=== PATIENT | female | born 1960 | race Two or more races ===

== ENCOUNTER 2021-08-12 10:11 | Emergency (ER) | payer OTHER, SELFPAY ==
--- NOTE | ~2021-08-12 | CT_ITS ---
EXAMINATION: CT HEAD WITHOUT CONTRAST CLINICAL INFORMATION: Trauma COMPARISON: CT head from 07/07/2019 TECHNIQUE: Contiguous axial imaging was performed from the skull base to vertex without intravenous administration of contrast. This CT examination was performed using dose optimization techniques as appropriate, variously including the following: *Automated exposure control *Adjustment of mA and/or kV according to patient size (this includes techniques or standardized protocols for targeted exams where dose is matched to indication/reason for exam; i.e. extremities or head) *Use of iterative reconstruction technique DLP: 1259 mGy-cm FINDINGS: There is no evidence of acute intracranial hemorrhage or territorial infarction. No abnormal mass effect or midline shift is seen. [place] to white matter differentiation is well preserved. No extra-axial fluid collections are identified. The ventricles are normal in size. There is no abnormal attenuation within the brain parenchyma. Soft tissue edema overlying the right frontal bone and midline without underlying bony defect. The osseous structures and soft tissues are normal. The mastoid air cells and visualized portions of the paranasal sinuses are well aerated. CT/CT cervical spine wo con IMPRESSION: 1. No acute intracranial pathology. 2. Soft tissue edema overlying the right frontal bone and midline without underlying bony defect. EXAMINATION: Noncontrast CT scan of the cervical spine. INDICATION: Trauma COMPARISON: CT cervical spine from 08/03/2019 TECHNIQUE: Helical, multidetector axial images were obtained from the occiput to the upper thorax. Coronal and sagittal reformats of the cervical spine were provided for interpretation. DLP: 1259 mGy-cm FINDINGS: No acute fractures or dislocations of the cervical spine are seen. Straightening of the normal cervical curvature which may be secondary to patient positioning versus muscle spasm. Mild multilevel degenerative changes. Anatomic alignment and positioning of the vertebral bodies and posterior elements is noted. The atlantoaxial joint and craniovertebral articulations are normal without evidence of subluxation. There is no prevertebral soft tissue swelling. The thyroid gland and visualized portions of the lung apices and mediastinum are unremarkable. IMPRESSION: 1. No acute visible fracture or dislocation. 2. Straightening of the normal cervical curvature which may be secondary to patient positioning versus muscle spasm. 3. Mild multilevel degenerative changes.
--- NOTE | 2021-08-12 10:21 | ED.HA ---
HPI - Headache General Chief Complaint: Head Injury Stated Complaint: HEADACHE S/P FALL 2 DAYS AGO Time Seen by Provider: 08/12/21 10:21 Source: patient Mode of arrival: EMS Limitations: no limitations History of Present Illness HPI Narrative: 60-year-old female presents from [facility] for headache after head trauma patient states that August 07 she took muscle relaxants, sleeping pills, cocaine, oxycodone, and went to sleep, woke up to use the bathroom, and fell down approximately 7 stairs hitting her head on the floor. Patient states she was dizzy, denies loss of consciousness. Was able to make it back into bed, and was admitted to [facility] August 09 for opiate detox. States for the last 3 days she has had a bad headache that is gradual in onset, and now is constant. The lights bother her, and she feels foggy. States the pain is now an 8/10. States she was told it was a sinusitis, but denies upper respiratory symptoms, nasal discharge. Patient states she has chronic nausea, no recent vomiting. Patient has no diabetic symptoms, no increased thirst, increased urination, increased hunger. per note from your [place], patient is discharged from [facility] and needs medical clearance with CT scan, and may call back for readmission once she is medically cleared. Patient is diabetic, and a past medical history includes fibromyalgia and depression. States her blood sugar usually runs 140. Related Data Allergies Allergy/AdvReac Type Severity Reaction Status Date / Time cephalexin [Keflex] Allergy Unknown Verified 05/09/19 00:00 From Keflex Allergy Severe ANAPHYLAXIS- Uncoded 11/21/19 15:12 SWELLING;PCN/AMOX TOLERATED Review of Systems Constitutional: Constitutional: Denies body ache(s), Denies chills, Denies fatigue, Denies fever(s), Reports headache(s), Denies malaise and Denies weakness Eyes: Eyes: Denies blurry vision, Denies change in vision and Denies diplopia ENT: Reports Normal hearing present, Denies vertigo, Reports dizziness, Denies otalgia, Reports headache(s), Denies mouth pain, Denies post nasal drip, Denies sinus pain, Denies sinus pressure, Denies sore throat and Denies throat swelling Cardiovascular: Cardiovascular: Denies chest pain, Denies syncope, Denies leg edema, Denies lightheadedness, Denies Loss of Consciousness, Denies palpitations and Denies dyspnea Respiratory: Respiratory: Denies chest congestion, Denies cough and Denies dyspnea Gastrointestinal: Gastrointestinal: Denies abdominal pain, Denies hematochezia, Denies constipation, Denies diarrhea, Reports nausea (chronic) and Denies vomiting Musculoskeletal: Musculoskeletal: Reports no additional musculoskeletal complaints Neurologic: Reports Normal hearing present, Denies Abnormal speech present, Denies confusion, Denies vertigo, Reports dizziness, Denies syncope, Reports headache(s), Denies Sensory deficit (Neuro) and Denies weakness Psychiatric: Psychiatric: Denies anxiety, Denies confusion and Denies depression Endocrine: Endocrine: Denies fatigue and Denies palpitations Allergic/Immunologic: Allergic/Immunologic: Denies throat swelling PMFSH Social History Social History Advance Directives: No Advance Directives Information Provided: No Physical Exam Vital Signs: Vital Signs: Last Vital Signs Temp 98.0 F 08/12/21 10:37 Pulse 72 08/12/21 10:37 Resp 16 08/12/21 10:37 BP 140/62 H 08/12/21 10:37 Pulse Ox 98 08/12/21 10:37 O2 Del Method 08/12/21 10:37 BMI result Body Mass Index 24.2 Const: General: No confusion Nutritional Appearance: well nourished Orientation/consciousness: patient oriented x3 and No confusion Limitations: no limitations HEENT: Head: Yes normal to inspection, Yes normocephalic and Yes atraumatic Ears: hearing grossly normal bilaterally, external ears normal, TM's normal bilaterally and EAC's normal General nose exam: Normal external nose present Face and sinus: Yes normal facial exam and Yes sinuses nontender Mouth: Normal oral and palatal mucosa present Throat: Yes posterior oropharynx normal Eyes: Conjunctivae: conjunctivae normal Pupils: Equal, round and reactive pupils present EOM: EOMs intact bilaterally and No Nystagmus present Neck: Neck: Yes full ROM, Yes no lymphadenopathy and Yes supple Resp: Effort & Inspection: normal respiratory effort and able to speak in complete sentences Auscultation: clear to auscultation bilaterally, no crackles, no rales, no rhonchi and no wheezes Cardio: Rate: regular rate Rhythm: regular rhythm Heart sounds: S1 normal heart sound present and S2 normal heart sound present GI: Inspection: Yes normal to inspection Palpation (GI): Soft to palpation, nontender, no guarding and not rigid Percussion: Yes normal to percussion Auscultation: normal bowel sounds Skin: General skin exam: no rashes or lesions noted Neuro: General: patient oriented x3, gait normal and No confusion Cranial nerves: Yes CN's II-XII intact bilaterally, Yes Facial sensation intact/muscles of mastication intact, Yes Equal, round and reactive pupils present, Yes Normal accommodation reflex present, Yes Bilaterally intact EOM present, Yes Nystagmus not present, Yes Normal facial strength present, Yes Midline tongue present, Yes Normal hearing present, Yes Ability to bilaterally rotate head present, Yes Ability to bilaterally elevate shoulders present and No Nystagmus present Cognition (Neuro): normal cognition Speech: No Abnormal speech present Gait exam (Neuro): Normal gait present Motor exam (neuro): 5/5 motor strength present throughout and Pronator motor function not present Sensory Exam: No Sensory deficit (Neuro) Deep tendon reflexes (DTR's): Right brachioradialis reflex intensity grade: 1+, Left brachioradialis reflex intensity grade: 1+, Right patellar reflex intensity grade: 1+ and Left patellar reflex intensity grade: 1+ Coordination: [id number] test normal, [id number] test normal and tandem gait normal Romberg Test: Negative Pupils: Normal pupillary reactivity/response: bilateral Extrem: General: Yes normal to inspection and Yes full ROM Psych: Appearance: grossly normal Affect: normal affect Attitude: cooperative Thought process: Normal thought process present Course Course Course Narrative: 60-year-old female here from [facility] for head trauma 5 days ago. Patient is at [facility] for opiate and stimulant use order. [facility] requires head CT for medical clearance for re-admission. On exam, vital signs are stable, blood pressure is normotensive,patient is complaining of 8/10 gradual onset headache, patient is completely neurological we intact, no cervical spine tenderness. Patient has mild tenderness bilaterally in her cervical neck muscles Blood sugar per EMS was 405. will get labs, give fluids, get head and neck CT. Treating headache with Reglan, Benadryl, Tylenol. Once patient is medically cleared, will consult care team for readmission back to [facility] Reevaluation(s) Reevaluation #1: after L of fluids, patient's blood sugar is 155. CBC and CMP are within normal limits, awaiting results of head CT Reevaluation #2: CT/CT head/brain wo con IMPRESSION: 1.? No acute intracranial pathology. 2.? Soft tissue edema overlying the right frontal bone and midline without underlying bony defect. IMPRESSION: 1.? No acute visible fracture or dislocation. 2.? Straightening of the normal cervical curvature which may be secondary to patient positioning versus muscle spasm. 3.? Mild multilevel degenerative changes. patient's headache is now a 09/12, will treat with ketorolac now that we know that there is no intracranial hemorrhage, will treat headache with ketorolac, and muscle spasm with Flexeril and discharge back to [facility] - Headache Lab Data Result diagrams: 08/12/21 11:09 08/12/21 11:10 Labs: Lab Results 08/12/21 08/12/21 08/12/21 Range/Units 11:09 11:10 13:59 WBC 6.5 (4.8-10.8) X10*3/uL RBC 4.20 (4.20-5.50) X10*6/uL Hgb 11.7 L (12.0-16.0) g/dl Hct 37.0 (37.0-47.0) % MCV 88.1 (80.0-98.0) fL MCH 27.9 (27.0-33.0) pg MCHC 31.6 (31.0-35.0) g/dl RDW 14.7 (11.0-16.0) % Plt Count 195 (160-400) X10*3/uL MPV 9.4 (9.4-12.3) fL Immature Gran % (Auto) 0.5 H (0.0-0.4) % Neut % (Auto) 55.1 (45-73) % Lymph % (Auto) 33.1 (20-40) % Angelina % (Auto) 9.1 (2-11) % Eos % (Auto) 1.7 (0-4) % Baso % (Auto) 0.5 (0-2) % Lymph # (Auto) 2.1 (1.2-4.9) X10*3/uL Angelina # (Auto) 0.6 (0.1-1.2) X10*3/uL Eos # (Auto) 0.1 (0.0-0.4) X10*3/uL Baso # (Auto) 0.0 (0.0-0.2) X10*3/uL Abs Immat Gran (auto) 0.03 (0.00-0.03) X10*3/uL Absolute Neuts (auto) 3.6 (2.0-8.3) x10*3/uL Absolute Nucleated RBC 0.000 (0.0-0.012) X10*3/uL Nucleated RBC % (auto) 0.0 (0.0-0.2) /100WBC Sodium 140 (135-145) mmol/L Potassium 3.7 (3.3-5.1) mmol/L Chloride 108 (96-108) mmol/L Carbon Dioxide 27 (22-29) mmol/L Anion Gap 9 L (12-20) BUN 14 (9-16) mg/dL Creatinine 0.90 (0.5-1.4) mg/dL Estim Creat Clear Calc 61.4 Estimated GFR > 60 POC Glucose 155 H (60-115) mg/dL Random Glucose 315 H (60-115) mg/dL Calcium 8.6 (8.4-10.2) mg/dL Total Bilirubin 0.3 (0.0-1.0) mg/dL AST 26 (5-31) U/L ALT 25 (0-31) U/L Alkaline Phosphatase 56 (39-117) U/L Total Protein 5.5 L (6.5-8.0) g/dL Albumin 3.6 (3.5-5.0) g/dL Discharge Plan Discharge Clinical Impression: Closed head injury, Hematoma, Cervical muscle strain, Concussion Patient Disposition: Home, Self-Care Instructions: Concussion (ED) Additional Instructions: your head CT and neck CT were negative. Please take Tylenol and ibuprofen. please return to emergency room for any new or concerning symptoms
[2021-08-12 10:37] VITALS: BP 140/62; BP 96/71; PULSE 72; PULSE 80; RESP 16; TEMP 36.7; O2SAT 100; O2SAT 98; BMI 24.2
[2021-08-12] MEDS: 0.9 % Sodium Chloride 1,000 ML 999 ML IV (11:08)
[2021-08-12] MEDS: Acetaminophen 325 MG TABLET 975 MG PO (11:12)
[2021-08-12 11:13] LABS: MANUAL DIFF FLAG NO
[2021-08-12 11:18] LABS: Basophils Percent Auto 0.5 % (0-2); Eosinophils Absolute Auto 0.1 X10*3/uL (0.0-0.4); Eosinophils Percent Auto 1.7 % (0-4); Hemoglobin 11.7 g/dl (12.0-16.0); Imm Gran Abs Auto 0.03 X10*3/uL (0.00-0.03); Imm Gran Pct Auto 0.5 % (0.0-0.4); Lymphocytes Absolute Auto 2.1 X10*3/uL (1.2-4.9); Lymphocytes Percent Auto 33.1 % (20-40); Mean Corpuscular HGB Conc 31.6 g/dl (31.0-35.0); Mean Corpuscular Hemoglobin 27.9 pg (27.0-33.0); Mean Corpuscular Volume 88.1 fL (80.0-98.0); Mean Platelet Volume 9.4 fL (9.4-12.3); Monocytes Absolute Auto 0.6 X10*3/uL (0.1-1.2); Monocytes Percent Auto 9.1 % (2-11); Neutrophils Absolute Auto 3.6 x10*3/uL (2.0-8.3); Neutrophils Percent Auto 55.1 % (45-73); Platelet Count 195 X10*3/uL (160-400); Red Cell Distribution Width 14.7 % (11.0-16.0); White Blood Count 6.5 X10*3/uL (4.8-10.8)
[2021-08-12] MEDS: diphenhydrAMINE HCL 50 MG/ML VIAL 25 MG IVPUSH (11:21)
[2021-08-12] MEDS: Metoclopramide HCl 10 MG/2 ML VIAL IVPUSH (11:21)
[2021-08-12 11:35] LABS: Alanine Aminotransferase 25 U/L (0-31); Albumin Level 3.6 g/dL (3.5-5.0); Alkaline Phosphatase 56 U/L (39-117); Anion Gap 9 (12-20); Aspartate Amino Transferase 26 U/L (5-31); Bilirubin Total 0.3 mg/dL (0.0-1.0); Blood Urea Nitrogen 14 mg/dL (9-16); Calcium 8.6 mg/dL (8.4-10.2); Carbon Dioxide 27 mmol/L (22-29); Chloride 108 mmol/L (96-108); Creatinine Clr Calc Pharmacy 61.4; Estimated Glomerular Filt Rate > 60; Glucose Random 315 mg/dL (60-115); Potassium 3.7 mmol/L (3.3-5.1); Sodium 140 mmol/L (135-145); Total Protein 5.5 g/dL (6.5-8.0)
[2021-08-12 14:03] LABS: Glucose, Whole Blood 155 mg/dL (60-115)
[2021-08-12] MEDS: Cyclobenzaprine HCl 10 MG TABLET PO (16:14)
[2021-08-12] MEDS: Ketorolac Tromethamine 15 MG/ML VIAL IM (16:15)
--- NOTE | 2021-08-12 16:21 | MHC.CARE ---
Janee from [facility] called to coordinate patient returning to detox, would like her at 5:15pm CARE Team to arrange LYFT
== END 2021-08-12 16:42 | disposition home or self-care (01) ==
PROVIDERS: Physician Assistant; Emergency Provider Emergency Medicine; PCP Nurse Practitioner Family
DX: S06.0X0A Concussion without loss of consciousness, initial encounter (principal); S00.83XA Contusion of other part of head, initial encounter; S16.1XXA Strain of muscle, fascia and tendon at neck level, initial encounter; W10.8XXA Fall (on) (from) other stairs and steps, initial encounter; R51.9 Headache, unspecified; Y93.89 Activity, other specified; Y92.9 Unspecified place or not applicable; Y99.9 Unspecified external cause status
CPT/HCPCS: 36415; 70450; 72125; 80053; 82947; 85025; 96361; 96372; 96374; 96375; 99284; J1200; J1885; J2765

== ENCOUNTER → 2021-10-04 14:45 | Outpatient (BNVA) | payer OTHER, SELFPAY | PROVIDERS: PCP Nurse Practitioner Family; Visit Provider Anesthesiology | DX: M79.7 Fibromyalgia (principal); M47.812 Spondylosis without myelopathy or radiculopathy, cervical region; M50.30 Other cervical disc degeneration, unspecified cervical region; M47.816 Spondylosis without myelopathy or radiculopathy, lumbar region; M51.36 Other intervertebral disc degeneration, lumbar region | CPT/HCPCS: 99202 ==

== ENCOUNTER 2021-10-20 13:07 | Outpatient (REF) | payer OTHER, SELFPAY ==
--- NOTE | ~2021-10-20 | MR_ITS ---
EXAMINATION: MR CERVICAL SPINE WITHOUT CONTRAST CLINICAL INFORMATION: Prior fall and concussion with neck pain. Right arm pain. COMPARISON: CT cervical spine from 08/12/2021. TECHNIQUE: MRI of the cervical spine was obtained using routine sequences without contrast. FINDINGS: VERTEBRAL BODIES AND PARASPINAL SOFT TISSUES: The marrow signal is homogeneous. There are no compression fractures. Mild posterior subluxation and moderate loss of disc height evident at the C5-C6 level with endplate spurring. No marrow edematous changes are visible. The paraspinal soft tissues are normal. The vertebral artery flow-voids are maintained. The imaged lung apices are clear. CERVICOMEDULLARY JUNCTION AND VISUALIZED POSTERIOR FOSSA: The craniovertebral junction and imaged portions of the brain parenchyma appear normal. No cord signal abnormality or syrinx is seen. SPINAL LEVELS: C2-C3: No significant disc pathology. No central canal stenosis or foraminal narrowing. C3-C4: Minimal disc bulge without central canal stenosis or foraminal encroachment. C4-C5: Central disc protrusion distorts the ventral cord without intramedullary signal change. Mild central canal stenosis. No significant foraminal narrowing. C5-C6: Moderate loss of disc height with posterior ligamentous thickening and a shallow central disc protrusion superimposed upon a disc-osteophyte complex. Moderate central canal stenosis and [id number] cord distortion without intramedullary signal change. Mild foraminal narrowing. C6-C7: Broad-based left paracentral disc protrusion moderately distorts the cord. Thickening of the ligamentum flavum posteriorly as well with moderate central canal stenosis. Patent foramina. C7-T1: No disc pathology. Moderate left-sided facet arthrosis. Patent foramina. MR/MR cervical spine wo con IMPRESSION: Central disc protrusion distorting the ventral cord at the C4-C5 level with mild central canal stenosis. Moderate spondylosis at the C5-C6 level with a central disc protrusion and disc-osteophyte complex in conjunction with thickening of the ligamentum flavum. Findings result in moderate central canal stenosis and cord distortion. Broad-based left paracentral disc protrusion moderately distorting the cord without signal change at the C6-C7 level. Moderate central canal stenosis.
== END 2021-10-20 13:08 | disposition home or self-care (01) ==
LOC: HO.MRI 13:07
PROVIDERS: Visit Provider Anesthesiology
DX: M47.812 Spondylosis without myelopathy or radiculopathy, cervical region (principal); M50.30 Other cervical disc degeneration, unspecified cervical region
CPT/HCPCS: 72141

== ENCOUNTER → 2021-11-03 14:10 | Outpatient (BNVA) | payer OTHER, SELFPAY | PROVIDERS: PCP Nurse Practitioner Family; Visit Provider Anesthesiology | DX: M79.7 Fibromyalgia (principal); M47.812 Spondylosis without myelopathy or radiculopathy, cervical region; M50.30 Other cervical disc degeneration, unspecified cervical region; M47.816 Spondylosis without myelopathy or radiculopathy, lumbar region; M51.36 Other intervertebral disc degeneration, lumbar region | CPT/HCPCS: 99212 ==

== ENCOUNTER 2021-12-07 06:03 | Outpatient (REF) | payer OTHER, SELFPAY ==
--- NOTE | ~2021-12-07 | FL_ITS ---
EXAMINATION: XR FLUOROSCOPY WITH IMAGES CLINICAL INFORMATION: M50.30 - Other cervical disc degeneration, unspecified cervical region. COMPARISON: None. TECHNIQUE: Fluoroscopy performed by Dr. Nael Pack. Fluoroscopy time: 0.3 minutes. Cumulative Dose: 8.06 mGy. DAP: 1.53 Gy-cm2. Images: 1. FINDINGS: Spot view shows a spinal needle overlying the lower cervical region. Bony detail is limited on the single image. FL/FL guidance in treatment room IMPRESSION: Fluoroscopy for pain management procedure.
== END 2021-12-07 06:04 | disposition home or self-care (01) ==
LOC: CF 06:03
PROVIDERS: Visit Provider Anesthesiology
DX: M50.30 Other cervical disc degeneration, unspecified cervical region (principal); M47.22 Other spondylosis with radiculopathy, cervical region
CPT/HCPCS: 62321; J1100

== ENCOUNTER 2022-02-12 19:46 | Emergency (ER) | payer OTHER, SELFPAY ==
[2022-02-12 19:56] VITALS: BP 152/96; PULSE 80; O2SAT 97; BMI 29.9
--- NOTE | 2022-02-12 20:00 | ED.GENADULT ---
HPI - General Adult General Chief complaint: General Medical Stated complaint: Flu like Symptoms/Hyperklycemic Time Seen by Provider: 02/12/22 19:59 Source: patient Mode of arrival: EMS Limitations: no limitations History of Present Illness HPI narrative: 61-year-old female who presents emergency department for evaluation of ?not feeling well ?. She states that she started to feel ill around 18:00. She developed sweats, shortness of breath, nausea myalgias arthralgias. She states that her sugars were very high and she had urinary frequency and some dysuria as well. She denied fever or chills. She denied rhinorrhea, sore throat, cough or chest pain. She denied diarrhea, dark tarry stools or bloody stools. Patient was brought to the Urgent over by ambulance. She had nausea with dry heaves and was given Zofran 4 mg IV. Related Data Home Medications Medication Instructions Recorded Confirmed amitriptyline 10 mg tablet 10 mg PO BEDTIME 10/04/21 amlodipine 10 mg tablet 10 mg PO DAILY 10/04/21 aspirin 81 mg tablet,delayed 81 mg PO DAILY 10/04/21 release baclofen 20 mg tablet 20 mg PO TID 10/04/21 bupropion HCl 150 mg 24 hr tablet, 150 mg PO DAILY PRN 10/04/21 extended release duloxetine 60 mg capsule,delayed 60 mg PO QAM 10/04/21 release empagliflozin 10 mg tablet 10 mg PO DAILY 10/04/21 (Jardiance) ibuprofen 600 mg tablet 1,200 mg PO BID 10/04/21 losartan 100 mg tablet 100 mg PO DAILY 10/04/21 melatonin 5 mg tablet 5 mg PO BEDTIME 10/04/21 metformin 500 mg tablet,extended 1,000 mg PO BID 10/04/21 release 24 hr metoprolol succinate 100 mg 100 mg PO DAILY 10/04/21 tablet,extended release 24 hr omeprazole 20 mg capsule,delayed 20 mg PO DAILY 10/04/21 release rosuvastatin 20 mg tablet 20 mg PO BEDTIME 10/04/21 sennosides 8.6 mg tablet (senna) 17.2 mg PO DAILY 10/04/21 trazodone 50 mg tablet 50 mg PO BEDTIME 10/04/21 dulaglutide 4.5 mg/0.5 mL mg subcut 12/07/21 subcutaneous pen injector (Trulicity) empagliflozin 25 mg tablet 25 mg PO DAILY 12/07/21 (Jardiance) fluticasone propionate 110 2 puff inhalation BID 12/07/21 mcg/actuation HFA aerosol inhaler (Flovent HFA) Previous Rx's Medication Instructions Recorded gabapentin 400 mg capsule 400 mg PO TID 30 days #90 caps 10/04/21 ondansetron 4 mg disintegrating 4 mg PO Q6-8H PRN nausea and 02/12/22 tablet vomiting #14 tabs Allergies Allergy/AdvReac Type Severity Reaction Status Date / Time cephalexin [Keflex] Allergy Unknown Anaphylaxis Verified 12/07/21 11:11 From Keflex Allergy Severe ANAPHYLAXIS- Uncoded 11/03/21 14:25 SWELLING;PCN/AMOX TOLERATED Review of Systems Review of Systems: Yes all other systems are reviewed and are negative [facility] Past Medical History [facility] Narrative: Social history: The patient smokes 1 pack of cigarettes per day times 47 years. The patient denies alcohol use. The patient denies drug use. Medical History Carpal tunnel syndrome Cigarette nicotine dependence without complication Depression Diabetes mellitus type 2, uncomplicated Epigastric pain Fatty infiltration of liver Fibroids Fibromyalgia Hyperlipemia Hypertension Memory loss Pancreatitis Wrist pain Surgical History H/O breast biopsy Social History Social History Smoked in Last 30 Days: Yes Use of substances other than those prescribed or required for medical reasons: No Advance Directives: No Advance Directives Information Provided: No Patient : No Physical Exam ED Vital Signs: Vital Signs - 24 hr 02/12/22 20:05 Pulse Rate 76 Respiratory Rate 18 Blood Pressure 130/69 Pulse Oximetry 96 Oxygen Delivery Method Room Air BMI result Body Mass Index 29.9 Const Other: Awake, alert female patient, the patient does have vomit on her shirt, she also is dry heaving. She answers questions appropriately. HENWI Head: Yes normal to inspection, Yes normocephalic and Yes atraumatic Ears: external ears normal General nose exam: Normal external nose present Face and sinus: Yes normal facial exam Mouth: Normal oral and palatal mucosa present Throat: Yes posterior oropharynx normal Eyes General: appearance normal, both eyes and all related structures Pupils: Equal, round and reactive pupils present Neck Neck: Yes normal visual inspection, Yes no lymphadenopathy, Yes trachea midline and Yes supple Chest Chest palpation & inspection: normal inspection of the chest and normal palpation of entire chest wall Resp Effort & Inspection: normal respiratory effort and able to speak in complete sentences Auscultation: clear to auscultation bilaterally Cardio Rate: regular rate Rhythm: regular rhythm Heart sounds: S1 normal heart sound present, S2 normal heart sound present and no murmurs GI Inspection: Yes normal to inspection Palpation (GI): Soft to palpation, nontender and no guarding Auscultation: normal bowel sounds General: Yes no CVA tenderness Back/Spine/Pelvis Back: no CVA tenderness Skin General skin exam: no rashes or lesions noted Neuro Cranial nerves: Yes CN's II-XII intact bilaterally and Yes Equal, round and reactive pupils present Cognition (Neuro): normal cognition Motor exam (neuro): 5/5 motor strength present throughout Extrem General: Yes normal to inspection Psych Appearance: grossly normal Speech and movement: Normal speech and movement present Affect: normal affect Attitude: cooperative Thought process: Normal thought process present Thought content: Normal thought content present Course Course Course Narrative: 61-year-old female who presents emergency department for evaluation of viral-like illness with symptoms beginning around 18:00 hours. Patient complained of sweats, shortness of breath, nausea and vomiting, frequency, dysuria, myalgias and arthralgias. The patient states she has been vaccinated against COVID-19 but did not get her influenza vaccine. Vital signs were normal. Physical examination was unremarkable. I ordered a CBC, CMP, lipase, urinalysis, COVID-19 and influenza. Patient was ordered to get normal saline IV x1 L, Reglan 10 mg IV and Benadryl 50 mg IV. 22:10: Laboratory evaluation: WBC elevated 13,000. Glucose elevated 370. AST and ALT elevated 65 and 82. RSV, COVID and influenza negative. Urinalysis positive for glucose only. This time I suspect the patient has a viral illness which is caused her symptoms. The patient's family was here in the emergency department as well in told me that the patient was very weak and was passing out. The patient told me that she was taking Trulicity 4.5 mg but had to be decreased to 3.0 mg because of a national shortage which caused the patient's glucose to be very high over the past week. Patient's glucose was greater than 400. The patient states she cannot use short-acting insulin since she does not eat food on a regular basis into long-acting insulin 22:23: Patient's point of care glucose came down to 320. Patient was ordered to get a 2 L of lactated Ringer's and 5 units of regular insulin IV. We will repeat the patient's point of care glucose in 1 hour if it has improved she will be discharged home. Medications Administered Discontinued Medications Generic Name Dose Route Start Last Admin Trade Name Rylandq PRN Reason Stop Dose Admin Diphenhydramine HCl 50 mg 02/12/22 20:14 02/12/22 20:36 Diphenhydramine Hcl 50 Mg/Ml Vial IVPUSH 02/12/22 20:15 50 mg ONCE STA Administration Sodium Chloride 1,000 mls @ 999 mls/hr 02/12/22 20:14 02/12/22 20:35 Ns IV 02/12/22 21:14 999 mls/hr .Q1H1M STA Administration Metoclopramide HCl 10 mg 02/12/22 20:14 02/12/22 20:36 Metoclopramide Hcl 10 Mg/2 Ml Vial IVPUSH 02/12/22 20:15 10 mg ONCE STA Administration Discharge Plan Discharge Clinical Impression: Acute hyperglycemia, Viral syndrome, Vomiting, Acute dehydration Patient Disposition: Still a Patient Instructions: Viral Syndrome (ED) Additional Instructions: Your blood work did reveal an elevated glucose of 370 otherwise was unremarkable. Your COVID-19, influenza and RSV tests were negative. At this time I suspect that you have a viral infection which is causing her nausea and vomiting. Also, I think that your very dehydrated from having high glucose values over the last several days. Take Zofran ODT 4 mg pills, 1 pill dissolved in your mouth every 8 hours as needed for nausea and vomiting. Increase your fluid intake to help prevent dehydration. Contact your primary care doctor to discuss restarting her Lantus since your glucose numbers seem to be out of control with the lower dose of Trulicity. Follow-up with your doctor in 2 days. Please return to the emergency department if your symptoms get worse or if you develop any symptoms that are concerning to you. Prescriptions: New ondansetron 4 mg tablet,disintegrating 4 mg PO Q6-8H PRN (Reason: nausea and vomiting) Qty: 14 0RF No Action amlodipine 10 mg tablet 10 mg PO DAILY aspirin 81 mg tablet,delayed release (DR/EC) 81 mg PO DAILY ibuprofen 600 mg tablet 1,200 mg PO BID bupropion HCl 150 mg tablet extended release 24 hr 150 mg PO DAILY PRN duloxetine 60 mg capsule,delayed release(DR/EC) 60 mg PO QAM losartan 100 mg tablet 100 mg PO DAILY metformin 500 mg tablet extended release 24 hr 1,000 mg PO BID metoprolol succinate 100 mg tablet extended release 24 hr 100 mg PO DAILY omeprazole 20 mg capsule,delayed release(DR/EC) 20 mg PO DAILY rosuvastatin 20 mg tablet 20 mg PO BEDTIME sennosides [senna] 8.6 mg tablet 17.2 mg PO DAILY Jardiance 10 mg tablet 10 mg PO DAILY baclofen 20 mg tablet 20 mg PO TID amitriptyline 10 mg tablet 10 mg PO BEDTIME melatonin 5 mg tablet 5 mg PO BEDTIME trazodone 50 mg tablet 50 mg PO BEDTIME gabapentin 400 mg capsule 400 mg PO TID 30 Days Qty: 90 5RF Trulicity 4.5 mg/0.5 mL pen injector subcut fluticasone propionate [Flovent HFA] 110 mcg/actuation HFA aerosol inhaler 2 puff inhalation BID Jardiance 25 mg tablet 25 mg PO DAILY
[2022-02-12 20:05] VITALS: BP 130/69; PULSE 76; RESP 18; O2SAT 96
[2022-02-12] MEDS: 0.9 % Sodium Chloride 1,000 ML 999 ML IV (20:35)
[2022-02-12] MEDS: diphenhydrAMINE HCL 50 MG/ML VIAL IVPUSH (20:36)
[2022-02-12] MEDS: Metoclopramide HCl 10 MG/2 ML VIAL IVPUSH (20:36)
[2022-02-12 20:51] LABS: MANUAL DIFF FLAG NO
[2022-02-12 20:53] LABS: Basophils Percent Auto 0.2 % (0-2); Eosinophils Absolute Auto 0.1 X10*3/uL (0.0-0.4); Eosinophils Percent Auto 0.7 % (0-4); Hematocrit 39.2 % (37.0-47.0); Hemoglobin 12.8 g/dl (12.0-16.0); Imm Gran Abs Auto 0.07 X10*3/uL (0.00-0.03); Imm Gran Pct Auto 0.5 % (0.0-0.4); Lymphocytes Absolute Auto 2.8 X10*3/uL (1.2-4.9); Lymphocytes Percent Auto 21.6 % (20-40); Mean Corpuscular HGB Conc 32.7 g/dl (31.0-35.0); Mean Corpuscular Hemoglobin 27.5 pg (27.0-33.0); Mean Corpuscular Volume 84.3 fL (80.0-98.0); Mean Platelet Volume 9.7 fL (9.4-12.3); Monocytes Absolute Auto 0.6 X10*3/uL (0.1-1.2); Monocytes Percent Auto 4.6 % (2-11); Neutrophils Absolute Auto 9.4 x10*3/uL (2.0-8.3); Neutrophils Percent Auto 72.4 % (45-73); Platelet Count 272 X10*3/uL (160-400); Red Blood Count 4.65 X10*6/uL (4.20-5.50)
[2022-02-12 21:09] LABS: COVID-19 Test Negative (Negative)
[2022-02-12 21:11] LABS: IDNOW Serial# 55D5AD1C; Influenza A Negative (Negative); Influenza B2 Negative (Negative)
[2022-02-12 21:16] LABS: Alanine Aminotransferase 82 U/L (0-31); Albumin Level 4.4 g/dL (3.5-5.0); Alkaline Phosphatase 87 U/L (39-117); Anion Gap 14 (12-20); Aspartate Amino Transferase 65 U/L (5-31); Blood Urea Nitrogen 12 mg/dL (9-16); Calcium 9.3 mg/dL (8.4-10.2); Carbon Dioxide 26 mmol/L (22-29); Chloride 104 mmol/L (96-108); Creatinine Clr Calc Pharmacy 60.5; Estimated Glomerular Filt Rate > 60; Ethanol < 10 mg/dL; Glucose Random 370 mg/dL (60-115); Lipase 73 U/L (8-78); Potassium 4.7 mmol/L (3.3-5.1); Sodium 139 mmol/L (135-145); Total Protein 6.6 g/dL (6.5-8.0)
[2022-02-12 22:16] LABS: Glucose, Whole Blood 321 mg/dL (60-115)
[2022-02-12] MEDS: Insulin Regular, Human 100 UNIT/ML 3 ML VIAL IVPUSH (22:33)
[2022-02-12] MEDS: Lactated Ringers 1,000 ML 999 ML IV (22:38)
[2022-02-12 23:17] LABS: Bilirubin Total 0.5 mg/dL (0.0-1.0)
[2022-02-13 00:03] LABS: Glucose, Whole Blood 242 mg/dL (60-115)
[2022-02-13 00:26] VITALS: BP 127/67; PULSE 87; RESP 16; TEMP 36.6; O2SAT 97
--- NOTE | 2022-02-13 01:53 | PC.NURSE ---
Discharge instructions reviewed with pt. Pt verbalizes understanding.
== END 2022-02-13 01:54 | disposition still patient (30) ==
PROVIDERS: Emergency Provider Emergency Medicine Emergency Medical Services
DX: E11.65 Type 2 diabetes mellitus with hyperglycemia (principal); B34.9 Viral infection, unspecified; R11.2 Nausea with vomiting, unspecified; E86.0 Dehydration; Z20.822 Contact with and (suspected) exposure to COVID-19; I10 Essential (primary) hypertension; E78.5 Hyperlipidemia, unspecified; F17.210 Nicotine dependence, cigarettes, uncomplicated; Z79.82 Long term (current) use of aspirin; Z79.899 Other long term (current) drug therapy; Z79.84 Long term (current) use of oral hypoglycemic drugs; Z79.02 Long term (current) use of antithrombotics/antiplatelets; Z79.85 Long-term (current) use of injectable non-insulin antidiabetic drugs
CPT/HCPCS: 80053; 82077; 82947; 83690; 85025; 87502; 87635; 96361; 96374; 96375; 99284; J1200; J2765

== ENCOUNTER 2022-07-09 06:59 | Emergency (ER) | payer OTHER, SELFPAY ==
--- NOTE | ~2022-07-09 | XR_ITS ---
EXAMINATION: XR HAND, LEFT CLINICAL INFORMATION: Left hand pain after fall COMPARISON: None available. TECHNIQUE: PA, lateral, and oblique views of the left hand. FINDINGS: There are minimally displaced mid third and fourth metacarpal fractures. No additional fracture seen. There is osteopenia. Moderate dorsal hand soft tissue swelling is seen. XR/XR hand LT min 3V IMPRESSION: 1. Minimally displaced mid third and fourth metacarpal fractures with moderate dorsal hand soft tissue swelling. 2. There is osteopenia.
[2022-07-09 07:19] VITALS: BP 132/96; PULSE 73; RESP 16; TEMP 36.1; O2SAT 98; BMI 28.1
--- NOTE | 2022-07-09 08:03 | ED_ITS ---
HPI - Fall General Chief Complaint: Fall Stated Complaint: Fell hurt left hand Time Seen by Provider: 07/09/22 07:41 Source: patient Mode of arrival: ambulatory Limitations: no limitations History of Present Illness HPI Narrative: This is 61 years old female presented to the emergency department complaining of left hand pain and swelling she states that she fell yesterday, tripped and fell. He denies any other injuries a chest neck pain headache chest wall pain abdominal pain MD complaint: fall Onset (ago): day(s) (1) Fall from: standing Place fall occurred: home Loss of consciousness: none Context: tripped/slipped Location of injury - extremities: left: hand (swelling/pain) Quality: dull Related Data Home Medications Medication Instructions Recorded Confirmed amitriptyline 10 mg tablet 10 mg PO BEDTIME 10/04/21 amlodipine 10 mg tablet 10 mg PO DAILY 10/04/21 aspirin 81 mg tablet,delayed 81 mg PO DAILY 10/04/21 release baclofen 20 mg tablet 20 mg PO TID 10/04/21 bupropion HCl 150 mg 24 hr tablet, 150 mg PO DAILY PRN 10/04/21 extended release duloxetine 60 mg capsule,delayed 60 mg PO QAM 10/04/21 release empagliflozin 10 mg tablet 10 mg PO DAILY 10/04/21 (Jardiance) ibuprofen 600 mg tablet 1,200 mg PO BID 10/04/21 losartan 100 mg tablet 100 mg PO DAILY 10/04/21 melatonin 5 mg tablet 5 mg PO BEDTIME 10/04/21 metformin 500 mg tablet,extended 1,000 mg PO BID 10/04/21 release 24 hr metoprolol succinate 100 mg 100 mg PO DAILY 10/04/21 tablet,extended release 24 hr omeprazole 20 mg capsule,delayed 20 mg PO DAILY 10/04/21 release rosuvastatin 20 mg tablet 20 mg PO BEDTIME 10/04/21 sennosides 8.6 mg tablet (senna) 17.2 mg PO DAILY 10/04/21 trazodone 50 mg tablet 50 mg PO BEDTIME 10/04/21 dulaglutide 4.5 mg/0.5 mL mg subcut 12/07/21 subcutaneous pen injector (Trulicity) empagliflozin 25 mg tablet 25 mg PO DAILY 12/07/21 (Jardiance) fluticasone propionate 110 2 puff inhalation BID 12/07/21 mcg/actuation HFA aerosol inhaler (Flovent HFA) Previous Rx's Medication Instructions Recorded ondansetron 4 mg disintegrating 4 mg PO Q6-8H PRN nausea and 02/12/22 tablet vomiting #14 tabs gabapentin 400 mg capsule 400 mg PO TID 30 days #90 caps 03/09/22 oxycodone 5 mg capsule 5 mg PO Q8H PRN pain #12 caps 07/09/22 Allergies Allergy/AdvReac Type Severity Reaction Status Date / Time cephalexin [Keflex] Allergy Unknown Anaphylaxis Verified 07/09/22 07:24 From Keflex Allergy Severe ANAPHYLAXIS- Uncoded 11/03/21 14:25 SWELLING;PCN/AMOX TOLERATED Review of Systems Constitutional: Constitutional: Reports no additional constitutional complaints Cardiovascular: Cardiovascular: Reports no additional cardiovascular complaints Musculoskeletal: Musculoskeletal: Reports no additional musculoskeletal complaints PMFSH Past Medical History Medical History Carpal tunnel syndrome Cigarette nicotine dependence without complication Depression Diabetes mellitus type 2, uncomplicated Epigastric pain Fatty infiltration of liver Fibroids Fibromyalgia Hyperlipemia Hypertension Memory loss Pancreatitis Wrist pain Surgical History H/O breast biopsy Social History Social History Advance Directives: No Advance Directives Information Provided: Yes Physical Exam Vital Signs: Vital Signs: Last Vital Signs Temp 97 F 07/09/22 07:19 Pulse 73 07/09/22 07:19 Resp 16 07/09/22 07:19 BP 132/96 H 07/09/22 07:19 Pulse Ox 98 07/09/22 07:19 O2 Del Method Room Air 07/09/22 07:19 BMI result Body Mass Index 28.1 Const: General: cooperative and well developed Nutritional Appearance: well nourished HEENT: Head: Yes normal to inspection General nose exam: Normal external nose present Face and sinus: Yes normal facial exam Mouth: Normal oral and palatal mucosa present Neck: Neck: Yes normal visual inspection and Yes full ROM Chest: Chest palpation & inspection: normal inspection of the chest Resp: Effort & Inspection: normal respiratory effort Auscultation: clear to auscultation bilaterally Cardio: Jugular venous distension: no JVD Rate: regular rate Rhythm: regular rhythm GI: Inspection: Yes normal to inspection Palpation (GI): Soft to palpation, not firm, nontender and no guarding Skin: General skin exam: no rashes or lesions noted and elasticity normal Lesions: no lesions Rashes: no rashes Extrem: Other: There is tenderness and swelling over the dorsal aspect of the left hand, she has good radial pulse Procedures Orthopedic Splinting/Casting Injury #1: Side: left Upper Extremity Injury Location: hand Upper Extremity Immobilizer: volar splint Additional Comments: Splint applyed by ER ANA under my supervision,I checked circulation at the end of splint OK Medical Decision Making Medical Decision Making MDM Narrative: Patient presented with left hand swelling tenderness, will get x-ray and reassess Differential Diagnosis Differential Diagnoses: The differential diagnosis associated with the presentation includes Contusion/fracture Admission/Observation Consideration of admission/observation: Escalation of care including admission/observation considered Independent Interpretation I performed an independent interpretation of an: Plain X-Ray Interpretation: X-ray was interpreted by me fracture of the 3rd to 4th metacarpal bone Radiology Impression Discussion of test interpretation with radiology: I have reviewed the radiolog ist's reading. Radiologist Impression: EXAMINATION: XR HAND, LEFT CLINICAL INFORMATION: Left hand pain after fall? COMPARISON: None available.? TECHNIQUE: PA, lateral, and oblique views of the left hand. FINDINGS: There are minimally displaced mid third and fourth metacarpal fractures. No additional fracture seen. There is osteopenia. Moderate dorsal hand soft tissue swelling is seen.? XR/XR hand LT min 3V IMPRESSION: 1.? Minimally displaced mid third and fourth metacarpal fractures with moderate dorsal hand soft tissue swelling. 2.? There is osteopenia. ? Dictated By: Nathaniel Silva MD Signed By: <Electronically signed by Nathaniel Silva MD in OV> 07/09/22 0731 Prescription Management I considered prescription management with: Pain Medication Discharge Plan Discharge Clinical Impression: Fracture of hand Patient Disposition: Home, Self-Care Instructions: Hand Fracture (ED) Additional Instructions: Follow-up with orthopedic surgeon you of fracture of the hand keep you splint on Prescriptions: New oxycodone 5 mg capsule 5 mg PO Q8H PRN (Reason: pain) Qty: 12 0RF Rx Instructions: Partial Fill upon patient request. No Action gabapentin 400 mg capsule 400 mg PO TID 30 Days Qty: 90 5RF ondansetron 4 mg tablet,disintegrating 4 mg PO Q6-8H PRN (Reason: nausea and vomiting) Qty: 14 0RF amlodipine 10 mg tablet 10 mg PO DAILY aspirin 81 mg tablet,delayed release (DR/EC) 81 mg PO DAILY ibuprofen 600 mg tablet 1,200 mg PO BID bupropion HCl 150 mg tablet extended release 24 hr 150 mg PO DAILY PRN duloxetine 60 mg capsule,delayed release(DR/EC) 60 mg PO QAM losartan 100 mg tablet 100 mg PO DAILY metformin 500 mg tablet extended release 24 hr 1,000 mg PO BID metoprolol succinate 100 mg tablet extended release 24 hr 100 mg PO DAILY omeprazole 20 mg capsule,delayed release(DR/EC) 20 mg PO DAILY rosuvastatin 20 mg tablet 20 mg PO BEDTIME sennosides [senna] 8.6 mg tablet 17.2 mg PO DAILY Jardiance 10 mg tablet 10 mg PO DAILY baclofen 20 mg tablet 20 mg PO TID amitriptyline 10 mg tablet 10 mg PO BEDTIME melatonin 5 mg tablet 5 mg PO BEDTIME trazodone 50 mg tablet 50 mg PO BEDTIME Trulicity 4.5 mg/0.5 mL pen injector subcut fluticasone propionate [Flovent HFA] 110 mcg/actuation HFA aerosol inhaler 2 puff inhalation BID Jardiance 25 mg tablet 25 mg PO DAILY Referrals: Maciel Lopez MD [Physician] - 3 days
[2022-07-09] MEDS: oxyCODONE HCl Immed Release 5 MG TABLET PO (08:29)
[2022-07-09 08:31] VITALS: BP 138/68; PULSE 91; RESP 18; TEMP 36.7; O2SAT 99
--- NOTE | 2022-07-09 08:33 | PC.NURSE ---
Alert and oriented x 3. Splint placed per order. Able to move fingers. Medicated per order for 9/10 complaints wrist pain. Discharge instructions reviewed with.
== END 2022-07-09 08:35 | disposition home or self-care (01) ==
PROVIDERS: Emergency Provider Emergency Medicine
DX: S62.303A Unspecified fracture of third metacarpal bone, left hand, initial encounter for closed fracture (principal); S62.305A Unspecified fracture of fourth metacarpal bone, left hand, initial encounter for closed fracture; W01.0XXA Fall on same level from slipping, tripping and stumbling without subsequent striking against object, initial encounter; Z79.82 Long term (current) use of aspirin; Z79.899 Other long term (current) drug therapy; Z79.84 Long term (current) use of oral hypoglycemic drugs; Y93.9 Activity, unspecified; Y92.019 Unspecified place in single-family (private) house as the place of occurrence of the external cause; Y99.9 Unspecified external cause status
CPT/HCPCS: 29125; 73130; 99283

== ENCOUNTER 2022-07-19 07:40 | Outpatient (REF) | payer OTHER, SELFPAY ==
--- NOTE | ~2022-07-19 | XR_ITS ---
EXAMINATION: XR HAND, LEFT CLINICAL INFORMATION: Fracture COMPARISON: Previous x-ray 07/09/2022 TECHNIQUE: PA, lateral, and oblique views of the left hand. FINDINGS: There are recent appearing fractures of the shafts of the third and fourth metacarpal bones. These appear unchanged from 07/09/2022 exam. The bones are osteopenic. Joint spaces are normal. Soft tissues are normal. XR/XR hand LT min 3V IMPRESSION: No change in fractures of the third fourth metacarpal bones from 07/09/2022.
== END 2022-07-19 07:41 | disposition home or self-care (01) ==
LOC: HO.HOSX 07:40
PROVIDERS: Visit Provider Orthopaedic Surgery
DX: S62.323A Displaced fracture of shaft of third metacarpal bone, left hand, initial encounter for closed fracture (principal); S62.325A Displaced fracture of shaft of fourth metacarpal bone, left hand, initial encounter for closed fracture
CPT/HCPCS: 26600; 73130; 99202

== ENCOUNTER → 2022-07-27 14:09 | Outpatient (BNVA) | payer OTHER, SELFPAY | PROVIDERS: Visit Provider Surgery ==

== ENCOUNTER 2022-08-09 07:38 | Outpatient (REF) | payer OTHER, SELFPAY | END 2022-08-09 07:39 | disposition home or self-care (01) | LOC: HO.HOSX 07:38 | PROVIDERS: Visit Provider Orthopaedic Surgery | DX: Z13.89 Encounter for screening for other disorder (principal) ==

== ENCOUNTER → 2022-12-16 14:15 | Outpatient (BNVA) | payer OTHER, SELFPAY | PROVIDERS: PCP Family Medicine; Visit Provider Physician Assistant Medical | DX: F17.210 Nicotine dependence, cigarettes, uncomplicated (principal) | CPT/HCPCS: G0296 ==

== ENCOUNTER 2023-02-04 22:17 | Emergency (ER) | payer OTHER, SELFPAY ==
--- NOTE | 2023-02-04 | ECG_ITS ---
Test Reason : CHEST PAIN Blood Pressure : / mmHG Vent. Rate : 071 BPM Atrial Rate : 071 BPM P-R Int : 174 ms QRS Dur : 080 ms QT Int : 392 ms P-R-T Axes : 040 028 014 degrees QTc Int : 425 ms Normal sinus rhythm Normal ECG When compared with ECG of 18-NOV-2017 20:14, No significant change was found Referred By: Generic ED Physician Electronically Signed By:LACIE MCKAY MD
--- NOTE | ~2023-02-04 | XR_ITS ---
EXAMINATION: XR CHEST CLINICAL INFORMATION: Status post fall. COMPARISON: Chest radiograph 12/24/2017. TECHNIQUE: 2 views of the chest were obtained. FINDINGS: Normal appearance of the cardiomediastinal silhouette. Minimal subsegmental atelectasis in the left lower lobe. No focal infiltrates, pleural effusions or pneumothorax. No displaced rib fractures. No acute osseous findings. XR/XR chest 2V IMPRESSION: 1. No acute cardiopulmonary findings. 2. No displaced rib fractures.
--- NOTE | ~2023-02-04 | XR_ITS ---
EXAMINATION: XR SHOULDER, RIGHT CLINICAL INFORMATION: Fall. COMPARISON: Chest radiograph 12/24/2017. TECHNIQUE: Three views of the right shoulder. FINDINGS: The bones and soft tissues are normal. No fracture. Glenohumeral and acromioclavicular alignment is anatomic with normal joint space. No abnormal soft tissue calcifications. XR/XR shoulder RT min 2V IMPRESSION: Normal right shoulder.
[2023-02-04 22:20] VITALS: BP 155/61; PULSE 73; RESP 18; TEMP 36.3; O2SAT 99; BMI 29.9
[2023-02-04 22:54] LABS: MANUAL DIFF FLAG NO
[2023-02-04 22:55] LABS: Basophils Percent Auto 0.2 % (0-2); Eosinophils Absolute Auto 0.2 X10*3/uL (0.0-0.4); Eosinophils Percent Auto 1.7 % (0-4); Hemoglobin 11.9 g/dl (12.0-16.0); Imm Gran Abs Auto 0.05 X10*3/uL (0.00-0.03); Imm Gran Pct Auto 0.4 % (0.0-0.4); Lymphocytes Absolute Auto 3.1 X10*3/uL (1.2-4.9); Lymphocytes Percent Auto 25.8 % (20-40); Mean Corpuscular HGB Conc 33.1 g/dl (31.0-35.0); Mean Corpuscular Hemoglobin 27.9 pg (27.0-33.0); Mean Corpuscular Volume 84.5 fL (80.0-98.0); Mean Platelet Volume 9.1 fL (9.4-12.3); Neutrophils Absolute Auto 7.6 x10*3/uL (2.0-8.3); Neutrophils Percent Auto 63.9 % (45-73); Platelet Count 272 X10*3/uL (160-400); Red Blood Count 4.26 X10*6/uL (4.20-5.50); Red Cell Distribution Width 14.7 % (11.0-16.0); White Blood Count 11.9 X10*3/uL (4.8-10.8)
[2023-02-04 23:16] LABS: Alanine Aminotransferase 33 U/L (0-31); Alkaline Phosphatase 63 U/L (39-117); Anion Gap 14 (12-20); Aspartate Amino Transferase 57 U/L (5-31); Bilirubin Total 0.5 mg/dL (0.0-1.0); Blood Urea Nitrogen 17 mg/dL (9-16); Calcium 9.6 mg/dL (8.4-10.2); Carbon Dioxide 24 mmol/L (22-29); Chloride 106 mmol/L (96-108); Creatinine Clr Calc Pharmacy 47.5; Estimated Glomerular Filt Rate 44; Glucose Random 144 mg/dL (60-115); Potassium 4.3 mmol/L (3.3-5.1); Sodium 140 mmol/L (135-145); Total Protein 6.7 g/dL (6.5-8.0)
[2023-02-04 23:27] LABS: Troponin-I High Sensitivity < 2.7 ng/L (<3.5-17.0)
[2023-02-04 23:31] LABS: Influenza A PCR NEGATIVE (Negative); Influenza B PCR NEGATIVE (Negative); Resp Syncy Virus RNA Qual PCR NEGATIVE (Negative); SARS COV2 PCR INHOUSE NEGATIVE (Negative)
--- NOTE | 2023-02-05 00:04 | ED_ITS ---
HPI - General Adult General Chief complaint: Fall Stated complaint: fall at home, R shoulder pain, chest pain Time Seen by Provider: 02/04/23 23:52 History of Present Illness HPI narrative: The patient 62 year old woman who is a type 2 diabetic and also a smoker. She was at a baby shower this evening. At around 08:30 p.m. she was leaving the baby shower. She with outside the [employer] where the event was held. She stepped down a step and lost her balance and fell onto concrete. She fell primarily on her right side. She landed mostly on the right arm with an abrasion to the right elbow. She also injured the right shoulder and had some pain on the right side of the neck. She did not hit her head. There was no loss of consciousness. She was helped up by bystanders and she also noticed that she had some chest pain. She went home and stayed home for about an hour. She continued to have chest pain when she moved or took a deep breath. Ultimately she told her daughter who told her to come to the emergency room for evaluation of her chest pain. Related Data Home Medications Medication Instructions Recorded Confirmed amitriptyline 10 mg tablet 10 mg PO BEDTIME 10/04/21 07/27/22 amlodipine 10 mg tablet 10 mg PO DAILY 10/04/21 07/27/22 aspirin 81 mg tablet,delayed 81 mg PO DAILY 10/04/21 07/27/22 release baclofen 20 mg tablet 20 mg PO TID 10/04/21 07/27/22 bupropion HCl 150 mg 24 hr tablet, 150 mg PO DAILY PRN 10/04/21 07/27/22 extended release duloxetine 60 mg capsule,delayed 60 mg PO QAM 10/04/21 07/27/22 release empagliflozin 10 mg tablet 10 mg PO DAILY 10/04/21 07/27/22 (Jardiance) ibuprofen 600 mg tablet 1,200 mg PO BID 10/04/21 07/27/22 losartan 100 mg tablet 100 mg PO DAILY 10/04/21 07/27/22 melatonin 5 mg tablet 5 mg PO BEDTIME 10/04/21 07/27/22 metformin 500 mg tablet,extended 1,000 mg PO BID 10/04/21 07/27/22 release 24 hr metoprolol succinate 100 mg 100 mg PO DAILY 08/01/22 05/24/23 tablet,extended release 24 hr omeprazole 20 mg capsule,delayed 20 mg PO DAILY 10/04/21 07/27/22 release rosuvastatin 20 mg tablet 20 mg PO BEDTIME 10/04/21 07/27/22 sennosides 8.6 mg tablet (senna) 17.2 mg PO DAILY 10/04/21 07/27/22 trazodone 50 mg tablet 50 mg PO BEDTIME 10/04/21 07/27/22 dulaglutide 4.5 mg/0.5 mL mg subcut 12/07/21 07/27/22 subcutaneous pen injector (Trulicity) empagliflozin 25 mg tablet 25 mg PO DAILY 12/07/21 07/27/22 (Jardiance) fluticasone propionate 110 2 puff inhalation BID 12/07/21 07/27/22 mcg/actuation HFA aerosol inhaler (Flovent HFA) Previous Rx's Medication Instructions Recorded ondansetron 4 mg disintegrating 4 mg PO Q6-8H PRN nausea and 02/12/22 tablet vomiting #14 tabs gabapentin 400 mg capsule 400 mg PO TID 30 days #90 caps 03/09/22 oxycodone 5 mg capsule 5 mg PO Q8H PRN pain #12 caps 07/09/22 Allergies Allergy/AdvReac Type Severity Reaction Status Date / Time cephalexin [Keflex] Allergy Unknown Anaphylaxis Verified 02/04/23 22:20 From Keflex Allergy Severe ANAPHYLAXIS- Uncoded 07/19/22 10:49 SWELLING;PCN/AMOX TOLERATED Review of Systems 2 Review of Systems: Yes all other systems are reviewed and are negative [facility] Past Medical History Medical History (Updated 02/05/23 @ 00:16 by Julio Villegsa MD) Family history- stomach cancer Fibromyalgia (~2004) Insulin dependent type 2 diabetes mellitus (~2004) Hypertension Hyperlipemia Nicotine dependence, cigarettes, uncomplicated Fibroids Pancreatitis Epigastric pain Carpal tunnel syndrome Memory loss Fatty infiltration of liver Depression Wrist pain Surgical History (Updated 11/25/22 @ 11:41 by Michelle Martínez PA-C) History of colonoscopy History of laryngoscopy History of right breast biopsy History of hysterectomy Family History Family History (Updated 11/11/22 @ 14:56 by Michelle Martínez PA-C) Mother Liver disease Father CAD (coronary artery disease) Brother Stomach cancer Social History Social History (Updated 12/16/22 @ 11:22 by Michelle Martínez PA-C) Patient Tobacco Use Status: Current everyday Tobacco user Tobacco use type: Cigarette Cigarettes Per Day: 10 Years Smoked: Onset 12yo, 1/2ppd x 49yrs, 25pyh Smoked in Last 30 Days: Yes Use of substances other than those prescribed or required for medical reasons: No Advance Directives: No Advance Directives Information Provided: No Current occupational status: disabled 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 She is well groomed. She does not appear in obvious distress. HENMT Other: No signs of trauma to the head or face. The face is symmetrical. Mucous membranes moist. Eyes Other: Pupils are round and equal. Neck Other: No midline posterior C-spine tenderness. She is moving her neck reasonably well. C-spine is clinically clear. Chest Other: Patient has distinct anterior chest wall tenderness with parasternal palpation Resp Other: Lungs are clear bilaterally. No increased work of breathing. Cardio Other: Patient has a regular rate and rhythm no murmur. GI Other: Abdomen is soft and nontender. Skin Other: Mild abrasion to the skin just distal to the elbow on the proximal forearm. Neuro Other: The patient is awake, alert, pleasant, cooperative. She moves all 4 extremities symmetrically. She seems neurologically intact. Extrem Other: There is an abrasion near the right elbow but she has excellent range of motion of the right elbow. Also good range of motion of the right shoulder. She moves her hips and knees well also. Medications Administered Discontinued Medications Generic Name Dose Route Start Last Admin Trade Name Freq PRN Reason Stop Dose Admin Acetaminophen 975 mg 02/05/23 00:12 02/05/23 00:18 Acetaminophen 325 Mg Tablet PO 02/05/23 00:13 975 mg ONCE ONE Administration Medical Decision Making Differential Diagnosis The patient came to the emergency room a few hours after a fall. She came to the emergency room primarily because she was experiencing chest pain. She has a negative cardiac workup. EKG is unremarkable. Troponin is negative. Clinically she seems to have a tender chest wall. Chest x-ray is unremarkable. Clinically the patient looks well. I think she has chest wall pain as a consequence of the fall. I do not think she has an acute coronary syndrome. She was reassured. It was also apparent that her kidney function was mildly worse than usual. She says she takes lot of ibuprofen because of her fibromyalgia. She was advised to stop using ibuprofen and use acetaminophen instead. She should follow up soon with the regular doctor to check on her kidney function. She is also still smoking although considerably less than she used to smoke. She was encouraged to try to stop smoking altogether. Lab Data 02/04/23 22:47 02/04/23 22:47 Labs: Lab Results 02/04/23 Range/Units 22:47 WBC 11.9 H (4.8-10.8) X10*3/uL RBC 4.26 (4.20-5.50) X10*6/uL Hgb 11.9 L (12.0-16.0) g/dl Hct 36.0 L (37.0-47.0) % MCV 84.5 (80.0-98.0) fL MCH 27.9 (27.0-33.0) pg MCHC 33.1 (31.0-35.0) g/dl RDW 14.7 (11.0-16.0) % Plt Count 272 (160-400) X10*3/uL MPV 9.1 L (9.4-12.3) fL Immature Gran % (Auto) 0.4 (0.0-0.4) % Neut % (Auto) 63.9 (45-73) % Lymph % (Auto) 25.8 (20-40) % Eagle % (Auto) 8.0 (2-11) % Eos % (Auto) 1.7 (0-4) % Baso % (Auto) 0.2 (0-2) % Lymph # (Auto) 3.1 (1.2-4.9) X10*3/uL Eagle # (Auto) 1.0 (0.1-1.2) X10*3/uL Eos # (Auto) 0.2 (0.0-0.4) X10*3/uL Baso # (Auto) 0.0 (0.0-0.2) X10*3/uL Abs Immat Gran (auto) 0.05 H (0.00-0.03) X10*3/uL Absolute Neuts (auto) 7.6 (2.0-8.3) x10*3/uL Absolute Nucleated RBC 0.000 (0.0-0.012) X10*3/uL Nucleated RBC % (auto) 0.0 (0.0-0.2) /100WBC Sodium 140 (135-145) mmol/L Potassium 4.3 (3.3-5.1) mmol/L Chloride 106 (96-108) mmol/L Carbon Dioxide 24 (22-29) mmol/L Anion Gap 14 (12-20) BUN 17 H (9-16) mg/dL Creatinine 1.23 (0.5-1.4) mg/dL Estim Creat Clear Calc 47.5 Estimated GFR 44 Random Glucose 144 H (60-115) mg/dL Calcium 9.6 (8.4-10.2) mg/dL Total Bilirubin 0.5 (0.0-1.0) mg/dL AST 57 H (5-31) U/L ALT 33 H (0-31) U/L Alkaline Phosphatase 63 (39-117) U/L Troponin I High Sens < 2.7 (<3.5-17.0) ng/L Total Protein 6.7 (6.5-8.0) g/dL Albumin 4.0 (3.5-5.0) g/dL Influenza Type A (PCR) NEGATIVE (Negative) Influenza Type B (PCR) NEGATIVE (Negative) RSV RNA Qual (PCR) NEGATIVE (Negative) SARS-CoV-2 RNA (RT-PCR) NEGATIVE (Negative) Discharge Plan Discharge Clinical Impression: Fall, Acute chest wall pain, Contusion of elbow, right Patient Disposition: Home, Self-Care Additional Instructions: I believe your chest pain is a result of her fall. I think that you have efraín the ribs and cartilage of her chest wall. You may use acetaminophen (Tylenol) as needed for pain. Take 2 extra-strength acetaminophen up to 3 times a day. Your kidney function looks slightly worse today than it has previously. It is possible this is related to your use of ibuprofen. I would therefore recommend that you stop using ibuprofen for a while and use acetaminophen instead. You may also apply lidocaine patches to your chest where chest wall is hurting. Please contact your office on Monday to make a follow-up appointment. I think you should make an appointment to discuss your chest pain and also your kidney function with your regular doctor. Please do your best to continue reducing smoking. Return to the emergency room significantly worse. Prescriptions: No Action gabapentin 400 mg capsule 400 mg PO TID 30 Days Qty: 90 5RF ondansetron 4 mg tablet,disintegrating 4 mg PO Q6-8H PRN (Reason: nausea and vomiting) Qty: 14 0RF oxycodone 5 mg capsule 5 mg PO Q8H PRN (Reason: pain) Qty: 12 0RF Rx Instructions: Partial Fill upon patient request. amlodipine 10 mg tablet 10 mg PO DAILY aspirin 81 mg tablet,delayed release (DR/EC) 81 mg PO DAILY ibuprofen 600 mg tablet 1,200 mg PO BID bupropion HCl 150 mg tablet extended release 24 hr 150 mg PO DAILY PRN duloxetine 60 mg capsule,delayed release(DR/EC) 60 mg PO QAM losartan 100 mg tablet 100 mg PO DAILY metformin 500 mg tablet extended release 24 hr 1,000 mg PO BID metoprolol succinate 100 mg tablet extended release 24 hr 100 mg PO DAILY omeprazole 20 mg capsule,delayed release(DR/EC) 20 mg PO DAILY rosuvastatin 20 mg tablet 20 mg PO BEDTIME sennosides [senna] 8.6 mg tablet 17.2 mg PO DAILY Jardiance 10 mg tablet 10 mg PO DAILY baclofen 20 mg tablet 20 mg PO TID amitriptyline 10 mg tablet 10 mg PO BEDTIME melatonin 5 mg tablet 5 mg PO BEDTIME trazodone 50 mg tablet 50 mg PO BEDTIME Trulicity 4.5 mg/0.5 mL pen injector subcut fluticasone propionate [Flovent HFA] 110 mcg/actuation HFA aerosol inhaler 2 puff inhalation BID Jardiance 25 mg tablet 25 mg PO DAILY Interventions: ED Discharge Assessment Last Done: 02/05/23 00:42 Discharge Date/Time: 02/05/23 00:42
[2023-02-05] MEDS: Acetaminophen 325 MG TABLET 975 MG PO (00:18)
== END 2023-02-05 00:42 | disposition home or self-care (01) ==
PROVIDERS: Emergency Provider Emergency Medicine; PCP Family Medicine
DX: R07.89 Other chest pain (principal); S50.01XA Contusion of right elbow, initial encounter; W10.8XXA Fall (on) (from) other stairs and steps, initial encounter; E11.9 Type 2 diabetes mellitus without complications; I10 Essential (primary) hypertension; E78.5 Hyperlipidemia, unspecified; F17.210 Nicotine dependence, cigarettes, uncomplicated; Z79.4 Long term (current) use of insulin; Z79.02 Long term (current) use of antithrombotics/antiplatelets; Z79.899 Other long term (current) drug therapy; Z20.822 Contact with and (suspected) exposure to COVID-19; Z20.828 Contact with and (suspected) exposure to other viral communicable diseases; Y93.89 Activity, other specified; Y92.29 Other specified public building as the place of occurrence of the external cause; Y99.9 Unspecified external cause status
CPT/HCPCS: 0241U; 71046; 73030; 80053; 84484; 85025; 93005; 99283; 99284

== ENCOUNTER → 2023-02-04 22:35 | Outpatient (BNV) | payer OTHER, SELFPAY | PROVIDERS: Emergency Provider Emergency Medicine; PCP Family Medicine; Visit Provider Internal Medicine Cardiovascular Disease | DX: R07.9 Chest pain, unspecified (principal) | CPT/HCPCS: 93010 ==

== ENCOUNTER 2023-02-23 12:31 | Emergency (ER) | payer OTHER, SELFPAY ==
--- NOTE | ~2023-02-23 | XR_ITS ---
EXAMINATION: XR WRIST, RIGHT XR HAND, RIGHT CLINICAL INFORMATION: Right hand pain, status post fall 2011 COMPARISON: None available. TECHNIQUE: PA, lateral, and oblique views of the right wrist and PA, lateral, and oblique views of the right hand FINDINGS: RIGHT WRIST: The bones and soft tissues are normal. No fracture. Alignment is anatomic. Joint spaces are maintained. No erosions or soft tissue calcifications. RIGHT HAND: The bones and soft tissues are normal. No fracture. Alignment is anatomic. Joint spaces are maintained. No erosions or soft tissue calcifications. XR/XR hand wrist RT IMPRESSION: Normal right hand and wrist.
--- NOTE | ~2023-02-23 | XR_ITS ---
EXAMINATION: XR CHEST CLINICAL INFORMATION: Pain after fall COMPARISON: Chest radiograph 02/04/2023, CT abdomen pelvis 12/13/2011 (report only) TECHNIQUE: 2 views of the chest were obtained. FINDINGS: No significant abnormality is noted involving the heart, lungs, mediastinum, bony thorax or soft tissues. There is an ovoid 6 mm calcification seen in the right costophrenic angle which is probably in the subcutaneous tissues as on the prior chest radiograph this can be seen protruding just beyond the confines of the lung. XR/XR chest 2V IMPRESSION: No acute intrathoracic disease.
[2023-02-23 13:09] VITALS: BP 145/82; PULSE 75; RESP 18; TEMP 36; O2SAT 98; BMI 30.9
--- NOTE | 2023-02-23 13:10 | ED_ITS ---
HPI - General Adult General Chief complaint: General Medical Stated complaint: Body pain - fall 3 weeks ago Time Seen by Provider: 02/23/23 15:08 Source: patient Mode of arrival: ambulatory Limitations: no limitations History of Present Illness HPI narrative: 62-year-old female with a history of diabetes, [id number] here with reports continued right shoulder and right chest wall pain after a fall which occurred on February 04. Patient reports she had a fall down 2 stairs landing on her right shoulder. There was no head strike or loss of consciousness. She was seen in the emergency room and had x-rays she tells me were normal. She has been taking Tylenol home with continued pain. She denies any numbness, tingling, weakness of the extremity. She denies any shortness breath, cough, fevers or chills. Related Data Home Medications Medication Instructions Recorded Confirmed amitriptyline 10 mg tablet 10 mg PO BEDTIME 10/04/21 07/27/22 amlodipine 10 mg tablet 10 mg PO DAILY 10/04/21 07/27/22 aspirin 81 mg tablet,delayed 81 mg PO DAILY 10/04/21 07/27/22 release baclofen 20 mg tablet 20 mg PO TID 10/04/21 07/27/22 bupropion HCl 150 mg 24 hr tablet, 150 mg PO DAILY PRN 10/04/21 07/27/22 extended release duloxetine 60 mg capsule,delayed 60 mg PO QAM 10/04/21 07/27/22 release empagliflozin 10 mg tablet 10 mg PO DAILY 10/04/21 07/27/22 (Jardiance) ibuprofen 600 mg tablet 1,200 mg PO BID 10/04/21 07/27/22 losartan 100 mg tablet 100 mg PO DAILY 10/04/21 07/27/22 melatonin 5 mg tablet 5 mg PO BEDTIME 10/04/21 07/27/22 metformin 500 mg tablet,extended 1,000 mg PO BID 10/04/21 07/27/22 release 24 hr metoprolol succinate 100 mg 100 mg PO DAILY 10/04/21 07/27/22 tablet,extended release 24 hr omeprazole 20 mg capsule,delayed 20 mg PO DAILY 10/04/21 07/27/22 release rosuvastatin 20 mg tablet 20 mg PO BEDTIME 10/04/21 07/27/22 sennosides 8.6 mg tablet (senna) 17.2 mg PO DAILY 10/04/21 07/27/22 trazodone 50 mg tablet 50 mg PO BEDTIME 10/04/21 07/27/22 dulaglutide 4.5 mg/0.5 mL mg subcut 12/07/21 07/27/22 subcutaneous pen injector (Trulicity) empagliflozin 25 mg tablet 25 mg PO DAILY 12/07/21 07/27/22 (Jardiance) fluticasone propionate 110 2 puff inhalation BID 12/07/21 07/27/22 mcg/actuation HFA aerosol inhaler (Flovent HFA) Previous Rx's Medication Instructions Recorded ondansetron 4 mg disintegrating 4 mg PO Q6-8H PRN nausea and 02/12/22 tablet vomiting #14 tabs gabapentin 400 mg capsule 400 mg PO TID 30 days #90 caps 03/09/22 oxycodone 5 mg capsule 5 mg PO Q8H PRN pain #12 caps 07/09/22 diclofenac sodium 1 % topical gel 2 g topical QID #100 grams 02/23/23 (Voltaren Arthritis Pain) ibuprofen 600 mg tablet 600 mg PO Q8H PRN pain #30 tabs 02/23/23 lidocaine 5 % topical patch 1 patch topical DAILY #15 ea 02/23/23 (Lidoderm) Allergies Allergy/AdvReac Type Severity Reaction Status Date / Time cephalexin [Keflex] Allergy Unknown Anaphylaxis Verified 02/23/23 13:09 From Keflex Allergy Severe ANAPHYLAXIS- Uncoded 07/19/22 10:49 SWELLING;PCN/AMOX TOLERATED Review of Systems 2 Review of Systems: Yes all other systems are reviewed and are negative Constitutional: Constitutional: Reports no additional constitutional complaints, Denies body ache(s), Denies chills, Denies fever(s), Denies headache(s) and Denies weakness Eyes: Eyes: Reports no additional eye complaints and Denies change in vision ENT: Reports system reviewed and no additional complaints, except as documented, Denies dizziness, Denies headache(s), Denies nasal congestion, Denies nasal discharge and Denies neck pain Cardiovascular: Cardiovascular: Reports no additional cardiovascular complaints, Reports chest pain, Denies leg edema and Denies dyspnea Respiratory: Respiratory: Reports no additional respiratory complaints, Denies cough and Denies dyspnea Gastrointestinal: Gastrointestinal: Reports no additional gastrointestinal complaints, Denies abdominal pain, Denies diarrhea, Denies nausea and Denies vomiting Genitourinary: Genitourinary: Reports no additional female genitourinary complaints and Denies urinary incontinence Musculoskeletal: Musculoskeletal: Reports no additional musculoskeletal complaints, Denies back pain, Reports arthralgias, Denies joint swelling, Denies neck pain, Denies numbness and Denies tingling Integumentary/Breasts: Skin/Breast: Reports system reviewed and no additional complaints, except as docu and Denies rash Neurologic: Reports system reviewed and no additional complaints, except as documented, Denies Abnormal speech present, Denies dizziness, Denies headache(s), Denies numbness, Denies tingling and Denies weakness PMFSH Past Medical History Attestation statement: The following information was validated with the patient. Source: old records reviewed and nursing notes reviewed Medical History Family history- stomach cancer Fibromyalgia (~2004) Insulin dependent type 2 diabetes mellitus (~2004) Hypertension Hyperlipemia Nicotine dependence, cigarettes, uncomplicated Fibroids Pancreatitis Epigastric pain Carpal tunnel syndrome Memory loss Fatty infiltration of liver Depression Wrist pain Surgical History History of colonoscopy History of laryngoscopy History of right breast biopsy History of hysterectomy Family History Family History Mother Liver disease Father CAD (coronary artery disease) Brother Stomach cancer Social History Social History Patient Tobacco Use Status: Current everyday Tobacco user Tobacco use type: Cigarette Cigarettes Per Day: 10 Years Smoked: Onset 12yo, 1/2ppd x 49yrs, 25pyh Advance Directives: No Advance Directives Information Provided: No Current occupational status: disabled 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 Physical Exam ED Vital Signs: Vital Signs - 24 hr 02/23/23 13:09 02/23/23 16:25 Temperature 96.8 F 97.6 F Pulse Rate 75 74 Respiratory Rate 18 19 Blood Pressure 145/82 H 138/76 Pulse Oximetry 98 98 Oxygen Delivery Method Room Air Room Air BMI result Body Mass Index 30.9 Const General: cooperative, healthy appearing, comfortable and no acute distress Orientation/consciousness: patient oriented x3 Limitations: no limitations HENMT Head: Yes normal to inspection Ears: hearing grossly normal bilaterally and TM's normal bilaterally General nose exam: Normal external nose present Face and sinus: Yes normal facial exam Mouth: Normal oral and palatal mucosa present Throat: Yes posterior oropharynx normal, Yes tonsils normal and Yes uvula midline Eyes General: appearance normal, both eyes and all related structures Pupils: Equal, round and reactive pupils present Neck Neck: Yes normal visual inspection, Yes full ROM, Yes no lymphadenopathy and Yes no meningeal signs Chest Chest palpation & inspection: normal inspection of the chest Chest/axillae images: 2 1. Tenderness to chest wall with no crepitus, ecchymosis or deformity. Resp Effort & Inspection: normal respiratory effort Auscultation: clear to auscultation bilaterally Cardio Rate: regular rate Rhythm: regular rhythm Peripheral pulses: Peripheral pulses 2+ throughout GI Inspection: Yes normal to inspection Palpation (GI): Soft to palpation and nontender Auscultation: normal bowel sounds Back/Spine/Pelvis Thoracic/Lumbar Spine: thoracic and lumbar spine normal to inspection Skin General skin exam: no rashes or lesions noted Neuro General: patient oriented x3, no meningeal signs, no focal motor deficits and normal sensation to monofilament Cranial nerves: Yes Equal, round and reactive pupils present Cognition (Neuro): normal cognition Speech: No Abnormal speech present Gait exam (Neuro): Normal gait present Motor exam (neuro): 5/5 motor strength present throughout Extrem Other: Tenderness to the proximal humerus with full range of motion both actively and passively with no ecchymosis, crepitus or deformity. General: Yes normal to inspection Course Course Course Narrative: RME: 62yo F w/PMHx fibromyalgia c/o continued right side pain s/p fall on 02/04/23. patient was seen in ED after incident, had XRs and labs that were unremarkable. reports continued pain from R hand extending up RUE and R ribs. denies more recent injury. taking Tylenol, Baclofen & Robaxin & Meloxicam w/o relief XRs ordered Full HPI, ROS and PE to be performed by primary ED provider. Medications Administered Discontinued Medications Generic Name Dose Route Start Last Admin Trade Name Freq PRN Reason Stop Dose Admin Ketorolac Tromethamine 30 mg 02/23/23 15:21 02/23/23 16:30 Ketorolac Tromethamine 30 Mg/Ml Vial IM 02/23/23 15:22 30 mg ONCE ONE Administration Medical Decision Making Medical Decision Making MDM Narrative: 62-year-old female with a history of diabetes, [id number] here with reports continued right shoulder and right chest wall pain after a fall which occurred on February 04. Patient reports she had a fall down 2 stairs landing on her right shoulder. There was no head strike or loss of consciousness. She was seen in the emergency room and had x-rays she tells me were normal. She has been taking Tylenol home with continued pain. She denies any numbness, tingling, weakness of the extremity. She denies any shortness breath, cough, fevers or chills. On exam patient has tenderness the right chest wall and proximal humerus. She did have x-rays of both her shoulder and her chest on the 05 of February which were normal. She reports continued pain unrelieved with Tylenol. I will obtain a repeat chest x-ray, provide analgesia. Likely chest wall contusion. Differential Diagnosis Differential Diagnoses: The differential diagnosis associated with the presentation includes Contusion low suspicion for fracture, intrathoracic injury, intra-abdominal injury, vascular injury, dislocation Admission/Observation Consideration of admission/observation: Escalation of care including admission/observation considered low clinical suspicion for intrathoracic, intra-abdominal injury requiring advanced imaging, transfer to tertiary care center Independent Interpretation I performed an independent interpretation of an: Plain X-Ray Interpretation: I independently reviewed the x-ray and agree with the radiology report Radiology Impression Discussion of test interpretation with radiology: I have reviewed the radiologist's reading. Radiologist Impression: [address] [address] XRay Report Signed Patient: Nandini Edouard MR#: [id number] : 1960 Acct:[id number] Age/Sex: 62 / F ADM Date: 02/23/23 Loc: .ED Attending Dr: Ordering Physician: Sarah Rasheed NP Date of Service: 02/23/23 Procedure(s): XR chest 2V Accession Number(s): [id number] cc: [facility]; Sarah Rasheed NP~ EXAMINATION: XR CHEST CLINICAL INFORMATION: Pain after fall COMPARISON: Chest radiograph 02/04/2023, CT abdomen pelvis 12/13/2011 (report only) TECHNIQUE: 2 views of the chest were obtained. FINDINGS: No significant abnormality is noted involving the heart, lungs, mediastinum, bony thorax or soft tissues. There is an ovoid 6 mm calcification seen in the right costophrenic angle which is probably in the subcutaneous tissues as on the prior chest radiograph this can be seen protruding just beyond the confines of the lung. XR/XR chest 2V IMPRESSION: No acute intrathoracic disease. Tests considered The following testing was considered but not selected: low clinical suspicion for intrathoracic, intra-abdominal injury requiring advanced imaging Prescription Management I considered prescription management with: Pain Medication Discharge Plan Discharge Clinical Impression: Chest wall contusion Patient Disposition: Home, Self-Care Instructions: Contusion in Adults (ED) Additional Instructions: Follow-up with your PCP with your continued symptoms Prescriptions: New ibuprofen 600 mg tablet 600 mg PO Q8H PRN (Reason: pain) Qty: 30 0RF diclofenac sodium [Voltaren Arthritis Pain] 1 % gel 2 g topical QID Qty: 100 0RF Rx Instructions: apply to single elbow, wrist or hand; for hand includes palm/fingers/back of hand lidocaine [Lidoderm] 5 % adhesive patch,medicated 1 patch topical DAILY Qty: 15 0RF Rx Instructions: leave on most painful area for up to 12 hrs No Action gabapentin 400 mg capsule 400 mg PO TID 30 Days Qty: 90 5RF ondansetron 4 mg tablet,disintegrating 4 mg PO Q6-8H PRN (Reason: nausea and vomiting) Qty: 14 0RF oxycodone 5 mg capsule 5 mg PO Q8H PRN (Reason: pain) Qty: 12 0RF Rx Instructions: Partial Fill upon patient request. amlodipine 10 mg tablet 10 mg PO DAILY aspirin 81 mg tablet,delayed release (DR/EC) 81 mg PO DAILY ibuprofen 600 mg tablet 1,200 mg PO BID bupropion HCl 150 mg tablet extended release 24 hr 150 mg PO DAILY PRN duloxetine 60 mg capsule,delayed release(DR/EC) 60 mg PO QAM losartan 100 mg tablet 100 mg PO DAILY metformin 500 mg tablet extended release 24 hr 1,000 mg PO BID metoprolol succinate 100 mg tablet extended release 24 hr 100 mg PO DAILY omeprazole 20 mg capsule,delayed release(DR/EC) 20 mg PO DAILY rosuvastatin 20 mg tablet 20 mg PO BEDTIME sennosides [senna] 8.6 mg tablet 17.2 mg PO DAILY Jardiance 10 mg tablet 10 mg PO DAILY baclofen 20 mg tablet 20 mg PO TID amitriptyline 10 mg tablet 10 mg PO BEDTIME melatonin 5 mg tablet 5 mg PO BEDTIME trazodone 50 mg tablet 50 mg PO BEDTIME Trulicity 4.5 mg/0.5 mL pen injector subcut fluticasone propionate [Flovent HFA] 110 mcg/actuation HFA aerosol inhaler 2 puff inhalation BID Jardiance 25 mg tablet 25 mg PO DAILY Referrals: [facility] [Primary Care Provider] - 1 week
[2023-02-23 16:25] VITALS: BP 138/76; PULSE 74; RESP 19; TEMP 36.4; O2SAT 98
[2023-02-23] MEDS: Ketorolac Tromethamine 30 MG/ML VIAL IM (16:30)
== END 2023-02-23 17:46 | disposition home or self-care (01) ==
PROVIDERS: Emergency Provider Emergency Medicine Emergency Medical Services
DX: R07.89 Other chest pain (principal); M79.10 Myalgia, unspecified site; M79.641 Pain in right hand; M25.511 Pain in right shoulder; E11.9 Type 2 diabetes mellitus without complications; Z79.4 Long term (current) use of insulin; Z79.899 Other long term (current) drug therapy; F17.210 Nicotine dependence, cigarettes, uncomplicated; Z71.6 Tobacco abuse counseling
CPT/HCPCS: 71046; 73110; 73130; 96372; 99283; 99284; J1885

== ENCOUNTER 2023-05-04 10:09 | Outpatient (AMB) | payer OTHER, SELFPAY ==
[2023-05-04 11:30] VITALS: BP 120/80; PULSE 64; O2SAT 97
--- NOTE | 2023-05-04 11:30 | AM.OFFWIN_ITS ---
Intake Vital Signs 05/04/23 11:30 Weight 178 lb BP 120/80 Blood Pressure Location Lt brachial Position Sitting Pulse 64 Pulse Source Pulse Oximeter Pulse Oximetry (%) 97 Oxygen Delivery Method Room Air Intake Visit Reasons: [employer] Nausea, RT side pain, dizzy, loss of balance Intake Note: Patient here for dizziness, nausea, pain that starts at left side of head and goes down to the knee for about 1 week. Patient Tobacco Use Status: Current everyday Tobacco user Allergies cephalexin [Keflex] Allergy (Unknown, Verified 05/04/23 11:31) Anaphylaxis From Keflex Allergy (Severe, Uncoded 05/04/23 11:31) ANAPHYLAXIS- SWELLING;PCN/AMOX TOLERATED HPI HPI Comments History of Present Illness Details 62 y/o female patient who presents to [facility] in clinic with c/o dizziness x 3days. Reports h/o Vertigo. Daughter at home with Influenza A. PFSH Medical History Family history- stomach cancer Fibromyalgia (~2004) Insulin dependent type 2 diabetes mellitus (~2004) Hypertension Hyperlipemia Nicotine dependence, cigarettes, uncomplicated Fibroids Pancreatitis Epigastric pain Carpal tunnel syndrome Memory loss Fatty infiltration of liver Depression Wrist pain Surgical History History of colonoscopy History of laryngoscopy History of right breast biopsy History of hysterectomy Family History Mother Liver disease Father CAD (coronary artery disease) Brother Stomach cancer Social History Patient Tobacco Use Status: Current everyday Tobacco user Tobacco use type: Cigarette Cigarettes Per Day: 10 Years Smoked: Onset 12yo, 1/2ppd x 49yrs, 25pyh Current occupational status: disabled 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 Review of Systems Const All systems reviewed & are unremarkable except as noted in HPI and below Physical Exam Vital Signs: Last Vital Signs Pulse 64 05/04/23 11:30 BP 120/80 05/04/23 11:30 Pulse Ox 97 05/04/23 11:30 Oxygen Delivery Method Room Air 05/04/23 11:30 Const General: comfortable and no acute distress Orientation/consciousness: patient oriented x3 HEENT Head: Yes normocephalic Ears: external ears normal and TM's normal bilaterally General nose exam: Normal nasal mucous membranes and turbinates present Face and sinus: Yes sinuses nontender Mouth: moist mucous membranes Resp Effort & Inspection: normal respiratory effort and able to speak in complete sentences Auscultation: clear to auscultation bilaterally, no crackles, no rales, no rhonchi and no wheezes Cardio Rate: regular rate Rhythm: regular rhythm Neuro General: patient oriented x3 Psych Speech and movement: Normal speech and movement present and Clear speech present Assessment & Plan Assessment & Plan (1) Dizziness: Code(s): R42 - Dizziness and giddiness Plan: - Hydrate well and rest - Meclizine as directed - F/U with pcp for poss referral to ENT Orders: Orders SARS-CoV2/FLU/RSV Today R42 - Dizziness and giddiness Medications: New meclizine 50 mg PO BID 30 tabs 0RF DIZZINESS R42 - Dizziness and giddiness Coding Level of Care Code Est Pt Level 3 (80719) Diagnoses Dizziness R42 Time Spent (min) 15
== END 2023-05-04 12:04 | disposition home or self-care (01) ==
PROVIDERS: Visit Provider Nurse Practitioner Family
DX: R42 Dizziness and giddiness (principal)
CPT/HCPCS: 99213

== ENCOUNTER 2023-05-04 11:56 | Outpatient (REF) | payer OTHER, SELFPAY ==
[2023-05-04 16:46] LABS: Influenza A PCR NEGATIVE (Negative); Influenza B PCR NEGATIVE (Negative); Resp Syncy Virus RNA Qual PCR NEGATIVE (Negative); SARS COV2 PCR INHOUSE NEGATIVE (Negative)
== END 2023-05-04 11:57 | disposition home or self-care (01) ==
LOC: HO.LAB 11:56
PROVIDERS: Visit Provider Nurse Practitioner Family
DX: Z11.52 Encounter for screening for COVID-19 (principal); Z20.822 Contact with and (suspected) exposure to COVID-19; R42 Dizziness and giddiness
CPT/HCPCS: 0241U

== ENCOUNTER 2023-05-29 08:13 | Emergency (ER) | payer OTHER, SELFPAY ==
--- NOTE | ~2023-05-29 | XR_ITS ---
EXAMINATION: XR CHEST CLINICAL INFORMATION: Cough COMPARISON: Chest radiograph from 02/23/2023 TECHNIQUE: 2 views of the chest were obtained. FINDINGS: Bronchial thickening which can be seen in setting of infectious/inflammatory etiology. Suggestion of multifocal subtle radiopacities, right greater than left which may reflect infectious/inflammatory etiology. Bibasilar atelectasis. No pneumothorax. Trachea is midline. Cardiac mediastinal silhouette is not enlarged. Aorta demonstrates atherosclerotic calcifications. Osseous structures are intact. Soft tissues are unremarkable. XR/XR chest 2V IMPRESSION: 1. Bronchial thickening which can be seen in setting of infectious/inflammatory etiology. 2. Suggestion of multifocal subtle radiopacities, right greater than left which may reflect infectious/inflammatory etiology. 3. Bibasilar atelectasis. 4. Follow-up imaging recommended to ensure resolution.
[2023-05-29 08:34] VITALS: BP 110/51; PULSE 72; RESP 16; TEMP 36.9; O2SAT 94; BMI 31.7
--- NOTE | 2023-05-29 08:36 | ED_ITS ---
HPI - General Adult General Chief complaint: General Medical Stated complaint: flu symptons Time Seen by Provider: 05/29/23 08:22 Source: patient, family and old records reviewed Mode of arrival: ambulatory Limitations: no limitations History of Present Illness HPI narrative: 62 yo female with history of DM2, HTN, HLD, depression/anxiety, fibromyalgia, active smoker who presents to the ER for evaluation of flu like symptoms and confusion for the last 3-4 days at home. History obtained w/ the help of daughter who she lives with. Patient developed flu like symptoms 3-4 days ago with cough, runny nose and not feeling well. Multiple family members with similar symptoms. Daughter reports that the patient has been more confused lately - talking on the phone when no one is there. Concern she may have accidentally taken extra trazodone. She also slid out of bed the other night when trying to get her medication. No headstrike or injury. Patient has also been having incontinence issues, dribbling urine in her underwear. Reports right-sided chest pain that occurs with inspiration, states that this has been present since her fall in February 2023. MD complaint: URI sxs, confusion Onset (ago): day(s) Location: chest (right sided thorax/ flank region) Radiation: extremity (notes extremity weakness) Severity: moderate Relieving factors: none Exacerbating factors: none Associated symptoms: confusion, fever/chills, malaise, nausea/vomiting (reports nausea, but no episodes of vomiting) and weakness (daughter reports weakness, states that she even thought her mom was unable to open her medication bottles) Treatments prior to arrival: none Related Data Home Medications Medication Instructions Recorded Confirmed amitriptyline 10 mg tablet 10 mg PO BEDTIME 10/04/21 07/27/22 amlodipine 10 mg tablet 10 mg PO DAILY 10/04/21 07/27/22 aspirin 81 mg tablet,delayed 81 mg PO DAILY 10/04/21 07/27/22 release baclofen 20 mg tablet 20 mg PO TID 10/04/21 07/27/22 bupropion HCl 150 mg 24 hr tablet, 150 mg PO DAILY PRN 10/04/21 07/27/22 extended release duloxetine 60 mg capsule,delayed 60 mg PO QAM 10/04/21 07/27/22 release empagliflozin 10 mg tablet 10 mg PO DAILY 10/04/21 07/27/22 (Jardiance) ibuprofen 600 mg tablet 1,200 mg PO BID 10/04/21 07/27/22 losartan 100 mg tablet 100 mg PO DAILY 10/04/21 07/27/22 melatonin 5 mg tablet 5 mg PO BEDTIME 10/04/21 07/27/22 metformin 500 mg tablet,extended 1,000 mg PO BID 10/04/21 07/27/22 release 24 hr metoprolol succinate 100 mg 100 mg PO DAILY 10/04/21 07/27/22 tablet,extended release 24 hr omeprazole 20 mg capsule,delayed 20 mg PO DAILY 10/04/21 07/27/22 release rosuvastatin 20 mg tablet 20 mg PO BEDTIME 10/04/21 07/27/22 sennosides 8.6 mg tablet (senna) 17.2 mg PO DAILY 10/04/21 07/27/22 trazodone 50 mg tablet 50 mg PO BEDTIME 10/04/21 07/27/22 dulaglutide 4.5 mg/0.5 mL mg subcut 12/07/21 07/27/22 subcutaneous pen injector (Trulicity) empagliflozin 25 mg tablet 25 mg PO DAILY 12/07/21 07/27/22 (Jardiance) fluticasone propionate 110 2 puff inhalation BID 12/07/21 07/27/22 mcg/actuation HFA aerosol inhaler (Flovent HFA) Previous Rx's Medication Instructions Recorded ondansetron 4 mg disintegrating 4 mg PO Q6-8H PRN nausea and 02/12/22 tablet vomiting #14 tabs gabapentin 400 mg capsule 400 mg PO TID 30 days #90 caps 03/09/22 diclofenac sodium 1 % topical gel 2 g topical QID #100 grams 02/23/23 (Voltaren Arthritis Pain) ibuprofen 600 mg tablet 600 mg PO Q8H PRN pain #30 tabs 02/23/23 lidocaine 5 % topical patch 1 patch topical DAILY #15 ea 02/23/23 (Lidoderm) meclizine 50 mg tablet 50 mg PO BID DIZZINESS #30 tabs 05/04/23 levofloxacin 250 mg tablet 250 mg PO DAILY #5 tabs 05/29/23 Allergies Allergy/AdvReac Type Severity Reaction Status Date / Time cephalexin [Keflex] Allergy Unknown Anaphylaxis Verified 05/04/23 11:31 From Keflex Allergy Severe ANAPHYLAXIS- Uncoded 05/04/23 11:31 SWELLING;PCN/AMOX TOLERATED Review of Systems 2 Review of Systems: Yes all other systems are reviewed and are negative [facility] Past Medical History Medical History Family history- stomach cancer Fibromyalgia (~2004) Insulin dependent type 2 diabetes mellitus (~2004) Hypertension Hyperlipemia Nicotine dependence, cigarettes, uncomplicated Fibroids Pancreatitis Epigastric pain Carpal tunnel syndrome Memory loss Fatty infiltration of liver Depression Wrist pain Surgical History History of colonoscopy History of laryngoscopy History of right breast biopsy History of hysterectomy Family History Family History Mother Liver disease Father CAD (coronary artery disease) Brother Stomach cancer Social History Social History Patient Tobacco Use Status: Current everyday Tobacco user Tobacco use type: Cigarette Cigarettes Per Day: 10 Years Smoked: Onset 12yo, 1/2ppd x 49yrs, 25pyh Smoked in Last 30 Days: Yes Advance Directives: No Advance Directives Information Provided: No Current occupational status: disabled 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 Oriented X3. No acute distress. Head: normocephalic, atraumatic. Eyes: Pupils equal, round and reactive to light. ENT: Pharynx normal. No tonsillar swelling or exudate. Neck: Normal inspection. Neck supple. CVS: Normal heart rate and rhythm. Pulses normal. Respiratory: No respiratory distress. Breath sounds diminished at the bilateral bases Abdomen: Soft and nontender. +BS x4 Skin: Skin warm and dry. Normal skin color. Normal skin turgor. No rashes. Extremities: No lower extremity edema. No joint swelling. Neuro/psych: Oriented X 3. Alert and conversant, no motor or sensory deficit. Steady gait. Medical Decision Making Medical Decision Making [facility] Narrative: Nandini is a 62 year old female with DM2, HTN, HLD, and fibromyalgia, presenting today for evaluation of symptoms/fever/cough for the past week. She is accompanied by her daughter who reports increased episodes of confusions the past 3-4 days. On arrival VSS. Concern for possible infectious etiology. +sick contacts at home. cxr reviewed - no PNA but some bronchial thickening present. COVID/Flu/RSV negative mild hyponatremia on labs, likely slightly hypovolemic. she is tolerating PO in the ER. UA is mildly positive for infection with +bacteria. given her symptoms of incontinence and some intermittent confusion will empirically treat while awaiting culture. allergy to cephalosporin so will treat w/ low dose levaquin. she will f/u with her PCP. results d/w patient and daughter at the bedside. comfortable w/ discharge home Differential Diagnosis Differential Diagnoses: The differential diagnosis associated with the presentation includes UTI, viral respiratory illness including influenza and COVID, delirium, dementia Admission/Observation Consideration of admission/observation: Escalation of care including admission/observation considered Lab Data [facility] Lab Attestation statement: I reviewed the patient's lab results. no leukocytosis, mild hypokalemia 05/29/23 08:54 05/29/23 08:54 Labs: Lab Results 05/29/23 05/29/23 Range/Units 08:54 10:03 WBC 8.3 (4.8-10.8) X10*3/uL RBC 4.79 (4.20-5.50) X10*6/uL Hgb 13.4 (12.0-16.0) g/dl Hct 40.5 (37.0-47.0) % MCV 84.6 (80.0-98.0) fL MCH 28.0 (27.0-33.0) pg MCHC 33.1 (31.0-35.0) g/dl RDW 14.8 (11.0-16.0) % Plt Count 234 (160-400) X10*3/uL MPV 10.0 (9.4-12.3) fL Immature Gran % (Auto) 0.4 (0.0-0.4) % Neut % (Auto) 59.8 (45-73) % Lymph % (Auto) 29.1 (20-40) % [place] % (Auto) 10.2 (2-11) % Eos % (Auto) 0.4 (0-4) % Baso % (Auto) 0.1 (0-2) % Lymph # (Auto) 2.4 (1.2-4.9) X10*3/uL [place] # (Auto) 0.9 (0.1-1.2) X10*3/uL Eos # (Auto) 0.0 (0.0-0.4) X10*3/uL Baso # (Auto) 0.0 (0.0-0.2) X10*3/uL Abs Immat Gran (auto) 0.03 (0.00-0.03) X10*3/uL Absolute Neuts (auto) 5.0 (2.0-8.3) x10*3/uL Absolute Nucleated RBC 0.000 (0.0-0.012) X10*3/uL Nucleated RBC % (auto) 0.0 (0.0-0.2) /100WBC Sodium 130 L (135-145) mmol/L Potassium 4.8 (3.3-5.1) mmol/L Chloride 98 (96-108) mmol/L Carbon Dioxide 21 L (22-29) mmol/L Anion Gap 16 (12-20) BUN 19 H (9-16) mg/dL Creatinine 0.91 (0.5-1.4) mg/dL Estim Creat Clear Calc 63.8 Estimated GFR > 60 Random Glucose 144 H (60-115) mg/dL Calcium 9.1 (8.4-10.2) mg/dL Magnesium 1.9 (1.6-2.6) mg/dL Total Bilirubin 0.5 (0.0-1.0) mg/dL Direct Bilirubin 0.1 (0.0-0.5) mg/dL AST 66 H (5-31) U/L ALT 30 (0-31) U/L Alkaline Phosphatase 71 (39-117) U/L Total Protein 7.3 (6.5-8.0) g/dL Albumin 3.7 (3.5-5.0) g/dL Urine Color Yellow Urine Appearance Cloudy Urine pH 6.5 (5.0-9.0) Ur Specific Angie 1.020 (1.005-1.025) Urine Protein 30 (1+) H (Neg-Trace) mg/dL Urine Glucose (UA) Negative (Negative) mg/dL Urine Ketones Negative (Negative) mg/dL Urine Blood Negative (Negative) Urine Nitrite Negative (Negative) Ur Leukocyte Esterase Trace H (Negative) Urine RBC 0-2 (0-2) /HPF Urine WBC 0-5 (0-5) /HPF Ur Squamous Epith Cells 3-5 (0-2) /HPF Urine Bacteria 1+ (None Seen) Hyaline Casts 0-2 (0-2) /LPF Urine Yeast Present Urine Opiates Screen Not Detected (Not Detect) Urine Fentanyl Screen Not Detected (Not Detect) Ur Barbiturates Screen Not Detected (Not Detect) Ur Phencyclidine Scrn Not Detected (Not Detect) Ur Amphetamines Screen Not Detected (Not Detect) U Benzodiazepines Scrn Not Detected (Not Detect) Urine Cocaine Screen Not Detected (Not Detect) U Marijuana (THC) Screen Not Detected (Not Detect) Influenza Type A (PCR) NEGATIVE (Negative) Influenza Type B (PCR) NEGATIVE (Negative) RSV RNA Qual (PCR) NEGATIVE (Negative) SARS-CoV-2 RNA (RT-PCR) NEGATIVE (Negative) Independent Interpretation I performed an independent interpretation of an: Plain X-Ray Interpretation: cxr with mild ground glass opacities/haziness without focal opacities, no evidence of PNA Radiology Impression Discussion of test interpretation with radiology: I have reviewed the radiologist's reading. Radiologist Impression: EXAMINATION: XR CHEST CLINICAL INFORMATION: Cough COMPARISON: Chest radiograph from 02/23/2023 TECHNIQUE: 2 views of the chest were obtained. FINDINGS: Bronchial thickening which can be seen in setting of infectious/inflammatory etiology. Suggestion of multifocal subtle radiopacities, right greater than left which may reflect infectious/inflammatory etiology. Bibasilar atelectasis. No pneumothorax. Trachea is midline. Cardiac mediastinal silhouette is not enlarged. Aorta demonstrates atherosclerotic calcifications. Osseous structures are intact. Soft tissues are unremarkable. XR/XR chest 2V IMPRESSION: 1. Bronchial thickening which can be seen in setting of infectious/inflammatory etiology. 2. Suggestion of multifocal subtle radiopacities, right greater than left which may reflect infectious/inflammatory etiology. 3. Bibasilar atelectasis. 4. Follow-up imaging recommended to ensure resolution. Independent Historian Clinical information obtained from an independent historian. History obtained from or confirmed by: Other (adult daughter at the bedside) External Record Review External record reviewed: Office record, Outpatient record, Prior outpatient labs and Prior outpatient radiology Prescription Management I considered prescription management with: Antibiotic Chronic Conditions Patient?s care impacted by: Diabetes and Hypertension Critical Care Time Critical Care Time Critical Care Time: No Discharge Plan Discharge Clinical Impression: Viral URI UTI (urinary tract infection) Qualifiers: Urinary tract infection type: acute cystitis Hematuria presence: without hematuria Qualified Code(s): N30.00 - Acute cystitis without hematuria Patient Disposition: Home, Self-Care Instructions: Urinary Tract Infection in Older Adults (ED) Additional Instructions: you tested negative for COVID, Flu and RSV urine test shows possible infection rest and drink plenty of fluids follow up with your doctor this week If you develop new or worsening symptoms call 911 or come back to the ER for further evaluation. Prescriptions: New levofloxacin 250 mg tablet 250 mg PO DAILY Qty: 5 0RF No Action gabapentin 400 mg capsule 400 mg PO TID 30 Days Qty: 90 5RF ondansetron 4 mg tablet,disintegrating 4 mg PO Q6-8H PRN (Reason: nausea and vomiting) Qty: 14 0RF ibuprofen 600 mg tablet 600 mg PO Q8H PRN (Reason: pain) Qty: 30 0RF diclofenac sodium [Voltaren Arthritis Pain] 1 % gel 2 g topical QID Qty: 100 0RF Rx Instructions: apply to single elbow, wrist or hand; for hand includes palm/fingers/back of hand lidocaine [Lidoderm] 5 % adhesive patch,medicated 1 patch topical DAILY Qty: 15 0RF Rx Instructions: leave on most painful area for up to 12 hrs meclizine 50 mg tablet 50 mg PO BID Qty: 30 0RF amlodipine 10 mg tablet 10 mg PO DAILY aspirin 81 mg tablet,delayed release (DR/EC) 81 mg PO DAILY ibuprofen 600 mg tablet 1,200 mg PO BID bupropion HCl 150 mg tablet extended release 24 hr 150 mg PO DAILY PRN duloxetine 60 mg capsule,delayed release(DR/EC) 60 mg PO QAM losartan 100 mg tablet 100 mg PO DAILY metformin 500 mg tablet extended release 24 hr 1,000 mg PO BID metoprolol succinate 100 mg tablet extended release 24 hr 100 mg PO DAILY omeprazole 20 mg capsule,delayed release(DR/EC) 20 mg PO DAILY rosuvastatin 20 mg tablet 20 mg PO BEDTIME sennosides [senna] 8.6 mg tablet 17.2 mg PO DAILY Jardiance 10 mg tablet 10 mg PO DAILY baclofen 20 mg tablet 20 mg PO TID amitriptyline 10 mg tablet 10 mg PO BEDTIME melatonin 5 mg tablet 5 mg PO BEDTIME trazodone 50 mg tablet 50 mg PO BEDTIME Trulicity 4.5 mg/0.5 mL pen injector subcut fluticasone propionate [Flovent HFA] 110 mcg/actuation HFA aerosol inhaler 2 puff inhalation BID Jardiance 25 mg tablet 25 mg PO DAILY Referrals: Stacie Vincent MD [Primary Care Provider] - Interventions: ED Discharge Assessment Last Done: 05/29/23 11:29 Discharge Date/Time: 05/29/23 11:30
--- NOTE | 2023-05-29 08:41 | PC.NURSE ---
off unit to xray at this time
--- NOTE | 2023-05-29 08:48 | PC.NURSE ---
patient ambulated independently with strong, steady gait to and from xray
[2023-05-29 08:59] LABS: MANUAL DIFF FLAG NO
--- NOTE | 2023-05-29 09:02 | PC.NURSE ---
IV established, labs drawn and sent. patient resting quietly in room call matamoros within reach
[2023-05-29 09:03] LABS: Basophils Percent Auto 0.1 % (0-2); Eosinophils Percent Auto 0.4 % (0-4); Hematocrit 40.5 % (37.0-47.0); Hemoglobin 13.4 g/dl (12.0-16.0); Imm Gran Abs Auto 0.03 X10*3/uL (0.00-0.03); Imm Gran Pct Auto 0.4 % (0.0-0.4); Lymphocytes Absolute Auto 2.4 X10*3/uL (1.2-4.9); Lymphocytes Percent Auto 29.1 % (20-40); Mean Corpuscular HGB Conc 33.1 g/dl (31.0-35.0); Mean Corpuscular Volume 84.6 fL (80.0-98.0); Monocytes Absolute Auto 0.9 X10*3/uL (0.1-1.2); Monocytes Percent Auto 10.2 % (2-11); Neutrophils Percent Auto 59.8 % (45-73); Platelet Count 234 X10*3/uL (160-400); Red Blood Count 4.79 X10*6/uL (4.20-5.50); Red Cell Distribution Width 14.8 % (11.0-16.0); White Blood Count 8.3 X10*3/uL (4.8-10.8)
[2023-05-29 09:43] LABS: Influenza A PCR NEGATIVE (Negative); Influenza B PCR NEGATIVE (Negative); Resp Syncy Virus RNA Qual PCR NEGATIVE (Negative); SARS COV2 PCR INHOUSE NEGATIVE (Negative)
[2023-05-29 09:44] LABS: Alanine Aminotransferase 30 U/L (0-31); Albumin Level 3.7 g/dL (3.5-5.0); Alkaline Phosphatase 71 U/L (39-117); Anion Gap 16 (12-20); Aspartate Amino Transferase 66 U/L (5-31); Bilirubin Direct 0.1 mg/dL (0.0-0.5); Bilirubin Total 0.5 mg/dL (0.0-1.0); Blood Urea Nitrogen 19 mg/dL (9-16); Calcium 9.1 mg/dL (8.4-10.2); Carbon Dioxide 21 mmol/L (22-29); Chloride 98 mmol/L (96-108); Creatinine Clr Calc Pharmacy 63.8; Estimated Glomerular Filt Rate > 60; Glucose Random 144 mg/dL (60-115); Magnesium 1.9 mg/dL (1.6-2.6); Potassium 4.8 mmol/L (3.3-5.1); Sodium 130 mmol/L (135-145); Total Protein 7.3 g/dL (6.5-8.0)
[2023-05-29 10:15] LABS: Appearance Urine Cloudy; Color Urine Yellow; Glucose Urine UA Negative (Negative); Leukocyte Esterase Urine Trace (Negative); Nitrite Urine Negative (Negative); PH 6.5 (5.0-9.0); UMIC TRIGGER UACC YES; Urine Blood Negative (Negative); Urine Ketones Negative (Negative); Urine Protein 30 (1+) mg/dL (Neg-Trace)
[2023-05-29 10:32] VITALS: BP 110/63; PULSE 71; RESP 16; TEMP 36.7; O2SAT 93
[2023-05-29 10:38] LABS: RBC Urine 0-2 /HPF (0-2); WBC Urine 0-5 /HPF (0-5)
[2023-05-29 10:39] LABS: Bacteria Urine 1+ (None Seen); Hyaline Casts Urine 0-2 /LPF (0-2)
[2023-05-29 10:47] LABS: Amphetamine Screen Urine Not Detected (Not Detect); Barbiturates, Urine Not Detected (Not Detect); Benzodiazepines Screen Urine Not Detected (Not Detect); Cannabinoid Screen Urine Not Detected (Not Detect); Cocaine Screen Urine Not Detected (Not Detect); Fentanyl, urine Not Detected (Not Detect); Opiate Screen Urine Not Detected (Not Detect); Phencyclidine Screen Urine Not Detected (Not Detect)
[2023-05-29 11:29] VITALS: BP 110/63; PULSE 71; RESP 16; TEMP 36.7; O2SAT 93
== END 2023-05-29 11:30 | disposition home or self-care (01) ==
PROVIDERS: Physician Assistant; Emergency Provider Emergency Medicine; PCP Family Medicine
DX: N30.00 Acute cystitis without hematuria (principal); J06.9 Acute upper respiratory infection, unspecified; I10 Essential (primary) hypertension; E11.9 Type 2 diabetes mellitus without complications; F17.210 Nicotine dependence, cigarettes, uncomplicated; Z79.4 Long term (current) use of insulin; Z11.52 Encounter for screening for COVID-19; Z20.828 Contact with and (suspected) exposure to other viral communicable diseases
CPT/HCPCS: 0241U; 71046; 80048; 80076; 80307; 81001; 83735; 85025; 99284

== ENCOUNTER 2023-06-02 16:40 | Emergency (ER) | payer OTHER, SELFPAY ==
--- NOTE | ~2023-06-02 | CT_ITS ---
EXAMINATION: CT HEAD WITHOUT CONTRAST CLINICAL INFORMATION: Altered mental status of unknown etiology. COMPARISON: Head CT dated 08/12/2021. TECHNIQUE: Contiguous axial imaging was performed from the skullbase to vertex without intravenous administration of contrast. This CT examination was performed using dose optimization techniques as appropriate, variously including the following: *Automated exposure control *Adjustment of mA and/or kV according to patient size (this includes techniques or standardized protocols for targeted exams where dose is matched to indication/reason for exam; i.e. extremities or head) *Use of iterative reconstruction technique DLP: 661 mGy-cm. FINDINGS: There is no evidence of acute intracranial hemorrhage or territorial infarction. No abnormal mass effect or midline shift is seen. [place] to white matter differentiation is well preserved. No extra-axial fluid collections are identified. The ventricles are normal in size. There is no abnormal attenuation within the brain parenchyma. The osseous structures and soft tissues are normal. The mastoid air cells and visualized portions of the paranasal sinuses are well aerated. CT/CT head/brain wo IV con IMPRESSION: No acute intracranial pathology.
[2023-06-02 16:41] VITALS: BP 112/37; PULSE 78; RESP 20; TEMP 37.2; O2SAT 98; BMI 40.3
--- NOTE | 2023-06-02 16:43 | ED_ITS ---
HPI - Abdominal Pain General Chief Complaint: Altered Mental Status Stated Complaint: Abdominal pain/Confused/was here for UTI Time Seen by Provider: 06/02/23 17:57 Source: patient Mode of arrival: ambulatory Limitations: no limitations History of Present Illness HPI narrative: Patient brought by her daughter for increased confusion last 1 week was seen here on 05/28 for same was questionable UTI but urine culture was negative was given Levaquin for 3 days patient's take trazodone baclofen and methocarbamol which is a new medication started. Daughter is giving the medication with her and she not taking any extra dose but possible she took extra doses of baclofen last week for fibromyalgia no head injury patient is forgetful also history of dementia in the family Related Data Home Medications Medication Instructions Recorded Confirmed amitriptyline 10 mg tablet 10 mg PO BEDTIME 10/04/21 07/27/22 amlodipine 10 mg tablet 10 mg PO DAILY 10/04/21 07/27/22 aspirin 81 mg tablet,delayed 81 mg PO DAILY 10/04/21 07/27/22 release baclofen 20 mg tablet 20 mg PO TID 10/04/21 07/27/22 bupropion HCl 150 mg 24 hr tablet, 150 mg PO DAILY PRN 10/04/21 07/27/22 extended release duloxetine 60 mg capsule,delayed 60 mg PO QAM 10/04/21 07/27/22 release empagliflozin 10 mg tablet 10 mg PO DAILY 10/04/21 07/27/22 (Jardiance) ibuprofen 600 mg tablet 1,200 mg PO BID 10/04/21 07/27/22 losartan 100 mg tablet 100 mg PO DAILY 10/04/21 07/27/22 melatonin 5 mg tablet 5 mg PO BEDTIME 10/04/21 07/27/22 metformin 500 mg tablet,extended 1,000 mg PO BID 10/04/21 07/27/22 release 24 hr metoprolol succinate 100 mg 100 mg PO DAILY 10/04/21 07/27/22 tablet,extended release 24 hr omeprazole 20 mg capsule,delayed 20 mg PO DAILY 10/04/21 07/27/22 release rosuvastatin 20 mg tablet 20 mg PO BEDTIME 10/04/21 07/27/22 sennosides 8.6 mg tablet (senna) 17.2 mg PO DAILY 10/04/21 07/27/22 trazodone 50 mg tablet 50 mg PO BEDTIME 10/04/21 07/27/22 dulaglutide 4.5 mg/0.5 mL mg subcut 12/07/21 07/27/22 subcutaneous pen injector (Trulicity) empagliflozin 25 mg tablet 25 mg PO DAILY 12/07/21 07/27/22 (Jardiance) fluticasone propionate 110 2 puff inhalation BID 12/07/21 07/27/22 mcg/actuation HFA aerosol inhaler (Flovent HFA) Previous Rx's Medication Instructions Recorded ondansetron 4 mg disintegrating 4 mg PO Q6-8H PRN nausea and 02/12/22 tablet vomiting #14 tabs gabapentin 400 mg capsule 400 mg PO TID 30 days #90 caps 03/09/22 diclofenac sodium 1 % topical gel 2 g topical QID #100 grams 02/23/23 (Voltaren Arthritis Pain) ibuprofen 600 mg tablet 600 mg PO Q8H PRN pain #30 tabs 02/23/23 lidocaine 5 % topical patch 1 patch topical DAILY #15 ea 02/23/23 (Lidoderm) meclizine 50 mg tablet 50 mg PO BID DIZZINESS #30 tabs 05/04/23 levofloxacin 250 mg tablet 250 mg PO DAILY #5 tabs 05/29/23 Allergies Allergy/AdvReac Type Severity Reaction Status Date / Time cephalexin [Keflex] Allergy Unknown Anaphylaxis Verified 05/04/23 11:31 From Keflex Allergy Severe ANAPHYLAXIS- Uncoded 05/04/23 11:31 SWELLING;PCN/AMOX TOLERATED Review of Systems Review of Systems Yes all other systems are reviewed and are negative [facility] Past Medical History Medical History Family history- stomach cancer Fibromyalgia (~2004) Insulin dependent type 2 diabetes mellitus (~2004) Hypertension Hyperlipemia Nicotine dependence, cigarettes, uncomplicated Fibroids Pancreatitis Epigastric pain Carpal tunnel syndrome Memory loss Fatty infiltration of liver Depression Wrist pain Surgical History History of colonoscopy History of laryngoscopy History of right breast biopsy History of hysterectomy Family History Family History Mother Liver disease Father CAD (coronary artery disease) Brother Stomach cancer Social History Social History Patient Tobacco Use Status: Current everyday Tobacco user Tobacco use type: Cigarette Cigarettes Per Day: 10 Years Smoked: Onset 12yo, 1/2ppd x 49yrs, 25pyh Smoked in Last 30 Days: Yes Use of substances other than those prescribed or required for medical reasons: Yes Advance Directives: No Advance Directives Information Provided: No Patient : No Current occupational status: disabled 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 Oriented X3. No acute distress. Eyes: PERRLA, No Nystagmus ENT: Pharynx normal. Oral Mucosa moist Neck: Normal inspection. Neck supple. CVS: Normal heart rate and rhythm. Pulses normal. Respiratory: No respiratory distress. Equal air entry bilateral, no wheezing/rales/rhonchi Abdomen: Soft and nontender. Bowel sounds are present, no mass palpable, no CVA tenderness Skin: Skin warm and dry. Normal skin color. Normal skin turgor. Extremities: No lower extremity edema. No calf tenderness Neuro: Oriented X 3. No motor deficit. No sensory deficit.No cerebellar signs , cranial nerves II-XII intact Course Course Course Narrative: This is an RME: Additional HPI, ROS, PE not included below will be deferred to primary provider. Patient is a 62-year-old female who presents emergency department for evaluation of Five days with bilateral lower extremity pain, dizziness, nausea, vomiting, diarrhea, abdominal pain, dysuria, urinary frequency, auditory hallucinations, visual hallucinations described as seeing people who have . Plan: Labs, urinalysis, viral panel Medical Decision Making Medical Decision Making MDM Narrative: Patient symptoms metabolic encephalopathy secondary to use of baclofen and methocarbamol and trazodone patient advised to start the medications and follow with PCP head CT was done which was negative for patient's might have dementia as strong family history of dementia in the family patient advised to follow-up with neurologist for further evaluation Differential Diagnosis Differential Diagnoses: The differential diagnosis associated with the presentation includes Dementia/UTI/metabolic encephalopathy/medication side effect Admission/Observation Consideration of admission/observation: Escalation of care including admission/observation considered Lab Data MDM Lab Attestation statement: I reviewed the patient's lab results. 06/02/23 16:57 06/02/23 16:57 Labs: Lab Results 06/02/23 06/02/23 06/02/23 Range/Units 16:57 18:30 18:35 WBC 4.7 L (4.8-10.8) X10*3/uL RBC 4.85 (4.20-5.50) X10*6/uL Hgb 13.5 (12.0-16.0) g/dl Hct 40.8 (37.0-47.0) % MCV 84.1 (80.0-98.0) fL MCH 27.8 (27.0-33.0) pg MCHC 33.1 (31.0-35.0) g/dl RDW 14.3 (11.0-16.0) % Plt Count 271 (160-400) X10*3/uL MPV 9.9 (9.4-12.3) fL Immature Gran % (Auto) 1.1 H (0.0-0.4) % Neut % (Auto) 78.8 H (45-73) % Lymph % (Auto) 15.4 L (20-40) % [place] % (Auto) 4.7 (2-11) % Eos % (Auto) 0.0 (0-4) % Baso % (Auto) 0.0 (0-2) % Lymph # (Auto) 0.7 L (1.2-4.9) X10*3/uL [place] # (Auto) 0.2 (0.1-1.2) X10*3/uL Eos # (Auto) 0.0 (0.0-0.4) X10*3/uL Baso # (Auto) 0.0 (0.0-0.2) X10*3/uL Abs Immat Gran (auto) 0.05 H (0.00-0.03) X10*3/uL Absolute Neuts (auto) 3.7 (2.0-8.3) x10*3/uL Absolute Nucleated RBC 0.000 (0.0-0.012) X10*3/uL Nucleated RBC % (auto) 0.0 (0.0-0.2) /100WBC VBG pH 7.48 H (7.32-7.43) VBG pCO2 28 mmHg VBG pO2 68 mmHg VBG HCO3 21 L (22-26) mmol/L VBG O2 Saturation 93.0 % VBG Base Excess -0.9 mmol/L Sodium 130 L (135-145) mmol/L Potassium 4.2 (3.3-5.1) mmol/L Chloride 99 (96-108) mmol/L Carbon Dioxide 23 (22-29) mmol/L Anion Gap 12 (12-20) BUN 10 (9-16) mg/dL Creatinine 0.93 (0.5-1.4) mg/dL Estim Creat Clear Calc 79.1 Estimated GFR > 60 Random Glucose 173 H (60-115) mg/dL Lactic Acid 2.2 H* (0.5-2.0) mmol/L Calcium 9.0 (8.4-10.2) mg/dL Magnesium 1.3 L* (1.6-2.6) mg/dL Total Bilirubin 0.6 (0.0-1.0) mg/dL AST 39 H (5-31) U/L ALT 29 (0-31) U/L Alkaline Phosphatase 92 (39-117) U/L Ammonia 36 (13-55) umol/L Troponin I High Sens < 2.7 (<3.5-17.0) ng/L Total Protein 6.6 (6.5-8.0) g/dL Albumin 3.5 (3.5-5.0) g/dL Lipase 28 (8-78) U/L TSH 0.65 (0.32-4.0) uIU/mL Urine Color Urine Appearance Urine pH (5.0-9.0) Ur Specific [place] (1.005-1.025) Urine Protein (Neg-Trace) mg/dL Urine Glucose (UA) (Negative) mg/dL Urine Ketones (Negative) mg/dL Urine Blood (Negative) Urine Nitrite (Negative) Ur Leukocyte Esterase (Negative) Urine RBC (0-2) /HPF Urine WBC (0-5) /HPF Ur Squamous Epith Cells (0-2) /HPF Urine Bacteria (None Seen) Hyaline Casts (0-2) /LPF Influenza Type A (PCR) NEGATIVE (Negative) Influenza Type B (PCR) NEGATIVE (Negative) RSV RNA Qual (PCR) NEGATIVE (Negative) SARS-CoV-2 RNA (RT-PCR) NEGATIVE (Negative) 06/02/23 Range/Units 20:03 WBC (4.8-10.8) X10*3/uL RBC (4.20-5.50) X10*6/uL Hgb (12.0-16.0) g/dl Hct (37.0-47.0) % MCV (80.0-98.0) fL MCH (27.0-33.0) pg MCHC (31.0-35.0) g/dl RDW (11.0-16.0) % Plt Count (160-400) X10*3/uL MPV (9.4-12.3) fL Immature Gran % (Auto) (0.0-0.4) % Neut % (Auto) (45-73) % Lymph % (Auto) (20-40) % [place] % (Auto) (2-11) % Eos % (Auto) (0-4) % Baso % (Auto) (0-2) % Lymph # (Auto) (1.2-4.9) X10*3/uL [place] # (Auto) (0.1-1.2) X10*3/uL Eos # (Auto) (0.0-0.4) X10*3/uL Baso # (Auto) (0.0-0.2) X10*3/uL Abs Immat Gran (auto) (0.00-0.03) X10*3/uL Absolute Neuts (auto) (2.0-8.3) x10*3/uL Absolute Nucleated RBC (0.0-0.012) X10*3/uL Nucleated RBC % (auto) (0.0-0.2) /100WBC VBG pH (7.32-7.43) VBG pCO2 mmHg VBG pO2 mmHg VBG HCO3 (22-26) mmol/L VBG O2 Saturation % VBG Base Excess mmol/L Sodium (135-145) mmol/L Potassium (3.3-5.1) mmol/L Chloride (96-108) mmol/L Carbon Dioxide (22-29) mmol/L Anion Gap (12-20) BUN (9-16) mg/dL Creatinine (0.5-1.4) mg/dL Estim Creat Clear Calc Estimated GFR Random Glucose (60-115) mg/dL Lactic Acid (0.5-2.0) mmol/L Calcium (8.4-10.2) mg/dL Magnesium (1.6-2.6) mg/dL Total Bilirubin (0.0-1.0) mg/dL AST (5-31) U/L ALT (0-31) U/L Alkaline Phosphatase (39-117) U/L Ammonia (13-55) umol/L Troponin I High Sens (<3.5-17.0) ng/L Total Protein (6.5-8.0) g/dL Albumin (3.5-5.0) g/dL Lipase (8-78) U/L TSH (0.32-4.0) uIU/mL Urine Color Dark Yellow Urine Appearance Cloudy Urine pH 6.0 (5.0-9.0) Ur Specific [place] 1.025 (1.005-1.025) Urine Protein 100 (2+) H (Neg-Trace) mg/dL Urine Glucose (UA) 100 H (Negative) mg/dL Urine Ketones Trace (Negative) mg/dL Urine Blood Negative (Negative) Urine Nitrite Negative (Negative) Ur Leukocyte Esterase Negative (Negative) Urine RBC 0-2 (0-2) /HPF Urine WBC 6-10 (0-5) /HPF Ur Squamous Epith Cells >20 (0-2) /HPF Urine Bacteria 3+ (None Seen) Hyaline Casts >20 (0-2) /LPF Influenza Type A (PCR) (Negative) Influenza Type B (PCR) (Negative) RSV RNA Qual (PCR) (Negative) SARS-CoV-2 RNA (RT-PCR) (Negative) Independent Interpretation I performed an independent interpretation of an: CT Scan Radiology Impression Discussion of test interpretation with radiology: I have reviewed the radiologist's reading. Medications Administered Discontinued Medications Generic Name Dose Route Start Last Admin Trade Name Freq PRN Reason Stop Dose Admin Sodium Chloride 1,000 mls @ 999 mls/hr 06/02/23 18:19 06/02/23 19:58 Ns IV 06/02/23 19:19 Infused .Q1H1M ONE Infusion Magnesium Sulfate 2 gm in 50 mls @ 150 mls/hr 06/02/23 18:20 06/02/23 19:58 Magnesium Sulfate/H2o IV 06/02/23 18:39 Infused ONCE ONE Infusion Ketorolac Tromethamine 30 mg 06/02/23 18:44 06/02/23 18:50 Ketorolac Tromethamine 30 Mg/Ml Vial IVPUSH 06/02/23 18:45 30 mg ONCE ONE Administration Discharge Plan Discharge Clinical Impression: Medication side effects Patient Disposition: Home, Self-Care Instructions: Adverse Drug Reaction (ED) Additional Instructions: Patient confusion likely from medication side effect Do not take trazodone, methocarbamol , baclofen as they might be causing the confusion Drink plenty of fluids Follow-up with your PCP for further evaluation Prescriptions: No Action gabapentin 400 mg capsule 400 mg PO TID 30 Days Qty: 90 5RF ondansetron 4 mg tablet,disintegrating 4 mg PO Q6-8H PRN (Reason: nausea and vomiting) Qty: 14 0RF ibuprofen 600 mg tablet 600 mg PO Q8H PRN (Reason: pain) Qty: 30 0RF diclofenac sodium [Voltaren Arthritis Pain] 1 % gel 2 g topical QID Qty: 100 0RF Rx Instructions: apply to single elbow, wrist or hand; for hand includes palm/fingers/back of hand lidocaine [Lidoderm] 5 % adhesive patch,medicated 1 patch topical DAILY Qty: 15 0RF Rx Instructions: leave on most painful area for up to 12 hrs levofloxacin 250 mg tablet 250 mg PO DAILY Qty: 5 0RF meclizine 50 mg tablet 50 mg PO BID Qty: 30 0RF amlodipine 10 mg tablet 10 mg PO DAILY aspirin 81 mg tablet,delayed release (DR/EC) 81 mg PO DAILY ibuprofen 600 mg tablet 1,200 mg PO BID bupropion HCl 150 mg tablet extended release 24 hr 150 mg PO DAILY PRN duloxetine 60 mg capsule,delayed release(DR/EC) 60 mg PO QAM losartan 100 mg tablet 100 mg PO DAILY metformin 500 mg tablet extended release 24 hr 1,000 mg PO BID metoprolol succinate 100 mg tablet extended release 24 hr 100 mg PO DAILY omeprazole 20 mg capsule,delayed release(DR/EC) 20 mg PO DAILY rosuvastatin 20 mg tablet 20 mg PO BEDTIME sennosides [senna] 8.6 mg tablet 17.2 mg PO DAILY Jardiance 10 mg tablet 10 mg PO DAILY baclofen 20 mg tablet 20 mg PO TID amitriptyline 10 mg tablet 10 mg PO BEDTIME melatonin 5 mg tablet 5 mg PO BEDTIME trazodone 50 mg tablet 50 mg PO BEDTIME Trulicity 4.5 mg/0.5 mL pen injector subcut fluticasone propionate [Flovent HFA] 110 mcg/actuation HFA aerosol inhaler 2 puff inhalation BID Jardiance 25 mg tablet 25 mg PO DAILY Interventions: ED Discharge Assessment Last Done: 06/02/23 21:16 Discharge Date/Time: 06/02/23 21:17
--- NOTE | 2023-06-02 16:45 | ECG_ITS ---
Test Reason : AMS Blood Pressure : / mmHG Vent. Rate : 075 BPM Atrial Rate : 075 BPM P-R Int : 160 ms QRS Dur : 078 ms QT Int : 372 ms P-R-T Axes : 000 075 030 degrees QTc Int : 415 ms Normal sinus rhythm Normal ECG When compared with ECG of 04-FEB-2023 22:35, No significant change was found Referred By: Annie Hernandez Electronically Signed By:Yayo Dunn
[2023-06-02 17:02] LABS: MANUAL DIFF FLAG NO
[2023-06-02 17:20] LABS: Alanine Aminotransferase 29 U/L (0-31); Albumin Level 3.5 g/dL (3.5-5.0); Alkaline Phosphatase 92 U/L (39-117); Anion Gap 12 (12-20); Aspartate Amino Transferase 39 U/L (5-31); Bilirubin Total 0.6 mg/dL (0.0-1.0); Blood Urea Nitrogen 10 mg/dL (9-16); Carbon Dioxide 23 mmol/L (22-29); Chloride 99 mmol/L (96-108); Creatinine Clr Calc Pharmacy 79.1; Estimated Glomerular Filt Rate > 60; Glucose Random 173 mg/dL (60-115); Lipase 28 U/L (8-78); Magnesium 1.3 mg/dL (1.6-2.6); Potassium 4.2 mmol/L (3.3-5.1); Sodium 130 mmol/L (135-145); Total Protein 6.6 g/dL (6.5-8.0)
[2023-06-02 17:25] LABS: Hematocrit 40.8 % (37.0-47.0); Hemoglobin 13.5 g/dl (12.0-16.0); Imm Gran Abs Auto 0.05 X10*3/uL (0.00-0.03); Imm Gran Pct Auto 1.1 % (0.0-0.4); Lymphocytes Absolute Auto 0.7 X10*3/uL (1.2-4.9); Lymphocytes Percent Auto 15.4 % (20-40); Mean Corpuscular HGB Conc 33.1 g/dl (31.0-35.0); Mean Corpuscular Hemoglobin 27.8 pg (27.0-33.0); Mean Corpuscular Volume 84.1 fL (80.0-98.0); Mean Platelet Volume 9.9 fL (9.4-12.3); Monocytes Absolute Auto 0.2 X10*3/uL (0.1-1.2); Monocytes Percent Auto 4.7 % (2-11); Neutrophils Absolute Auto 3.7 x10*3/uL (2.0-8.3); Neutrophils Percent Auto 78.8 % (45-73); Platelet Count 271 X10*3/uL (160-400); Red Blood Count 4.85 X10*6/uL (4.20-5.50); Red Cell Distribution Width 14.3 % (11.0-16.0); White Blood Count 4.7 X10*3/uL (4.8-10.8)
[2023-06-02 17:26] LABS: Troponin-I High Sensitivity < 2.7 ng/L (<3.5-17.0)
--- NOTE | 2023-06-02 17:34 | PC.NURSE ---
Charge nurse Marlena notified of NA 130 Mg 1.3 while in waiting room
[2023-06-02 17:44] LABS: Influenza A PCR NEGATIVE (Negative); Influenza B PCR NEGATIVE (Negative); Resp Syncy Virus RNA Qual PCR NEGATIVE (Negative); SARS COV2 PCR INHOUSE NEGATIVE (Negative)
[2023-06-02 18:39] VITALS: BP 103/45; PULSE 77; RESP 18; TEMP 37.3; O2SAT 95
[2023-06-02] MEDS: 0.9 % Sodium Chloride 1,000 ML 999 ML IV (18:42)
[2023-06-02 18:45] LABS: Ammonia 36 umol/L (13-55)
[2023-06-02 18:46] LABS: VBG Base Excess -0.9 mmol/L; VBG HCO3 21 mmol/L (22-26); VBG pCO2 28 mmHg; VBG pH 7.48 (7.32-7.43); VBG pO2 68 mmHg
[2023-06-02 18:46] LABS: Venous Blood Gas Refer to POC result
[2023-06-02 18:50] LABS: Lactic Acid 2.2 mmol/L (0.5-2.0)
[2023-06-02] MEDS: Magnesium Sulfate/H2O 2 GM/50 ML PIGGYBACK IV (18:50)
[2023-06-02] MEDS: Ketorolac Tromethamine 30 MG/ML VIAL IVPUSH (18:50)
--- NOTE | 2023-06-02 18:54 | PC.NURSE ---
iv inserted, labs drawn, pt medicated for pain, ivf running per order, mag started per order, call matamoros within reach, will continue to monitor
[2023-06-02 20:09] LABS: Appearance Urine Cloudy; Color Urine Dark Yellow; Glucose Urine UA 100 mg/dL (Negative); Leukocyte Esterase Urine Negative (Negative); Nitrite Urine Negative (Negative); Specific Gravity - Urine 1.025 (1.005-1.025); UMIC TRIGGER UACC YES; Urine Blood Negative (Negative); Urine Ketones Trace mg/dL (Negative); Urine Protein 100 (2+) mg/dL (Neg-Trace)
[2023-06-02 20:16] VITALS: BP 101/44; PULSE 68; RESP 16; TEMP 36.6; O2SAT 95
[2023-06-02 20:22] LABS: Bacteria Urine 3+ (None Seen); Hyaline Casts Urine >20 /LPF (0-2); Squamous Epithelial Cell Urine >20 /HPF (0-2); UACC Culture Trigger YES
[2023-06-02 20:23] LABS: RBC Urine 0-2 /HPF (0-2)
[2023-06-02 20:25] LABS: Thyroid Stimulating Hormone 0.65 uIU/mL (0.32-4.0)
[2023-06-02 20:36] LABS: Reflex Lactate? Lactic Acid Added
[2023-06-02 21:16] VITALS: BP 101/44; PULSE 68; RESP 18; TEMP 36.6; O2SAT 98
== END 2023-06-02 21:17 | disposition home or self-care (01) ==
PROVIDERS: Nurse Practitioner Family; Emergency Provider Internal Medicine; PCP Family Medicine
DX: R10.30 Lower abdominal pain, unspecified (principal); R41.0 Disorientation, unspecified; R11.2 Nausea with vomiting, unspecified; Z11.52 Encounter for screening for COVID-19; Z20.822 Contact with and (suspected) exposure to COVID-19; Z79.899 Other long term (current) drug therapy
CPT/HCPCS: 0241U; 36415; 70450; 80053; 81001; 82140; 82803; 83605; 83690; 83735; 84443; 84484; 85025; 87040; 87086; 93005; 96361; 96374; 96375; 99285; J1885; J3475

== ENCOUNTER → 2023-06-02 16:45 | Outpatient (BNV) | payer OTHER, SELFPAY | PROVIDERS: Emergency Provider Internal Medicine; PCP Family Medicine; Visit Provider Internal Medicine Cardiovascular Disease | DX: R41.82 Altered mental status, unspecified (principal) | CPT/HCPCS: 93010 ==

== ENCOUNTER 2023-06-08 10:21 | Outpatient (REF) | payer OTHER, SELFPAY ==
[2023-06-08 11:58] LABS: Anion Gap 12 (12-20); Blood Urea Nitrogen 13 mg/dL (9-16); Calcium 9.8 mg/dL (8.4-10.2); Carbon Dioxide 26 mmol/L (22-29); Chloride 100 mmol/L (96-108); Estimated Glomerular Filt Rate 45; Glucose Random 182 mg/dL (60-115); Magnesium 1.6 mg/dL (1.6-2.6); Phosphorus 2.7 mg/dL (2.7-4.5); Potassium 3.8 mmol/L (3.3-5.1); Sodium 134 mmol/L (135-145)
== END 2023-06-08 10:22 | disposition home or self-care (01) ==
LOC: HO.HHCL 10:21
PROVIDERS: Visit Provider Internal Medicine
DX: J40 Bronchitis, not specified as acute or chronic (principal)
CPT/HCPCS: 36415; 80048; 83735; 84100

== ENCOUNTER 2023-06-20 09:47 | Outpatient (REF) | payer OTHER, SELFPAY ==
--- NOTE | ~2023-06-20 | US_ITS ---
EXAMINATION: US ABDOMEN COMPLETE CLINICAL INFORMATION: Transaminitis, chronic. Metabolic fatty liver. COMPARISON: CT abdomen and pelvis 12/24/2017. Ultrasound abdomen 11/29/2017. Limited abdominal ultrasound 06/30/2015. TECHNIQUE: Real-time imaging of the abdominal viscera. FINDINGS: PANCREAS: Visualized portions of the pancreas are unremarkable however portions are obscured by bowel gas limiting evaluation. ABDOMINAL AORTA: The proximal, mid, and distal segments are normal in caliber. INFERIOR VENA CAVA: Visualized portions are normal. LIVER: The liver is normal in size. The liver contour is normal. Moderately increased hepatic echogenicity which can be seen in the setting of hepatic steatosis or underlying liver disease. No definite focal lesion is seen, but evaluation is limited due to poor sound beam penetration through the coarse echogenic liver parenchyma. There is no intrahepatic biliary duct dilatation seen. GALLBLADDER: The gallbladder is physiologically distended without evidence of stones, sludge, polyps, wall thickening or pericholecystic fluid. Ringdown artifact in the gallbladder fundus compatible with adenomyomatosis. COMMON BILE DUCT: Normal in caliber measuring 0.6 cm in diameter. RIGHT KIDNEY: Normal. No hydronephrosis. No renal calculi or focal parenchymal lesions. The kidney measures 11.6 cm in maximum dimension. LEFT KIDNEY: Normal. No hydronephrosis. No renal calculi or focal parenchymal lesions. The kidney measures 13.5 cm in maximum dimension. SPLEEN: Normal. The spleen measures 12.2 cm in maximum dimension. FREE FLUID: None. US/US abdomen complete IMPRESSION: 1. Moderately increased hepatic echogenicity which can be seen in the setting of hepatic steatosis or underlying liver disease. No definite focal lesion is seen, but evaluation is limited due to poor sound beam penetration through the coarse echogenic liver parenchyma. 2. Ringdown artifact in the gallbladder fundus compatible with adenomyomatosis.
== END 2023-06-20 09:48 | disposition home or self-care (01) ==
LOC: HO.HMGCX 09:47
PROVIDERS: PCP Family Medicine; Visit Provider Family Medicine
DX: K76.0 Fatty (change of) liver, not elsewhere classified (principal)
CPT/HCPCS: 76700

== ENCOUNTER 2023-07-12 13:20 | Outpatient (AMB) | payer OTHER, SELFPAY ==
--- NOTE | 2023-07-12 13:24 | A.OFFVIS_ITS ---
Vital Signs 07/12/23 13:26 Height 5 ft 6 in Weight 169 lb 12.095 oz BMI 27.4 BP 152/78 H Blood Pressure Location Lt brachial Position Sitting Pulse 76 Intake Visit Reasons: NAFLD Intake Note: Nandini presents in the office as a new patient for NAFLD. CC: She states that she is not having any concerns. She has pains in the stomach - no irregular bowel movements. She has pains in the back that go to the RLQ. 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 Patient was sent by PCP for evaluating liver disease. Patient had ultrasound done and was found to have hepatic steatosis. Patient had been experiencing postprandial abdominal bloating, constipation and acid reflux. Patient currently is on PPI taking omeprazole daily. Patient moves her bowels better, however has to take senna 2 tablets daily. Patient was placed on Trulicity about 2 years ago and since then patient has last over 50 lb or so. Liver enzyme trending down in the past couple months, however continues to have elevated AST. Patient does not drink alcohol. No history of infectious disease. No history of liver cancer. Patient's mother of pancreatitis and family members of stomach cancer. Patient reports last colonoscopy was done over 7 years ago at [facility]. Patient denies melena, hematochezia, unintentional weight loss or ribbon like stools. Patient denies any dyspepsia, dysphagia or odynophagia. [facility] Medical History (Updated 07/12/23 @ 13:58 by Jade Sadler WATER MAIN INSTALLER HELPER-) GERD (gastroesophageal reflux disease) Family history- stomach cancer Fibromyalgia (~2004) Insulin dependent type 2 diabetes mellitus (~2004) Hypertension Hyperlipemia Nicotine dependence, cigarettes, uncomplicated Fibroids Pancreatitis Epigastric pain Carpal tunnel syndrome Memory loss Fatty infiltration of liver Depression Wrist pain Surgical History History of colonoscopy History of laryngoscopy History of right breast biopsy History of hysterectomy Family History Mother Liver disease Father CAD (coronary artery disease) Brother Stomach cancer Social History Patient Tobacco Use Status: Current everyday Tobacco user Tobacco use type: Cigarette Cigarettes Per Day: 10 Years Smoked: Onset 12yo, 1/2ppd x 49yrs, 25pyh Current occupational status: disabled 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 Review of Systems Const Denies weight gain and Denies weight loss ENT Reports no additional complaints, Denies dysphagia and Denies odynophagia Card Reports no additional complaints Resp Reports no additional complaints GI Denies abdominal pain, Denies belching, Denies melena, Reports bloating (Occasional), Denies change in bowel habits, Reports GI cramping (Occasional abdominal cramping), Denies dysphagia, Denies excessive flatus, Denies dyspepsia, Denies heartburn, Denies diarrhea, Denies loose stools, Denies nausea, Denies odynophagia and Denies vomiting Reports no additional complaints Musc Reports no additional complaints Neuro Reports no additional complaints Psych Reports no additional complaints Endo Reports no additional complaints Physical Exam Vital Signs: Last Vital Signs Pulse 76 07/12/23 13:26 BP 152/78 H 07/12/23 13:26 BMI result Body Mass Index 27.4 Const General: healthy appearing, no acute distress and well developed Nutritional Appearance: well nourished Orientation/consciousness: patient oriented x3 Resp Effort & Inspection: normal respiratory effort, able to speak in complete sentences, no tracheal deviation and symmetric chest movement Auscultation: clear to auscultation bilaterally Cardio Rate: regular rate GI Inspection: Yes normal to inspection and No distended Palpation (GI): Soft to palpation, not firm, nontender and No hepatosplenomegaly present Auscultation: normal bowel sounds General: Yes no CVA tenderness Back/Spine/Pelvis Back: no CVA tenderness Skin General skin exam: elasticity normal, turgor normal and dry skin Neuro General: patient oriented x3 Psych Appearance: grossly normal Mental Status: mental status grossly normal Results Reviewed Results Reviewed: ABDOMINAL US FINDINGS: PANCREAS: Visualized portions of the pancreas are unremarkable however portions are obscured by bowel gas limiting evaluation. ABDOMINAL AORTA: The proximal, mid, and distal segments are normal in caliber. INFERIOR VENA CAVA: Visualized portions are normal. LIVER: The liver is normal in size. The liver contour is normal. Moderately increased hepatic echogenicity which can be seen in the setting of hepatic steatosis or underlying liver disease. No definite focal lesion is seen, but evaluation is limited due to poor sound beam penetration through the coarse echogenic liver parenchyma. There is no intrahepatic biliary duct dilatation seen. GALLBLADDER: The gallbladder is physiologically distended without evidence of stones, sludge, polyps, wall thickening or pericholecystic fluid. Ringdown artifact in the gallbladder fundus compatible with adenomyomatosis. COMMON BILE DUCT: Normal in caliber measuring 0.6 cm in diameter. RIGHT KIDNEY: Normal. No hydronephrosis. No renal calculi or focal parenchymal lesions. The kidney measures 11.6 cm in maximum dimension. LEFT KIDNEY: Normal. No hydronephrosis. No renal calculi or focal parenchymal lesions. The kidney measures 13.5 cm in maximum dimension. SPLEEN: Normal. The spleen measures 12.2 cm in maximum dimension. FREE FLUID: None. US/US abdomen complete IMPRESSION: 1. Moderately increased hepatic echogenicity which can be seen in the setting of hepatic steatosis or underlying liver disease. No definite focal lesion is seen, but evaluation is limited due to poor sound beam penetration through the coarse echogenic liver parenchyma. 2. Ringdown artifact in the gallbladder fundus compatible with adenomyomatosis. Assessment & Plan Assessment & Plan (1) GERD (gastroesophageal reflux disease): Code(s): K21.9 - Gastro-esophageal reflux disease without esophagitis Category: Medical Qualifiers: Esophagitis presence: esophagitis presence not specified Qualified Code(s): K21.9 - Gastro-esophageal reflux disease without esophagitis (2) Transaminitis: Code(s): R74.01 - Elevation of levels of liver transaminase levels (3) Postprandial abdominal bloating: Code(s): R14.0 - Abdominal distension (gaseous) (4) Hepatic steatosis: Code(s): K76.0 - Fatty (change of) liver, not elsewhere classified Plan Hepatic steatosis found on ultrasound. Patient has liver enzymes trending down. Patient has been diabetic for a long time, recently placed on Trulicity. Continue with losing weight. Avoiding fatty food. Will rule out autoimmune disorders for the cause of increase echogenicity of her liver. Patient had no lesions that were seen on ultrasound. Will send her for limited ultrasound with elastography to stage it. Liver fibrosis panel ordered as well. Occasional postprandial abdominal bloating with abdominal cramping most likely to related to food. Patient will avoid dietary triggers. Low FODMAP diet discussed with patient. List of food recommended as well as list of food to avoid given to patient. I will see patient in 3 months, sooner on as needed basis. She is agreeable to this plan and verbalizes understanding of instructions. She was given the opportunity to ask questions and all questions answered. Thank you for allowing me to participate in her care Orders: Orders Prothrombin Time INR Today R74.8 - Abnormal levels of other serum enzymes HIV Ab/Ag Today R79.89 - Other specified abnormal findings of blood chemistry Smooth Muscle Antibody Today R79.89 - Other specified abnormal findings of blood chemistry Ceruloplasmin Today R79.89 - Other specified abnormal findings of blood chemistry Mitochondrial Antibody Today R79.89 - Other specified abnormal findings of blood chemistry Liver Panel Today R74.01 - Elevation of levels of liver transaminase levels Alpha Fetoprotein Today R79.89 - Other specified abnormal findings of blood chemistry C Reactive Protein Today K58.9 - Irritable bowel syndrome without diarrhea Hepatitis A,B,C Profile Today R79.89 - Other specified abnormal findings of blood chemistry Liver Fibrosis Pnl Today R74.8 - Abnormal levels of other serum enzymes US abdomen wagner w elastography Today R74.01 - Elevation of levels of liver transaminase levels Coding Level of Care Code New Pt Level 4 (85046) Diagnoses Gastroesophageal reflux disease, unspecified whether esophagitis present K21.9 Esophagitis presence: esophagitis presence not specified Transaminitis R74.01 Postprandial abdominal bloating R14.0 Hepatic steatosis K76.0 Time Spent (min) 45 Comment 30 minutes spent with patient and additional 15 minutes spent reviewing her records
[2023-07-12 13:26] VITALS: BP 152/78; PULSE 76; BMI 27.4
== END 2023-07-12 14:38 | disposition home or self-care (01) ==
PROVIDERS: PCP Family Medicine; Visit Provider Nurse Practitioner Family
DX: K21.9 Gastro-esophageal reflux disease without esophagitis (principal); R74.01 Elevation of levels of liver transaminase levels; R14.0 Abdominal distension (gaseous); K76.0 Fatty (change of) liver, not elsewhere classified
CPT/HCPCS: 99204

== ENCOUNTER 2023-07-12 13:20 | Outpatient (REF) | payer OTHER, SELFPAY ==
[2023-07-12 14:49] LABS: Alanine Aminotransferase 17 U/L (0-31); Albumin Level 4.1 g/dL (3.5-5.0); Alkaline Phosphatase 62 U/L (39-117); Aspartate Amino Transferase 29 U/L (5-31); Bilirubin Direct 0.2 mg/dL (0.0-0.5); Bilirubin Total 0.5 mg/dL (0.0-1.0); C Reactive Protein 0.38 mg/dL (< or = 0.50)
[2023-07-13 04:24] LABS: HBS Num1 0.11 mIU/mL (0-7.99); HBc Num1 0.03 S/CO (0.00-0.79); HBsAGNum1 0.27 S/CO (0.00-0.99); HIV AB/AG Nonreactive (Nonreactive); HIV Num 1 0.06 S/CO (0.00-0.99); Hepatitis B Core Antibody Nonreactive (Nonreactive); Hepatitis B Surface Antigen Negative (Negative); ~HepC Num1 0.03 S/CO (0.00-0.79); ~Hepatitis B Surface Antibody NONREACTIVE (Nonreactive); ~Hepatitis C Antibody Nonreactive (Nonreactive)
[2023-07-13 05:03] LABS: Hepatitis A Antibody IgM 0.25 Index (0-0.79); ~Hepatitis A Antibody IgM Nonreactive (Nonreactive)
[2023-07-13 13:39] LABS: Alpha Fetoprotein 8.6 ng/mL
[2023-07-13 17:53] LABS: Ceruloplasmin 17 mg/dL (18-53)
[2023-07-17 09:53] LABS: Mitochondrial Antibodies NEGATIVE (NEGATIVE)
[2023-07-17 14:18] LABS: Smooth Muscle Antibody <20 U (<20)
[2023-07-24 17:13] LABS: FIB-ALT 16 U/L (6-29); FIB-Alpha-2-Macroglobulin 292 mg/dL (106-279); FIB-Apolipoprotein A1 192 mg/dL (101-198); FIB-GGT 77 U/L (3-65); FIB-Haptoglobin 144 mg/dL (43-212); FIB-Total Bilirubin 0.4 mg/dL (0.2-1.2); Liver Fibrosis Score 0.31; Liver Fibrosis Stage F1-F2; Nec Inflam Act Grade A0; Nec Inflam Act Score 0.06
== END 2023-07-12 13:21 | disposition home or self-care (01) ==
LOC: HO.LAB 13:20
PROVIDERS: PCP Family Medicine; Visit Provider Nurse Practitioner Family
DX: Z11.4 Encounter for screening for human immunodeficiency virus [HIV] (principal); R79.89 Other specified abnormal findings of blood chemistry; K58.9 Irritable bowel syndrome, unspecified; R74.8 Abnormal levels of other serum enzymes; K21.9 Gastro-esophageal reflux disease without esophagitis; R74.01 Elevation of levels of liver transaminase levels; R14.0 Abdominal distension (gaseous); K76.0 Fatty (change of) liver, not elsewhere classified
CPT/HCPCS: 36415; 80076; 81596; 82105; 82390; 85610; 86015; 86140; 86381; 86704; 86706; 86709; 86803; 87340; 87389; 99202

== ENCOUNTER 2023-09-20 13:27 | Outpatient (REF) | payer OTHER, SELFPAY ==
[2023-09-20 16:25] LABS: Anion Gap 15 (12-20); Blood Urea Nitrogen 9 mg/dL (9-16); Calcium 9.7 mg/dL (8.4-10.2); Carbon Dioxide 21 mmol/L (22-29); Chloride 108 mmol/L (96-108); Cholesterol 135 mg/dL (<200); Estimated Glomerular Filt Rate > 60; Glucose Random 126 mg/dL (60-115); HDL Cholesterol 56 mg/dL (>40); LDL Cholesterol Calculated 59 mg/dL (<100); Potassium 3.8 mmol/L (3.3-5.1); Sodium 140 mmol/L (135-145); Triglycerides 100 mg/dL (<150)
[2023-09-20 16:28] LABS: Creatinine Urine 324.77 mg/dL; Microalbum/Creatinine Ratio Ur 23.7 ug/mg cr (<30)
== END 2023-09-20 13:28 | disposition home or self-care (01) ==
LOC: HO.HHCL 13:27
PROVIDERS: Visit Provider Family Medicine
DX: E11.65 Type 2 diabetes mellitus with hyperglycemia (principal); Z79.4 Long term (current) use of insulin
CPT/HCPCS: 36415; 80048; 80061; 82043; 82570

== ENCOUNTER 2023-09-20 18:15 | Emergency (ER) | payer OTHER, SELFPAY ==
[2023-09-20 18:30] VITALS: BP 177/68; PULSE 85; RESP 18; TEMP 36.4; O2SAT 99; BMI 29.2
[2023-09-20 20:31] VITALS: BP 143/68; PULSE 77; RESP 16; TEMP 36.8; O2SAT 100
--- NOTE | 2023-09-20 21:35 | ED_ITS ---
HPI - Back Pain/Injury General Chief Complaint: Back Pain/Injury Stated Complaint: R leg and back pain Time Seen by Provider: 09/20/23 21:34 Source: patient Mode of arrival: ambulatory Limitations: no limitations History of Present Illness ED Provider: mesfin CAMACHO Narrative: Patient complaining pain in right sciatic area for last 7 days denies any injuries patient does have fibromyalgia but does not have significant lower back pain no paresthesia no bladder or bowel involvement Related Data Home Medications ?Medication ?Instructions ?Recorded ?Confirmed amitriptyline 10 mg tablet 10 mg PO BEDTIME 10/04/21 07/27/22 aspirin 81 mg tablet,delayed 81 mg PO DAILY 10/04/21 07/27/22 release baclofen 20 mg tablet 20 mg PO TID 10/04/21 07/27/22 bupropion HCl 150 mg 24 hr tablet, 150 mg PO DAILY PRN 10/04/21 07/27/22 extended release duloxetine 60 mg capsule,delayed 60 mg PO QAM 10/04/21 07/27/22 release losartan 100 mg tablet 100 mg PO DAILY 10/04/21 07/27/22 melatonin 5 mg tablet 5 mg PO BEDTIME 10/04/21 07/27/22 metformin 500 mg tablet,extended 1,000 mg PO BID 10/04/21 07/27/22 release 24 hr omeprazole 20 mg capsule,delayed 20 mg PO DAILY 10/04/21 07/27/22 release rosuvastatin 20 mg tablet 20 mg PO BEDTIME 10/04/21 07/27/22 sennosides 8.6 mg tablet (senna) 17.2 mg PO DAILY 10/04/21 07/27/22 dulaglutide 4.5 mg/0.5 mL mg subcut 12/07/21 07/27/22 subcutaneous pen injector (Trulicity) fluticasone propionate 110 2 puff inhalation BID 12/07/21 07/27/22 mcg/actuation HFA aerosol inhaler (Flovent HFA) acetaminophen 650 mg mg PO 07/12/23 tablet,extended release albuterol sulfate 90 mcg/actuation inhalation 07/12/23 aerosol inhaler (Ventolin HFA) amlodipine 10 mg tablet 5 mg PO DAILY 07/12/23 fluticasone propionate 50 spray intranasal 07/12/23 mcg/actuation nasal spray,suspension insulin glargine 100 unit/mL (3 unit subcut 07/12/23 mL) subcutaneous pen (Lantus Solostar U-100 Insulin) metoprolol succinate 100 mg 50 mg PO DAILY 07/12/23 tablet,extended release 24 hr Previous Rx's ?Medication ?Instructions ?Recorded ondansetron 4 mg disintegrating 4 mg PO Q6-8H PRN nausea and 02/12/22 tablet vomiting #14 tabs diclofenac sodium 1 % topical gel 2 g topical QID #100 grams 02/23/23 (Voltaren Arthritis Pain) lidocaine 5 % topical patch 1 patch topical DAILY #15 ea 02/23/23 (Lidoderm) meclizine 50 mg tablet 50 mg PO BID DIZZINESS #30 tabs 05/04/23 cyclobenzaprine 10 mg tablet 10 mg PO Q8H #20 tabs 09/20/23 oxycodone 5 mg tablet 5 mg PO Q6H PRN pain #20 tabs 09/20/23 Allergies Allergy/AdvReac Type Severity Reaction Status Date / Time cephalexin [Keflex] Allergy Unknown Anaphylaxis Verified 09/20/23 18:35 From Keflex Allergy Severe ANAPHYLAXIS- Uncoded 07/12/23 13:26 SWELLING;PCN/AMOX TOLERATED Review of Systems Review of Systems: Yes all other systems are reviewed and are negative [facility] Past Medical History Medical History GERD (gastroesophageal reflux disease) Family history- stomach cancer Fibromyalgia (~2004) Insulin dependent type 2 diabetes mellitus (~2004) Hypertension Hyperlipemia Nicotine dependence, cigarettes, uncomplicated Fibroids Pancreatitis Epigastric pain Carpal tunnel syndrome Memory loss Fatty infiltration of liver Depression Wrist pain Surgical History History of colonoscopy History of laryngoscopy History of right breast biopsy History of hysterectomy Family History Family History Mother Liver disease Father CAD (coronary artery disease) Brother Stomach cancer Social History Social History Patient Tobacco Use Status: Current everyday Tobacco user Tobacco use type: Cigarette Cigarettes Per Day: 10 Years Smoked: Onset 12yo, 1/2ppd x 48yrs, 25pyh Smoked in Last 30 Days: No Advance Directives: No Advance Directives Information Provided: No Do you have a plan to hurt others: No Plan Patient : No Current occupational status: disabled 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 Oriented X3. No acute distress. ENT: Pharynx normal. Oral Mucosa moist Neck: Normal inspection. Neck supple. CVS: Normal heart rate and rhythm. Pulses normal. Respiratory: No respiratory distress. Equal air entry bilateral, no wheezing/rales/rhonchi Abdomen: Soft and nontender. Bowel sounds are present, no mass palpable, no CVA tenderness Skin: Skin warm and dry. Normal skin color. Normal skin turgor. Extremities: No lower extremity edema. No calf tenderness right sciatic notch tenderness baseline positive for piriformis syndrome on the right side SLR negative neurovascular intact Neuro: Oriented X 3. No motor deficit. No sensory deficit.No cerebellar signs , cranial nerves II-XII intact Medications Administered Discontinued Medications Generic Name Dose Route Start Last Admin Trade Name Freq PRN Reason Stop Dose Admin Cyclobenzaprine HCl 10 mg 09/20/23 21:54 09/20/23 22:10 Cyclobenzaprine Hcl 10 Mg Tablet PO 09/20/23 21:55 10 mg ONCE ONE Administration Oxycodone HCl 10 mg 09/20/23 21:54 09/20/23 22:10 Oxycodone Hcl Immed Release 5 Mg Tablet PO 09/20/23 21:55 10 mg ONCE ONE Administration Medical Decision Making Medical Decision Making MDM Narrative: Patient with right piriformis syndrome advised piriformis stretching exercises will give pain medication muscle relaxant Differential Diagnosis Differential Diagnoses: The differential diagnosis associated with the presentation includes Right sciatica/piriformis syndrome Discharge Plan Discharge Clinical Impression: Piriformis syndrome of right side Patient Disposition: Home, Self-Care Instructions: Piriformis Syndrome (ED) Additional Instructions: Take pain medication and muscle relaxant as prescribed Do piriformis exercises as advised Follow with PCP Prescriptions: New oxycodone 5 mg tablet 5 mg PO Q6H PRN (Reason: pain) Qty: 20 0RF Rx Instructions: Partial Fill upon patient request. cyclobenzaprine 10 mg tablet 10 mg PO Q8H Qty: 20 0RF No Action ondansetron 4 mg tablet,disintegrating 4 mg PO Q6-8H PRN (Reason: nausea and vomiting) Qty: 14 0RF diclofenac sodium [Voltaren Arthritis Pain] 1 % gel 2 g topical QID Qty: 100 0RF Rx Instructions: apply to single elbow, wrist or hand; for hand includes palm/fingers/back of hand lidocaine [Lidoderm] 5 % adhesive patch,medicated 1 patch topical DAILY Qty: 15 0RF Rx Instructions: leave on most painful area for up to 12 hrs meclizine 50 mg tablet 50 mg PO BID Qty: 30 0RF aspirin 81 mg tablet,delayed release (DR/EC) 81 mg PO DAILY bupropion HCl 150 mg tablet extended release 24 hr 150 mg PO DAILY PRN duloxetine 60 mg capsule,delayed release(DR/EC) 60 mg PO QAM losartan 100 mg tablet 100 mg PO DAILY metformin 500 mg tablet extended release 24 hr 1,000 mg PO BID omeprazole 20 mg capsule,delayed release(DR/EC) 20 mg PO DAILY rosuvastatin 20 mg tablet 20 mg PO BEDTIME sennosides [senna] 8.6 mg tablet 17.2 mg PO DAILY baclofen 20 mg tablet 20 mg PO TID amitriptyline 10 mg tablet 10 mg PO BEDTIME melatonin 5 mg tablet 5 mg PO BEDTIME amlodipine 10 mg tablet 5 mg PO DAILY metoprolol succinate 100 mg tablet extended release 24 hr 50 mg PO DAILY Trulicity 4.5 mg/0.5 mL pen injector subcut fluticasone propionate [Flovent HFA] 110 mcg/actuation HFA aerosol inhaler 2 puff inhalation BID fluticasone propionate 50 mcg/actuation spray,suspension intranasal albuterol sulfate [Ventolin HFA] 90 mcg/actuation HFA aerosol inhaler inhalation acetaminophen 650 mg tablet extended release PO insulin glargine [Lantus Solostar U-100 Insulin] 100 unit/mL (3 mL) insulin pen subcut Interventions: ED Discharge Assessment Last Done: 09/20/23 22:31 Discharge Date/Time: 09/20/23 22:32 Print Language: Mohawk
[2023-09-20] MEDS: oxyCODONE HCl Immed Release 5 MG TABLET 10 MG PO (22:10)
[2023-09-20] MEDS: Cyclobenzaprine HCl 10 MG TABLET PO (22:10)
[2023-09-20 22:16] VITALS: BP 148/76; PULSE 71; RESP 16; TEMP 36.7; O2SAT 98
[2023-09-20 22:31] VITALS: BP 148/76; PULSE 71; RESP 16; TEMP 36.7; O2SAT 98
== END 2023-09-20 22:32 | disposition home or self-care (01) ==
PROVIDERS: Emergency Provider Internal Medicine; PCP Family Medicine
DX: G57.01 Lesion of sciatic nerve, right lower limb (principal); E11.9 Type 2 diabetes mellitus without complications; I10 Essential (primary) hypertension; E78.5 Hyperlipidemia, unspecified; F17.210 Nicotine dependence, cigarettes, uncomplicated; Z79.82 Long term (current) use of aspirin; Z79.4 Long term (current) use of insulin; Z79.899 Other long term (current) drug therapy; Z79.84 Long term (current) use of oral hypoglycemic drugs; Z79.02 Long term (current) use of antithrombotics/antiplatelets
CPT/HCPCS: 99283; 99284

== ENCOUNTER 2023-10-06 13:17 | Outpatient (REF) | payer OTHER, SELFPAY ==
--- NOTE | ~2023-10-06 | XR_ITS ---
EXAMINATION: XR LUMBOSACRAL SPINE WITH OBLIQUES CLINICAL INFORMATION: Low back pain radiating to the right leg. COMPARISON: Radiograph lumbar spine 09/22/2014. TECHNIQUE: AP, both oblique, and lateral views of the lumbar spine. Lateral view of the lumbosacral junction. FINDINGS: No evidence of acute compression deformity or subluxation. Stable mild vertebral body height loss at L5. Increased intervertebral disc height loss, facet arthropathy and neural foraminal encroachment at L5-S1. No significant paraspinal soft tissue abnormality. XR/XR lumbar spine 4V min IMPRESSION: 1. No acute compression deformity or subluxation. 2. Worsening degenerative changes at L5-S1.
== END 2023-10-06 13:18 | disposition home or self-care (01) ==
LOC: HO.XRAY 13:17
PROVIDERS: PCP Internal Medicine Geriatric Medicine; Visit Provider Internal Medicine Geriatric Medicine
DX: M54.16 Radiculopathy, lumbar region (principal)
CPT/HCPCS: 72110

== ENCOUNTER 2024-02-05 11:04 | Outpatient (AMB) | payer OTHER, SELFPAY ==
[2024-02-05 11:05] VITALS: BMI 29.5
--- NOTE | 2024-02-05 11:05 | A.OFFVIS_ITS ---
Vital Signs 02/05/24 11:05 Height 5 ft 5 in Weight 177 lb BMI 29.5 Intake Visit Reasons: recall colonoscopy Intake Note: This patient presents for recall colonoscopy screening. Pt c/o; reports stomach issues, reports occasional diarrhea and constipation, reports bloating, reports no rectal bleeding. last colonoscopy: 06/29/2012 Hold Worker Required: No Accompanied by: Self / Same As Patient Allergies cephalexin [Keflex] Allergy (Unknown, Verified 02/05/24 11:12) Anaphylaxis From Keflex Allergy (Severe, Uncoded 02/05/24 11:12) ANAPHYLAXIS- SWELLING;PCN/AMOX TOLERATED Medication List - Last Reconciled 02/05/24 by Duke Dudley MD acetaminophen ER mg PO albuterol sulfate 90 mcg/actuation (Ventolin HFA) inhalation amitriptyline 10 mg PO BEDTIME amlodipine 5 mg PO DAILY aspirin 81 mg PO DAILY baclofen 20 mg PO TID bupropion HCl XL 150 mg PO DAILY PRN cyclobenzaprine 10 mg PO Q8H diclofenac sodium 1% (Voltaren Arthritis Pain) 2 grams topical QID dulaglutide (Trulicity) mg subcut duloxetine 60 mg PO QAM fluticasone propionate 110 mcg/actuation (Flovent HFA) 2 puffs inhalation BID fluticasone propionate 50 mcg/actuation sprays intranasal insulin glargine (Lantus Solostar U-100 Insulin) units subcut lidocaine 5% (Lidoderm) 1 patch topical DAILY losartan 100 mg PO DAILY meclizine 50 mg PO BID melatonin 5 mg PO BEDTIME metformin ER 1,000 mg PO BID metoprolol succinate ER 50 mg PO DAILY omeprazole 20 mg PO DAILY ondansetron 4 mg PO Q6-8H PRN oxycodone 5 mg PO Q6H PRN rosuvastatin 20 mg PO BEDTIME semaglutide (Ozempic) mg subcut sennosides (senna) 17.2 mg PO DAILY HPI HPI recall colonoscopy: Details: [age] year old female referred for screening colonoscopy. Review of her re cords show that her last colonoscopy was in 2012. At that time multiple polyps were removed which were all hyperplastic. She describes having about 2 bowel movements every day and she has had this for about 3 years now. She says she has frequent sensation of bloating as well. She denies seeing blood per rectum. She denies any family history of colon cancer. She admits to having chronic back pain with sciatica which she says seems to be worsening. She also is a smoker. [facility] Medical History (Updated 02/05/24 @ 11:21 by Duke Dudley MD) Colon cancer screening GERD (gastroesophageal reflux disease) Family history- stomach cancer Fibromyalgia (~2004) Insulin dependent type 2 diabetes mellitus (~2004) Hypertension Hyperlipemia Nicotine dependence, cigarettes, uncomplicated Fibroids Pancreatitis Epigastric pain Carpal tunnel syndrome Memory loss Fatty infiltration of liver Depression Wrist pain Surgical History History of colonoscopy History of laryngoscopy History of right breast biopsy History of hysterectomy Family History Mother Liver disease Father CAD (coronary artery disease) Brother Stomach cancer Social History Patient Tobacco Use Status: Current everyday Tobacco user Tobacco use type: Cigarette Cigarettes Per Day: 10 Years Smoked: Onset 12yo, 1/2ppd x 48yrs, 25pyh Current occupational status: disabled 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 Review of Systems Const Denies chills and Denies fever(s) Card Denies chest pain, Denies dyspnea and Denies dyspnea on exertion Resp Denies cough, Denies dyspnea and Denies dyspnea on exertion GI Reports bloating, Denies hematochezia and Denies change in bowel habits Denies hematuria Musc Denies back pain and Denies limited range of motion Neuro Denies focal weakness and Denies convulsions Psych Denies depression and Denies mood swings Physical Exam Vital Signs: BMI result Body Mass Index 29.5 Const General: comfortable and no acute distress Orientation/consciousness: patient oriented x3 Neck Neck: Yes no lymphadenopathy Resp Auscultation: clear to auscultation bilaterally Cardio Rhythm: regular rhythm GI Palpation (GI): Soft to palpation, nontender and no guarding Neuro General: patient oriented x3 Assessment & Plan Assessment & Plan (1) Colon cancer screening: Code(s): Z12.11 - Encounter for screening for malignant neoplasm of colon Category: Medical Plan: Her last colonoscopy for screening was in 2012. I therefore reviewed with her the technique of colonoscopy. I explained the risks including but not limited to bleeding and perforation, as well as the benefits and alternatives She understands and wants to proceed. Coding Level of Care Code New Pt Level 3 (42968) Diagnoses Colon cancer screening Z12.11
== END 2024-02-05 11:21 | disposition home or self-care (01) ==
PROVIDERS: PCP Internal Medicine Geriatric Medicine; Visit Provider Surgery
DX: Z12.11 Encounter for screening for malignant neoplasm of colon (principal)
CPT/HCPCS: 99203

== ENCOUNTER 2024-02-05 18:30 | Emergency (ER) | payer OTHER, SELFPAY ==
--- NOTE | ~2024-02-05 | CT_ITS ---
EXAMINATION: CT CERVICAL SPINE WITHOUT CONTRAST CLINICAL INFORMATION: Neck pain. COMPARISON: Cervical spine MRI from 10/20/2021. CT cervical spine from 08/12/2021. TECHNIQUE: Multidetector helical imaging of the cervical spine was obtained without intravenous contrast. Multiple axial reformats and coronal/sagittal reconstructions were created the technologist workstation for review. This CT examination was performed using dose optimization techniques as appropriate, variously including the following: *Automated exposure control. *Adjustment of mA and/or kV according to patient size (this includes techniques or standardized protocols for targeted exams where dose is matched to indication/reason for exam; i.e. extremities or head). *Use of iterative reconstruction technique. DLP: 452 mGy-cm FINDINGS: The atlantooccipital and atlantoaxial articulations remain well aligned. Straightening of the normal cervical lordosis. Otherwise, there is anatomic alignment of the vertebral bodies and posterior elements. No evidence of acute fracture or subluxation. The vertebral body heights are maintained. Advanced degenerative disc disease at C5-C6. Mild to moderate degenerative disc disease at all additional levels. There is no prevertebral soft tissue swelling. The thyroid gland and remaining cervical soft tissues are within normal limits. The lung apices demonstrate no abnormalities. SPINAL LEVELS: C2-C3: Minimal disc-osteophyte complex. There is no uncovertebral joint arthropathy. There is mild bilateral facet joint arthropathy. There is mild right and no left no neural foraminal stenosis. There is no demonstrated spinal canal stenosis. C3-C4: Minimal disc-osteophyte complex. There is mild bilateral uncovertebral joint arthropathy. There is no facet joint arthropathy. There is no neural foraminal stenosis. There is no demonstrated spinal canal stenosis. C4-C5: Mild disc-osteophyte complex. There is mild right and no left uncovertebral joint arthropathy. There is no facet joint arthropathy. There is mild right and no left neural foraminal stenosis. There appears to be mild spinal canal stenosis. C5-C6: Moderate disc-osteophyte complex. There is moderate bilateral uncovertebral joint arthropathy. There is mild right and no left facet joint arthropathy. There is mild bilateral neural foraminal stenosis. There appears to be moderate spinal canal stenosis. C6-C7: Mild disc-osteophyte complex. There is mild bilateral uncovertebral joint arthropathy. There is mild to moderate bilateral facet joint arthropathy. There is no neural foraminal stenosis. There is no demonstrated spinal canal stenosis. C7-T1: Normal annular contour. There is no uncovertebral joint arthropathy. There is mild bilateral facet joint arthropathy. There is no neural foraminal stenosis. There is no demonstrated spinal canal stenosis. CT/CT cervical spine wo IV con IMPRESSION: 1. No evidence of acute fracture or traumatic subluxation of the cervical spine. 2. Moderate multilevel degenerative spondyloarthropathy of the cervical spine as described in detail above. Most notably on this limited exam without intrathecal contrast, there appears to be moderate spinal canal stenosis at C5-C6. Mild spinal canal stenosis at C4-C5. Electronically signed by: Kole Fatima DO 02/05/2024 11:16 PM [facility]
--- NOTE | ~2024-02-05 | CT_ITS ---
EXAMINATION: CT ABDOMEN AND PELVIS WITHOUT CONTRAST CLINICAL INFORMATION: Back/flank pain COMPARISON: CT scan of the abdomen and pelvis December 2017 TECHNIQUE: Multidetector volumetric imaging was performed from the superior aspect of the liver through the pubic symphysis. Sagittal and coronal reformatted images were obtained on the technologist's workstation. This CT examination was performed using dose optimization techniques as appropriate, variously including the following: *Automated exposure control *Adjustment of mA and/or kV according to patient size (this includes techniques or standardized protocols for targeted exams where dose is matched to indication/reason for exam; i.e. extremities or head) *Use of iterative reconstruction technique DLP: 1591 mGy-cm FINDINGS: LUNG BASES: The visualized lung bases are unremarkable. LIVER, GALLBLADDER, AND BILIARY TREE: Diffuse decreased attenuation throughout the liver compatible with hepatic steatosis unchanged. Gallbladder is small/nondistended but unremarkable. No surrounding inflammatory changes or definite stones. No intrahepatic or extrahepatic biliary dilatation. . PANCREAS: 2 small calcifications in the pancreatic head SPLEEN: Unremarkable. ADRENAL GLANDS: Unremarkable. KIDNEYS AND URETERS: The kidneys are normal in size, shape, and attenuation. No hydronephrosis, hydroureter, or calculi seen. No perinephric stranding. BLADDER: Unremarkable. GASTROINTESTINAL TRACT: Appendix normal. Prominent stool throughout the colon particularly in the distal sigmoid and rectum. This portion of the colon is distended to 6.5 cm no bowel wall thickening or pericolonic inflammatory change. No diverticula. Small bowel normal. Stomach normal. ABDOMINAL WALL: No significant hernia is appreciated. LYMPH NODES: Normal. VASCULAR: Mild to moderate arterial calcification throughout PELVIC VISCERA: Unremarkable. OSSEOUS STRUCTURES: Degenerative disc changes at L5-S1 similar to prior. CT/CT abdomen pelvis wo IV con IMPRESSION: No acute abnormality. No urinary tract calculi or obstruction Hepatic steatosis unchanged. Small calcifications the region of the pancreatic head unchanged. This can be associated with chronic pancreatitis Prominent stool throughout the colon particularly in the distal sigmoid colon with the bowel distended Calcific after sclerotic disease. Lumbar spondylosis unchanged. Fleischner guidelines were followed. Electronically signed by: Jesus Staton MD 02/05/2024 11:14 PM [facility]
--- NOTE | ~2024-02-05 | CT_ITS ---
EXAMINATION: CT CHEST WITHOUT CONTRAST CLINICAL INFORMATION: Rib pain COMPARISON: Chest radiograph 05/29/2023 TECHNIQUE: Multidetector volumetric CT imaging of the chest was done. Axial MIP volume rendering provided. Sagittal and coronal reformatted images were obtained. This CT examination was performed using dose optimization techniques as appropriate, variously including the following: *Automated exposure control *Adjustment of mA and/or kV according to patient size (this includes techniques or standardized protocols for targeted exams where dose is matched to indication/reason for exam; i.e. extremities or head) *Use of iterative reconstruction technique DLP: 397 mGy-cm FINDINGS: LUNGS: Some lingular atelectasis is present. A few tiny punctate nodules are seen (see saved jones images). Mild emphysematous changes seen along with a saber-sheath trachea and mild bronchial thickening. MEDIASTINUM: The mediastinum is normal. CORONARY ARTERY CALCIFICATION: None visualized on this study. PLEURA: There is no pleural effusion. No pleural mass or thickening. AXILLA: No lymphadenopathy. UPPER ABDOMEN: There is hepatic steatosis and splenomegaly. Am small right anterior preparacardiac lymph node is present. There is a -5 Hounsfield unit density 2.3 x 1.1 x 1.6 cm left adrenal mass consistent with a benign adenoma. No additional imaging or follow-up needed. OSSEOUS STRUCTURES: Multiple healed bilateral rib fractures are seen. No acute rib fracture or bony destructive lesion is seen. Degenerative changes are seen throughout the spine. CT/CT chest wo IV con IMPRESSION: 1. No acute rib fractures are seen. 2. Incidental note made of emphysema, hepatic steatosis, splenomegaly and benign left adrenal adenoma. Fleischner guidelines were followed. Electronically signed by: Shyam Arellano MD 02/05/2024 11:31 PM [facility]
[2024-02-05 18:40] VITALS: BP 128/66; PULSE 79; RESP 18; TEMP 524.4; TEMP 976; O2SAT 99; BMI 29.0
--- NOTE | 2024-02-05 18:45 | ECG_ITS ---
Test Reason : BACK PAIN Blood Pressure : / mmHG Vent. Rate : 076 BPM Atrial Rate : 076 BPM P-R Int : 160 ms QRS Dur : 084 ms QT Int : 386 ms P-R-T Axes : 051 059 039 degrees QTc Int : 434 ms Normal sinus rhythm Normal ECG When compared with ECG of 02-JUN-2023 16:49, No significant change was found Referred By: John Dee Electronically Signed By:Yayo Dunn
--- NOTE | 2024-02-05 18:50 | ED_ITS ---
HPI - General Adult General Chief complaint: Back Pain/Injury Stated complaint: neck and back pain Time Seen by Provider: 02/05/24 23:31 Source: patient Mode of arrival: ambulatory Limitations: no limitations History of Present Illness ED Provider: Dr. Callie Durant HPI narrative: Patient comes to the emergency room complaining of chronic sciatica pain and bilateral middle and lower back pain. Patient states that she has been seen by her primary care physician for sciatica, takes tramadol, patient is in the process of getting into physical therapy and more imaging. Patient states that she has not had any falls, no trauma. Denies any UTI symptoms. Denies fever chills. Patient states that the sciatic pain is mostly on the right side, worse with certain movements or hip flexion. States that feels like a lightening bolt traveling from her back towards her heel on the right. Also patient states that for months she has had some numbness in both arms, no loss of strength bilaterally. Related Data Home Medications ?Medication ?Instructions ?Recorded ?Confirmed amitriptyline 10 mg tablet 10 mg PO BEDTIME 10/04/21 02/05/24 aspirin 81 mg tablet,delayed 81 mg PO DAILY 10/04/21 02/05/24 release baclofen 20 mg tablet 20 mg PO TID 10/04/21 02/05/24 bupropion HCl 150 mg 24 hr tablet, 150 mg PO DAILY PRN 10/04/21 02/05/24 extended release duloxetine 60 mg capsule,delayed 60 mg PO QAM 10/04/21 02/05/24 release losartan 100 mg tablet 100 mg PO DAILY 10/04/21 02/05/24 melatonin 5 mg tablet 5 mg PO BEDTIME 10/04/21 02/05/24 metformin 500 mg tablet,extended 1,000 mg PO BID 10/04/21 02/05/24 release 24 hr omeprazole 20 mg capsule,delayed 20 mg PO DAILY 10/04/21 02/05/24 release rosuvastatin 20 mg tablet 20 mg PO BEDTIME 10/04/21 02/05/24 sennosides 8.6 mg tablet (senna) 17.2 mg PO DAILY 10/04/21 02/05/24 dulaglutide 4.5 mg/0.5 mL mg subcut 12/07/21 02/05/24 subcutaneous pen injector ([facility]) fluticasone propionate 110 2 puff inhalation BID 12/07/21 02/05/24 mcg/actuation HFA aerosol inhaler (Flovent HFA) acetaminophen 650 mg mg PO 07/12/23 02/05/24 tablet,extended release albuterol sulfate 90 mcg/actuation inhalation 07/12/23 02/05/24 aerosol inhaler (Ventolin HFA) amlodipine 10 mg tablet 5 mg PO DAILY 07/12/23 02/05/24 fluticasone propionate 50 spray intranasal 07/12/23 02/05/24 mcg/actuation nasal spray,suspension insulin glargine 100 unit/mL (3 unit subcut 07/12/23 02/05/24 mL) subcutaneous pen (Lantus Solostar U-100 Insulin) metoprolol succinate 100 mg 50 mg PO DAILY 07/12/23 02/05/24 tablet,extended release 24 hr semaglutide 1 mg/dose (4 mg/3 mL) mg subcut 02/05/24 02/05/24 subcutaneous pen injector (Ozempic) Previous Rx's ?Medication ?Instructions ?Recorded ondansetron 4 mg disintegrating 4 mg PO Q6-8H PRN nausea and 02/12/22 tablet vomiting #14 tabs diclofenac sodium 1 % topical gel 2 g topical QID #100 grams 02/23/23 (Voltaren Arthritis Pain) lidocaine 5 % topical patch 1 patch topical DAILY #15 ea 02/23/23 (Lidoderm) meclizine 50 mg tablet 50 mg PO BID DIZZINESS #30 tabs 05/04/23 cyclobenzaprine 10 mg tablet 10 mg PO Q8H #20 tabs 09/20/23 oxycodone 5 mg tablet 5 mg PO Q6H PRN pain #20 tabs 09/20/23 cyclobenzaprine 5 mg tablet 5 mg PO TID PRN muscle spasm #15 02/05/24 tabs oxycodone 5 mg tablet 5 mg PO BID PRN pain #8 tabs 02/05/24 sodium,potassium,mag sulfates 17.5 See Rx Instructions PO .COMPLEX 02/05/24 gram-3.13 gram-1.6 gram oral soln #354 mL (Suprep Bowel Prep Kit) Allergies Allergy/AdvReac Type Severity Reaction Status Date / Time cephalexin [Keflex] Allergy Unknown Anaphylaxis Verified 02/05/24 18:42 From Keflex Allergy Severe ANAPHYLAXIS- Uncoded 02/05/24 11:12 SWELLING;PCN/AMOX TOLERATED Review of Systems 2 Review of Systems: Constitutional : No Weight loss, No Fever, No Chills, No Night Sweats, No Fatigue, No Malaise ENT/Mouth : No Hearing loss, No Ear Pain, No Nasal Congestion, No Sinus Pain, No Hoarseness, No sore throat, No Rhinorrhea, No Swallowing Difficulty Eyes: No Eye Pain, No Swelling, No Redness, No Foreign Body, No Discharge, No Vision Changes Cardiovascular : No Chest Pain, No SOB, No Dyspnea on Exertion, No Orthopnea, No Edema, No Palpitations Respiratory : No Cough, No Sputum, No Wheezing, No Smoke Exposure, No Dyspnea Gastrointestinal : No Nausea, No Vomiting, No Diarrhea, No Constipation, No abdominal Pain, No Hematochezia, No Melena Genitourinary : no irregular bleeding, No Dysuria, No Urinary Frequency, No Hematuria, No Urinary Incontinence, No Urgency, No Flank Pain, No Urinary Flow Changes, No Hesitancy Musculoskeletal : No joint pain, No Myalgias, No Joint Swelling back: Pain to palpation over the paraspinal muscles, no lumbar or thoracic spine tenderness. Positive straight leg raise test on the right Skin : No Skin Lesions, No rash Neuro : No Weakness, No Numbness, No Paresthesias, No Loss of Consciousness, No Dizziness, No Headache Psych : No Anxiety/Panic, No Depression, No SI/HI/AH/VH, No Social Issues, Heme/Lymph: No Bruising, No Bleeding,No Lymphadenopathy Endocrine : No Polyuria, No Polydipsia, No Temperature Intolerance [facility] Past Medical History Medical History (Updated 02/05/24 @ 23:54 by Callie Durant MD) Colon cancer screening GERD (gastroesophageal reflux disease) Family history- stomach cancer Fibromyalgia (~2004) Insulin dependent type 2 diabetes mellitus (~2004) Hypertension Hyperlipemia Nicotine dependence, cigarettes, uncomplicated Fibroids Pancreatitis Epigastric pain Carpal tunnel syndrome Memory loss Fatty infiltration of liver Depression Wrist pain Surgical History History of colonoscopy History of laryngoscopy History of right breast biopsy History of hysterectomy Family History Family History Mother Liver disease Father CAD (coronary artery disease) Brother Stomach cancer Social History Social History Patient Tobacco Use Status: Current everyday Tobacco user Tobacco use type: Cigarette Cigarettes Per Day: 10 Years Smoked: Onset 12yo, 1/2ppd x 49yrs, 25pyh Smoked in Last 30 Days: Yes Use of substances other than those prescribed or required for medical reasons: No Advance Directives: No Advance Directives Information Provided: Yes Patient : No Current occupational status: disabled 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 Oriented X3. No acute distress. Eyes: Pupils equal, round and reactive to light. ENT: Pharynx normal. Neck: Normal inspection. Neck supple. No lymph nodes noted. No crepitus CVS: Normal heart rate and rhythm. Pulses normal. Normal S1 and S2 Respiratory: No respiratory distress. Breath sounds normal. No Wheezing. No rales Abdomen: Soft and nontender. No rigidity. No distention. back: Positive straight leg raise test on the right Skin: Skin warm and dry. Normal skin color. Normal skin turgor. Extremities: No lower extremity edema. No Lacerations. No Rash Neuro: Oriented X 3. No motor deficit. No sensory deficit. Moving all extremities. No slurred speech. CN 2 through 12 grossly intact, strength 5/5 in bilateral upper and lower extremities Psych: calm, cooperative, normal affect Course Course Course Narrative: RME: 63-year-old female history sciatica and fibromyalgia presents to ED for left posterior neck pain radiating down back pain and left arm pain. Patient states also lower back pain. Patient was concerned for her due to neck and left arm pain. Patient denies any chest pain or shortness of breath. Due to age will do cardiac evaluation also do cervical spine CT check for arthritis. , CT scan and check for stones lumbar radiculopathy. Chest CT check for pneumonia. Medications Administered Discontinued Medications Generic Name Dose Route Start Last Admin Trade Name Cosmo PRN Reason Stop Dose Admin Cyclobenzaprine HCl 10 mg 02/05/24 23:53 02/06/24 00:28 Cyclobenzaprine Hcl 10 Mg Tablet PO 02/05/24 23:54 10 mg ONCE ONE Administration Dexamethasone Sodium Phosphate 4 mg 02/05/24 23:46 02/06/24 00:28 Dexamethasone Sod Phosphate 4 Mg/Ml Vial IM 02/05/24 23:47 4 mg ONCE ONE Administration Ketorolac Tromethamine 60 mg 02/05/24 23:46 02/06/24 00:29 Ketorolac Tromethamine 60 Mg/2 Ml Vial IM 02/05/24 23:47 60 mg ONCE ONE Administration Medical Decision Making Medical Decision Making [facility] Narrative: patient's labs do not show any acute abnormality, chemistry within normal limits, urine shows trace leukocyte esterase with a large amount squamous epithelial cells. Patient has no UTI symptoms. - CT scans of the chest cervical spine abdomen and pelvis do not show any acute abnormality. - Patient was given IM Decadron and ketorolac - patient states that she will not supervisor opening and picking her tramadol which usually gets prescribed because it is not doing anything for her. Patient states it is pending in the pharmacy. Differential Diagnosis Differential Diagnoses: The differential diagnosis associated with the presentation includes ( Musculoskeletal pain, sciatica, herniated discs, spinal stenosis) Lab Data [facility] Lab Attestation statement: I reviewed the patient's lab results. 02/05/24 19:20 02/05/24 19:19 Labs: Lab Results 02/05/24 02/05/24 02/05/24 Range/Units 19:19 19:20 19:25 WBC 11.6 H (4.8-10.8) X10*3/uL RBC 4.66 (4.20-5.50) X10*6/uL Hgb 12.4 (12.0-16.0) g/dl Hct 38.4 (37.0-47.0) % MCV 82.4 (80.0-98.0) fL MCH 26.6 L (27.0-33.0) pg MCHC 32.3 (31.0-35.0) g/dl RDW 15.9 (11.0-16.0) % Plt Count 301 (160-400) X10*3/uL MPV 9.0 L (9.4-12.3) fL Immature Gran % (Auto) 0.2 (0.0-0.4) % Neut % (Auto) 47.2 (45-73) % Lymph % (Auto) 44.5 H (20-40) % [place] % (Auto) 6.7 (2-11) % Eos % (Auto) 1.0 (0-4) % Baso % (Auto) 0.4 (0-2) % Lymph # (Auto) 5.2 H (1.2-4.9) X10*3/uL [place] # (Auto) 0.8 (0.1-1.2) X10*3/uL Eos # (Auto) 0.1 (0.0-0.4) X10*3/uL Baso # (Auto) 0.1 (0.0-0.2) X10*3/uL Abs Immat Gran (auto) 0.02 (0.00-0.03) X10*3/uL Absolute Neuts (auto) 5.5 (2.0-8.3) x10*3/uL Absolute Nucleated RBC 0.000 (0.0-0.012) X10*3/uL Nucleated RBC % (auto) 0.0 (0.0-0.2) /100WBC Smear Tech's Comments VERIFIED PT 11.5 (10.9-12.4) SEC INR 1.0 (0.9-1.1) APTT 33.0 (26.0-36.8) SEC Sodium 139 (135-145) mmol/L Potassium 4.0 (3.3-5.1) mmol/L Chloride 108 (96-108) mmol/L Carbon Dioxide 21 L (22-29) mmol/L Anion Gap 14 (12-20) BUN 12 (9-16) mg/dL Creatinine 0.83 (0.5-1.4) mg/dL Estim Creat Clear Calc 73.6 Estimated GFR > 60 Random Glucose 128 H (60-115) mg/dL Calcium 9.2 (8.4-10.2) mg/dL Total Bilirubin 0.4 (0.0-1.0) mg/dL AST 34 H (5-31) U/L ALT 19 (0-31) U/L Alkaline Phosphatase 62 (39-117) U/L Troponin I High Sens < 2.7 (<3.5-17.0) ng/L Total Protein 6.8 (6.5-8.0) g/dL Albumin 4.1 (3.5-5.0) g/dL Urine Color Dark Yellow Urine Appearance Clear Urine pH 5.5 (5.0-9.0) Ur Specific [place] 1.025 (1.005-1.025) Urine Protein Trace (Neg-Trace) mg/dL Urine Glucose (UA) Negative (Negative) mg/dL Urine Ketones Trace (Negative) mg/dL Urine Blood Negative (Negative) Urine Nitrite Negative (Negative) Ur Leukocyte Esterase Trace H (Negative) Urine RBC 0-2 (0-2) /HPF Urine WBC 6-10 H (0-5) /HPF Ur Squamous Epith Cells 11-20 (0-2) /HPF Urine Bacteria 3+ (None Seen) Hyaline Casts 3-5 (0-2) /LPF Independent Interpretation I performed an independent interpretation of an: CT Scan Radiology Impression Discussion of test interpretation with radiology: I have reviewed the radiologist's reading. Radiologist Impression: 1. No acute rib fractures are seen. 2. Incidental note made of emphysema, hepatic steatosis, splenomegaly and benign left adrenal adenoma. 1. No evidence of acute fracture or traumatic subluxation of the cervical spine. 2. Moderate multilevel degenerative spondyloarthropathy of the cervical spine as described in detail above. Most notably on this limited exam without intrathecal contrast, there appears to be moderate spinal canal stenosis at C5-C6. Mild spinal canal stenosis at C4-C5. No acute abnormality. No urinary tract calculi or obstruction Hepatic steatosis unchanged. Small calcifications the region of the pancreatic head unchanged. This can be associated with chronic pancreatitis Prominent stool throughout the colon particularly in the distal sigmoid colon with the bowel distended Calcific after sclerotic disease. Lumbar spondylosis unchanged. Fleischner guidelines were followed. Discharge Plan Discharge Clinical Impression: Cervical spinal stenosis, Sciatica, Pain of paraspinal muscle Patient Disposition: Home, Self-Care Instructions: Sciatica (ED), Cervical Spinal Stenosis (ED), Musculoskeletal Pain (ED) Additional Instructions: Please follow-up with your primary care physician sayraorrow. If you have any worsening or new symptoms, please return to the emergency room or call 911 Prescriptions: New oxycodone 5 mg tablet 5 mg PO BID PRN (Reason: pain) Qty: 8 0RF Rx Instructions: Partial Fill upon patient request. cyclobenzaprine 5 mg tablet 5 mg PO TID PRN (Reason: muscle spasm) Qty: 15 0RF No Action ondansetron 4 mg tablet,disintegrating 4 mg PO Q6-8H PRN (Reason: nausea and vomiting) Qty: 14 0RF diclofenac sodium [Voltaren Arthritis Pain] 1 % gel 2 g topical QID Qty: 100 0RF Rx Instructions: apply to single elbow, wrist or hand; for hand includes palm/fingers/back of hand lidocaine [Lidoderm] 5 % adhesive patch,medicated 1 patch topical DAILY Qty: 15 0RF Rx Instructions: leave on most painful area for up to 12 hrs oxycodone 5 mg tablet 5 mg PO Q6H PRN (Reason: pain) Qty: 20 0RF Rx Instructions: Partial Fill upon patient request. cyclobenzaprine 10 mg tablet 10 mg PO Q8H Qty: 20 0RF meclizine 50 mg tablet 50 mg PO BID Qty: 30 0RF aspirin 81 mg tablet,delayed release (DR/EC) 81 mg PO DAILY bupropion HCl 150 mg tablet extended release 24 hr 150 mg PO DAILY PRN duloxetine 60 mg capsule,delayed release(DR/EC) 60 mg PO QAM losartan 100 mg tablet 100 mg PO DAILY metformin 500 mg tablet extended release 24 hr 1,000 mg PO BID omeprazole 20 mg capsule,delayed release(DR/EC) 20 mg PO DAILY rosuvastatin 20 mg tablet 20 mg PO BEDTIME sennosides [senna] 8.6 mg tablet 17.2 mg PO DAILY baclofen 20 mg tablet 20 mg PO TID amitriptyline 10 mg tablet 10 mg PO BEDTIME melatonin 5 mg tablet 5 mg PO BEDTIME amlodipine 10 mg tablet 5 mg PO DAILY metoprolol succinate 100 mg tablet extended release 24 hr 50 mg PO DAILY Trulicity 4.5 mg/0.5 mL pen injector subcut fluticasone propionate [Flovent HFA] 110 mcg/actuation HFA aerosol inhaler 2 puff inhalation BID fluticasone propionate 50 mcg/actuation spray,suspension intranasal albuterol sulfate [Ventolin HFA] 90 mcg/actuation HFA aerosol inhaler inhalation acetaminophen 650 mg tablet extended release PO insulin glargine [Lantus Solostar U-100 Insulin] 100 unit/mL (3 mL) insulin pen subcut Ozempic 1 mg/dose (4 mg/3 mL) pen injector subcut sodium,potassium,mag sulfates [Suprep Bowel Prep Kit] 17.5-3.13-1.6 gram recon soln See Rx Instructions PO .COMPLEX Qty: 354 0RF Rx Instructions: DILUTE; drink full amount early evening before AND next morning at least 2 hr before procedure; follow w 960 mL water PO Interventions: ED Discharge Assessment Last Done: 02/06/24 00:32 Discharge Date/Time: 02/06/24 00:33 Print Language: Albanian
[2024-02-05 19:25] LABS: Basophils Absolute Auto 0.1 X10*3/uL (0.0-0.2); Basophils Percent Auto 0.4 % (0-2); Eosinophils Absolute Auto 0.1 X10*3/uL (0.0-0.4); Hematocrit 38.4 % (37.0-47.0); Hemoglobin 12.4 g/dl (12.0-16.0); Imm Gran Abs Auto 0.02 X10*3/uL (0.00-0.03); Imm Gran Pct Auto 0.2 % (0.0-0.4); Lymphocytes Absolute Auto 5.2 X10*3/uL (1.2-4.9); Lymphocytes Percent Auto 44.5 % (20-40); MANUAL DIFF FLAG SCAN; Mean Corpuscular HGB Conc 32.3 g/dl (31.0-35.0); Mean Corpuscular Hemoglobin 26.6 pg (27.0-33.0); Mean Corpuscular Volume 82.4 fL (80.0-98.0); Monocytes Absolute Auto 0.8 X10*3/uL (0.1-1.2); Monocytes Percent Auto 6.7 % (2-11); Neutrophils Absolute Auto 5.5 x10*3/uL (2.0-8.3); Neutrophils Percent Auto 47.2 % (45-73); Platelet Count 301 X10*3/uL (160-400); Red Blood Count 4.66 X10*6/uL (4.20-5.50); Red Cell Distribution Width 15.9 % (11.0-16.0); SCAN SMEAR FLAG 1; White Blood Count 11.6 X10*3/uL (4.8-10.8)
[2024-02-05 19:30] LABS: Prothrombin Time 11.5 SEC (10.9-12.4)
[2024-02-05 19:31] LABS: Appearance Urine Clear; Color Urine Dark Yellow; Glucose Urine UA Negative (Negative); Leukocyte Esterase Urine Trace (Negative); Nitrite Urine Negative (Negative); PH 5.5 (5.0-9.0); Specific Gravity - Urine 1.025 (1.005-1.025); UMIC TRIGGER UACC YES; Urine Blood Negative (Negative); Urine Ketones Trace mg/dL (Negative); Urine Protein Trace mg/dL (Neg-Trace)
[2024-02-05 19:43] LABS: Bacteria Urine 3+ (None Seen); RBC Urine 0-2 /HPF (0-2); UACC Culture Trigger YES
[2024-02-05 19:46] LABS: Alanine Aminotransferase 19 U/L (0-31); Albumin Level 4.1 g/dL (3.5-5.0); Alkaline Phosphatase 62 U/L (39-117); Anion Gap 14 (12-20); Aspartate Amino Transferase 34 U/L (5-31); Bilirubin Total 0.4 mg/dL (0.0-1.0); Blood Urea Nitrogen 12 mg/dL (9-16); Calcium 9.2 mg/dL (8.4-10.2); Carbon Dioxide 21 mmol/L (22-29); Chloride 108 mmol/L (96-108); Creatinine Clr Calc Pharmacy 73.6; Estimated Glomerular Filt Rate > 60; Glucose Random 128 mg/dL (60-115); Sodium 139 mmol/L (135-145); Total Protein 6.8 g/dL (6.5-8.0)
[2024-02-05 19:51] LABS: SLIDE REVIEW VERIFIED
[2024-02-05 19:54] LABS: Troponin-I High Sensitivity < 2.7 ng/L (<3.5-17.0)
[2024-02-05 22:25] VITALS: BP 117/73; PULSE 80; RESP 20; TEMP 36.2; O2SAT 98
--- NOTE | 2024-02-05 23:35 | PC.NURSE ---
Pt brought to [facility] for treatment, assumed care of pt at this time. Pt A&Ox3 skin pwd respirations even unlabored. Ambulatory with steady gait. Endorsing 10/10 lower back pain radiating down BLE, hx sciatica. Also endorsing upper back pain radiating into shoulders beginning today, denies heavy lifting denies injury, denies accompanying symptoms. Awaiting primary provider eval, aware of plan of care.
[2024-02-05 23:47] VITALS: BP 150/75; PULSE 75; RESP 16; TEMP 36.2; O2SAT 98
[2024-02-06] MEDS: dexAMETHasone sod phosphate 4 MG/ML VIAL IM (00:28)
[2024-02-06] MEDS: Cyclobenzaprine HCl 10 MG TABLET PO (00:28)
[2024-02-06] MEDS: Ketorolac Tromethamine 60 MG/2 ML VIAL IM (00:29)
[2024-02-06 00:32] VITALS: BP 150/75; PULSE 75; RESP 16; TEMP 36.2; O2SAT 98
== END 2024-02-06 00:33 | disposition home or self-care (01) ==
PROVIDERS: Physician Assistant; Emergency Provider Emergency Medicine; PCP Internal Medicine Geriatric Medicine
DX: M48.02 Spinal stenosis, cervical region (principal); M54.41 Lumbago with sciatica, right side; M79.18 Myalgia, other site; R10.9 Unspecified abdominal pain; E11.9 Type 2 diabetes mellitus without complications; I10 Essential (primary) hypertension; E78.5 Hyperlipidemia, unspecified; F17.210 Nicotine dependence, cigarettes, uncomplicated; Z79.82 Long term (current) use of aspirin; Z79.02 Long term (current) use of antithrombotics/antiplatelets; Z79.899 Other long term (current) drug therapy; Z79.4 Long term (current) use of insulin
CPT/HCPCS: 36415; 71250; 72125; 74176; 80053; 81001; 84484; 85025; 85610; 85730; 87086; 93005; 96372; 99202; 99284; 99285; J1100; J1885

== ENCOUNTER → 2024-02-05 18:45 | Outpatient (BNV) | payer OTHER, SELFPAY | PROVIDERS: Emergency Provider Emergency Medicine; PCP Internal Medicine Geriatric Medicine; Visit Provider Internal Medicine Cardiovascular Disease | DX: M54.59 Other low back pain (principal) | CPT/HCPCS: 93010 ==

== ENCOUNTER 2024-03-23 09:50 | Outpatient (REF) | payer OTHER, SELFPAY | END 2024-03-23 09:51 | disposition home or self-care (01) | LOC: HO.MAMMO 09:50 | PROVIDERS: PCP Family Medicine; Visit Provider Family Medicine | DX: Z12.31 Encounter for screening mammogram for malignant neoplasm of breast (principal) | CPT/HCPCS: 77063; 77067 ==

== ENCOUNTER → 2024-03-23 10:00 | Outpatient (BNV) | payer OTHER, SELFPAY | PROVIDERS: PCP Family Medicine; Visit Provider Internal Medicine | DX: Z12.31 Encounter for screening mammogram for malignant neoplasm of breast (principal) | CPT/HCPCS: 77063; 77067 ==

== ENCOUNTER 2024-08-06 13:34 | Outpatient (AMB) | payer OTHER, SELFPAY ==
--- NOTE | 2024-08-06 13:45 | AM.OFFWIN_ITS ---
Intake Vital Signs 08/06/24 13:48 Weight 180 lb BP 112/68 Blood Pressure Location Lt brachial Position Sitting Pulse 73 Pulse Source Pulse Oximeter Temp 98.0 F Temp Source Oral Pulse Oximetry (%) 98 Oxygen Delivery Method Room Air Intake Visit Reasons: EP-sore throat, body ache, headaches Intake Note: Patient here for sore throat, body aches and head that has been present for about 3 days. Patient Tobacco Use Status: Current everyday Tobacco user Allergies cephalexin [Keflex] Allergy (Unknown, Verified 08/06/24 13:49) Anaphylaxis From Keflex Allergy (Severe, Uncoded 08/06/24 13:49) ANAPHYLAXIS- SWELLING;PCN/AMOX TOLERATED Do you need a note to return to daycare/school/sports/work: No HPI HPI Comments History of Present Illness Details History - The patient is a 63-year-old female pr esenting with upper respiratory congestion x 3 days. - Symptoms developed over the past three days, characterized by a sore throat and head congestion. - She reports shortness of breath withou t accompanying migraine-associated symptoms like light or sound sensitivity or nausea or vomiting. - She feels her lymph nodes in her neck are tender, as well as body aches without fever. - No recent use of axkf-hyv-vbxblcy little dies for symptoms; some Tylenol usage is reported for headache relief. - There is a history of asthma, treated previously with inhalers, and recent cessation of long-term smoking (last week). Does not have an inhaler. She has been involved in a cessation program with no additional pharmacotherapy for n icotine withdrawal. Physical Exam General: Cooperative, healthy appearing, comfortable and no acute distress Orientation/consciousness: Patient oriented x3 Limitations: No limitations Head: Normal to inspection Ears: Hearing grossly normal bilaterally, external ears normal and TM's normal bilaterally Nose: Normal external nose present, Normal nares present and No nasal discharge present Face and sinus: Normal facial exam and sinuses tender Mouth: Normal oral and palatal mucosa present and moist mucous membranes Throat: Yes tonsils normal, Yes uvula midline. Posterior oropharynx erythema Eyes: Appearance normal, both eyes and all related structures Neck: Normal visual inspection Respiratory: Clear to auscultation bilaterally. Normal respiratory effort, able to speak in complete sentences, no respiratory distress, not tachypneic, no tripod positioning and no use of accessory muscles Cardiovascular: Regular rate and rhythm. Normal S1 and S2 Skin: No rashes or lesions noted Neuro: Patient oriented x3 Extremities: Normal to inspection and Yes no clubbing, cyanosis or edema PFSH Medical History (Updated 08/06/24 @ 14:18 by Ayleen Sheth PA-C) Colon cancer screening GERD (gastroesophageal reflux disease) Family history- stomach cancer Fibromyalgia (~2004) Insulin dependent type 2 diabetes mellitus (~2004) Hypertension Hyperlipemia Nicotine dependence, cigarettes, uncomplicated Fibroids Pancreatitis Epigastric pain Carpal tunnel syndrome Memory loss Fatty infiltration of liver Depression Wrist pain Surgical History History of colonoscopy History of laryngoscopy History of right breast biopsy History of hysterectomy Family History Mother Liver disease Father CAD (coronary artery disease) Brother Stomach cancer Social History Patient Tobacco Use Status: Current everyday Tobacco user Tobacco use type: Cigarette Cigarettes Per Day: 10 Years Smoked: Onset 12yo, 1/2ppd x 49yrs, 25pyh Current occupational status: disabled 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 I addressed the patient's symptoms related to nicotine withdrawal and upper respiratory congestion attributed to her recent smoking cessation. The plan involves symptomatic management, highlighting the use of a humidifier and increased fluid intake. I prescribed an inhaler for acute shortness of breath and recommended Xyzal and saline nasal spray for allergic and nasal symptoms, respectively. Mucinex will assist in expectoration. Headache management with Tylenol was discussed, and all necessary prescriptions were sent to her pharmacy for immediate use. Using precise instructions, I ensured she understands how to manage her symptoms effectively. The anticipated course of recovery was communicated, emphasizing the body's natural healing process post-smoking cessation. Patient was informed and verbally consented to the use of an ambient scribe for clinic note documentation during this visit (2) Smoker's respiratory syndrome: Code(s): F17.200 - Nicotine dependence, unspecified, uncomplicated Plan: as above Medications: New albuterol sulfate 90 mcg/actuation 2 puffs inhalation Q6H PRN 8.5 grams 0RF shortness of breath or wheezing or cough Coding Level of Care Code New Pt Level 3 (92229) Diagnoses Former cigarette smoker Z87.891 Smoker's respiratory syndrome F17.200
[2024-08-06 13:48] VITALS: BP 112/68; PULSE 73; TEMP 36.7; O2SAT 98
--- OUTSIDE RECORDS SUMMARY | 2024-08-06 15:12 | XMS_ITS | Encounter Summary ---
Author Organization [employer] Address [address] [place] [address] Care Team Providers Care Strategic Communications Manager Name Role Phone Stacie Vincent MD Primary Care Provider [phone] Fredy Mobley PharmD Unavailable [phone] Reason for Visit * Reason Onset Date Comments callback requests 01/29/2024 Encounter Details Date Type Department Care Team ([facility] Contact Info) Description 01/29/2024 Telephone [facility] MEDICINE [address] [place], [place] [phone] Stacie Vincent MD [address] [place], [place] [phone] callback requests Social History Tobacco Use Types Packs/Day Years Used Date Smoking Tobacco: Every Day Cigarettes 0.5 51 Started: 08/10/1973 Passive Smoke Exposure: Current Smokeless Tobacco: Never Comments:Patient smoked 1-2 ppd for about 50 years, reduced frequency to 1 pack every 2-3 days since August 2022 Alcohol Use Standard Drinks/Week Comments Never 0 (1 standard drink = 0.6 oz pur e alcohol) Depression Answer Date Recorded Patient Health Questionnaire-9 Score 7 06/08/2023 Patient Health Questionnaire-9 Score 7 06/08/2023 Last PHQ-9: Questionnaire Data Not on file 0 06/08/2023 Housing Stability Answer Date Recorded What is your housing situation today? I have gaviota cruz 12/19/[address] you li ve. Do you have problems with any of the following? None of the above 12/19/2022 Food Insecurity Answer Date Recorded Within the past 12 months, y ou worried that your food would run out before you got money to buy more: Never True 12/19/2022 Within the past 12 months,th e food you bought just didn't last and you didn't have enough money to get more: Never True Transportation Answer Date Recorded In the past 12 months, has l ack of transportation kept you from medical appts, meetings, work or from getting things needed for daily living? No 12/19/2022 Utilities Answer Date Recorded In the past 12 months, has t he electric, gas, oil or water company threatened to shut off services in your home? No 12/19/2022 Depression Answer Date Recorded Patient Health Questionnaire-2 Score 2 06/08/2023 Comments Unknown Sex and Gender Information Value Date Recorded Sex Assigned at Female 01/03/2022 10:14 AM EDT Legal Sex Female 10:14 AM EDT Gender Identity Female 01/03/2022 10:14 AM EDT Sexual Orientation Choose not to disclose 2021 10:14 AM EDT documented as of this encounter Miscellaneous Notes * Telephone Encounter - Lizzie White RN - 01/30/2024 11:28 AM EST Telephone call placed to pharmacy to clarify. They stated are unsure what pt is supposed to be on as it looks like she has been switched back and fourth from ozempic to trulicity. Also, pt picked up both ozempic and trulicity recently. Has 7 days until due for trulicity and 2 weeks before she is due for ozempic. They stated Fredy was most recent person to modify these meds. They requested I contact Frdey to have him advise [facility] staff on what to do regarding pt's meds. * Telephone Encounter - Luci Dial - 01/29/2024 1:33 PM EST Tc from pt requesting a new order for Trulicity as pharmacy requests , Pt informed other med needs to be discontinued in order to get Trulicity. Callback [phone] documented in this encounter Plan of Treatment Not on file documented as of this encounter Goals Goal Patient Goal Type Associated Problems Recent Progress Patient-Stated? Author Blood Pressure < 140/90 Blood Pressure 134/107(07/26 1:27 PM EDT) No Fredy Mobley PharmD Hemoglobin A1c < 7 Result Component 7.5( 2:46 PM EDT) No Fredy Mobley PharmD documented as of this encounter Visit Diagnoses Not on filedocumented in this encounter Additional Health Concerns Assessment Noted Time PHQ-9 Depression Total Score: 7 06/08/19 24 9:37 AM EDT documented as of this encounter Care Teams Strategic Communications Manager Relationship Specialty Start Date End Date Stacie Vincent MD [address] [place] [address] PCP - General Family Medicine 10/31/21 Fredy Mobley PharmD [address] [place] [address] Pharmacist Internal Medicine 01/20/23 documented as of this encounter
== END 2024-08-06 14:17 | disposition home or self-care (01) ==
PROVIDERS: PCP Family Medicine; Visit Provider Physician Assistant
DX: J39.9 Disease of upper respiratory tract, unspecified (principal); Z87.891 Personal history of nicotine dependence

== ENCOUNTER → 2024-08-06 13:34 | Outpatient (BNVA) | payer OTHER, SELFPAY | PROVIDERS: PCP Family Medicine; Visit Provider Physician Assistant | DX: R51.9 Headache, unspecified (principal); J02.9 Acute pharyngitis, unspecified; Z87.891 Personal history of nicotine dependence | CPT/HCPCS: 87880; 99202 ==

== ENCOUNTER 2024-11-06 13:29 | Outpatient (REF) | payer MEDICARE, SELFPAY ==
--- OUTSIDE RECORDS SUMMARY | 2024-11-06 15:41 | XMS_ITS | Encounter Summary ---
Author Organization [employer] Address [address] [facility] 7t [place] [address] Care Team Providers Care Mammalogy Teacher Name Role Phone Stacie Vincent MD Primary Care Provider [phone] Fredy Mobley PharmD Unavailable [phone] Reason for Visit * Reason Onset Date Comments Med Refill 01/29/2024 Encounter Details Date Type Department Care Team ([facility] st Contact Info) Description 01/29/2024 Telephone [facility] MEDICINE [address] [place], [place] [phone] Stacie Vincent MD [address] [place], [place] [phone] Med Refill Social History Tobacco Use Types Packs/Day Years Used Date Smoking Tobacco: Every Day Cigarettes 0.5 51.2 Started: [birth year]/10/1973 Passive Smoke Exposure: Current Smokeless [...] encounter Miscellaneous Notes * Telephone Encounter - Luci Dial - 01/29/2024 1:36 PM EST TC from pt requesting medication refill. Medications needing refill : traMADol (Ultram) 50 MG tablet To be sent to: [facility] documented in this encounter Plan of Treatment Upcoming Encounters Date Type Department Care Team (Late st Contact Info) Description 11/14/2024 1:30 PM EDT Clinical Support [facility] MED[facility]INE [address] [place] [address] 12/18/2024 2:00 PM EDT Medication Management [facility] [address] [place] [address] Fredy Mobley PharmD [address] [place] [address] documented as of this encounter Goals Goal Patient Goal Type Associated Problems Recent Progress Patient-Stated? Author Blood Pressure < 140/90 Blood Pressure 138/68(2024 2:03 PM EDT) No Fredy Mobley, Yudy Hemoglobin A1c < 7 Result Component 7.4( 5 1:47 PM EDT) No Fredy Mobley, PharmD documented as of this encounter Visit Diagnoses Not on filedocumented in this encounter Additional Health Concerns Assessment Noted Time PHQ-9 Depression Total Score: 7 06/08/19 24 9:37 AM EDT documented as of this encounter Care Teams Mammalogy Teacher Relationship Specialty Start Date End Date Stacie Vincent MD [address] [place] [address] PCP - General Family Medicine 10/31/21 Fredy Mobley, PharmD [address] [place] [address] Pharmacist Internal Medicine 01/20/23 documented as of this encounter
--- OUTSIDE RECORDS SUMMARY | 2024-11-06 15:41 | XMS_ITS | Encounter Summary ---
Author Organization [employer] Address [address] [facility] 7t [place] [address] Care Team Providers Care Park Activities Coordinator Name Role Phone Stacie Vincent MD Primary Care Provider [phone] Fredy Mobley PharmD Unavailable [phone] Reason for Visit * Reason Comments Med Refill Encounter Details Date Type Department Care Team ([facility] st Contact Info) Description 01/28/2024 Refill [facility] [address] [place], [place] [phone] Judi Leon MD [address] [place], [place] [phone] Social History Tobacco Use Types Packs/Day Years [...] AM EDT documented as of this encounter Plan of Treatment Upcoming Encounters Date Type Department Care Team (Late st Contact Info) Description 11/14/2024 1:30 PM EDT Clinical Support [address] [address] 12/18/2024 2:00 PM EDT Medication Management [address] [address] Fredy Mobley PharmD [address] [place] [address] documented as of this encounter Goals Goal Patient Goal Type Associated Problems Recent Progress Patient-Stated? Author Blood Pressure < 140/90 Blood Pressure 138/68(2024 2:03 PM EDT) No Fredy Mobley, PharmPeace Hemoglobin A1c < 7 Result Component 7.4( 1:47 PM EDT) No Fredy Mobley PharmD documented as of this encounter Visit Diagnoses Not on filedocumented in this encounter Additional Health Concerns Assessment Noted Time PHQ-9 Depression Total Score: 7 06/08/19 24 9:37 AM EDT documented as of this encounter Care Teams Park Activities Coordinator Relationship Specialty Start Date End Date Stacie Vincent MD [address] [place] [address] PCP - General Family Medicine 10/31/21 Fredy Mobley, AmolD [address] [place] [address] Pharmacist Internal Medicine 01/20/23 documented as of this encounter
--- OUTSIDE RECORDS SUMMARY | 2024-11-06 15:41 | XMS_ITS | Encounter Summary ---
Author Organization [employer] Address [address] [facility] 7t [place] [address] Care Team Providers Care Perinatal Social Worker Name Role Phone Stacie Vincent MD Primary Care Provider [phone] Fredy Mobley PharmD Unavailable [phone] Reason for Visit * Reason Onset Date Comments callback requests 01/29/2024 Encounter Details Date Type Department Care Team ([facility] Contact Info) Description 01/29/2024 Telephone [facility] MEDICINE [address] [place], [place] [phone] Stacie Vincent MD [address] [place], [place] [phone] callback requests Social History Tobacco Use Types [...] modify these meds. They requested I contact Fredy to have him advise [facility] staff on what to do regarding pt's meds. * Telephone Encounter - Luci Dial - 01/29/2024 1:33 PM EST Tc from pt requesting a new order for Trulicity as pharmacy requests , Pt informed other med needs to be discontinued in order to get Trulicity. Callback [phone] documented in this encounter Plan of Treatment Upcoming Encounters Date Type Department Care Team (Late st Contact Info) Description 11/14/2024 1:30 PM EDT Clinical Support [address] [address] 12/18/2024 2:00 PM EDT Medication Management [address] [address] Fredy Mobley PharmD [address] [place] [address] documented as of this encounter Goals Goal Patient Goal Type Associated Problems Recent Progress Patient-Stated? Author Blood Pressure < 140/90 Blood Pressure 138/68(2024 2:03 PM EDT) No Fredy Mobley PharmD Hemoglobin A1c < 7 Result Component 7.4( 1:47 PM EDT) No Fredy Mobley PharmD documented as of this encounter Visit Diagnoses Not on filedocumented in this encounter Additional Health Concerns Assessment Noted Time PHQ-9 Depression Total Score: 7 06/08/19 24 9:37 AM EDT documented as of this encounter Care Teams Perinatal Social Worker Relationship Specialty Start Date End Date Stacie Vincent MD [address] [place] [address] PCP - General Family Medicine 10/31/21 Fredy Mobley PharmD [address] [place] [address] Pharmacist Internal Medicine 01/20/23 documented as of this encounter
--- OUTSIDE RECORDS SUMMARY | 2024-11-06 15:42 | XMS_ITS | Encounter Summary ---
Author Organization [employer] Address [address] [facility] 7t [place] [address] Care Team Providers Care Shirt Sewer Name Role Phone Stacie Vincent MD Primary Care Provider [phone] Fredy Mobley PharmD Unavailable [phone] Reason for Visit * Reason Comments Med Refill Encounter Details Date Type Department Care Team ([facility] st Contact Info) Description 08/02/2023 Refill [facility] MEDICINE [address] [place], [place] [phone] Stacie Vincent MD [address] [place], [place] [phone] Social History Tobacco Use Types Packs/Day Years Used Date Smoking Tobacco: Every Day Cigarettes 0.4 50 Passive Smoke Exposure: Current Smokeless Tobacco: Never [...] Description 11/14/2024 1:30 PM EDT Clinical Support [address] [address] 12/18/2024 2:00 PM EDT Medication Management [address] [address] Fredy Mobley PharmD [address] [place] [address] documented as of this encounter Goals Goal Patient Goal Type Associated Problems Recent Progress Patient-Stated? Author Blood Pressure < 140/90 Blood Pressure 138/68( 025 2:03 PM EDT) No Fredy Mobley, PharmPeace documented as of this encounter Visit Diagnoses Not on filedocumented in this encounter Additional Health Concerns Assessment Noted Time PHQ-9 Depression Total Score: 7 06/08/19 24 9:37 AM EDT documented as of this encounter Care Teams Shirt Sewer Relationship Specialty Start Date End Date Stacie Vincent MD [address] [place] [address] PCP - General Family Medicine 10/31/21 Fredy Mobley, PharmD [address] [place] [address] Pharmacist Internal Medicine 01/20/23 documented as of this encounter
--- OUTSIDE RECORDS SUMMARY | 2024-11-06 15:42 | XMS_ITS | Encounter Summary ---
Author Organization [employer] Address [address] [place] [address] [place] [address] Care Team Providers Care Bale Coverer Name Role Phone Stacie Vincent MD Primary Care Provider [phone] Fredy Mobley PharmD Unavailable [phone] Reason for Visit * Reason Comments Med Refill Encounter Details Date Type Department Care Team (Late st Contact Info) Description 12/05/2023 Refill [facility] MEDICINE [address] [place], [place] [phone] Shira Oneil MD [address] [place], [place] [phone] Piriformis syndrome, unspecified laterality Social History Tobacco Use Types Packs/Day Years [...] Description 11/14/2024 1:30 PM EDT Clinical Support [address] [address] 12/18/2024 2:00 PM EDT Medication Management [address] [address] Fredy Mobley PharmD [address] [place] [address] documented as of this encounter Goals Goal Patient Goal Type Associated Problems Recent Progress Patient-Stated? Author Blood Pressure < 140/90 Blood Pressure 138/68(2024 2:03 PM EDT) No Fredy Mobley, PharmPeace Hemoglobin A1c < 7 Result Component 7.4( 1:47 PM EDT) No Fredy Mobley PharmD documented as of this encounter Visit Diagnoses Diagnosis Piriformis syndrome, unspecified laterality documented in this encounter Additional Health Concerns Assessment Noted Time PHQ-9 Depression Total Score: 7 06/08/19 24 9:37 AM EDT documented as of this encounter Care Teams Bale Coverer Relationship Specialty Start Date End Date Stacie Vincent MD [address] [place] [address] PCP - General Family Medicine 10/31/21 Fredy Mobley, AmolD [address] [place] [address] Pharmacist Internal Medicine 01/20/23 documented as of this encounter
--- OUTSIDE RECORDS SUMMARY | 2024-11-06 15:42 | XMS_ITS | Encounter Summary ---
Author Organization [employer] Address [address] [facility] 7t [place] [address] Care Team Providers Care Building Architectural Designer Name Role Phone Stacie Vincent MD Primary Care Provider [phone] Fredy Mobley PharmD Unavailable [phone] Reason for Visit * Reason Comments Med Refill Encounter Details Date Type Department Care Team ([facility] st Contact Info) Description 03/07/2023 Refill [facility] [address] [place], [place] [phone] Stacie Vincent MD [address] [place] [address] Pain Social History Tobacco Use Types Packs/Day Years [...] Answer Date Recorded Patient Health Questionnaire-9 Score 6 05/31/2022 Housing Stability Answer Date Recorded What is [...] Answer Date Recorded Patient Health Questionnaire-2 Score 3 05/31/2022 Comments Unknown Sex and Gender Information Value [...] Description 11/14/2024 1:30 PM EDT Clinical Support [address] [address] 12/18/2024 2:00 PM EDT Medication Management [address] [address] Fredy Mobley, PharmD [address] [place] [address] documented as of this encounter Goals Goal Patient Goal Type Associated Problems Recent Progress Patient-Stated? Author Blood Pressure < 140/90 Blood Pressure 138/68( 025 2:03 PM EDT) No Fredy Mobley, PharmD documented as of this encounter Visit Diagnoses Diagnosis Pain Generalized pain documented in this encounter Additional Health Concerns Assessment Noted Time PHQ-9 Depression Total Score: 6 06/01/19 23 10:23 AM EDT documented as of this encounter Care Teams Building Architectural Designer Relationship Specialty Start Date End Date Stacie Vincent MD [address] [place] [address] PCP - General Family Medicine 10/31/21 Fredy Mobley, PharmD [address] [place] [address] Pharmacist Internal Medicine 01/20/23 documented as of this encounter
--- OUTSIDE RECORDS SUMMARY | 2024-11-06 15:42 | XMS_ITS | Encounter Summary ---
Author Organization [employer] Address [address] [facility] 7t [place] [address] Care Team Providers Care Advertising Account Executive Name Role Phone Stacie Vincent MD Primary Care Provider [phone] Fredy Mobley PharmD Unavailable [phone] Reason for Visit * Reason Onset Date Comments Nurse Triage 12/12/2023 Encounter Details Date Type Department Care Team ([facility] st Contact Info) Description 12/12/2023 Telephone [facility] MED[facility] [address] [place], [place] [phone] Stacie Vincent MD [address] [place], [place] [phone] Nurse Triage Social History Tobacco Use Types Packs/Day Years [...] encounter Miscellaneous Notes * Telephone Encounter - Anastasiya Mir LPN - 12/12/2023 11:53 AM EDT Triage call returned to patient who reports feeling lousy after receiving vaccines for flu and shingles yesterday. Has no energy. No localized swelling or pain no fever. Has chronic back pain and discussed this yesterday with [facility] who told her he would request some Tramadol refill from PCP for chitra previously prescribed. No note to indicate this. Patient checked with RX this morning and med not available. Has been taking otc Tylenol with little relief. Patient PCP on vacation. Team tasked tofollow with available provider for refill as requested until PCP is back. patient in agreement withplan. Reviewed with patient home care recommendations and reasons to call back. Pt verbalized unders tanding and agrees. Multiple (2) protocols were used on this call. Disposition for Call: Discuss with PCP and Callback by Nurse Today Protocol Used: Back Pain (Adult) Protocol-Based Disposition: See in Office or Video Visit within 2 Weeks Override (Final) Disposition: Discuss with PCP and Callback by Nurse Today Override Reason: Other Video visit not offered Positive Triage Question: * Back pain is a chronic symptom (recurrent or ongoing AND lasting > 4 weeks) * All higher-acuity triage questions were negative Protocol Used: Immunization Reactions (Adult) Protocol-Based Disposition: Home Care Positive Triage Question: * Mild immunization reaction * All higher-acuity triage questions were negative Care Advice Discussed: * Pain and Fever Medicines * Reasons To Call Back - Fever lasts more than 3 days - Pain lasts more than 3 days - Injection site starts to look infected - You become worse * Shingles (Recombinant Zoster Vaccine; RZV; Shingrix) Vaccine * Telephone Encounter - Isabel Barriga - 12/12/2023 11:35 AM EDT Symptom: Headache, body ache and headache Outcome: Schedule a same-day appointment or talk to a nurse or provider today Reason: Caller denied all higher acuity questions The caller accepted this outcome. documented in this encounter Plan of Treatment Upcoming Encounters Date Type Department Care Team (Late st Contact Info) Description 11/14/2024 1:30 PM EDT Clinical Support [address] [address] 12/18/2024 2:00 PM EDT Medication Management [address] [address] Fredy Mobley PharmD [address] [place] [address] documented as of this encounter Goals Goal [...] documented as of this encounter Care Teams Advertising Account Executive Relationship Specialty Start Date End Date Stacie Vincent MD [address] [place] [address] PCP - General Family Medicine 10/31/21 Fredy Mobley, AmolD [address] [place] [address] Pharmacist Internal Medicine 01/20/23 documented as of this encounter
--- OUTSIDE RECORDS SUMMARY | 2024-11-06 15:42 | XMS_ITS | Encounter Summary ---
Author Organization [employer] Address [address] [facility] 7t [place] [address] Care Team Providers Care Spa Coordinator Name Role Phone Stacie Vincent MD Primary Care Provider [phone] Fredy Mobley PharmD Unavailable [phone] Reason for Visit * Reason Comments Med Refill Encounter Details Date Type Department Care Team (Late st Contact Info) Description 12/11/2023 Refill [facility] [address] [place] [phone] Stacie Vincent MD [address] [place], [place] [phone] Spondylosis of lumbar spine Social History Tobacco Use Types Packs/Day Years [...] Description 11/14/2024 1:30 PM EDT Clinical Support [address] [address] 12/18/2024 2:00 PM EDT Medication Management [address] [address] Fredy Mobley PharmD [address] [place] [address] documented as of this encounter Goals Goal Patient Goal Type Associated Problems Recent Progress Patient-Stated? Author Blood Pressure < 140/90 Blood Pressure 138/68(2024 2:03 PM EDT) No Fredy Mobley, PharmPeace Hemoglobin A1c < 7 Result Component 7.4( 1:47 PM EDT) No Fredy Mobley PharmD documented as of this encounter Visit Diagnoses Diagnosis Spondylosis of lumbar spine documented in this encounter Additional Health Concerns Assessment Noted Time PHQ-9 Depression Total Score: 7 06/08/19 24 9:37 AM EDT documented as of this encounter Care Teams Spa Coordinator Relationship Specialty Start Date End Date Stacie Vincent MD [address] [place] [address] PCP - General Family Medicine 10/31/21 Fredy Mobley, AmolD [address] [place] [address] Pharmacist Internal Medicine 01/20/23 documented as of this encounter
--- OUTSIDE RECORDS SUMMARY | 2024-11-06 15:42 | XMS_ITS | Encounter Summary ---
Author Organization [employer] Address [address] [place] [address] 7t [place] [address] Care Team Providers Care Racecar Driver Name Role Phone Stacie Vincent MD Primary Care Provider [phone] Fredy Mobley PharmD Unavailable [phone] Reason for Visit * Reason Comments Med Refill Encounter Details Date Type Department Care Team (Late Contact Info) Description 06/22/[address] [facility] MEDICINE [address] [place], [place] [phone] Sergio Mcneil MD [address] [place] [address] Chronic back pain, unspecified back location, unspecified back pain laterality Social History Tobacco Use Types Packs/Day Years Used Date Smoking Tobacco: Every Day Cigarettes Passive Smoke Exposure: Current Smokeless Tobacco: Never Depression Answer Date Recorded Patient Health Questionnaire-9 Score 6 05/31/2022 Depression Answer Date Recorded Patient Health Questionnaire-2 Score 3 05/31/2022 Comments Unknown Sex and Gender Information Value Date Recorded Sex Assigned at Female 01/03/2022 10:14 AM EDT Legal Sex Female 10:14 AM EDT Gender Identity Female 01/03/2022 10:14 AM EDT Sexual Orientation Choose not to disclose 2021 10:14 AM EDT COVID-19 Exposure Response Date Recorded In the last 10 days, have yo u been in contact with someone who was confirmed or suspected to have Coronavirus/COVID-19? No / Unsure 05/31/2022 10:06 AM EDT documented as of this encounter Plan of Treatment Upcoming Encounters Date Type Department Care Team (Late Contact Info) Description 11/14/2024 1:30 PM EDT Clinical Support [address] [address] 12/18/2024 2:00 PM EDT Medication Management [address] [address] Fredy Mobley, Yudy [address] [place] [address] documented as of this encounter Visit Diagnoses Diagnosis Chronic back pain, unspecified back location, unspecified back pain laterality documented in this encounter Additional Health Concerns Assessment Noted Time PHQ-9 Depression Total Score: 6 06/01/19 10:23 AM EDT documented as of this encounter Care Teams Racecar Driver Relationship Specialty Start Date End Date Stacie Vincent MD [address] [place] [address] PCP - General Family Medicine 10/31/21 Fredy Mobley, PharmD [address] [place] [address] Pharmacist Internal Medicine 01/20/23 documented as of this encounter
--- OUTSIDE RECORDS SUMMARY | 2024-11-06 15:42 | XMS_ITS | Encounter Summary ---
Author Organization [employer] Address [address] [place] [address] 7t [place] [address] Care Team Providers Care Senior Accounting Clerk Name Role Phone Stacie Vincent MD Primary Care Provider [phone] Fredy Mobley PharmD Unavailable [phone] Reason for Visit * Reason Comments Med Refill Encounter Details Date Type Department Care Team ([facility] st Contact Info) Description 08/29/2023 Refill [facility] MED[facility]INE [address] [place], [place] [phone] Stacie Vincent MD [address] [place], [place] [phone] Social History Tobacco Use Types Packs/Day Years [...] Description 11/14/2024 1:30 PM EDT Clinical Support [facility] [address] [place] [address] 12/18/2024 2:00 PM EDT Medication Management [facility] [address] [place] [phone] Fredy Mobley PharmD [address] [place] [address] documented as of this encounter Goals Goal [...] documented as of this encounter Care Teams Senior Accounting Clerk Relationship Specialty Start Date End Date Stacie Vincent MD [address] [place] [address] PCP - General Family Medicine 10/31/21 Fredy Mobley, AmolD [address] [place] [address] Pharmacist Internal Medicine 01/20/23 documented as of this encounter
--- OUTSIDE RECORDS SUMMARY | 2024-11-06 15:42 | XMS_ITS | Encounter Summary ---
Author Organization [facility] [employer] Address [address] [place] [address] [place] [address] Care Team Providers Care Floor Plan Adjuster Name Role Phone Stacie Vincent MD Primary Care Provider [phone] Fredy Mobley PharmD Unavailable [phone] Reason for Visit * Reason Comments Med Refill Encounter Details Date Type Department Care Team (Late st Contact Info) Description 10/02/[address] [facility] MEDICINE [address] [place], [place] [phone] Shira Oneil MD [address] [place], [place] [phone] Piriformis syndrome, unspecified laterality Social History Tobacco [...] encounter Miscellaneous Notes * Telephone Encounter - Stacie Vincent MD - 10/02/2023 4:05 PM EDT Patient was given a short supply to come to an appointment on 09/27/23 and did not show up. documented in this encounter Plan of Treatment Upcoming Encounters Date Type Department Care Team (Late st Contact Info) Description 11/14/2024 1:30 PM EDT Clinical Support [facility] MEDICINE [address] [place] [address] 12/18/2024 2:00 PM EDT Medication Management [facility] MED[facility]INE [address] [place] [phone] Fredy Mobley PharmD [address] [place] [address] documented as of this encounter Goals Goal [...] documented as of this encounter Care Teams Floor Plan Adjuster Relationship Specialty Start Date End Date Stacie Vincent MD [address] [place] [address] PCP - General Family Medicine 10/31/21 Fredy Mobley, PharmD [address] [place] [address] Pharmacist Internal Medicine 01/20/23 documented as of this encounter
--- OUTSIDE RECORDS SUMMARY | 2024-11-06 15:42 | XMS_ITS | Encounter Summary ---
Author Organization [employer] Address [address] [facility] 7t [place] [address] Care Team Providers Care Ingot Weigher Name Role Phone Stacie Vincent MD Primary Care Provider [phone] Fredy Mobley PharmD Unavailable [phone] Reason for Visit * Reason Onset Date Comments Medication Question 09/25/2023 Encounter Details Date Type Department Care Team ([facility] st Contact Info) Description 09/25/2023 Telephone [facility] MEDICINE [address] [place], [place] [phone] Stacie Vincent MD [address] [place], [place] [phone] Medication Question Social History Tobacco Use Types Packs/Day Years [...] Telephone Encounter - Lizzie White RN - 09/25/2023 3:15 PM EDT Pt seen at [facility] ED 09/20/23. Dxd with piriformis syndrome of right side. [employer] checked. Pt picked up 5 day supply of oxycodone 5mg QID 09/20/2023. Also picked up cyclobenzaprine 10mg Q8H 20 tabs at the same time. Has ED follow up with [facility] 09/27/23. Is requesting refills to cover her until that appt as she is still in pain. * Telephone Encounter - Serjio Wise - 09/25/2023 3:04 PM EDT Tc from pt stating she was prescribed oxycodone and cyclobenzaprine during ER visit but she is running out. Pt is in severe pain and is requesting a short script that can hold her off until upcoming appt on 09/26. If any questions you can contact pt at [phone]. documented in this encounter Plan of Treatment Upcoming Encounters Date Type Department Care Team (Late st Contact Info) Description 11/14/2024 1:30 PM EDT Clinical Support [address] [address] 12/18/2024 2:00 PM EDT Medication Management [address] [address] Fredy Mobley PharmD [address] [place] [phone] documented as of this encounter Goals Goal [...] documented as of this encounter Care Teams Ingot Weigher Relationship Specialty Start Date End Date Stacie Vincent MD [address] [place] [address] PCP - General Family Medicine 10/31/21 Fredy Mobley PharmD [address] [place] [address] Pharmacist Internal Medicine 01/20/23 documented as of this encounter
--- OUTSIDE RECORDS SUMMARY | 2024-11-06 15:42 | XMS_ITS | Clinical Summary ---
Author Organization [employer] Address [address] [facility] [address] [place] [address] Care Team Providers Care Boat Tester Name Role Phone Stacie Vincent MD Primary Care Provider [phone] Fredy Mobley PharmD Unavailable [phone] Allergies Active Allergy Reactions Criticality Noted Date Comments Cephalexin Anaphylaxis High Other reaction(s): unspecified Other reaction(s): rash, vomiting Gabapentin 10/10/2022 confusion Oxycodone 08/07/2024 Tizanidine Hallucinations 02/12/2024 Medications naloxone (Narcan) 4 mg/0.1 mL nasal spray FOR SUSPECTED OPIOID OVERDOSE. SPRAY 0.1mL IN ONE NOSTRIL. REPEAT IN ALTERNATE NOSTRIL 2-3 MINUTES IF NEEDED. SEEK MEDICAL ATTENTION IMMEDIATELY EVEN IF PATIENT RESPONDS. 2 each 1 023 Active Blood Pressure Monitor kit Check blood pressure once daily and as needed 1 kit 023 Active lidocaine (Lidoderm) 5 % patch Apply 2 patches topically if needed each day for mild pain. Remove & discard patch within 12 hours or as directed by . 60 patch 3 023 Active Diclofenac Sodium 1 % gel APPLY 2 GRAMS TOPICALLY 4 TIMES A DAY IN THE MORNING, AT NOON, IN THE EVENING, AND AT BEDTIME NEEDED FOR PAIN 100 g 5 024 Active Ventolin HFA 108 (90 Base) MCG/ACT inhaler INHALE 2 PUFFS BY MOUTH EVERY 4 TO 6 HOURS NEEDED FOR SHORTNESS OF BREATH 18 g 3 024 Active Alcohol Swabs (Alcohol Prep) 70 % pads USE DIRECTED THREE TIMES DAILY 100 each 11 11/05/2 024 Active B-D UF III MINI PEN NEEDLES 31G X 5 MM [facility] [place] Use to inject Lantus daily 100 each Active amLODIPine (Norvasc) 5 MG tablet TAKE 1 TABLET BY MOUTH EVERY MORNING 90 tablet Active metoprolol succinate XL (Toprol-XL) 50 MG 24 hr tabletIndicatio ns:Primary hypertension TAKE 1 TABLET BY MOUTH EVERY MORNING 90 tablet Active fluticasone (Flonase) 50 MCG/ACT nasal spray INSTILL 2 SPRAYS IN EACH NOSTRIL ONCE DAILY 48 g Active buPROPion XL (Wellbutrin XL) 150 MG 24 hr tabletIndicatio ns:Depressive disorder TAKE 1 TABLET BY MOUTH EVERY MORNING 30 tablet Active TRUEplus Lancets 33G miscIndications :Type 2 diabetes mellitus with hyperglycemia, with long-term current use of insulin ([facility]) USE DIRECTED TO TEST BLOOD SUGAR THREE OR FOUR TIMES DAILY 100 each Active diclofenac (Voltaren) 50 MG EC tablet Take 1 tablet by mouth 2 times daily. Active hydrOXYzine pamoate (Vistaril) 25 MG capsule Take 1 capsule by mouth every 6 (six) hours during the day. Active losartan (Cozaar) 100 MG tablet TAKE 1 TABLET BY MOUTH EVERY MORNING 90 tablet Active senna (Senokot) 8.6 MG tabletIndicatio ns:Drug-induced constipation TAKE 2 TABLETS BY MOUTH EVERY DAY AT BEDTIME NEEDED FOR CONSTIPATION 180 tablet Active rosuvastatin (Crestor) 20 MG tabletIndicatio ns:Drug-induced constipation TAKE 1 TABLET BY MOUTH EVERY EVENING 90 tablet 025 Active Acetaminophen Extra Strength 500 MG tabletIndicatio ns:Chronic back pain, unspecified back location, unspecified back pain laterality TAKE 2 TABLETS BY MOUTH EVERY 8 HOURS NEEDED FOR MILD OR MODERATE PAIN 120 tablet 1 025 Active Tirzepatide (Mounjaro) 7.5 MG/0.5ML solution auto-injectorIn dications:Type 2 diabetes mellitus with hyperglycemia, with long-term current use of insulin ([facility]) Inject 7.5 mg under the skin 1 (one) time per week. 2 mL 3 025 Active insulin degludec (Tresiba FlexTouch) 200 UNIT/ML injectionIndica tions:Type 2 diabetes mellitus with hyperglycemia, with long-term current use of insulin ([facility]) Inject 36 units under the skin once daily 9 mL 5 025 Active omeprazole (PriLOSEC) [address] capsule TAKE 1 CAPSULE BY MOUTH EVERY MORNING BEFORE BREAKFAST 90 capsule 3 025 Active glucose blood (FREESTYLE LITE) test stripIndication s:Type 2 diabetes mellitus with hyperglycemia, with long-term current use of insulin ([facility]) USE DIRECTED TO TEST BLOOD SUGAR THREE OR FOUR TIMES DAILY 100 strip 11 025 Active Aspirin Low Dose 81 MG EC tabletIndicatio ns:Primary hypertension TAKE 1 TABLET BY MOUTH EVERY EVENING 90 tablet 1 025 Active DULoxetine (Cymbalta) [address] capsuleIndicati ons:Depressive disorder TAKE 1 CAPSULE BY MOUTH EVERY MORNING 30 capsule 5 025 Active metFORMIN XR (Glucophage-XR) 500 MG 24 hr tabletIndicatio ns:Type 2 diabetes mellitus without complication, 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 use ([facility]) TAKE 2 TABLETS BY MOUTH TWICE DAILY IN THE MORNING AND EVENING 120 tablet 5 025 Active cyclobenzaprine (Flexeril) 10 MG tabletIndicatio ns:Chronic back pain, unspecified back location, unspecified back pain laterality Take 1 tablet (10 mg) by mouth if needed in the morning and at bedtime for muscle spasms. 30 tablet 3 025 Active mirtazapine (Remeron) 7.5 MG tablet Take 1 tablet (7.5 mg) by mouth at bedtime. 30 tablet 3 025 2024 Active FREESTYLE LITE test stripIndication s:Type 2 diabetes mellitus with hyperglycemia, with long-term current use of insulin ([facility]) TEST BLOOD SUGAR 3 TO 4 TIMES PER DAY DIRECTED 100 strip 11 024 2024 Discontinued metFORMIN XR (Glucophage-XR) 500 MG 24 hr tabletIndicatio ns:Type 2 diabetes mellitus without complication, unspecified whether correction insulin use ([facility]) TAKE 2 TABLETS BY MOUTH TWICE DAILY IN THE MORNING AND EVENING 120 tablet 5 025 2024 Discontinued(R eorder (will not trigger notification to Pharmacy)) DULoxetine (Cymbalta) [address] capsuleIndicati ons:Depressive disorder TAKE 1 CAPSULE BY MOUTH EVERY MORNING 30 capsule 5 025 2024 Discontinued Aspirin EC Adult Low Dose 81 MG EC tabletIndicatio ns:Primary hypertension TAKE 1 TABLET BY MOUTH EVERY EVENING 90 tablet 1 025 2024 Discontinued traZODone (Desyrel) 50 MG tablet Take 50 mg by mouth at bedtime. 025 2024 Discontinued(A lternate therapy) traMADol (Ultram) 50 MG tabletIndicatio ns:Chronic back pain, unspecified back location, unspecified back pain laterality Take 1 tablet (50 mg) by mouth every 8 (eight) hours if needed for severe pain for up to 3 days. 6 tablet 025 2024 Discontinued cyclobenzaprine (Flexeril) 5 MG tabletIndicatio ns:Chronic back pain, unspecified back location, unspecified back pain laterality TAKE 1 TABLET BY MOUTH THREE TIMES DAILY FOR 10 DAYS 30 tablet 025 2024 Discontinued traMADol (Ultram) 50 MG tabletIndicatio ns:Chronic back pain, unspecified back location, unspecified back pain laterality TAKE 1 TABLET BY MOUTH EVERY 8 HOURS NEEDED FOR SEVERE PAIN FOR UP TO 3 DAYS 6 tablet 025 2024 Discontinued cyclobenzaprine (Flexeril) 5 MG tabletIndicatio ns:Chronic back pain, unspecified back location, unspecified back pain laterality TAKE 1 TABLET BY MOUTH THREE TIMES DAILY 30 tablet 025 2024 Discontinued(R eorder (will not trigger notification to Pharmacy)) mirtazapine (Remeron) 7.5 MG tablet Take 1 tablet (7.5 mg) by mouth at bedtime. 30 tablet 3 025 2024 Discontinued Active Problems Problem Noted Date Diagnosed Date Insomnia 11/05/2024 Assessment & Plan (11/05/2024 9:14 AM EDT): - avoid zolpidem since patient already has memory problem - already tried melatonin and trazodone - trial of mirtazapine or doxepin Radicular syndrome of left lower extremity 02/12 Assessment & Plan (02/13/2024 11:26 AM EST): Plan Continue with Flexeril 5 mg x 3 times a day x 10 days Start Celecoxib (CeleBREX) 200 MG capsule; Take 1 capsule (200 mg) by mouth 2 times daily for 10 days. Referral to pain clinic Follow up with Physical Therapy referral Follow up with PCP Spondylosis of lumbar spine 06/26/2023 Assessment & Plan (12/05/2023 5:29 PM EDT): Advised re stretching exercises for lower back and will refer to PT Take tylenol + Tizanidine bid and up to 4x/d prn pain, caution with sedation. She can take Tramadol for few days only to decrease intensity of pain. She's aware that shouldn't be used for chronic pain rx for for longer than 1w. Caution with sedation and when taking duloxetine. I will hold on NSAIDs for now due to recurrent worsening of GFR, she's advised that she may need epidural inj if PT isn't improving Family history- stomach cancer 06/26/2023 Hematoma 06/26/2023 Overweight 10/10/2022 Asthma 10/10/2022 Assessment & Plan (07/16/2024 9:18 AM EDT): - previously on Flovent as maintenance. She has not used for a while. Consider using during symptomatic season. - continue albuterol HFA prn - work on smoking cessation Assessment & Plan (01/15/2024 8:51 AM EST): - previously on Flovent as maintenance. She has not used for a while. Consider using during symptomatic season. - continue albuterol HFA prn - work on smoking cessation Assessment & Plan (10/10/2022 6:09 AM EDT): - continue Flovent as maintenance - continue albuterol HFA prn - work on smoking cessation Dizziness 10/10/2022 Overview (10/10/2022): - evaluate with MRI Assessment & Plan (06/11/2023 6:17 AM EDT): - head CT was negative on 06/02/23 - likely due to low BP, possibly adverse reactions from other medications - decreased antihypertensives - close monitoring Assessment & Plan (10/10/2022 6:16 AM EDT): - Hx BPPV - continue meclizine - evaluate with MRI due to Hx concussion and behavioral change BPPV (benign paroxysmal positional vertigo) 09/2022 Assessment & Plan (10/10/2022 6:16 AM EDT): - continue judicious use of meclizine - pt has a new symptom of memory problem - will evaluate with MRI history of left metacarpal fracture 07/13/2022 Assessment & Plan (08/12/2022 6:27 AM EDT): - date of injury 07/09/22, initially treated with splint, oxycodone - seen by orthopedist - healing well Assessment & Plan (07/13/2022 12:15 PM EDT): See above. Chronic neck pain 06/04/2022 Assessment & Plan (07/26/2024 9:29 AM EDT): -seen by [facility] [place] factory worker -MRI in Oct 2021 --Central disc protrusion distorting the ventral cord at the C4-C5 level with mild central canal stenosis. --Moderate spondylosis at the C5-C6 level with a central disc protrusion and disc-osteophyte complex in conjunction with thickening of the ligamentum flavum. Findings result in moderate central canal stenosis and cord distortion --Broad-based left paracentral disc protrusion moderately distorting the cord without signal change at the C6-C7 level. --Moderate central canal stenosis. -continue judicious use of NSAIDs, APAP, muscle relaxant, and topical medication -encouraged to contact paint factory worker -discontinued gabapentin dose due to ?hallucination -agreed to resume oxycodone July 2024. Treatment Hx -previously on tramadol and opioid analgesics; Pt went to Detox in August 2021. Assessment & Plan (01/15/2024 8:50 AM EST): -seen by [facility] paint factory worker -MRI in Oct 2021 --Central disc protrusion distorting the ventral cord at the C4-C5 level with mild central canal stenosis. --Moderate spondylosis at the C5-C6 level with a central disc protrusion and disc-osteophyte complex in conjunction with thickening of the ligamentum flavum. Findings result in moderate central canal stenosis and cord distortion --Broad-based left paracentral disc protrusion moderately distorting the cord without signal change at the C6-C7 level. --Moderate central canal stenosis. -continue judicious use of NSAIDs, APAP, muscle relaxant, and topical medication -encouraged to contact paint factory worker -discontinued gabapentin dose due to ?hallucination Treatment Hx -previously on tramadol and opioid analgesics; Pt went to Detox in August 2021. Assessment & Plan (06/04/2022 6:29 PM EDT): -seen by [facility] paint factory worker -MRI in Oct 2021 --Central disc protrusion distorting the ventral cord at the C4-C5 level with mild central canal stenosis. --Moderate spondylosis at the C5-C6 level with a central disc protrusion and disc-osteophyte complex in conjunction with thickening of the ligamentum flavum. Findings result in moderate central canal stenosis and cord distortion --Broad-based left paracentral disc protrusion moderately distorting the cord without signal change at the C6-C7 level. --Moderate central canal stenosis. -continue judicious use of ibuprofen, gabapentin, and baclofen -encouraged to contact paint factory worker -decrease gabapentin dose due to ?hallucination Treatment Hx -previously on tramadol and opioid analgesics; Pt went to Detox in August 2021. Post-concussion syndrome 06/04/2022 Assessment & Plan (03/21/2023 5:07 AM EST): -08/07/21 Fell down the stairs (7 steps) and hit her head on the floor. No LOC. She was evaluated in ED. She was under the influence of oxycodone, zolpidem, and muscle relaxants. (Screen Utox was positive for cocaine, but pt denies its use; possible FP from trazodone) -CT head and neck showed no acute intracranial abnormality. -Order MRI and consider neurology referral Assessment & Plan (10/10/2022 5:59 AM EDT): -08/07/21 Fell down the stairs (7 steps) and hit her head on the floor. No LOC. She was evaluated in ED. She was under the influence of oxycodone, zolpidem, and muscle relaxants. (Screen Utox was positive for cocaine, but pt denies its use; possible FP from trazodone) -CT head and neck showed no acute intracranial abnormality. -Order MRI and consider neurology referral Assessment & Plan (06/04/2022 6:36 PM EDT): -08/07/21 Fell down the stairs (7 steps) and hit her head on the floor. No LOC. She was evaluated in ED. She was under the influence of oxycodone, zolpidem, cocaine, and muscle relaxants. -CT head and neck showed no acute intracranial abnormality. -Consider neurology referral Metabolic dysfunction-associ ated steatotic liver disease (MASLD) 04/13/2022 Assessment & Plan (11/05/2024 9:06 AM EDT): - last liver panel shows some improvement in transaminitis and normal platelet - FIB-4 1.68, indeterminate - US on 06/20/23: Moderately increased hepatic echogenicity. No definite focal lesion. Ringdown artifact in the gallbladder fundus compatible with adenomyomatosis. - Following with [facility], last seen in July 2023 - continue working on lifestyle modifications and optimizing treatment for chronic conditions. Assessment & Plan (07/16/2024 9:18 AM EDT): - last liver panel shows some improvement in transaminitis and normal platelet - FIB-4 1.68, indeterminate - US on 06/20/23: Moderately increased hepatic echogenicity. No definite focal lesion. Ringdown artifact in the gallbladder fundus compatible with adenomyomatosis. - Following with [facility], last seen in July 2023 - continue working on lifestyle modifications and optimizing treatment for chronic conditions. Assessment & Plan (01/15/2024 8:54 AM EST): - last liver panel shows some improvement in transaminitis and normal platelet - FIB-4 1.68, indeterminate - US on 06/20/23: Moderately increased hepatic echogenicity. No definite focal lesion. Ringdown artifact in the gallbladder fundus compatible with adenomyomatosis. - Following with [facility], last seen in July 2023 - continue working on lifestyle modifications and optimizing treatment for chronic conditions. Assessment & Plan (06/23/2023 3:45 PM EDT): - last liver panel shows some improvement in transaminitis and normal platelet - FIB-4 1.68, indeterminate - US on 06/20/23: Moderately increased hepatic echogenicity. No definite focal lesion. Ringdown artifact in the gallbladder fundus compatible with adenomyomatosis. Assessment & Plan (06/11/2023 6:09 AM EDT): - Will need to update US - Patient had a colonoscopy by Dr. Dudley in 2012, and was referred back last year. Patient did not keep an appointment. Consider referring to GI since patient has MALD. - Work on lifestyle modifications and optimize diabetic management. Chronic back pain 04/13/2022 Assessment & Plan (11/05/2024 9:13 AM EDT): - continue lidocaine patch; APAP, and NSAIDs - treatment history: Previously on oxycodone, which she developed physical dependence. She went to Detox. Resumed oxycodone in July 2024, but went to Detox again. Pregabalin and gabapentin were disconitnued due to side effects (drowsiness); occasionally prescribed tramadol; she developed adverse reaction with cyclobenzaprine and baclofen. She is tolerating tizanidine. - she requests cyclobenzaprine again. Resume with caution Assessment & Plan (07/26/2024 9:29 AM EDT): - continue lidocaine patch; APAP, and NSAIDs - treatment history: Previously on oxycodone, which she developed physical dependence. She went to Detox. pregabalin and gabapentin were disconitnued due to side effects (drowsiness); occasionally prescribed tramadol; she developed adverse reaction with cyclobenzaprine and baclofen. She is tolerating tizanidine. Back on cyclobenzaprine. - agreed to resume oxycodone with caution. Discussed about the importance of following RESIDENTIAL PROGRAM COORDINATOR agreement. Assessment & Plan (01/15/2024 9:02 AM EST): - continue lidocaine patch; APAP, and NSAIDs - treatment history: pregabalin and gabapentin were disconitnued due to side effects (drowsiness); occasionally prescribed tramadol; she developed adverse reaction with cyclobenzaprine and baclofen. She is tolerating tizanidine. Assessment & Plan (08/12/2022 6:20 AM EDT): - continue lidocaine patch - taper off gabapentin 300 mg bid x 2 wks, 300 mg daily x 2 wks, then off Assessment & Plan (06/04/2022 6:49 PM EDT): -continue lidocaine patch Current smoker 04/13/2022 Assessment & Plan (07/26/2024 9:22 AM EDT): -continue working on smoking cessation -continue bupropion -seen by lung cancer screening program in [facility] in Dec 2022; patient has not completed CT for the program -most recent chest CT in Feb 2024: Incidental note made of emphysema, hepatic steatosis, splenomegaly and benign left adrenal adenoma - will refer again. Next CT scan in Feb 2025. Assessment & Plan (06/11/2023 6:16 AM EDT): -continue working on smoking cessation -continue bupropion -seen by lung cancer screening program in [facility] in Dec 2022; patient has not had chest CT yet Assessment & Plan (06/04/2022 6:30 PM EDT): -continue working on smoking cessation -continue bupropion Fibromyalgia 04/13/2022 Assessment & Plan (07/16/2024 9:19 AM EDT): -tried physical therapy -tried Lyrica which was discontinued -tried gabapentin which was discontinued (drowsiness) -seen by paint factory worker; pt has not had a follow up. Recommended to contact -continue duloxetine -continue lidocaine patch -Treatment Hx: discontinued amitriptyline in June 2022, tapered off gabapentin due to hallucination; discontinue baclofen and methocarbamol due to possible adverse reaction Assessment & Plan (01/15/2024 8:55 AM EST): -tried physical therapy -tried Lyrica which was discontinued -tried gabapentin which was discontinued (drowsiness) -seen by paint factory worker; pt has not had a follow up. Recommended to contact -continue duloxetine -continue lidocaine patch -Treatment Hx: discontinued amitriptyline in June 2022, tapered off gabapentin due to hallucination; discontinue baclofen and methocarbamol due to possible adverse reaction Assessment & Plan (06/11/2023 6:10 AM EDT): -tried physical therapy -tried Lyrica which was discontinued -seen by paint factory worker; pt has not had a follow up. Recommended to contact -continue duloxetine -discontinue baclofen -continue lidocaine patch -Treatment Hx: discontinued amitriptyline in June 2022, tapered off gabapentin due to hallucination; discontinue baclofen and methocarbamol due to possible adverse reaction Assessment & Plan (10/10/2022 6:10 AM EDT): -tried physical therapy -tried Lyrica which was discontinued -seen by paint factory worker; pt has not had a follow up. Recommended to contact -continue duloxetine -continue baclofen -continue lidocaine patch -Treatment Hx: discontinued amitriptyline in June 2022, tapered off gabapentin due to hallucination Assessment & Plan (08/12/2022 6:23 AM EDT): -tried physical therapy -tried Lyrica which was discontinued -seen by paint factory worker; pt has not had a follow up. Recommended to contact -decrease gabapentin dose to 300 mg tid due to hallucination in March 2022, further decrease and plan to taper off -continue duloxetine -continue baclofen -discontinue amitriptyline Assessment & Plan (06/04/2022 6:38 PM EDT): -tried physical therapy -tried Lyrica which was discontinued -seen by paint factory worker; pt has not had a follow up. Recommended to contact -decrease gabapentin dose to 300 mg tid due to hallucination -continue duloxetine -continue baclofen -continue amitriptyline Epigastric pain 12/27/2017 Nicotine dependence, cigarettes, uncomplicated 0 11/30/2017 Assessment & Plan (11/05/2024 9:11 AM EDT): - working with our pharmacist to quit smoking Assessment & Plan (07/16/2024 9:20 AM EDT): - working with our pharmacist to quit smoking Assessment & Plan (01/15/2024 8:59 AM EST): - working with our pharmacist to quit smoking Assessment & Plan (03/21/2023 5:09 AM EST): - seen by [facility] smoking cessation program in Dec 2022 Assessment & Plan (10/10/2022 6:11 AM EDT): - referred to smoking cessation program Depression 05/17/2013 Assessment & Plan (06/11/2023 6:15 AM EDT): -pt declines [facility] -pt has been taking medications for many years -continue current medications: Bupropion; (Duloxetine for fibromyalgia); Assessment & Plan (03/21/2023 5:10 AM EST): -pt declines [facility]HS -pt has been taking medications for many years -continue current medications: Bupropion; (Duloxetine for fibromyalgia); Trazodone; Melatonin Assessment & Plan (10/10/2022 6:12 AM EDT): -pt declines BHS -pt has been taking medications for many years -continue current medications: Bupropion; (Duloxetine for fibromyalgia); Trazodone; Melatonin Assessment & Plan (06/04/2022 6:24 PM EDT): -pt declines BHS -pt has been taking medications for many years -continue current medications: Amitriptyline; Bupropion; (Duloxetine); Trazodone; Melatonin Diabetes mellitus, type 2 10/03/2011 Assessment & Plan (11/05/2024 9:06 AM EDT): - Hgb A1c 7.4% on 10/28/2024, no significant change from A1c 7.5% on 07/16/24 -Co-managed with our pharmacist -Continue tirzepatide (Mounjaro) 7.5 mg weekly -Continue metformin ER 500 mg bid (may be able to increase to 1000 mg bid when her periodic pre-renal MARCELLE resolves). -Work on lifestyle modifications -Continue self-monitoring glucose (continuous glucose monitoring?) -Eye exam: Recommended to get annual exam -Foot exam: 06/08/23 -Lipid profile 09/20/23 -Microalbumin test 09/20/23 Assessment & Plan (07/16/2024 3:29 PM EDT): - Hgb A1c 7.5% on 07/16/24, improved from HgbA1C 8.9% on 01/09/24 -Co-managed with our pharmacist -Resume dulaglutide (Trulicity) 4.5 mg weekly -Continue metformin ER 500 mg bid (may be able to increase to 1000 mg bid when her periodic pre-renal MARCELLE resolves). -Work on lifestyle modifications -Continue self-monitoring glucose (continuous glucose monitoring?) -Eye exam: Recommended to get annual exam -Foot exam: 06/08/23 -Lipid profile 09/20/23 -Microalbumin test 09/20/23 Assessment & Plan (01/15/2024 8:59 AM EST): -HgbA1C 8.9% on 01/09/24, worsened from 7.6% on 06/08/23, -Co-managed with our pharmacist -Resume dulaglutide (Trulicity) 4.5 mg weekly -Continue metformin ER 500 mg bid (may be able to increase to 1000 mg bid when her periodic pre-renal MARCELLE resolves). -Work on lifestyle modifications -Continue self-monitoring glucose (continuous glucose monitoring?) -Eye exam: Recommended to get annual exam -Foot exam: 06/08/23 -Lipid profile 09/20/23 -Microalbumin test 09/20/23 Assessment & Plan (06/11/2023 6:14 AM EDT): -HgbA1C 7.6% on 06/08/23, slightly worsened from 7.2% on 08/10/22, possibly due to decrease in metformin -Followed by [facility] endocrinology -Continue dulaglutide (Trulicity) 4.5 mg weekly -Continue metformin ER 500 mg bid (may be able to increase to 1000 mg bid when her periodic pre-renal MARCELLE resolves). -Work on lifestyle modifications -Continue self-monitoring glucose (continuous glucose monitoring?) -Eye exam: Recommended to get annual exam -Foot exam: 06/08/23 -Lipid profile Ordered -Microalbumin test Ordered Assessment & Plan (03/21/2023 5:07 AM EST): -HgbA1C 7.2% on 08/10/22, improving, and now concerning for hypoglycemia. -Followed by [facility] endocrinology -Continue current medications as prescribed (discrepancy from pt's medication dose and their list) -Per patients: Lantus 30 units daily; Trulicity 4.5 mg weekly; meformin ER 500 mg bid -Per specialist: Lantus is to be discontinued; Trulicity 4.5 mg weekly; metformin ER 1000 mg bid -Work on lifestyle modifications -Continue self-monitoring glucose (continuous glucose monitoring?) -Eye exam: Recommended to get annual exam -Foot exam: 05/31/22 -Lipid profile Ordered -Microalbumin test Ordered Follow up in 3 mo or sooner prn Assessment & Plan (10/10/2022 6:03 AM EDT): -HgbA1C 7.2% on 08/10/22, improving, and now concerning for hypoglycemia. -Followed by [facility] endocrinology -Continue current medications as prescribed (discrepancy from pt's medication dose and their list) -Per patients: Lantus 30 units daily; Trulicity 4.5 mg weekly; meformin ER 500 mg bid -Per specialist: Lantus is to be discontinued; Trulicity 4.5 mg weekly; metformin ER 1000 mg bid -Work on lifestyle modifications -Continue self-monitoring glucose (continuous glucose monitoring?) -Eye exam: Recommended to get annual exam -Foot exam: 05/31/22 -Lipid profile Ordered -Microalbumin test Ordered Follow up in 3 mo or sooner prn Assessment & Plan (07/13/2022 12:13 PM EDT): Blood sugar is fairly controlled. FU with PCP. Assessment & Plan (06/04/2022 6:45 PM EDT): -HgbA1C 8.7% on 05/31/22, improving -Followed by [facility] endocrinology -Continue current medications as prescribed (discrepancy from pt's medication dose and their list) -Per patients: Lantus 50 units daily; Trulicity 4.5 mg weekly; meformin ER 1000 mg bid -Per specialist: Lantus is to be discontinued; Trulicity 4.5 mg weekly; metformin ER 1000 mg bid -Work on lifestyle modifications -Continue self-monitoring glucose (continuous glucose monitoring?) -Eye exam: Recommended to get annual exam -Foot exam: 05/31/22 -Lipid profile Ordered -Microalbumin test Ordered Dyslipidemia 10/03/2011 Assessment & Plan (11/05/2024 9:04 AM EDT): -last lab in September 2023, reminded about lab order -current medication: rosuvastatin 20 mg at bedtime -continue working on lifestyle modification Assessment & Plan (07/16/2024 9:20 AM EDT): -last lab in September 2023 -current medication: rosuvastatin 20 mg at bedtime -continue working on lifestyle modification Assessment & Plan (01/15/2024 9:00 AM EST): -last lab in September 2023 -current medication: rosuvastatin 20 mg at bedtime -continue working on lifestyle modification Assessment & Plan (06/11/2023 6:14 AM EDT): -current medication: rosuvastatin 20 mg at bedtime -continue working on lifestyle modification -update lab Assessment & Plan (03/21/2023 5:09 AM EST): -current medication: rosuvastatin 20 mg at bedtime -continue working on lifestyle modification -update lab Assessment & Plan (10/10/2022 5:56 AM EDT): -current medication: rosuvastatin 20 mg at bedtime -continue working on lifestyle modification -update lab Assessment & Plan (06/04/2022 6:48 PM EDT): -current medication: rosuvastatin 20 mg at bedtime -continue working on lifestyle modification -update lab Hypertension 10/03/2011 Assessment & Plan (11/05/2024 9:03 AM EDT): -Goal BP < 130/80 per ACC/AHA guideline (Treatment threshold >= 130/80) -Continue working on lifestyle modifications -Recommended self-monitoring BP. -Continue Amlodipine to 5 mg daily -Continue losartan 100 mg daily -Continue metoprolol succinate 50 mg daily -parameter for metoprolol: take 1/2 of metoprolol if SBP < 120 and do not to take metoprolol if SBP < 100 Assessment & Plan (07/16/2024 9:18 AM EDT): -Goal BP < 140/90 per JNC-8 and < 130/80 per ACC/AHA guideline (Treatment threshold >= 130/80) -Continue working on lifestyle modifications -Recommended self-monitoring BP. -Continue Amlodipine to 5 mg daily -Continue losartan 100 mg daily -Continue metoprolol [id number] mg daily (will need to taper down) -parameter for metoprolol: take 1/2 of metoprolol if SBP < 120 and do not to take metoprolol if SBP < 100 Assessment & Plan (01/15/2024 8:53 AM EST): -Goal BP < 140/90 per JNC-8 and < 130/80 per ACC/AHA guideline (Treatment threshold >= 130/80) -Continue working on lifestyle modifications -Recommended self-monitoring BP. -Continue Amlodipine to 5 mg daily -Continue losartan 100 mg daily -Continue metoprolol [id number] mg daily (will need to taper down) -parameter for metoprolol: take 1/2 of metoprolol if SBP < 120 and do not to take metoprolol if SBP < 100 Assessment & Plan (06/11/2023 6:01 AM EDT): -Goal BP < 140/90 per JNC-8 and < 130/80 per ACC/AHA guideline (Treatment threshold >= 130/80) -patient has been hypotensive lately, likely due to iatrogenic (patient has been non-adherent to medication, and has improved adherence recently). Patient seems to be having occasional MARCELLE due to hypoperfusion. -Continue working on lifestyle modifications -Recommended self-monitoring BP. -Decrease Amlodipine to 5 mg daily -Continue losartan 100 mg daily -Decrease metoprolol succinate from 100 mg to 50 mg daily (will need to taper down) -parameter for metoprolol: take 1/2 of metoprolol if SBP < 120 and do not to take metoprolol if SBP < 100 Assessment & Plan (03/21/2023 5:07 AM EST): -Goal BP < 140/90 per JNC-8 and < 130/80 per ACC/AHA guideline (Treatment threshold >= 130/80) -BP within acceptable range today -Continue working on lifestyle modifications -Recommended self-monitoring BP. -Continue current medications: Amlodipine 10 mg daily; losartan 100 mg daily; metoprolol succinate 100 mg daily -parameter for metoprolol: take 1/2 of metoprolol if SBP < 120 and do not to take metoprolol if SBP < 100 -Follow up in 3 mo, sooner if any problem arises Assessment & Plan (10/10/2022 5:58 AM EDT): -Goal BP < 140/90 per JNC-8 and < 130/80 per ACC/AHA guideline (Treatment threshold >= 130/80) -BP within acceptable range today -Continue working on lifestyle modifications -Recommended self-monitoring BP. -Continue current medications: Amlodipine 10 mg daily; losartan 100 mg daily; metoprolol succinate 100 mg daily -parameter for metoprolol: take 1/2 of metoprolol if SBP < 120 and do not to take metoprolol if SBP < 100 -Follow up in 3 mo, sooner if any problem arises Assessment & Plan (08/12/2022 6:28 AM EDT): -Goal BP < 140/90 per JNC-8 and < 130/80 per ACC/AHA guideline (Treatment threshold >= 130/80) -BP within acceptable range today -Continue working on lifestyle modifications -Recommended self-monitoring BP. -Continue current medications: Amlodipine 10 mg daily; losartan 100 mg daily; metoprolol succinate 100 mg daily -Advised to take 1/2 of metoprolol if SBP < 120 and not to take metoprolol if SBP < 100 -Follow up in 3-6 mo, sooner if any problem arises Assessment & Plan (06/04/2022 6:47 PM EDT): -Goal BP < 140/90 per JNC-8 and < 130/80 per ACC/AHA guideline (Treatment threshold >= 130/80) -BP within acceptable range today -Continue working on lifestyle modifications -Recommended self-monitoring BP. -Continue current medications: Amlodipine 10 mg daily; losartan 100 mg daily; metoprolol succinate 100 mg daily -Follow up in 3-6 mo, sooner if any problem arises Memory problem 08/30/2011 Assessment & Plan (11/05/2024 9:07 AM EDT): - multifactorial - risk factors and associated factors: Concussion; anxiety / depression / pseudodementia; chronic diseases; medication side effects; insomnia - MRI ordered in 2022; she has not done it yet - most recent head imaging CT in May 2023 which was normal - family history of Alzheimer's disease and she is very anxious about the possibility of her developing the same illness - return for memory evaluation. If positive, will refer to memory clinic or neurologist. We will review her meds which may be affecting her cognition. Assessment & Plan (07/26/2024 9:26 AM EDT): - multifactorial - risk factors and associated factors: Concussion; anxiety / depression / pseudodementia; chronic diseases; medication side effects; insomnia - MRI ordered in 2022; she has not done it yet - most recent head imaging CT in May 2023 which was normal - family history of Alzheimer's disease and she is very anxious about the possibility of her developing the same illness - return for memory evaluation. If positive, will refer to memory clinic or neurologist. We will review her meds which may be affecting her cognition. Assessment & Plan (03/21/2023 5:09 AM EST): - multifactorial - risk factors and associated factors: Concussion; anxiety / depression / pseudodementia; chronic diseases; medication side effects; insomnia - evaluate with MRI Assessment & Plan (10/10/2022 6:15 AM EDT): - multifactorial - risk factors and associated factors: Concussion; anxiety / depression / pseudodementia; chronic diseases; medication side effects; insomnia - evaluate with MRI Carpal tunnel syndrome 08/23/2011 Assessment & Plan (07/26/2024 9:54 AM EDT): - right worse than left - last NCT/EMG in 2011, early carpal tunnel syndrome - repeat NCT/EMG - refer to ortho Resolved Problems Problem Noted Date Diagnosed Date Resolved Date Bronchitis 06/04/2023 01/09/2024 Assessment & Plan (06/04/2023 11:47 PM EDT): RO pneumonia, patient seems to be clinically stable, in NRD, her PSI score is 53 (age is only risk factor)and she's a class II, can be treated as outpatient. I will with levofloxacin 750mg as patient n is allergic to cephalosporins. Repeat CXR to monitor bilateral opacities Repeat lytes to check Mg and Na. Use albuterol q4h, counseled to avoid smoking. Take tylenol prn fever, RANGEL, pain Rest at home Increase hydration and hold metformin for at least 2d, restart if BS > 200 (due to previous high Lactic acid levels in the ED) POC discussed with daughter Paulina and she agreed with POC. We'll call to fu on 06/04 or 06/05. Nondisplaced fracture of bas e of fourth metacarpal bone, left hand, subsequent encounter for fracture with routine healing 07/13/2022 11/12/2023 Assessment & Plan (08/12/2022 6:25 AM EDT): - seen by Ortho on 07/19/22 - healing well Assessment & Plan (07/13/2022 12:14 PM EDT): keep the arm splint in place and FU with orthopedic next month. Keep hand elevated and put ice on affected area. Oxycodone 5 mg 2-3 times per day PRN pain, new prescription sent to pharmacy use ibuprofen BID PRN pain and FU with PCP History of substance use 06/04/202209/2022 Assessment & Plan (08/12/2022 6:22 AM EDT): -Pt fell under the influence of substances: opioid and cocaine (Hx zolpidem use) in August 2021 -Detox at [facility] in August 2021 -Recently received oxycodone due to hand fracture July 2022 -Possible withdrawal currently -Pt seems to be in somewhat denial (precontemplation / contemplation stage) Assessment & Plan (06/04/2022 6:31 PM EDT): -Pt fell under the influence of substances: opioid and cocaine (Hx zolpidem use) in August 2021 -Detox at [facility] in August 2021 Polysubstance abuse 09/10/2021 10/11/19 23 Obesity 11/30/2017 10/10/2022 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 08/09/2022 Pain in wrist 05/17/2013 08/09/2022 Encounters Date Type Department Care Team Description 11/06/2024 Travel 10/28/2024 1:45 PM EDT Office Visit [facility] [address] [place] [address] Stacie Vincent MD Primary hypertension (Primary Dx); Type 2 diabetes mellitus with hyperglycemia, with long-term current use of insulin (CMS/HCC); Memory loss; Chronic back pain, unspecified back location, unspecified back pain laterality; Dyslipidemia; Metabolic dysfunction-associated steatotic liver disease (MASLD); Memory problem; Insomnia, unspecified type; Nicotine dependence, cigarettes, uncomplicated; Radicular syndrome of left lower extremity; Spondylosis of lumbar spine 10/28/2024 Refill [facility] [address] [place] [address] Stacie Vincent MD 10/28/2024 Travel 10/25/2024 Telephone [facility] [address] [place] [address] Stacie Vincent MD CHART PREP 10/24/2024 Travel 10/24/2024 Telephone [facility] [address] [place] [address] Laura Casiano RN 10/23/2024 Refill [facility] [address] [place] [address] Shira Oneil MD Piriformis syndrome, unspecified laterality 10/22/2024 Refill [facility] [address] [place] [address] Stacie Vincent MD Chronic back pain, unspecified back location, unspecified back pain laterality 10/17/2024 Refill [facility] [address] [place] [address] Stacie Vincent MD Primary hypertension; Depressive disorder; Type 2 diabetes mellitus without complication, 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 use ([facility]) 10/16/2024 Refill [facility] [address] [place] [address] Stacie Vincent MD Type 2 diabetes mellitus without complication, unspecified whether correction insulin use ([facility]); Chronic back pain, unspecified back location, unspecified back pain laterality 10/11/2024 Refill [facility] [address] [place] [address] Stacie Vincent MD Type 2 diabetes mellitus with hyperglycemia, with long-term current use of insulin ([facility]) 10/09/2024 Telephone [facility] [address] [place] [address] Stacie Vincent MD Prior Authorization 10/08/2024 Telephone [facility] [address] [place] [address] [place] [address] Stacie Vincent MD Paperwork/Forms 09/30/2024 Refill [facility] [address] [place] [address] Stacie Vincent MD Chronic back pain, unspecified back location, unspecified back pain laterality 09/23/2024 Refill [facility] [address] [place] [address] Stacie Vincent MD 09/12/2024 Orders Only [facility] [address] [place] [address] [place] [address] Stacie Vincent MD Type 2 diabetes mellitus with hyperglycemia, with long-term current use of insulin (CMS/[facility]) (Primary Dx); Primary hypertension; Moderate persistent asthma without complication 09/11/2024 Telephone [facility] [address] [place] [phone] Stacie Vincent MD 09/11/2024 Travel 09/09/2024 Telephone [facility] [address] [place] [address] Stacie Vincent MD 09/09/2024 Refill [facility] [address] [place] [address] Stacie Vincent MD Chronic back pain, unspecified back location, unspecified back pain laterality 08/25/2024 Refill [facility] [address] [place] [address] Stacie Vincent MD Drug-induced constipation 08/20/2024 Telephone [facility] [address] [place] [address] Stacie Vincent MD recall 08/13/2024 1:30 PM EDT Telemedicine [facility] [address] [place] [phone] Fredy Mobley, AmolD Type 2 diabetes mellitus with hyperglycemia, with long-term current use of insulin (CMS/HCC) (Primary Dx); Primary hypertension 08/13/2024 Refill [facility] [address] [place] [address] Stacie Vincent MD Type 2 diabetes mellitus with hyperglycemia, with long-term current use of insulin ([facility]) 08/07/2024 Orders Only [facility] [address] [place] [address] Stacie Vincent MD Chronic back pain, unspecified back location, unspecified back pain laterality (Primary Dx) 08/07/2024 Orders Only [facility] [address] [place], [place] [phone] Stacie Vincent MD 08/07/2024 Telephone [facility] [address] [place], [place] [phone] Laura Casiano RN 08/07/2024 Telephone [facility] [address] [place], [place] [phone] Stacie Vincent MD from Last 3 Months Immunizations Immunization Administration Dates Next Due Hep B, adult 01/21/2021,09/15/2016,08/15/2016 INFLUENZA INJECTABLE QUADRIV ALANT CCIIV4 MDCK Multi-dose vial 11/27/2018 Influenza Whole 12/28/2005 Influenza injectable quadriv alent IIV4 with preservative 02/23/2017,05/15/2015 Influenza injectable quadriv alent preservative free 01/21/2021 Influenza, Split (incl. shai fied surface antigen) 12/06/2012,12/29/2011 Influenza, seasonal, injecta ble, preservative free 12/11/2023 Pfizer Covid-19 Vaccine 12+ 06/08/2023 Pneumococcal Conjugate PCV 20 06/08/2023 Pneumococcal Polysaccharide PPSV23 10/24/2012 RSV Bivalent 08/08/2023 Td (adult), unspecified 10/14/2000 Tdap 06/08/2023,10/24/2012 Zoster, Recombinant 12/11/2023,08/08/2023 Family History Medical History Relation Name Comments Coronary artery disease Father Hypertension Father Diabetes Mother Hypertension Mother Diabetes Sister Relation Name Status Comments Father Mother Sister Social History Tobacco Use Types Packs/Day Years Used Date Smoking Tobacco: Every Day Cigarettes 0.5 51.2 Started: 08/10/1973 Passive Smoke Exposure: Current Smokeless Tobacco: Never Tobacco Cessation:Ready to Q uit: Not Asked; Counseling Given: Not Answered Comments:Patient smoked 1-2 ppd for about 50 years, reduced frequency to 1 pack every 2-3 days since August 2022 Alcohol Use Standard Drinks/Week Comments Never 0 (1 standard drink = 0.6 oz pur e alcohol) Depression Answer Date Recorded Patient Health Questionnaire-9 Score 24 10/28/2024 Patient Health Questionnaire-9 Score 24 10/28/2024 Last PHQ-9: Questionnaire Data Not on file 0 10/28/2024 Housing Stability Answer Date Recorded What is your housing situation today? I have gaviota cruz 07/16/[address] you li ve. Do you have problems with any of the following? None of the above 07/16/2024 Food Insecurity Answer Date Recorded Within the past 12 months, y ou worried that your food would run out before you got money to buy more: Never True 07/16/2024 Within the past 12 months,th e food you bought just didn't last and you didn't have enough money to get more: Never True Transportation Answer Date Recorded In the past 12 months, has l ack of transportation kept you from medical appts, meetings, work or from getting things needed for daily living? No 07/16/2024 Utilities Answer Date Recorded In the past 12 months, has t he electric, gas, oil or water company threatened to shut off services in your home? No 07/16/2024 Depression Answer Date Recorded Patient Health Questionnaire-2 Score 6 10/28/2024 Internet Access Answer Date Recorded Internet Access Q1 Yes 07/16/2024 Internet Access Q2 Not on file 07/16/2024 Comments No Sex and Gender Information Value Date Recorded Sex Assigned at Female 01/03/2022 10:14 AM EDT Legal Sex Female 10:14 AM EDT Gender Identity Female 01/03/2022 10:14 AM EDT Sexual Orientation Choose not to disclose 2021 10:14 AM EDT Last Filed Vital Signs Vital Sign Reading Time Taken Comments Blood Pressure 138/68 11/06/2024 2:03 PM EDT Pulse 77 11/06/2024 2:03 PM EDT Temperature 35.9 C (96.6 F) 10/28/2024 1:46 PM EDT Respiratory Rate 16 10/28/2024 1:46 PM EDT Oxygen Saturation 96% 10/28/2024 1:46 PM EDT Inhaled Oxygen Concentration - - Weight 81.3 kg (179 lb 3.2 oz) 10/28/2024 1:46 P M EDT Height 162.6 cm (5' 4 ) 10/28/2024 1:46 PM EDT Body Mass Index 30.76 10/28/2024 1:46 PM EDT Plan of Treatment Upcoming Encounters Date Type Department Care Team (Late st Contact Info) Description 11/14/2024 1:30 PM EDT Clinical Support [facility] [address] [place] [phone] 12/18/2024 2:00 PM EDT Medication Management [facility] [address] [place] [address] Fredy Mobley, PharmD [address] [place] [address] Health Maintenance Due Date Last Done Comments CT Colonography 1959 FIT DNA/Cologuard 1959 FIT 1959 FOBT 1959 Sigmoidoscopy 1959 Hepatitis A Vaccines (1 of 2 - Risk 2-dose series) 12/23/1978 Lung Cancer Screening 12/23/2009 Colonoscopy 06/30/2015 06/29/2012 Colorectal Cancer Screening 06/30/2015 Diabetes: Foot Exam 06/01/2023 05/31/2022, 05/31/2022, 05/31/2022, Additional history exists Diabetes: Urine Protein Screening 09/19/2024 09/20/2023 Lipid Panel 09/19/2024 09/20/2023 COVID-19 Vaccine ( season) 2024 06/08/2023, 01/22/2021, 07/10/2020, Additional history exists Influenza Vaccine (#1) 2024 , 01/21/2021, 11/27/2018, Additional history exists Diabetes: Hemoglobin A1C 01/28/2025 025, 07/16/2024, 05/17/2024, Additional history exists Depression Monitoring 04/30/2025 10/28/2024, 025 Alcohol/Substance Use Screening 07/16/2025 07/16/2024 SDOH Screening 07/16/2025 07/16/2024 Disability Screening 10/28/2025 10/28/2024 Tobacco Screening 11/05/2025 11/05/2024 Mammogram 03/23/2026 03/23/2024 Eye Exam 05/02/2026 05/02/2024, 04/07, 05/02/2024, Additional history exists DTaP/Tdap/Td Vaccines (3 - Td or Tdap) 06/07/2033 06/08/2023, 10/24/2012, 10/14/2000 Hepatitis B Vaccines Completed 01/21/2021, 09/15/2016, 08/15/2016 Pneumococcal Vaccine: 50+ Years Completed 06/08/2023, 10/24/2012 HIV Screening Completed 07/12/2023 Hepatitis C Screening Completed 07/12/2023 RSV Patients and Patients Aged 60 years or older Completed 08/08/2023 Zoster Vaccines Completed 12/11/2023, 08/08/2023 HIB Vaccines Aged Out No longer eligi ble based on patient's age to complete this topic HPV Vaccines Aged Out No longer eligi ble based on patient's age to complete this topic IPV Vaccines Aged Out No longer eligi ble based on patient's age to complete this topic Meningococcal B Vaccine Aged Out No l onger eligible based on patient's age to complete this topic Meningococcal Vaccine Aged Out No cong oneil eligible based on patient's age to complete this topic RSV under 20 months Aged Out No longe r eligible based on patient's age to complete this topic Rotavirus Vaccines Aged Out No longer eligible based on patient's age to complete this topic Goals Goal Patient Goal Type Associated Problems Recent Progress Patient-Stated? Author Blood Pressure < 140/90 Blood Pressure 138/68(2024 2:03 PM EDT) No Fredy Mobley, Yudy Hemoglobin A1c < 7 Result Component 7.4( 1:47 PM EDT) No Fredy Mobley, Yudy Procedures Procedure Name Priority Date/Time Associated Diagnosis Comments POCT GLYCOSYLATED HEMOGLOBIN (HGB A1C) Routine 10/28/2024 1:47 PM EDT Type 2 diabetes mellitus with hyperglycemia, with long-term current use of insulin (CMS/HCC) POCT GLUCOSE Routine 10/28/2024 1:47 PM EDT Type 2 diabetes mellitus with hyperglycemia, with long-term current use of insulin (CMS/HCC) BI MAMMOGRAM SCREENING TOMOSYNTHESIS BILATERAL Routine 03/23/2024 10:00 AM EST Breast cancer screening by mammogram ALBUMIN, RANDOM URINE W/CREATININE Routine 09/20/2023 3:20 PM EDT Type 2 diabetes mellitus with hyperglycemia, with long-term current use of insulin (CMS/HCC) LIPID PANEL, STANDARD Routine 09/20/2023 1:29 PM EDT HEPATITIS PANEL, GENERAL Routine 07/12/2023 2:26 PM EDT HIV 1/2 ANTIGEN/ANTIBODY, FOURTH GENERATION W/RFL Routine 07/12/2023 2:26 PM EDT HM COLONOSCOPY Routine 06/29/2012 from Last 3 Months or Most Recently Relevant to Health Maintenance Results * (ABNORMAL) POCT glycosylated hemoglobin (Hgb A1c) (10/28/2024 1:47 PM EDT) Hemoglobin A1C 7.4(A) 4.0 - 5.7 % QC Media Lot # [id number] Lot# Expiration Date [id number] Blood Capillary blood specimen / Unknown 10/28/2024 1:47 PM EDT Stacie Vincent MD POINT OF CARE TEST ENTER/EDIT OR DERABLES Final Result * POCT glucose manually resulted (10/28/2024 1:47 PM EDT) Glucose Blood, POC 133 60 - 200 mg/dL QC Media Lot # [id number] Lot# Expiration Date ,[id number] Blood Capillary blood specimen / Unknown 10/28/2024 1:47 PM EDT Stacie Vincent MD POINT OF CARE TEST ENTER/EDIT OR DERABLES Final Result * BI Mammogram Screening Tomosynthesis Bilateral (03/23/2024 10:00 AM EST) Anatomical Region Laterality Modality Breast Bilateral Mammography 03/23/2024 10:0 0 AM EST Narrative 04/01/2024 3:06 PM EST [facility] [address] [place] [address] Mammography Report Signed Patient: Nandini Edouard MR#: [id number] : 1960 Acct:[id number] Age/Sex: 63 / F ADM Date: 03/23/24 Loc: [facility] Attending Dr: Stacie Vincent MD Ordering Physician: Stacie Vincent MD Results: 2Benign F indings Date of Service: 03/23/24 Follow Up: 1 Year From [facility] Mammogram Procedure(s): MM tomosynthesis screening BI Accession Number(s): [id number] cc: Stacie Vincent MD EXAMINATION: MM SCREENING DIGITAL BREAST TOMOSYNTHESIS, BILATERAL CLINICAL INFORMATION: Screening. Asymptomatic. COMPARISON: Mammography: Comparison is made with available priors TECHNIQUE: Digital breast mammography with tomosynthesis is performed in both the craniocaudal and mediolateral oblique views along with computer-aided detection (CAD). FINDINGS: There are scattered areas of fibroglandular density (ACR BI-RADS breast composition Category b). Right marker clip. There are no significant masses, abnormal calcifications, or other abnormalities. MM/MM tomosynthesis screening BI IMPRESSION: No mammographic evidence of malignancy. ASSESSMENT: BI-RADS BI-RADS 2 - Benign Findings RECOMMENDATION: Routine annual mammography screening. 1 year F/U This examination should not preclude the clinical evaluation of a suspicious palpable abnormality. This patient's information was entered into a reminder system with a target due date for their next mammogram. Electronically signed by: Nakita Bourgeois DO 04/01/2024 03:03 PM EST RP Dictated By: Nakita Bourgeois DO Signed By: <Electronically signed by Nakita Bourgeois DO in OV> 04/01/24 1503 DD/ 1000 TD/TT: 03/23/24 1015 Professional Golf Tournament Player: Procedure Note Donotuseinterpreter, Image - 04/01/2024 [facility] [address] [place] [address] Mammography Report Signed Patient: Terri Edouard#: [id number] : 1960Acct:[id number] Age/Sex: 63 / FADM Date: 03/23/24 Loc: HO.MAMMO Attending Dr: Stacie Vincent MD Ordering Physician: Stacie Vincent MDResults: 2Benign F indings Date of Service: 03/23/24Follow Up: 1 Year From Orig inal Mammogram Procedure(s): MM tomosynthesis screening BI Accession Number(s): [id number] cc: Stacie Vincent MD EXAMINATION: MM SCREENING DIGITAL BREAST TOMOSYNTHESIS, BILATERAL CLINICAL INFORMATION: Screening. Asymptomatic. COMPARISON: Mammography: Comparison is made with available priors TECHNIQUE: Digital breast mammography with tomosynthesis is performed in both the craniocaudal and mediolateral oblique views along with computer-aided detection (CAD). FINDINGS: There are scattered areas of fibroglandular density (ACR BI-RADS breast composition Category b). Right marker clip. There are no significant masses, abnormal calcifications, or other abnormalities. MM/MM tomosynthesis screening BI IMPRESSION: No mammographic evidence of malignancy. ASSESSMENT: BI-RADS BI-RADS 2 - Benign Findings RECOMMENDATION: Routine annual mammography screening. 1 year F/U This examination should not preclude the clinical evaluation of a suspicious palpable abnormality. This patient's information was entered into a reminder system with a target due date for their next mammogram. Electronically signed by: Nakita Bourgeois DO 04/01/2024 03:03 PM EST RP Dictated By: Nakita Bourgeois DO Signed By: <Electronically signed by Nakita Bourgeois DO in OV> 04/01/24 1503 DD/ 1000 TD/TT: 03/23/24 1015 Professional Golf Tournament Player: Stacie Vincent MD IMG BI PROCEDURES Final Result * Albumin, Random Urine W/Creatinine (09/20/2023 3:20 PM EDT) Creatinine, Urine 324.77 mg/dL [facility] Microalbumin Urine 77.0 mg/L [facility] Microalbum Creatinine Ratio Ur 23.7 <30 ug/mg cr [facility] Comment:Albumin/Creatinine R atio Reference Ranges: Normal: < 30 ug/mg creatinine Microalbuminuria: 30 - 300 ug/mg creatinineClinical Albuminuria: > 300 ug/mg creatinine Urine 09/20/2023 3:20 PM EDT 09/20/2023 3:56 PM EDT Stacie Vincent MD LAB URINE ORDERABLES Final Resul t [facility] [address] [place] [address] [phone] * Lipid Panel, Standard (09/20/2023 1:29 PM EDT) Triglycerides 100 <150 mg/dL [facility] Comment:Desirable Triglyceri de: less than 150 mg/dLBorderline High Triglyceride 150-199 mg/dLHigh Triglyceride: 200-499 mg/dLVery High Triglyceride: greater than or equal to 5OO mg/dL Cholesterol 135 <200 mg/dL [facility] Comment:Desirable Cholestero l: less than 200 mg/dLBorderline High Cholesterol: 200-239 mg/dLHigh Cholesterol: greater than 239 mg/dL LDL Cholesterol Calculated 59 <100 mg/dL [facility] Comment:Desirable LDL: less than 100 mg/dLNear Optimal/Above Optimal LDL: 110- 129 mg/dLBorderline High LDL: 130-159 mg/dLHigh LDL: 160-189 mg/dLVery High LDL: greater than or equal to 190 mg/dL HDL Cholesterol 56 >40 mg/dL [facility] Comment:Desirable HDL: great er than 40 mg/dL Note: This HDL assay may give artificially low results in patients with liver disease. 09/20/2023 1:29 PM EDT 09/20/2023 3:54 PM EDT Stacie Vincent MD LAB BLOOD ORDERABLES Final Resul t Performing Organization Address [facility] Co de Phone Number [facility] [address] [place] [address] [phone] * Hepatitis Panel, General (07/12/2023 2:26 PM EDT) Hepatitis A IgM Nonreactive Nonreactive [facility] Comment:IgM antibodies to RANGEL V not detected; does not exclude earlyacute or recovered HAV infection. ~Hepatitis B Surface Antibody NONREACTIVE Nonreactive [facility] Comment:Nonreactive: < 8.00 mIU/mL Hepatitis B Core Antibody Nonreactive Nonreactive [facility] Hepatitis C Antibody Nonreactive Nonreactive [facility] Comment:Antibodies to HCV no t detected; does not exclude early acuteHCV infection. Hepatitis B Surface Ag Negative Negative [facility] 07/12/2023 2:26 PM EDT 07/12/2023 2:26 PM EDT us Generic External Data Provider LAB BLOOD ORDERAB LES Final Result Performing Organization Address [facility] Co de Phone Number [facility] [address] [place] [address] [phone] * HIV-1/2 Antigen and Antibodies, Fourth Generation, with Reflexes (07/12/2023 2:26 PM EDT) HIV AB/AG Nonreactive Nonreactive [facility] Comment:HIV-1 p24 Ag and/or HIV-1/HIV-2 Ab not detected.A test result that is nonreactive does not exclude thepossibility of exposure to or infection with HIV-1 and/orHIV-2. Nonreactive results in this assay for individualswith prior exposure to HIV-1 and/or HIV-2 may be due toantigen and antibody levels that are below the limit ofdetection of this assay.The Zdor[employer] Alinity HIV Ag/Ab Combo assay result andsupplemental assay results should be interpreted inconjunction with the patient's clinical presentation,history and other laboratory results. If the results areinconsistent with clinical evidence, additional testing issuggested to confirm the result. 07/12/2023 2:26 PM EDT 07/12/2023 2:26 PM EDT us Generic External Data Provider LAB BLOOD ORDERAB LES Final Result [facility] [address] [place] [phone] * Colonoscopy (06/29/2012) [facility] Colonoscopy Normal Normal Historical Provider HEALTH MAINTENANCE Final Result from Last 3 Months or Most Recently Relevant to Health Maintenance Insurance [facility] MEDICARE [facility] STAND[facility] Care Teams Boat Tester Relationship Specialty Start Date End Date Stacie Vincent MD [address] [place] [address] PCP - General Family Medicine 10/31/21 Fredy Mobley, AmolD [address] [place] [address] Pharmacist Internal Medicine 01/20/23
--- OUTSIDE RECORDS SUMMARY | 2024-11-06 15:42 | XMS_ITS | Encounter Summary ---
Author Organization [employer] Address [address] [place] [address] 7t [place] [address] Care Team Providers Care Tank Wagon Operator Name Role Phone Stacie Vincent MD Primary Care Provider [phone] Fredy Mobley PharmD Unavailable [phone] Reason for Visit * Reason Onset Date Comments triage 07/12/2022 Encounter Details Date Type Department Care Team (Late st Contact Info) Description 07/12/2022 Telephone [facility] [address] [place], [place] [phone] Stacie Vincnet MD [address] [place], [place] [phone] triage Social History Tobacco Use Types Packs/Day Years [...] suspected to have Coronavirus/COVID-19? No / Unsure 07/13/2022 11:00 AM EDT documented as of this encounter Miscellaneous Notes * Telephone Encounter - Chelsi Diaz RN - 07/12/2022 11:55 AM EDT Triage call Pt reports fall 07/09 which caused injury to both hands. Pt put hands out to break the fall. Pt injured bilateral wrists and hands/palms. Pt was seen in [facility] ED 07/09 or 07/10 ( unclear) and xray showed 3 fractured bones in left hand. Pt reports bruising, swelling and much pain. Pt will be getting casted but not till next week. Pt reports was given 12 oxycodone and now only has 2 tablets left. Pt is also using motrin for pain control. Pt is requesting to be seen for pain control as well asED follow up. Unable to find last tetanus immunization. Apt with Dr. Leon 5.10 @ 1115am. Pt agrees with disposition and home care reviewed. Insurance is verified as active prior to booking. Protocol Used: Hand and Wrist Injury (Adult) Protocol-Based Disposition: See in Office or Video Visit Today Override (Final) Disposition: See in Office or Video Visit Today or Tomorrow Override Reason: No appointments available Video visit not offered Positive Triage Question: * Patient wants to be seen * All higher-acuity triage questions were negative Care Advice Discussed: * Reassurance and Education - Direct Blow (Contusion, Bruise) * Use a Cold Pack for Pain, Swelling, or Bruising * Use Heat on Area After 48 Hours * Elevate the Arm * Rest vs. Movement * Expected Course * Reasons To Call Back - Pain becomes severe - Pain does not improve after 3 days - Pain or swelling lasts more than 2 weeks - You become worse * Telephone Encounter - Amina Webster - 07/12/2022 11:32 AM EDT Symptom: Hand or Wrist Swelling Outcome: Schedule an urgent appointment (within 1 hour) or talk to a nurse or provider soon Reason: Can't use the hand normally The caller accepted this outcome Pt was seen on [facility] On 07/09. Route Delivery Service Driver advised pt also about WIC. PCP DR. Vincent documented in this encounter Plan of Treatment Upcoming Encounters Date Type Department Care Team (Late st Contact Info) Description 11/14/2024 1:30 PM EDT Clinical Support [address] [address] 12/18/2024 2:00 PM EDT Medication Management [address] [address] Fredy Mobley, PharmD [address] [place] [phone] documented as of this encounter Visit Diagnoses Not on filedocumented in this encounter Additional Health Concerns Assessment Noted Time PHQ-9 Depression Total Score: 6 06/01/19 10:23 AM EDT documented as of this encounter Care Teams Tank Wagon Operator Relationship Specialty Start Date End Date Stacie Vincent MD [address] [place] [phone] PCP - General Family Medicine 10/31/21 Fredy Mobley, PharmD [address] [place] [phone] Pharmacist Internal Medicine 01/20/23 documented as of this encounter
--- OUTSIDE RECORDS SUMMARY | 2024-11-06 15:42 | XMS_ITS | Encounter Summary ---
Author Organization [employer] Address [address] [place] [address] 7 [place] [address] Care Team Providers Care Unisaw Operator Name Role Phone Stacie Vincent MD Primary Care Provider [phone] Fredy Mobley PharmD Unavailable Reason for Visit * Reason Comments Med Refill Encounter Details Date Type Department Care Team (Late st Contact Info) Description 12/07/2023 Refill [facility] [address] [place], [place] [phone] Shira Oneil MD [address] [place], [place] [phone] Depressive disorder Social History Tobacco Use Types Packs/Day Years [...] Description 11/14/2024 1:30 PM EDT Clinical Support [facility] [address] [place] [phone] 12/18/2024 2:00 PM EDT Medication Management [address] [address] Fredy Mobley PharmD [address] [place] [phone] documented as of this encounter Goals Goal Patient Goal Type Associated Problems Recent Progress Patient-Stated? Author Blood Pressure < 140/90 Blood Pressure 138/68(2024 2:03 PM EDT) No Fredy Mobley, Yudy Hemoglobin A1c < 7 Result Component 7.4( 1:47 PM EDT) No Fredy Mobley PharmD documented as of this encounter Visit Diagnoses Diagnosis Depressive disorder Depressive disorder, not elsewhere classified documented in this encounter Additional Health Concerns Assessment Noted Time PHQ-9 Depression Total Score: 7 06/08/19 24 9:37 AM EDT documented as of this encounter Care Teams Unisaw Operator Relationship Specialty Start Date End Date Stacie Vincent MD [address] [place] [address] PCP - General Family Medicine 10/31/21 Fredy Mobley, AmolD [address] [place] [address] Pharmacist Internal Medicine 01/20/23 documented as of this encounter
--- OUTSIDE RECORDS SUMMARY | 2024-11-06 15:42 | XMS_ITS | Encounter Summary ---
Author Organization [employer] Address [address] [place] [address] 7 [place] [address] Care Team Providers Care Auto Overhauler Name Role Phone Stacie Vincent MD Primary Care Provider [phone] Fredy Mobley PharmD Unavailable [phone] Reason for Visit * Reason Comments Med Refill Encounter Details Date Type Department Care Team (Late st Contact Info) Description 05/16/2022 Refill [facility] [address] [place] [address] [phone] Sergio Mcneil MD [address] [place] [phone] Social History Tobacco Use Types Packs/Day Years Used Date Smoking Tobacco: Never Assessed Comments Unknown Sex and Gender Information Value [...] Description 11/14/2024 1:30 PM EDT Clinical Support [address] [phone] 12/18/2024 2:00 PM EDT Medication Management [facility] [address] [place] [address] [phone] Fredy Mobley, PharmD [address] [place] [address] [phone] documented as of this encounter Visit Diagnoses Not on filedocumented in this encounter Care Teams Auto Overhauler Relationship Specialty Start Date End Date Stacie Vincent MD [address] [place], [place] [phone] PCP - General Family Medicine 10/31/21 Fredy Mobley PharmD [address] [place] [address] Pharmacist Internal Medicine 01/20/23 documented as of this encounter
--- OUTSIDE RECORDS SUMMARY | 2024-11-06 15:42 | XMS_ITS | Encounter Summary ---
Author Organization [email or web address] Address [address] [facility] 7t [place] [address] Care Team Providers Care Kids Activities Coach Name Role Phone Stacie Vincent MD Primary Care Provider [phone] Fredy Mobley PharmD Unavailable [phone] Reason for Visit * Reason Comments Med Refill Encounter Details Date Type Department Care Team ([facility] st Contact Info) Description 08/10/2023 Refill [facility] [address] [place], [place] [phone] Stacie Vincent MD [address] [place], [place] [phone] Social History Tobacco Use Types Packs/Day Years [...] Description 11/14/2024 1:30 PM EDT Clinical Support [facility] [address] [place] [phone] 12/18/2024 2:00 PM EDT Medication Management [address] [address] Fredy Mobley PharmD [address] [place] [phone] documented as of this encounter Goals Goal [...] documented as of this encounter Care Teams Kids Activities Coach Relationship Specialty Start Date End Date Stacie Vincent MD [address] [place] [phone] PCP - General Family Medicine 10/31/21 Fredy Mobley, PharmD [address] [place] [phone] Pharmacist Internal Medicine 01/20/23 documented as of this encounter
--- OUTSIDE RECORDS SUMMARY | 2024-11-06 15:42 | XMS_ITS | Encounter Summary ---
Author Organization [employer] Address [address] [facility] 7t [place] [address] Care Team Providers Care Director Teen Post Name Role Phone Stacie Vincent MD Primary Care Provider [phone] Fredy Mobley PharmD Unavailable [phone] Reason for Visit * Reason Comments Med Refill Encounter Details Date Type Department Care Team ([facility] st Contact Info) Description 07/17/2023 Refill [facility] [address] [place], [place] [phone] Stacie Vincent MD [address] [place], [place] [phone] Social History Tobacco Use Types Packs/Day Years [...] Description 11/14/2024 1:30 PM EDT Clinical Support [address] [address] 12/18/2024 2:00 PM EDT Medication Management [address] [address] Fredy Mobley PharmD [address] [place] [phone] documented as of this encounter Goals Goal [...] documented as of this encounter Care Teams Director Teen Post Relationship Specialty Start Date End Date Stacie Vincent MD [address] [place] [phone] PCP - General Family Medicine 10/31/21 Fredy Mobley, PharmD [address] [place] [address] Pharmacist Internal Medicine 01/20/23 documented as of this encounter
--- OUTSIDE RECORDS SUMMARY | 2024-11-06 15:43 | XMS_ITS | Encounter Summary ---
Author Organization [employer] Address [address] [place] [address] 7t [place] [address] Care Team Providers Care Contracts Officer Name Role Phone Stacie Vincent MD Primary Care Provider [phone] Fredy Mobley PharmD Unavailable [phone] Reason for Referral * Consultation (Routine) - Pending Review Specialty Diagnoses / Procedures Referred By Contac t Referred To Contact Pharmacy Diagnoses Type 2 diabetes mellitus with hyperglycemia, with long-term current use of insulin (CMS/HCC) Primary hypertension Stacie Vincent MD [address] [place] [address] Phone: tel: fax: Referral ID Status Reason Start Date Expiration Date Visits Requested Visits Authorized [id number] Pending Review Consult and Treat 09/12/2024 09/12/2025 6 6 Encounter Details Date Type Department Care Team (Late st Contact Info) Description 09/12/2024 Orders Only [facility] [address] [place] [address] [phone] Stacie Vincent MD [address] [place], [place] [phone] Type 2 diabetes mellitus with hyperglycemia, with long-term current use of insulin (CMS/HCC) (Primary Dx); Primary hypertension; Moderate persistent asthma without complication Social History Tobacco Use Types Packs/Day Years [...] Recorded Patient Health Questionnaire-2 Score 2 06/08/2023 Internet Access Answer Date Recorded Internet Access Q1 Yes 07/16/2024 Internet Access Q2 Not on file 07/16/2024 Comments Unknown Sex and Gender Information Value Date Recorded Sex Assigned at Female 01/03/2022 10:14 AM EDT Legal Sex Female 10:14 AM EDT Gender Identity Female 01/03/2022 10:14 AM EDT Sexual Orientation Choose not to disclose 2021 10:14 AM EDT documented as of this encounter Plan of Treatment Upcoming Encounters Date Type Department Care Team ([facility] st Contact Info) Description 11/14/2024 1:30 PM EDT Clinical Support [address] [address] 12/18/2024 2:00 PM EDT Medication Management [address] [address] Fredy Mobley PharmD [address] [place] [address] Scheduled Referrals Name Type Priority Associated Diagnoses Orde r Schedule Referral to Pharmacy CDTM Outpatient Referral Routine Type 2 diabetes mellitus with hyperglycemia, with long-term current use of insulin ([facility]) Primary hypertension Ordered: 09/12/2024 documented as of this encounter Goals Goal Patient Goal Type Associated Problems Recent Progress Patient-Stated? Author Blood Pressure < 140/90 Blood Pressure 138/68(2024 2:03 PM EDT) No Fredy Mobley PharmD Hemoglobin A1c < 7 Result Component 7.4( 1:47 PM EDT) No Fredy Mobley PharmD documented as of this encounter Visit Diagnoses Diagnosis Type 2 diabetes mellitus with hyperglycemia, with long-term current use of insulin ([facility])- Primary Primary hypertension Unspecified essential hypertension Moderate persistent asthma without complication documented in this encounter Additional Health Concerns Assessment Noted Time PHQ-9 Depression Total Score: 7 06/08/19 24 9:37 AM EDT documented as of this encounter Care Teams Contracts Officer Relationship Specialty Start Date End Date Stacie Vincent MD [address] [place] [address] PCP - General Family Medicine 10/31/21 Fredy Mobley PharmD [address] [place] [address] Pharmacist Internal Medicine 01/20/23 documented as of this encounter
--- OUTSIDE RECORDS SUMMARY | 2024-11-06 15:43 | XMS_ITS | Encounter Summary ---
Author Organization [employer] Address [address] [place] [address] 7t [place] [address] Care Team Providers Care Remotely Piloted Vehicle Controller Name Role Phone Stacie Vincent MD Primary Care Provider [phone] Fredy Mobley PharmD Unavailable [phone] Encounter Details Date Type Department Care Team (Late st Contact Info) Description 04/01/[address] [facility] MED & PEDS [address] [place] [address] Gemini Miranda LPN Social History Tobacco Use Types Packs/Day Years [...] Description 11/14/2024 1:30 PM EDT Clinical Support [address] [address] 12/18/2024 2:00 PM EDT Medication Management [facility] [address] [place] [address] [phone] Fredy Mobley, PharmD [address] [place] [address] documented as of this encounter Procedures Procedure Name Priority Date/Time Associated Diagnosis Comments HIGH SENSITIVITY TROPONIN I Routine 02/04/2023 10:47 PM EST SARS COV2/INFLUENZA A/B AND RSV RNA QL NAAT Routine 02/04/2023 10:47 PM EST CBC WITH AUTO DIFFERENTIAL Routine 02/04/2023 10:47 PM EST COMPREHENSIVE METABOLIC PANEL Routine 02/04/2023 10:47 PM EST documented in this encounter Results * SARS-CoV-2 RNA, Influenza A/B, and RSV RNA, Ql NAAT (02/04/2023 10:47 PM EST) Influenza A PCR NEGATIVE Negative [facility] Influenza B PCR NEGATIVE Negative [facility] Resp Syncy Virus RNA Qual PCR NEGATIVE Negative [facility] SARS COV2 PCR NEGATIVE Negative [facility] Comment:All test results mus t be correlated with clinical findings.Negative results do not preclude SARS-CoV2, influenza Avirus, influenza B virus and/or RSV infectionand should not be used as the sole basis for treatment orother patient management decisions. Negative results must becombined with clinical observations, patient history, andepidemiological information.This test has not been evaluated for monitoring treatment ofinfection.This test has been authorized by the FDA under an EmergencyUse Authorization (EUA) for use by authorized laboratories.Testing performed on the MarginLeft GeneXpert utilizingreal-time RT-PCR.All SARS CoV2 and positive influenza A/B results arereported to [facility]. 02/04/2023 10:4 7 PM EST 02/04/2023 10:53 PM EST us Generic External Data Provider LAB MICROBIOLOGY - GENERAL ORDERABLES Final Result [facility] [address] [place] [address] [phone] * High Sensitivity Troponin I (02/04/2023 10:47 PM EST) TROPONIN I HIGH SENSITIVITY <2.7 <3.5 - 17.0 ng/L [facility] Comment:The Hammonds high sens itivity Troponin-I results should beused in conjunction with other diagnostic information suchas ECG, clinical observations and information, and patientsymptoms to aid in the diagnosis of [place]. 02/04/2023 10:4 7 PM EST 02/04/2023 10:53 PM EST us Generic External Data Provider LAB BLOOD ORDERAB LES Final Result [facility] [address] [place] [address] [phone] * (ABNORMAL) Comprehensive Metabolic Panel (02/04/2023 10:47 PM EST) Sodium 140 135 - 145 mmol/L [facility] Potassium 4.3 3.3 - 5.1 mmol/L [facility] Chloride 106 96 - 108 mmol/L [facility] Carbon Dioxide 24 22 - 29 mmol/L [facility] Anion Gap 14 12 - 20 [facility] Urea Nitrogen (BUN) 17(H) 9 - 16 mg/dL [facility] Creatinine, Serum 1.23 0.5 - 1.4 mg/dL [facility] Creatinine Clr Calc Pharmacy 47.5 [facility] Comment:Provided height and weight: 162.56 cm,78.925 kg.eGFR (calculated from the MDRD study equation) and eCrCl(calculated from the Cockcroft-Gault equation) are based ondifferent parameters and may not yield comparable results.If eCrCl result is absurd, please check patient'sheight/weight. Estimated Glomerular Filt Rate 44 [facility] Comment:NOTE: For -Am erican individuals, multiply the result by 1.210.Chronic Kidney Disease: Estimated GFR < 60 mL/min/1.20q5Qetdwt Kidney Disease: Estimated GFR < 15 mL/min/1.73m2 Glucose 144(H) 60 - 115 mg/dL [facility] Calcium 9.6 8.4 - 10.2 mg/dL [facility] Bilirubin, Total 0.5 0.0 - 1.0 mg/dL [facility] Aspartate Amino Transferase 57(H) 5 - 31 U/L [facility] Alanine Aminotransferase 33(H) 0 - 31 U/L [facility] Total Protein 6.7 6.5 - 8.0 g/dL [facility] Albumin Level 4.0 3.5 - 5.0 g/dL [facility] Alkaline Phosphatase 63 39 - 117 U/L [facility] 02/04/2023 10:4 7 PM EST 02/04/2023 10:53 PM EST us Generic External Data Provider LAB BLOOD ORDERAB LES Final Result [facility] [address] [place] [phone] * (ABNORMAL) CBC auto differential (02/04/2023 10:47 PM EST) White Blood Count 11.9(H) 4.8 - 10.8 X10*3/uL [facility] Red Blood Count 4.26 4.20 - 5.50 X10*6/uL [facility] Hemoglobin 11.9(L) 12.0 - 16.0 g/dl [facility] Hematocrit 36.0(L) 37.0 - 47.0 % [facility] Mean Corpuscular Volume 84.5 80.0 - 98.0 fL [facility] Mean Corpuscular Hemoglobin 27.9 27.0 - 33.0 pg [facility] Mean Corpuscular HGB Conc 33.1 31.0 - 35.0 g/dl [facility] Red Cell Distribution Width 14.7 11.0 - 16.0 % [facility] Platelet Count 272 160 - 400 X10*3/uL [facility] Mean Platelet Volume 9.1(L) 9.4 - 12.3 fL [facility] Neutrophils Percent Auto 63.9 45 - 73 % [facility] Imm Gran Pct Auto 0.4 0.0 - 0.4 % [facility] Lymphocytes Percent Auto 25.8 20 - 40 % [facility] Monocytes Percent Auto 8.0 2 - 11 % [facility] Eosinophils Percent Auto 1.7 0 - 4 % [facility] Basophils Percent Auto 0.2 0 - 2 % [facility] NRBC Pct Auto 0.0 0.0 - 0.2 /100WBC [facility] Neutrophils Absolute Auto 7.6 2.0 - 8.3 x10*3/uL [facility] Imm Gran Abs Auto 0.05(H) 0.00 - 0.03 X10*3/uL [facility] Lymphocytes Absolute Auto 3.1 1.2 - 4.9 X10*3/uL [facility] Monocytes Absolute Auto 1.0 0.1 - 1.2 X10*3/uL [facility] Eosinophils Absolute Auto 0.2 0.0 - 0.4 X10*3/uL [facility] Basophils Absolute Auto 0.0 0.0 - 0.2 X10*3/uL [facility] NRBC Abs Auto 0.000 0.0 - 0.012 X10*3/uL [facility] 02/04/2023 10:4 7 PM EST 02/04/2023 10:53 PM EST us Generic External Data Provider LAB BLOOD ORDERAB LES Final Result Performing Organization Address City/State/[facility] Co de Phone Number [facility] [address] [place] [address] [phone] documented in this encounter Visit Diagnoses Not on filedocumented in this encounter Care Teams Remotely Piloted Vehicle Controller Relationship Specialty Start Date End Date Stacie Vincent MD [address] [place] [address] PCP - General Family Medicine 10/31/21 Fredy Mobley, AmolD [address] [place] [address] Pharmacist Internal Medicine 01/20/23 documented as of this encounter
--- OUTSIDE RECORDS SUMMARY | 2024-11-06 15:43 | XMS_ITS | Encounter Summary ---
Author Organization [employer] Address [address] [facility] 7t [place] [address] Care Team Providers Care Licensed Physical Therapist Name Role Phone Stacie Vincent MD Primary Care Provider [phone] Fredy Mobley PharmD Unavailable [phone] Encounter Details Date Type Department Care Team (Late st Contact Info) Description 08/07/[address] [facility] MEDICINE [address] [place], [place] [phone] Stacie Vincent MD [address] [place], [place] [phone] Chronic back pain, unspecified back location, unspecified back pain laterality (Primary Dx) Social History Tobacco Use Types Packs/Day Years [...] Description 11/14/2024 1:30 PM EDT Clinical Support [address] [address] 12/18/2024 2:00 PM EDT Medication Management [address] [address] Fredy Mobley PharmD [address] [place] [phone] documented as of this encounter Goals Goal Patient Goal Type Associated Problems Recent Progress Patient-Stated? Author Blood Pressure < 140/90 Blood Pressure 138/68(2024 2:03 PM EDT) No Fredy Mobley PharmD Hemoglobin A1c < 7 Result Component 7.4( 1:47 PM EDT) No Fredy Mobley PharmD documented as of this encounter Visit Diagnoses Diagnosis Chronic back pain, unspecified back location, unspecified back pain laterality- Primary documented in this encounter Additional Health Concerns Assessment Noted Time PHQ-9 Depression Total Score: 7 06/08/19 24 9:37 AM EDT documented as of this encounter Care Teams Licensed Physical Therapist Relationship Specialty Start Date End Date Stacie Vincent MD [address] [place] [address] PCP - General Family Medicine 10/31/21 Fredy Mobley PharmD [address] [place] [address] Pharmacist Internal Medicine 01/20/23 documented as of this encounter
--- OUTSIDE RECORDS SUMMARY | 2024-11-06 15:43 | XMS_ITS | Encounter Summary ---
Author Organization [employer] Address [address] [facility] 7t [place] [address] Care Team Providers Care Brush Fabrication Supervisor Name Role Phone Stacie Vincent MD Primary Care Provider [phone] Fredy Mobley PharmD Unavailable [phone] Reason for Visit * Reason Onset Date Comments Nurse Triage 02/14/2023 Encounter Details Date Type Department Care Team ([facility] st Contact Info) Description 02/14/2023 Telephone [facility] MEDICINE [address] [place], [place] [phone] Stacie Vincent MD [address] [place], [place] [phone] Nurse Triage Social History Tobacco Use Types [...] Telephone Encounter - Stacie Vincent MD - 02/15/2023 5:41 PM EST Discussed with the pt about her pain management. Pt used to take oxycodone for pain and wants to take it again. PCP expressed concern about taking it for chronic pain, but will consider taking it joshua acute pain. Pt is willing to try KEANE-2 inhibitor first since her pain has inflammatory nature. Pt will try meloxicam, and if it does not work, PCP will prescribe opioid analgesic for 5 days. Pt agreed with the plan. * Telephone Encounter - Ludy Feliciano RN - 02/14/2023 1:28 PM EST Call to Nandini Edouard, reports having right sided chest pain after having a fall. Pt seen at ER. Pt already had follow up with Dr. Dubois 02/08. Per notes pt given rx for acetaminophen, diclofenac, methocarbamol, tramadol and lidocaine patches. Per pt still continues to have pain . Pt completed tramadol. Still using methocarbamol, diclofenac and Tyelnol. Pt states not helping with pain. Pt would like PCP to prescribe something stronger . PT still experiencing pain with inspiration, movement or using full ROM of right arm. Pt has not completed blood work orders sent to [facility] lab. Pt advised to complete as provider may need to review this. Pt advised to seek WIC. Pt states just want Rx sent forpain management . Advised will send to PCP to further review and advise team nurses. Reviewed pt touse heat, rest, continue other meds. To seek WIC or ER if sx worsen. Pt verbalized understanding. Protocol Used: Chest Injury (Adult) Protocol-Based Disposition: See in Office or Video Visit within 3 Days Override (Final) Disposition: Discuss with PCP and Callback by Nurse Today Override Reason: Desired specific provider Override Notes: Wants refill on Pain medication Positive Triage Question: * Injury and pain has not improved after 3 days * All higher-acuity triage questions were negative Care Advice Discussed: * Use Heat on Area After 48 Hours * Breathing Exercises * Limit Activities * Reasons To Call Back - You become worse * Telephone Encounter - Serjio Wise - 02/14/2023 1:10 PM EST Symptom: Chest Pain - Adult Outcome: Transfer to a nurse or provider NOW! Reason: Severe pain now documented in this encounter Plan of Treatment Upcoming Encounters Date Type Department Care Team (Late st Contact Info) Description 11/14/2024 1:30 PM EDT Clinical Support [address] [address] 12/18/2024 2:00 PM EDT Medication Management [facility] MEDICINE [address] [place] [address] Fredy Mobley, Yudy [address] [place] [phone] documented as of this encounter Goals Goal Patient Goal Type Associated Problems Recent Progress Patient-Stated? Author Blood Pressure < 140/90 Blood Pressure 138/68( 025 2:03 PM EDT) No Fredy Mobley, Yudy documented as of this encounter Visit Diagnoses Not on filedocumented in this encounter Additional Health Concerns Assessment Noted Time PHQ-9 Depression Total Score: 6 06/01/19 23 10:23 AM EDT documented as of this encounter Care Teams Brush Fabrication Supervisor Relationship Specialty Start Date End Date Stacie Vincent MD [address] [place] [address] PCP - General Family Medicine 10/31/21 Fredy Mobley, Yudy [address] [place] [address] Pharmacist Internal Medicine 01/20/23 documented as of this encounter
--- OUTSIDE RECORDS SUMMARY | 2024-11-06 15:43 | XMS_ITS | Encounter Summary ---
Author Organization [employer] Address [address] [facility] 7t [place] [address] Care Team Providers Care Video Player Mechanic Name Role Phone Stacie Vincent MD Primary Care Provider [phone] Fredy Mobley PharmD Unavailable [phone] Reason for Visit * Reason Comments Med Refill Encounter Details Date Type Department Care Team ([facility] st Contact Info) Description 05/31/2024 Refill [facility] CH[facility] MED & PEDS [address] [place], [place] [phone] Stacie Vincent MD [address] [place] [address] Social History Tobacco Use Types Packs/Day Years [...] Description 11/14/2024 1:30 PM EDT Clinical Support [facility] MEDICINE [address] [place] [address] 12/18/2024 2:00 PM EDT Medication Management [facility] MEDICINE [address] [place] [phone] Fredy Mobley PharmD [address] [place] [address] documented as of this encounter Goals Goal [...] documented as of this encounter Care Teams Video Player Mechanic Relationship Specialty Start Date End Date Stacie Vincent MD [address] [place] [address] PCP - General Family Medicine 10/31/21 Fredy Mobley, Yudy [address] [place] [address] Pharmacist Internal Medicine 01/20/23 documented as of this encounter
--- OUTSIDE RECORDS SUMMARY | 2024-11-06 15:43 | XMS_ITS | Encounter Summary ---
Author Organization [email or web address] Address [address] [place] [address] [place] [address] Care Team Providers Care Baseball Scout Name Role Phone Stacie Vincent MD Primary Care Provider Fredy Mobley PharmD Unavailable [phone] Reason for Visit * Reason Comments Med Refill Encounter Details Date Type Department Care Team (Late st Contact Info) Description 10/23/2024 Refill [facility] MEDICINE [address] [place], [place] [phone] Shira Oneil MD [address] [place], [place] [phone] Piriformis syndrome, unspecified laterality Social History Tobacco [...] Description 11/14/2024 1:30 PM EDT Clinical Support [address] [address] 12/18/2024 2:00 PM EDT Medication Management [address] [address] Fredy Mobley PharmD [address] [place] [address] documented as of this encounter Goals Goal [...] documented as of this encounter Care Teams Baseball Scout Relationship Specialty Start Date End Date Stacie Vincent MD [address] [place], [place] [phone] PCP - General Family Medicine 10/31/21 Fredy Mobley, Yudy [address] [place] [address] Pharmacist Internal Medicine 01/20/23 documented as of this encounter
--- OUTSIDE RECORDS SUMMARY | 2024-11-06 15:43 | XMS_ITS | Encounter Summary ---
Author Organization [employer] Address [address] [facility] 7t [place] [address] Care Team Providers Care Industrial Court Magistrate Name Role Phone Stacie Vincent MD Primary Care Provider [phone] Fredy Mobley PharmD Unavailable [phone] Reason for Visit * Reason Comments Med Refill Encounter Details Date Type Department Care Team ([facility] st Contact Info) Description 02/24/2023 Refill [facility] MEDICINE [address] [place], [place] [phone] Stacie Vincent MD [address] [place], [place] [phone] Social History Tobacco Use Types Packs/Day Years [...] 11/14/2024 1:30 PM EDT Clinical Support [address] [address] 12/18/2024 2:00 PM EDT Medication Management [address] [address] Fredy Mobley, PharmD [address] [place] [address] documented as of this encounter Goals Goal [...] documented as of this encounter Care Teams Industrial Court Magistrate Relationship Specialty Start Date End Date Stacie Vincent MD [address] [place] [address] PCP - General Family Medicine 10/31/21 Fredy Mobley, PharmD [address] [place] [phone] Pharmacist Internal Medicine 01/20/23 documented as of this encounter
--- OUTSIDE RECORDS SUMMARY | 2024-11-06 15:43 | XMS_ITS | Encounter Summary ---
Author Organization [employer] Address [address] [facility] 7t [place] [address] Care Team Providers Care Rod Hanger Name Role Phone Stacie Vincent MD Primary Care Provider [phone] Fredy Mobley PharmD Unavailable Encounter Details Date Type Department Care Team ([facility] st Contact Info) Description 02/15/2023 Orders Only [facility] MEDICINE [address] [place], [place] [phone] Stacie Vincent MD [address] [place], [place] [phone] Social History Tobacco Use Types Packs/Day Years [...] Description 11/14/2024 1:30 PM EDT Clinical Support [address] [address] 12/18/2024 2:00 PM EDT Medication Management [address] [address] Fredy Mobley PharmD [address] [place] [address] documented as of this encounter Goals Goal [...] documented as of this encounter Care Teams Rod Hanger Relationship Specialty Start Date End Date Stacie Vincent MD [address] [place] [address] [phone] PCP - General Family Medicine 10/31/21 Fredy Mobley, PharmD [address] [place] [address] [phone] Pharmacist Internal Medicine 11/17/23 documented as of this encounter
--- OUTSIDE RECORDS SUMMARY | 2024-11-06 15:43 | XMS_ITS | Encounter Summary ---
Author Organization [employer] Address [address] [facility] 7t [place] [address] Care Team Providers Care Cocoa Bean Roaster Name Role Phone Stacie Vincent MD Primary Care Provider [phone] Fredy Mobley PharmD Unavailable [phone] Encounter Details Date Type Department Care Team (Latest Contact Info) Description 11/06/2024 Travel Social History Tobacco Use Types Packs/Day Years [...] 11/14/2024 1:30 PM EDT Clinical Support [address] [address] 12/18/2024 2:00 PM EDT Medication Management [address] [address] Fredy Mobley PharmD [address] [place] [address] documented as of this encounter Goals Goal Patient Goal Type Associated Problems Recent Progress Patient-Stated? Author Blood Pressure < 140/90 Blood Pressure 138/68(2024 2:03 PM EDT) No Fredy Mobley PharmD Hemoglobin A1c < 7 Result Component 7.4( 1:47 PM EDT) No Fredy Mobley PharmPeace documented as of this encounter Visit Diagnoses Not on filedocumented in this encounter Additional Health Concerns Assessment Noted Time PHQ-9 Depression Total Score: 24 025 1:46 PM EDT documented as of this encounter Care Teams Cocoa Bean Roaster Relationship Specialty Start Date End Date Stacie Vincent MD [address] [place] [address] PCP - General Family Medicine 10/31/21 Fredy Mobley PharmD [address] [place] [phone] Pharmacist Internal Medicine 01/20/23 documented as of this encounter
--- OUTSIDE RECORDS SUMMARY | 2024-11-06 15:43 | XMS_ITS | Encounter Summary ---
Author Organization [employer] Address [address] [place] [address] 7 [place] [address] Care Team Providers Care New Accounts Clerk Name Role Phone Stacie Vincent MD Primary Care Provider [phone] Fredy Mobley PharmD Unavailable [phone] Encounter Details Date Type Department Care Team (Late st Contact Info) Description 03/09/2022 [facility] [employer] Information Management [address] [place] [address] [phone] Stacie Vincent MD [address] [place], [place] [phone] Social History Tobacco Use Types Packs/Day Years [...] Description 11/14/2024 1:30 PM EDT Clinical Support [facility] MEDICINE [address] [place] [address] [phone] 12/18/2024 2:00 PM EDT Medication Management [facility] MEDICINE [address] [place] [address] [phone] Fredy Mobley, PharmD [address] [place] [phone] documented as of this encounter Visit Diagnoses Not on filedocumented in this encounter Care Teams New Accounts Clerk Relationship Specialty Start Date End Date Stacie Vincent MD [address] [place], [place] [phone] PCP - General Family Medicine 10/31/21 Fredy Mobley, AmolD [address] [place], [place] [phone] Pharmacist Internal Medicine 01/20/23 documented as of this encounter
--- OUTSIDE RECORDS SUMMARY | 2024-11-06 15:43 | XMS_ITS | Clinical Summary ---
Author Organization [facility] ity Address [address] [place] [address] Care Team Providers Care Senior Production Planner Name Role Phone Jailyn Rodriguez RN Primary Care Provider [phone] Social History Tobacco Use Types Packs/Day Years Used Date Smoking Tobacco: Never Assessed Comments Unknown Sex and Gender Information Value Date Recorded Sex Assigned at Not on file Legal Sex Female 1:49 AM EST Gender Identity Not on file Sexual Orientation Not on file Last Filed Vital Signs Vital Sign Reading Time Taken Comments Blood Pressure - - Pulse - - Temperature - - Respiratory Rate - - Oxygen Saturation - - Inhaled Oxygen Concentration - - Weight 70.8 kg (156 lb) 12/30/2021 2:47 PM EDT Height 160 cm (5' 3 ) 12/30/2021 2:47 PM EDT Body Mass Index 27.63 12/30/2021 2:47 PM EDT Plan of Treatment Health Maintenance Due Date Last Done Comments Breast Cancer Screening 1960 DTaP,Tdap,and Td Vaccines (1 - Tdap) 12/23/1978 Cervical Cancer Screening: P ap Smear 12/23/1980 Pneumococcal Vaccine: 50+ Ye ars (1 of 1 - PCV) 12/23/2009 Zoster Vaccines (1 of 2) 12/23/2009 Colorectal Cancer Screening: Colonoscopy 02/06/2022 HIV Screening 02/06/2022 Hepatitis C Screening 02/06/2022 Social Influencers of Health Screening 02/06/2022 Depression Screening 03/06/2024 COVID-19 Vaccine (1 - 2023-2 5 season) 2024 Influenza Vaccine (#1) 2024 RSV Immunization Adult Patie nts (1 - 1-dose 75+ series) 12/23/2034 HIB Vaccines Aged Out No longer eligi ble based on patient's age to complete this topic HPV Vaccines Aged Out No longer eligi ble based on patient's age to complete this topic Hepatitis A Vaccines Aged Out No long er eligible based on patient's age to complete this topic Hepatitis B Vaccines Aged Out No long er eligible based on patient's age to complete this topic IPV Vaccines Aged Out No longer eligi ble based on patient's age to complete this topic MMR Vaccines Aged Out No longer eligi ble based on patient's age to complete this topic Meningococcal ACWY Vaccine Aged Out N o longer eligible based on patient's age to complete this topic Meningococcal B Vaccine Aged Out No l onger eligible based on patient's age to complete this topic RSV Immunization Patients Un kirk 20 months Aged Out No longer eligible b ased on patient's age to complete this topic Varicella Vaccines Aged Out No longer eligible based on patient's age to complete this topic Care Teams Senior Production Planner Relationship Specialty Start Date End Date Jailyn Rodriguez RN [address] [place] [phone] PCP - General 11/19/21
[2024-11-06 16:57] LABS: Microalbum/Creatinine Ratio Ur 6.3 ug/mg cr (<30)
[2024-11-06 17:00] LABS: Alanine Aminotransferase 22 U/L (0-31); Albumin Level 4.2 g/dL (3.5-5.0); Alkaline Phosphatase 72 U/L (39-117); Anion Gap 12 (12-20); Aspartate Amino Transferase 37 U/L (5-31); Blood Urea Nitrogen 13 mg/dL (9-16); Calcium 9.6 mg/dL (8.4-10.2); Carbon Dioxide 26 mmol/L (22-29); Chloride 106 mmol/L (96-108); Cholesterol 125 mg/dL (<200); Estimated Glomerular Filt Rate 56; HDL Cholesterol 53 mg/dL (>40); Potassium 4.3 mmol/L (3.3-5.1); Sodium 140 mmol/L (135-145); Total Protein 6.8 g/dL (6.5-8.0); Triglycerides 125 mg/dL (<150)
[2024-11-06 17:25] LABS: Reflex LDLD? No
[2024-11-06 17:32] LABS: Folate 5.3 ng/mL (> or = 4.0); Vitamin B12 227 pg/mL (200-900)
[2024-11-07 08:11] LABS: Syphilis Screen Nonreactive (Nonreactive)
== END 2024-11-06 13:30 | disposition home or self-care (01) ==
LOC: HO.HHCL 13:29
PROVIDERS: PCP Family Medicine; Visit Provider Family Medicine
DX: I10 Essential (primary) hypertension (principal); E11.65 Type 2 diabetes mellitus with hyperglycemia; Z79.4 Long term (current) use of insulin; E78.5 Hyperlipidemia, unspecified; R41.3 Other amnesia
CPT/HCPCS: 36415; 80053; 80061; 82043; 82570; 82607; 82746; 84443; 86780

== ENCOUNTER → 2024-11-11 19:47 | Outpatient (BNV) | payer MEDICARE, SELFPAY | PROVIDERS: PCP Family Medicine; Visit Provider Radiology Diagnostic Radiology | DX: R41.3 Other amnesia (principal) | CPT/HCPCS: 70551 ==

== ENCOUNTER 2024-11-11 19:48 | Outpatient (REF) | payer MEDICARE, SELFPAY ==
--- NOTE | ~2024-11-11 | MR_ITS ---
EXAMINATION: MR BRAIN WITHOUT CONTRAST CLINICAL INFORMATION: Memory loss and family history of Alzheimer's disease. History of head injury. COMPARISON: Status post 2011. TECHNIQUE: MRI of the brain was obtained using routine sequences without contrast. FINDINGS: No restricted diffusion. No acute intracranial hemorrhage, mass effect, midline shift, hydrocephalus or herniation. Bilateral, multifocal punctate deep periventricular white matter hyperintense T2 FLAIR signal involving centrum semiovale and doherty radiata and to a lesser extent quadrigeminal plate/mid xavi. Sellar/suprasellar region demonstrated no signal abnormality or masses. Craniocervical junction demonstrates normal position of the cerebellar tonsils. Prominence of the extra-axial CSF spaces cerebral sulci and ventricles likely related to central volume loss. Prominent Virchow-Matthew spaces. Hyperintense T2 FLAIR signal in the mastoid air cells. No gross signal abnormality within the hippocampi. MR/MR head/brain wo con IMPRESSION: No acute brain abnormality. Global cerebral atrophy. Nonspecific white matter T2 FLAIR signal. Consider small vessel occlusive disease. Electronically signed by: David Summers MD 11/12/2024 07:26 AM EDT
--- OUTSIDE RECORDS SUMMARY | 2024-11-11 19:58 | XMS_ITS | Encounter Summary ---
Author Organization [employer] Address [address] [place] [address] 7 [place] [address] Care Team Providers Care Nurse Midwife Name Role Phone Stacie Vincent MD Primary Care Provider [phone] Fredy Mobley PharmD Unavailable [phone] Reason for Visit * Reason Comments Med Refill Encounter Details Date Type Department Care Team (Late st Contact Info) Description 12/07/2023 Refill [facility] [address] [place], [place] [phone] Shira Oneil MD [address] [place], [place] [phone] Depressive disorder Social History Tobacco Use Types Packs/Day Years Used Date Smoking Tobacco: Every Day Cigarettes 0.5 51.3 Started: 08/10/1973 Passive Smoke Exposure: Current Smokeless [...] Description 11/14/2024 1:30 PM EDT Clinical Support [facility] [address] [place] [phone] 12/18/2024 2:00 PM EDT Medication Management [address] [address] Fredy Mobley PharmD [address] [place] [phone] documented as of this encounter Goals Goal [...] documented as of this encounter Care Teams Nurse Midwife Relationship Specialty Start Date End Date Stacie Vincent MD [address] [place] [id number] PCP - General Family Medicine 10/31/21 Fredy Mobley, AmolD [address] [place] [address] Pharmacist Internal Medicine 01/20/23 documented as of this encounter
--- OUTSIDE RECORDS SUMMARY | 2024-11-11 19:58 | XMS_ITS | Encounter Summary ---
Author Organization [employer] Address [address] [facility] 7t [place] [address] Care Team Providers Care Clay Dry Press Mixer Operator Name Role Phone Stacie Vincent MD Primary Care Provider [phone] Fredy Mobley PharmD Unavailable [phone] Reason for Visit * Reason Onset Date Comments Med Refill 01/29/2024 Encounter Details Date Type Department Care Team ([facility] st Contact Info) Description 01/29/2024 Telephone [facility] MED[facility]INE [address] [place], [place] [phone] Stacie Vincent MD 230 [place], [place] [phone] Med Refill Social History Tobacco Use Types [...] 50 MG tablet To be sent to: [facility] documented in this encounter Plan of Treatment Upcoming Encounters Date Type Department Care Team (Late st Contact Info) Description 11/14/2024 1:30 PM EDT Clinical Support [facility] MEDICINE [address] [place] [phone] 12/18/2024 2:00 PM EDT Medication Management [facility]INE [address] [place] [phone] Fredy Mobley PharmD [address] [place] [phone] documented as of this encounter Goals Goal [...] documented as of this encounter Care Teams [employer] Dry Press Mixer Operator Relationship Specialty Start Date End Date Stacie Vincent MD [address] [place] [address] PCP - General Family Medicine 10/31/21 Fredy Mobley, PharmD [address] [place] [address] Pharmacist Internal Medicine 01/20/23 documented as of this encounter
--- OUTSIDE RECORDS SUMMARY | 2024-11-11 19:58 | XMS_ITS | Encounter Summary ---
Author Organization [employer] Address [address] [facility] 7t [place] [address] Care Team Providers Care Hair Assistant Name Role Phone Stacie Vincent MD Primary Care Provider [phone] Fredy Mobley PharmD Unavailable Reason for Visit * Reason Comments Med Refill Encounter Details Date Type Department Care Team ([facility] st Contact Info) Description 08/10/2023 Refill [facility] [address] [place], [place] [phone] Stacie Vincent MD 230 [place], [place] [phone] Social History Tobacco Use Types Packs/Day Years [...] 11/14/2024 1:30 PM EDT Clinical Support [facility] [address] [place] [phone] 12/18/2024 2:00 PM EDT Medication Management [address] [address] Fredy Mobley PharmD [address] [place] [phone] documented as of this encounter Goals Goal [...] documented as of this encounter Care Teams Hair Assistant Relationship Specialty Start Date End Date Stacie Vincent MD [address] [place] [phone] PCP - General Family Medicine 10/31/21 Fredy Mobley, PharmD [address] [place] [phone] Pharmacist Internal Medicine 01/20/23 documented as of this encounter
--- OUTSIDE RECORDS SUMMARY | 2024-11-11 19:58 | XMS_ITS | Encounter Summary ---
Author Organization [employer] Address [address] [place] [address] [place] [address] Care Team Providers Care Run Lead Name Role Phone Stacie Vincent MD Primary Care Provider [phone] Fredy Mobley PharmD Unavailable [phone] Reason for Visit * Reason Comments Med Refill Encounter Details Date Type Department Care Team (Late st Contact Info) Description 12/05/2023 Refill [facility] MED[facility] 230 [place], [place] [phone] Shira Oneil MD 230 [place], [place] [phone] Piriformis syndrome, unspecified laterality Social History Tobacco [...] Description 11/14/2024 1:30 PM EDT Clinical Support [address] [address] 12/18/2024 2:00 PM EDT Medication Management [address] [address] Fredy Mobley PharmD [address] [place] [phone] documented as of this encounter Goals Goal [...] documented as of this encounter Care Teams Run Lead Relationship Specialty Start Date End Date Stacie Vincent MD 230 [place] [address] PCP - General Family Medicine 10/31/21 Fredy Mobley, AmolD [address] [place] [phone] Pharmacist Internal Medicine 01/20/23 documented as of this encounter
--- OUTSIDE RECORDS SUMMARY | 2024-11-11 19:58 | XMS_ITS | Clinical Summary ---
Author Organization [employer] Address [address] [facility] [address] [place] [address] Care Team Providers Care Vascular Physician Name Role Phone Stacie Vincent MD Primary Care Provider Fredy Mobley PharmD Unavailable [phone] Allergies Active Allergy Reactions Criticality Noted Date [...] DIRECTED THREE TIMES DAILY 100 each 11 024 Active B-D UF III MINI PEN NEEDLES 31G X 5 MM [facility] Use to inject Lantus daily 100 each Active metoprolol succinate XL (Toprol-XL) 50 MG 24 hr tabletIndicatio ns:Primary hypertension TAKE 1 TABLET BY MOUTH EVERY MORNING 90 tablet 025 Active fluticasone (Flonase) 50 MCG/ACT nasal spray INSTILL 2 SPRAYS IN EACH NOSTRIL ONCE DAILY 48 g Active TRUEplus Lancets 33G miscIndications :Type 2 diabetes mellitus with hyperglycemia, with long-term current use of insulin ([facility]) USE DIRECTED TO TEST BLOOD SUGAR THREE [...] AT BEDTIME NEEDED FOR CONSTIPATION 180 tablet 025 Active rosuvastatin (Crestor) 20 MG tabletIndicatio ns:Drug-induced constipation TAKE 1 TABLET BY MOUTH EVERY EVENING 90 tablet 025 Active Acetaminophen Extra Strength 500 MG tabletIndicatio ns:Chronic back pain, unspecified back location, unspecified back pain laterality TAKE 2 TABLETS BY MOUTH EVERY 8 HOURS NEEDED FOR MILD OR MODERATE PAIN 120 tablet 025 Active omeprazole (PriLOSEC) [address] capsule TAKE 1 CAPSULE BY MOUTH EVERY MORNING BEFORE BREAKFAST 90 capsule 025 Active glucose blood (FREESTYLE LITE) test stripIndication s:Type 2 diabetes mellitus with hyperglycemia, with long-term current use of insulin ([facility]) USE DIRECTED TO TEST BLOOD SUGAR THREE OR FOUR TIMES DAILY 100 strip Active Aspirin Low Dose 81 MG EC tabletIndicatio ns:Primary hypertension TAKE 1 TABLET BY MOUTH EVERY EVENING 90 tablet 1 Active DULoxetine (Cymbalta) [address] capsuleIndicati ons:Depressive disorder TAKE 1 CAPSULE BY MOUTH EVERY MORNING 30 capsule 5 Active metFORMIN XR (Glucophage-XR) 500 MG 24 hr tabletIndicatio ns:Type 2 diabetes mellitus without complication, unspecified whether terminal block assembler insulin use ([facility]) TAKE 2 TABLETS BY MOUTH TWICE DAILY IN THE MORNING AND EVENING 120 tablet 5 Active cyclobenzaprine (Flexeril) 10 MG tabletIndicatio ns:Chronic back pain, unspecified back location, unspecified back pain laterality Take 1 tablet (10 mg) by mouth if needed in the morning and at bedtime for muscle spasms. 30 tablet 3 Active mirtazapine (Remeron) 7.5 MG tablet Take 1 tablet (7.5 mg) by mouth at bedtime. 30 tablet 3 025 2024 Active cyanocobalamin (Vitamin B-12) 500 MCG tablet Take 1 tablet (500 mcg) by mouth Once per day. 90 tablet 025 2025 Active buPROPion XL (Wellbutrin XL) 150 MG 24 hr tabletIndicatio ns:Depressive disorder TAKE 1 TABLET BY MOUTH EVERY MORNING 30 tablet 3 Active amLODIPine (Norvasc) 10 MG tabletIndicatio ns:Primary hypertension Take 1 tablet (10 mg) by mouth Once per day. 30 tablet 5 Active Tirzepatide (Mounjaro) 10 MG/0.5ML solution auto-injectorIn dications:Type 2 diabetes mellitus with hyperglycemia, with long-term current use of insulin ([facility]) Inject 10 mg under the skin 1 (one) time per week. 2 mL 3 025 Active insulin degludec (Tresiba FlexTouch) 200 UNIT/ML injectionIndica tions:Type 2 diabetes mellitus with hyperglycemia, with long-term current use of insulin ([facility]) Inject 32 units under the skin once daily 9 mL 5 025 Active metFORMIN XR (Glucophage-XR) 500 MG 24 hr tabletIndicatio ns:Type 2 diabetes mellitus without complication, unspecified whether halfway insulin use ([facility]) TAKE 2 TABLETS BY MOUTH TWICE DAILY [...] EVENING 90 tablet 1 025 2024 Discontinued amLODIPine (Norvasc) 5 MG tablet TAKE 1 TABLET BY MOUTH EVERY MORNING 90 tablet 3 025 2024 Discontinued(D ose adjustment) buPROPion XL (Wellbutrin XL) 150 MG 24 hr tabletIndicatio ns:Depressive disorder TAKE 1 TABLET BY MOUTH EVERY MORNING 30 tablet 3 025 2024 Discontinued traZODone (Desyrel) 50 MG tablet Take 50 mg by mouth at bedtime. 025 2024 Discontinued(A lternate therapy) traMADol (Ultram) 50 MG tabletIndicatio ns:Chronic back pain, unspecified back location, unspecified back pain laterality Take 1 tablet (50 mg) by mouth every 8 (eight) hours if needed for severe pain for up to 3 days. 6 tablet 025 2024 Discontinued Tirzepatide (Mounjaro) 7.5 MG/0.5ML solution auto-injectorIn dications:Type 2 diabetes mellitus with hyperglycemia, with long-term current use of insulin ([facility]) Inject 7.5 mg under the skin 1 (one) time per week. 2 mL 3 025 2024 Discontinued(D ose adjustment) insulin degludec (Tresiba FlexTouch) 200 UNIT/ML injectionIndica tions:Type 2 diabetes mellitus with hyperglycemia, with long-term current use of insulin ([facility]) Inject 36 units under the skin once daily 9 mL 5 025 2024 Discontinued(R eorder (will not trigger notification to Pharmacy)) cyclobenzaprine (Flexeril) 5 MG tabletIndicatio ns:Chronic back [...] Plan (07/26/2024 9:29 AM EDT): -seen by [facility] dip painter -MRI in Oct 2021 --Central disc protrusion [...] relaxant, and topical medication -encouraged to contact dip painter -discontinued gabapentin dose due to ?hallucination -agreed to resume oxycodone July 2024. Treatment Hx -previously on tramadol and opioid analgesics; Pt went to Detox in August 2021. Assessment & Plan (01/15/2024 8:50 AM EST): -seen by [facility] dip painter -MRI in Oct 2021 --Central disc protrusion [...] relaxant, and topical medication -encouraged to contact dip painter -discontinued gabapentin dose due to ?hallucination Treatment Hx -previously on tramadol and opioid analgesics; Pt went to Detox in August 2021. Assessment & Plan (06/04/2022 6:29 PM EDT): -seen by [facility] dip painter -MRI in Oct 2021 --Central disc protrusion [...] ibuprofen, gabapentin, and baclofen -encouraged to contact dip painter -decrease gabapentin dose due to ?hallucination Treatment [...] fundus compatible with adenomyomatosis. - Following with [facility], last seen in July 2023 - continue [...] fundus compatible with adenomyomatosis. - Following with [facility], last seen in July 2023 - continue [...] fundus compatible with adenomyomatosis. - Following with [facility], last seen in July 2023 - continue [...] caution. Discussed about the importance of following [employer] agreement. Assessment & Plan (01/15/2024 9:02 AM [...] -seen by lung cancer screening program in [facility] in Dec 2022; patient has not completed CT for the program -most recent chest CT in Feb 2024: Incidental note made of emphysema, hepatic steatosis, splenomegaly and benign left adrenal adenoma - will refer again. Next CT scan in Feb 2025. Assessment & Plan (06/11/2023 6:16 AM EDT): -continue working on smoking cessation -continue bupropion -seen by lung cancer screening program in [facility] in Dec 2022; patient has not had chest CT yet Assessment & Plan (06/04/2022 6:30 PM EDT): -continue working on smoking cessation -continue bupropion Fibromyalgia 04/13/2022 Assessment & Plan (07/16/2024 9:19 AM EDT): -tried physical therapy -tried Lyrica which was discontinued -tried gabapentin which was discontinued (drowsiness) -seen by dip painter; pt has not had a follow up. Recommended to contact -continue duloxetine -continue lidocaine patch -Treatment Hx: discontinued amitriptyline in June 2022, tapered off gabapentin due to hallucination; discontinue baclofen and methocarbamol due to possible adverse reaction Assessment & Plan (01/15/2024 8:55 AM EST): -tried physical therapy -tried Lyrica which was discontinued -tried gabapentin which was discontinued (drowsiness) -seen by dip painter; pt has not had a follow up. Recommended to contact -continue duloxetine -continue lidocaine patch -Treatment Hx: discontinued amitriptyline in June 2022, tapered off gabapentin due to hallucination; discontinue baclofen and methocarbamol due to possible adverse reaction Assessment & Plan (06/11/2023 6:10 AM EDT): -tried physical therapy -tried Lyrica which was discontinued -seen by dip painter; pt has not had a follow up. Recommended to contact -continue duloxetine -discontinue baclofen -continue lidocaine patch -Treatment Hx: discontinued amitriptyline in June 2022, tapered off gabapentin due to hallucination; discontinue baclofen and methocarbamol due to possible adverse reaction Assessment & Plan (10/10/2022 6:10 AM EDT): -tried physical therapy -tried Lyrica which was discontinued -seen by dip painter; pt has not had a follow up. Recommended to contact -continue duloxetine -continue baclofen -continue lidocaine patch -Treatment Hx: discontinued amitriptyline in June 2022, tapered off gabapentin due to hallucination Assessment & Plan (08/12/2022 6:23 AM EDT): -tried physical therapy -tried Lyrica which was discontinued -seen by dip painter; pt has not had a follow up. Recommended to contact -decrease gabapentin dose to 300 mg tid due to hallucination in March 2022, further decrease and plan to taper off -continue duloxetine -continue baclofen -discontinue amitriptyline Assessment & Plan (06/04/2022 6:38 PM EDT): -tried physical therapy -tried Lyrica which was discontinued -seen by dip painter; pt has not had a follow up. [...] (03/21/2023 5:09 AM EST): - seen by [facility] smoking cessation program in Dec 2022 Assessment [...] due to decrease in metformin -Followed by [facility] endocrinology -Continue dulaglutide (Trulicity) 4.5 mg weekly -Continue metformin ER 500 mg bid (may be able to increase to 1000 mg bid when her periodic pre-renal MARCELLE resolves). -Work on lifestyle modifications -Continue self-monitoring glucose (continuous glucose monitoring?) -Eye exam: Recommended to get annual exam -Foot exam: 4/4/24 -Lipid profile Ordered -Microalbumin test Ordered Assessment & Plan (03/21/2023 5:07 AM EST): -HgbA1C 7.2% on 08/10/22, improving, and now concerning for hypoglycemia. -Followed by [facility] endocrinology -Continue current medications as prescribed [...] and now concerning for hypoglycemia. -Followed by [facility] endocrinology -Continue current medications as prescribed [...] -HgbA1C 8.7% on 05/31/22, improving -Followed by [facility] endocrinology -Continue current medications as prescribed [...] -Continue losartan 100 mg daily -Continue metoprolol mg daily (will need to taper down) [...] -Continue losartan 100 mg daily -Continue metoprolol [id number] mg daily (will need to taper down) [...] zolpidem use) in August 2021 -Detox at [facility] in August 2021 -Recently received oxycodone due to hand fracture July 2022 -Possible withdrawal currently -Pt seems to be in somewhat denial (precontemplation / contemplation stage) Assessment & Plan (06/04/2022 6:31 PM EDT): -Pt fell under the influence of substances: opioid and cocaine (Hx zolpidem use) in August 2021 -Detox at [facility] in August 2021 Polysubstance abuse 09/10/2021 10/11/19 23 Obesity 11/30/2017 10/10/2022 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 08/09/2022 Pain in wrist 05/17/2013 08/09/2022 Encounters Date Type Department Care Team Description 11/09/2024 Refill [facility] [address] [place] [id number] Stacie Vincent MD Depressive disorder 11/07/2024 Orders Only [facility] [address] [phone] Stacie Vincent MD 11/07/2024 Results Follow-Up [facility] [address] [place] [address] Stacie Vincent MD Vitamin B12 (Cobalamin) and Folate Panel, Serum, Lipid Panel with Reflex to Direct LDL, Albumin, Random Urine W/Creatinine, Comprehensive Metabolic Panel 11/06/2024 Travel 10/28/2024 1:45 PM EDT Office Visit [facility] [address] [place] [address] Stacie Vincent MD Primary hypertension (Primary Dx); Type 2 diabetes mellitus with hyperglycemia, with long-term current use of insulin (CMS/HCC); Memory loss; Chronic back pain, unspecified back location, unspecified back pain laterality; Dyslipidemia; Metabolic dysfunction-associate d steatotic liver disease (MASLD); Memory problem; Insomnia, unspecified type; Nicotine dependence, cigarettes, uncomplicated; Radicular syndrome of left lower extremity; Spondylosis of lumbar spine 10/28/2024 Refill [facility] [address] [place] [address] Stacie Vincent MD 10/28/2024 Travel 10/25/2024 Telephone [facility] [address] [place] [address] Stacie Vincent MD CHART PREP 10/24/2024 Travel 10/24/2024 Telephone [facility] [address] [place] [address] Laura Casiano RN 10/23/2024 Refill [facility] [address] [place] [address] Shira Oneil MD Piriformis syndrome, unspecified laterality 10/22/2024 Refill [facility] [address] [place] [address] Stacie Vincent MD Chronic back pain, unspecified back location, unspecified back pain laterality 10/17/2024 Refill [facility] [address] [place] [address] Stacie Vincent MD Primary hypertension; Depressive disorder; Type 2 diabetes mellitus without complication, unspecified whether halfway insulin use (CMS/HCC) 10/16/2024 Refill [facility] [address] [place] [address] Stacie Vincent MD Type 2 diabetes mellitus without complication, unspecified whether terminal block assembler insulin use (CMS/HCC); Chronic back pain, unspecified back location, unspecified back pain laterality 10/11/2024 Refill [facility] [address] [place] [address] Stacie Vincent MD Type 2 diabetes mellitus with hyperglycemia, with long-term current use of insulin (CMS/HCC) 10/09/2024 Telephone [facility] [address] [place] [address] Stacie Vincent MD Prior Authorization 10/08/2024 Telephone [facility] [address] [place] [phone] Stacie Vincent MD Paperwork/Forms 09/30/2024 Refill [facility] [address] [place] [address] Stacie Vincent MD Chronic back pain, unspecified back location, unspecified back pain laterality 09/23/2024 Refill [facility] [address] [facility] [place] [address] Stacie Vincent MD 09/12/2024 Orders Only [facility] [address] [facility] [place] [address] Stacie Vincent MD Type 2 diabetes mellitus with hyperglycemia, with long-term current use of insulin (CMS/[facility]) (Primary Dx); Primary hypertension; Moderate persistent asthma without complication 09/11/2024 Telephone [facility] [address] [facility] [place] [address] Stacie Vincent MD 09/11/2024 Travel 09/09/2024 Telephone [facility] [address] [place] [address] Stacie Vincent MD 09/09/2024 Refill [facility] [address] [place] [address] Stacie Vincent MD Chronic back pain, unspecified back location, unspecified back pain laterality 08/25/2024 Refill [facility] [address] [facility] [place] [address] Stacie Vincent MD Drug-induced constipation 08/20/2024 Telephone [facility] [address] [place] [address] Stacie Vincent MD September/October recall 08/13/2024 1:30 PM EDT Telemedicine [facility] [address] [place] [address] Fredy Mobley, PharmD Type 2 diabetes mellitus with hyperglycemia, with long-term current use of insulin (CMS/[facility]) (Primary Dx); Primary hypertension 08/13/2024 Refill [facility] [address] [facility] [place] [address] Stacie Vincent MD Type 2 diabetes mellitus with hyperglycemia, with long-term current use of insulin (CMS/[facility]) from Last 3 Months Immunizations Immunization Administration [...] Description 11/14/2024 1:30 PM EDT Clinical Support [facility] [address] [place] [phone] 12/18/2024 2:00 PM EDT Medication Management [facility] [address] [place] [phone] Fredy Mobley, PharmD [address] [place] [address] Health Maintenance Due Date Last Done Comments CT Colonography 1959 FIT DNA/Cologuard 1959 FIT 1959 FOBT 1959 Sigmoidoscopy 1959 Hepatitis A Vaccines (1 of 2 - Risk 2-dose series) 12/23/1978 Lung Cancer Screening 12/23/2009 Colonoscopy 06/30/2015 06/29/2012 Colorectal Cancer Screening 06/30/2015 Diabetes: Foot Exam 06/01/2023 05/31/2022, 05/31/2022, 05/31/2022, Additional history exists COVID-19 Vaccine ( season) 2024 06/08/2023, 01/22/2021, 07/10/2020, Additional history exists Influenza Vaccine (#1) 2024 , 01/21/2021, 11/27/2018, Additional history exists Diabetes: Hemoglobin A1C 01/28/2025 025, 07/16/2024, 05/17/2024, Additional history exists Depression Monitoring 04/30/2025 10/28/2024, 025 Alcohol/Substance Use Screening 07/16/2025 07/16/2024 SDOH Screening 07/16/2025 07/16/2024 Disability Screening 10/28/2025 10/28/2024 Tobacco Screening 11/05/2025 11/05/2024 Diabetes: Urine Protein Screening 11/06/2025 11/06/2024, 09/20/2023 Lipid Panel 11/06/2025 11/06/2024, 09/20/2023 Mammogram 03/23/2026 03/23/2024 Eye Exam 05/02/2026 05/02/2024, [...] 1:47 PM EDT) No Fredy Mobley PharmD Procedures Procedure Name Priority Date/Time Associated Diagnosis Comments SYPHILIS SCREEN Routine 11/06/2024 1:33 PM EDT Memory loss TSH W/REFLEX TO FT4 Routine 11/06/2024 1 :33 PM EDT Memory loss COMPREHENSIVE METABOLIC PANEL Routine 11/06/2024 1:33 PM EDT Primary hypertension Type 2 diabetes mellitus with hyperglycemia, with long-term current use of insulin ([facility]) Dyslipidemia ALBUMIN, RANDOM URINE W/CREATININE Routine 11/06/2024 1:33 PM EDT Primary hypertension Type 2 diabetes mellitus with hyperglycemia, with long-term current use of insulin ([facility]) LIPID PANEL WITH REFLEX TO DIRECT LDL Routine 11/06/2024 1:33 PM EDT Dyslipidemia VITAMIN B12/FOLATE, SERUM PANEL Routine 11/06/2024 1:33 PM EDT Type 2 diabetes mellitus with hyperglycemia, with long-term current use of insulin ([facility]) POCT GLYCOSYLATED HEMOGLOBIN (HGB A1C) Routine 10/28/2024 1:47 PM EDT Type 2 diabetes mellitus with hyperglycemia, with long-term current use of insulin (CMS/HCC) POCT GLUCOSE Routine 10/28/2024 1:47 PM EDT Type 2 diabetes mellitus with hyperglycemia, with long-term current use of insulin (CMS/HCC) BI MAMMOGRAM SCREENING TOMOSYNTHESIS BILATERAL Routine 03/23/2024 10:00 AM EST Breast cancer screening by mammogram HEPATITIS PANEL, GENERAL Routine 07/12/2023 2:26 PM EDT HIV 1/2 ANTIGEN/ANTIBODY, FOURTH GENERATION W/RFL Routine 07/12/2023 2:26 PM EDT HM COLONOSCOPY Routine 06/29/2012 from Last 3 Months or Most Recently Relevant to Health Maintenance Results * Syphilis Screen (11/06/2024 1:33 PM EDT) Syphilis Screen Nonreactive Nonreactive [facility] Blood 11/06/2024 1:33 PM EDT 11/06/2024 4:17 PM EDT us Stacie Vincent MD LAB BLOOD ORDERABLES Final Resul t [facility] [address] [place] [phone] * Vitamin B12 (Cobalamin) and Folate Panel, Serum (11/06/2024 1:33 PM EDT) Vitamin B12 227 200 - 900 pg/mL [facility] Comment:NORMAL 200-900 PG/ML INDETERMINATE 160-199 PG/ML DEFICIENT < 160 PG/ML Folate 5.3 > or = 4.0 ng/mL [facility] Comment:Reference Values:> o r = 4.0 ng/mL< 4.0 ng/mL suggests folate deficiency Methotrexate, aminopterin and folinic acid(leucovorin) are chemotherapeutic agents whose molecularstructures are similar to folate; therefore, the Architectfolate assay cannot be used for patients using these drugs. Blood 11/06/2024 1:33 PM EDT 11/06/2024 4:17 PM EDT Stacie Vincent MD LAB BLOOD ORDERABLES Final Resul t Performing Organization Address City/[facility]/ZIP Co de Phone Number [facility] [address] [place] [phone] * TSH with Reflex to Free T4 (11/06/2024 1:33 PM EDT) TSH reflex Free T4 2.47 0.32 - 4.0 uIU/mL [facility] Blood 11/06/2024 1:33 PM EDT 11/06/2024 4:17 PM EDT Stacie Vincent MD LAB BLOOD ORDERABLES Final Resul t Performing Organization Address [facility] Co de Phone Number [facility] [address] [place] [phone] * Lipid Panel with Reflex to Direct LDL (11/06/2024 1:33 PM EDT) Triglycerides 125 <150 mg/dL [facility] Comment:Desirable Triglyceri de: less than 150 mg/dLBorderline High Triglyceride 150-199 mg/dLHigh Triglyceride: 200-499 mg/dLVery High Triglyceride: greater than or equal to 5OO mg/dL Cholesterol 125 <200 mg/dL [facility] Comment:Desirable Cholestero l: less than 200 mg/dLBorderline High Cholesterol: 200-239 mg/dLHigh Cholesterol: greater than 239 mg/dL LDL Cholesterol Calculated 47 <100 mg/dL [facility] Comment:Desirable LDL: less than 100 mg/dLNear Optimal/Above Optimal LDL: 110- 129 mg/dLBorderline High LDL: 130-159 mg/dLHigh LDL: 160-189 mg/dLVery High LDL: greater than or equal to 190 mg/dL HDL Cholesterol 53 >40 mg/dL [facility] Comment:Desirable HDL: great er than 40 mg/dL Note: This HDL assay may give artificially low results in patients with liver disease. Blood 11/06/2024 1:33 PM EDT 11/06/2024 4:17 PM EDT Stacie Vincent MD LAB BLOOD ORDERABLES Final Resul t Performing Organization Address [facility] de Phone Number [facility] [address] [place] [phone] [phone] * Albumin, Random Urine W/Creatinine (11/06/2024 1:33 PM EDT) Creatinine, Urine 206.02 mg/dL [facility] Microalbumin Urine 13.0 mg/L [facility] Microalbum Creatinine Ratio Ur 6.3 <30 ug/mg cr [facility] Comment:Albumin/Creatinine R atio Reference Ranges: Normal: < 30 ug/mg creatinine Microalbuminuria: 30 - 300 ug/mg creatinineClinical Albuminuria: > 300 ug/mg creatinine Urine 11/06/2024 1:33 PM EDT 11/06/2024 4:15 PM EDT Stacie Vincent MD LAB URINE ORDERABLES Final Resul t Performing Organization Address [facility] Co de Phone Number [facility] [address] [place] [address] [phone] * (ABNORMAL) Comprehensive Metabolic Panel (11/06/2024 1:33 PM EDT) Sodium 140 135 - 145 mmol/L [facility] Potassium 4.3 3.3 - 5.1 mmol/L [facility] Chloride 106 96 - 108 mmol/L [facility] Carbon Dioxide 26 22 - 29 mmol/L [facility] Anion Gap 12 12 - 20 [facility] Urea Nitrogen (BUN) 13 9 - 16 mg/dL [facility] Creatinine, Serum 0.99 0.5 - 1.4 mg/dL [facility] Estimated Glomerular Filt Rate 56 [facility] Comment:Chronic Kidney Disea se: Estimated GFR < 60 mL/min/[id number] Kidney Disease: Estimated GFR < 15 mL/min/1.73m2 Glucose 87 60 - 115 mg/dL [facility] Calcium 9.6 8.4 - 10.2 mg/dL [facility] Bilirubin, Total 0.4 0.0 - 1.0 mg/dL [facility] Aspartate Amino Transferase 37(H) 5 - 31 U/L [facility] Alanine Aminotransferase 22 0 - 31 U/L [facility] Total Protein 6.8 6.5 - 8.0 g/dL [facility] Albumin Level 4.2 3.5 - 5.0 g/dL [facility] Alkaline Phosphatase 72 39 - 117 U/L [facility] Blood Venous blood specimen / Unknown 11/06/2024 1:33 PM EDT 11/06/2024 4:17 PM EDT Stacie Vincent MD LAB BLOOD ORDERABLES Final Resul t [facility] [address] [place] [phone] * (ABNORMAL) POCT glycosylated hemoglobin (Hgb A1c) (10/28/2024 1:47 PM EDT) Hemoglobin A1C 7.4(A) 4.0 - 5.7 % QC Media Lot # [id number] Lot# Expiration Date ,940,806 Blood Capillary blood specimen / Unknown 10/28/2024 1:47 PM EDT Stacie Vincent MD POINT OF CARE TEST ENTER/EDIT OR DERABLES Final Result * POCT glucose manually resulted (10/28/2024 1:47 PM EDT) Glucose Blood, POC 133 60 - 200 mg/dL QC Media Lot # [id number] Lot# Expiration Date ,899,613 Blood Capillary blood specimen / Unknown 10/28/2024 1:47 PM EDT Stacie Vincent MD POINT OF CARE TEST ENTER/EDIT OR DERABLES Final Result * BI Mammogram Screening Tomosynthesis Bilateral (03/23/2024 10:00 AM EST) Anatomical Region Laterality Modality Breast Bilateral Mammography 03/23/2024 10:0 0 AM EST Narrative 04/01/2024 3:06 PM EST [facility] [address] [place] [address] Mammography Report Signed Patient: Nandini Edouard MR#: [id number] : 1960 Acct:[id number] Age/Sex: 63 / F ADM Date: 03/23/24 Loc: RAMÓN Attending Dr: Stacie Vincent MD Ordering Physician: Stacie Vincent MD Results: 2Benign F indings Date of Service: 03/23/24 Follow Up: 1 Year From [facility] Mammogram Procedure(s): MM tomosynthesis screening BI Accession Number(s): [id number] cc: Stacie Vincent MD EXAMINATION: MM SCREENING [...] 04/01/24 1503 DD/ 1000 TD/TT: 03/23/24 1015 [facility] Machine Feeder: Procedure Note Donotuseinterpreter, Image - 04/01/2024 [place] [facility] [address] [place] [address] Mammography Report Signed Patient: Terri Edouard#: [id number] : 1960Acct:[id number] Age/Sex: 63 / FADM Date: 03/23/24 Loc: MAMMO Attending Dr: Stacie Vincent MD Ordering Physician: Stacie Vincent MDResults: 2Benign F indings Date of Service: 03/23/24Follow Up: 1 Year From Orig inal Mammogram Procedure(s): MM tomosynthesis screening BI Accession Number(s): [id number] cc: Stacie Vincent MD EXAMINATION: MM SCREENING [...] 04/01/24 1503 DD/ 1000 TD/TT: 03/23/24 1015 [facility] Machine Feeder: us Stacie Vincent MD IMG BI PROCEDURES Final Result * Hepatitis Panel, General (07/12/2023 2:26 PM EDT) Hepatitis A IgM Nonreactive Nonreactive [facility] Comment:IgM antibodies to RANGEL V not detected; does not exclude earlyacute or recovered HAV infection. ~Hepatitis B Surface Antibody NONREACTIVE Nonreactive [facility] Comment:Nonreactive: < 8.00 mIU/mL Hepatitis B Core Antibody Nonreactive Nonreactive [facility] Hepatitis C Antibody Nonreactive Nonreactive [facility] Comment:Antibodies to HCV no t detected; does not exclude early acuteHCV infection. Hepatitis B Surface Ag Negative Negative [facility] 07/12/2023 2:26 PM EDT 07/12/2023 2:26 PM EDT us Generic External Data Provider LAB BLOOD ORDERAB LES Final Result [facility] [address] [place] [phone] * HIV-1/2 Antigen and Antibodies, Fourth Generation, with Reflexes (07/12/2023 2:26 PM EDT) HIV AB/AG Nonreactive Nonreactive [facility] Comment:HIV-1 p24 Ag and/or HIV-1/HIV-2 Ab not detected.A test result that is nonreactive does not exclude thepossibility of exposure to or infection with HIV-1 and/orHIV-2. Nonreactive results in this assay for individualswith prior exposure to HIV-1 and/or HIV-2 may be due toantigen and antibody levels that are below the limit ofdetection of this assay.The [employer] HIV Ag/Ab Combo assay result andsupplemental assay results should be interpreted inconjunction with the patient's clinical presentation,history and other laboratory results. If the results areinconsistent with clinical evidence, additional testing issuggested to confirm the result. 07/12/2023 2:26 PM EDT 07/12/2023 2:26 PM EDT us Generic External Data Provider LAB BLOOD ORDERAB LES Final Result [facility] [address] [place] [address] [phone] * Colonoscopy (06/29/2012) Pathologist [facility] Colonoscopy Normal Normal Historical Provider HEALTH MAINTENANCE Final Result from Last 3 Months or Most Recently Relevant to Health Maintenance Insurance [facility] MEDICARE ADVANTAGE [facility] STAND[facility] Care Teams Vascular Physician Relationship Specialty Start Date End Date Stacie Vincent MD [address] [place] [address] PCP - General Family Medicine 10/31/21 Fredy Mobley, AmolD [address] [place] [address] Pharmacist Internal Medicine 01/20/23
--- OUTSIDE RECORDS SUMMARY | 2024-11-11 19:58 | XMS_ITS | Encounter Summary ---
Author Organization [employer] Address 75 [facility] 7t [place] [address] Care Team Providers Care Calculus Professor Name Role Phone Stacie Vincent MD Primary Care Provider [phone] Fredy Mobley PharmD Unavailable [phone] Reason for Visit * Reason Comments Med Refill Encounter Details Date Type Department Care Team (Late st Contact Info) Description 12/11/2023 Refill [facility] [address] [place] [address] [phone] Stacie Vincent MD 230 [place], [place] [phone] Spondylosis of lumbar spine Social History Tobacco [...] 11/14/2024 1:30 PM EDT Clinical Support [address] [address] 12/18/2024 2:00 PM EDT Medication Management [address] [address] Fredy Mobley PharmD [address] [place] [address] documented as of this encounter Goals Goal [...] documented as of this encounter Care Teams Calculus Professor Relationship Specialty Start Date End Date Stacie Vincent MD [address] [place] [address] PCP - General Family Medicine 10/31/21 Fredy Mobley, AmolD [address] [place] [address] Pharmacist Internal Medicine 01/20/23 documented as of this encounter
--- OUTSIDE RECORDS SUMMARY | 2024-11-11 19:58 | XMS_ITS | Encounter Summary ---
Author Organization [employer] Address 75 [facility] 7t [place] [address] Care Team Providers Care Operations Plant Attendant Name Role Phone Stacie Vincent MD Primary Care Provider [phone] Fredy Mobley PharmD Unavailable [phone] Reason for Visit * Reason Onset Date Comments Nurse Triage 12/12/2023 Encounter Details Date Type Department Care Team ([facility] st Contact Info) Description 12/12/2023 Telephone [facility] [address] [place], [place] [phone] Stacie Vincent MD [address] [place], [place] [phone] Nurse Triage Social History Tobacco Use Types [...] back pain and discussed this yesterday with [facility] who told her he would request some [...] Description 11/14/2024 1:30 PM EDT Clinical Support [address] [address] 12/18/2024 2:00 PM EDT Medication Management [address] [address] Fredy Mobley PharmD [address] [place] [address] documented as of this encounter Goals Goal [...] documented as of this encounter Care Teams Operations Plant Attendant Relationship Specialty Start Date End Date Stacie Vincent MD [address] [place] [address] PCP - General Family Medicine 10/31/21 Fredy Mobley, AmolD [address] [place] [address] Pharmacist Internal Medicine 01/20/23 documented as of this encounter
--- OUTSIDE RECORDS SUMMARY | 2024-11-11 19:58 | XMS_ITS | Encounter Summary ---
Author Organization [employer] Address 75 [facility] 7t [place] [address] Care Team Providers Care Fancy Stitcher Name Role Phone Stacie Vincent MD Primary Care Provider [phone] Fredy Mobley PharmD Unavailable [phone] Reason for Visit * Reason Onset Date Comments callback requests 01/29/2024 Encounter Details Date Type Department Care Team ([facility] Contact Info) Description 01/29/2024 Telephone [facility] [address] [place], [place] [phone] Stacie Vincent MD [address] [place], [place] [phone] callback requests Social History Tobacco Use Types [...] discontinued in order to get Trulicity. Callback [phone] documented in this encounter Plan of Treatment Upcoming Encounters Date Type Department Care Team (Late st Contact Info) Description 11/14/2024 1:30 PM EDT Clinical Support [address] [address] 12/18/2024 2:00 PM EDT Medication Management [address] [address] Fredy Mobley PharmD [address] [place] [address] documented as of this encounter Goals Goal [...] documented as of this encounter Care Teams Fancy Stitcher Relationship Specialty Start Date End Date Stacie Vincent MD [address] [place] [address] PCP - General Family Medicine 10/31/21 Fredy Mobley PharmD [address] [place] [address] Pharmacist Internal Medicine 01/20/23 documented as of this encounter
--- OUTSIDE RECORDS SUMMARY | 2024-11-11 19:58 | XMS_ITS | Encounter Summary ---
Author Organization [employer] Address 75 [facility] 7t [place] [address] Care Team Providers Care Therapist'S Assistant Name Role Phone Stacie Vincent MD Primary Care Provider [phone] Fredy Mobley PharmD Unavailable [phone] Reason for Visit * Reason Comments Med Refill Encounter Details Date Type Department Care Team ([facility] st Contact Info) Description 01/28/[address] [facility] 230 [place], [place] [phone] Judi Leon MD 230 [place], [place] [phone] Social History Tobacco Use Types Packs/Day Years [...] Description 11/14/2024 1:30 PM EDT Clinical Support [address] [address] 12/18/2024 2:00 PM EDT Medication Management [address] [address] Fredy Mobley PharmD [address] [place] [address] documented as of this encounter Goals Goal [...] documented as of this encounter Care Teams Therapist'S Assistant Relationship Specialty Start Date End Date Stacie Vincent MD 230 [place] [address] PCP - General Family Medicine 10/31/21 Fredy Mobley, AmolD [address] [place] [address] Pharmacist Internal Medicine 01/20/23 documented as of this encounter
--- OUTSIDE RECORDS SUMMARY | 2024-11-11 19:59 | XMS_ITS | Encounter Summary ---
Author Organization [employer] Address 75 [facility] 7t [place] [address] Care Team Providers Care Wastewater Design Engineer Name Role Phone Stacie Vincent MD Primary Care Provider [phone] Fredy Mobley PharmD Unavailable [phone] Reason for Visit * Reason Comments Med Refill Encounter Details Date Type Department Care Team ([facility] st Contact Info) Description 07/17/2023 Refill [facility] 230 [place], [place] [phone] Stacie Vincent MD 230 [place], [place] [phone] Social History Tobacco Use Types Packs/Day Years [...] Description 11/14/2024 1:30 PM EDT Clinical Support [address] [address] 12/18/2024 2:00 PM EDT Medication Management [address] [address] Fredy Mobley PharmD [address] [place] [address] documented as of this encounter Goals Goal [...] documented as of this encounter Care Teams Wastewater Design Engineer Relationship Specialty Start Date End Date Stacie Vincent MD [address] [place] [address] PCP - General Family Medicine 10/31/21 Fredy Mobley, PharmD 230 [place] [address] Pharmacist Internal Medicine 01/20/23 documented as of this encounter
--- OUTSIDE RECORDS SUMMARY | 2024-11-11 19:59 | XMS_ITS | Encounter Summary ---
Author Organization [employer] Address [address] [place] [address] [address] [place] [address] Care Team Providers Care Dining Room Host Name Role Phone Stacie Vincent MD Primary Care Provider [phone] Fredy Mobley PharmD Unavailable [phone] Reason for Referral * Consultation (Routine) - Pending Review Specialty Diagnoses / Procedures Referred By Contac t Referred To Contact Pharmacy Diagnoses Type 2 diabetes mellitus with hyperglycemia, with long-term current use of insulin (CMS/HCC) Primary hypertension Stacie Vincent MD 230 [place] [address] Phone: tel: fax: Referral ID Status Reason Start Date Expiration Date Visits Requested Visits Authorized [id number] Pending Review Consult and Treat 09/12/2024 09/12/2025 6 6 Encounter Details Date Type Department Care Team (Late st Contact Info) Description 09/12/2024 Orders Only [facility] [address] [place] [address] [phone] Stacie Vincent MD 230 [place], [place] [phone] Type 2 diabetes mellitus with hyperglycemia, with [...] Upcoming Encounters Date Type Department Care Team ([facility] st Contact Info) Description 11/14/2024 1:30 PM EDT Clinical Support [address] [address] 12/18/2024 2:00 PM EDT Medication Management [address] [address] Fredy Mobley PharmD [address] [place] [address] Scheduled Referrals Name Type Priority Associated Diagnoses Orde r Schedule Referral to Pharmacy CDTM Outpatient Referral Routine Type 2 diabetes mellitus with hyperglycemia, with long-term current use of insulin ([facility]) Primary hypertension Ordered: 09/12/2024 documented as of [...] hyperglycemia, with long-term current use of insulin ([facility])- Primary Primary hypertension Unspecified essential hypertension Moderate persistent asthma without complication documented in this encounter Additional Health Concerns Assessment Noted Time PHQ-9 Depression Total Score: 7 06/08/19 24 9:37 AM EDT documented as of this encounter Care Teams Dining Room Host Relationship Specialty Start Date End Date Stacie Vincent MD 230 [place] [address] PCP - General Family Medicine 10/31/21 Fredy Mobley PharmD 230 [place] [address] Pharmacist Internal Medicine 01/20/23 documented as of this encounter
--- OUTSIDE RECORDS SUMMARY | 2024-11-11 19:59 | XMS_ITS | Encounter Summary ---
Author Organization [employer] Address 75 [facility] 7t [place] [address] Care Team Providers Care Locomotive Oiler Name Role Phone Stacie Vincent MD Primary Care Provider [phone] Fredy Mobley PharmD Unavailable Reason for Visit * Reason Comments Med Refill Encounter Details Date Type Department Care Team (Late st Contact Info) Description 11/09/2024 Refill [facility] 230 [place], [place] [phone] Stacie Vincent MD 230 [place], [place] [phone] Depressive disorder Social History Tobacco Use Types [...] Description 11/14/2024 1:30 PM EDT Clinical Support [address] [address] 12/18/2024 2:00 PM EDT Medication Management [facility] [address] [place] [address] Fredy Mobley PharmD [address] [place] [address] documented as of this encounter Goals Goal [...] documented as of this encounter Care Teams Locomotive Oiler Relationship Specialty Start Date End Date Stacie Vincent MD 230 [place], [place] [phone] PCP - General Family Medicine 10/31/21 Fredy Mobley, Yudy [address] [place] [address] Pharmacist Internal Medicine 01/20/23 documented as of this encounter
--- OUTSIDE RECORDS SUMMARY | 2024-11-11 19:59 | XMS_ITS | Encounter Summary ---
Author Organization [employer] Address [address] [place] [address] 7 [place] [address] Care Team Providers Care Scarf Gluer Name Role Phone Stacie Vincent MD Primary Care Provider [phone] Fredy Mobley PharmD Unavailable [phone] Reason for Visit * Reason Comments Med Refill Encounter Details Date Type Department Care Team (Late st Contact Info) Description 05/16/2022 Refill [facility] [address] [place] [address] [phone] Sergio Mcneil MD [address] [place] [address] Social History Tobacco Use Types Packs/Day Years [...] Description 11/14/2024 1:30 PM EDT Clinical Support [address] [phone] 12/18/2024 2:00 PM EDT Medication Management [facility] [address] [place] [address] [phone] Fredy Mobley, PharmD [address] [place] [address] [phone] documented as of this encounter Visit Diagnoses Not on filedocumented in this encounter Care Teams Scarf Gluer Relationship Specialty Start Date End Date Stacie Vincent MD 230 [place], [place] [phone] PCP - General Family Medicine 10/31/21 Fredy Mobley PharmD 230 [place] [address] Pharmacist Internal Medicine 01/20/23 documented as of this encounter
--- OUTSIDE RECORDS SUMMARY | 2024-11-11 19:59 | XMS_ITS | Encounter Summary ---
Author Organization [facility] [facility] [employer] Address 75 [facility] 7t [place] [address] Care Team Providers Care Bullion Weigher Name Role Phone Stacie Vincent MD Primary Care Provider [phone] Fredy Mobley PharmD Unavailable [phone] Encounter Details Date Type Department Care Team (Late st Contact Info) Description 08/07/2024 Orders Only [facility] 230 [place], [place] [phone] Stacie Vincent MD 230 [place], [place] [phone] Chronic back pain, unspecified back location, unspecified [...] Description 11/14/2024 1:30 PM EDT Clinical Support [address] [address] 12/18/2024 2:00 PM EDT Medication Management [address] [address] Fredy Mobley PharmD [address] [place] [address] documented as of this encounter Goals Goal [...] documented as of this encounter Care Teams Bullion Weigher Relationship Specialty Start Date End Date Stacie Vincent MD [address] [place] [address] PCP - General Family Medicine 10/31/21 Fredy Mobley PharmD [address] [place] [address] Pharmacist Internal Medicine 01/20/23 documented as of this encounter
--- OUTSIDE RECORDS SUMMARY | 2024-11-11 19:59 | XMS_ITS | Encounter Summary ---
Author Organization [employer] Address 75 [facility] 7t [place] [address] Care Team Providers Care Bookkeeping Service Sales Agent Name Role Phone Stacie Vincent MD Primary Care Provider [phone] Fredy Mobley PharmD Unavailable [phone] Reason for Visit * Reason Onset Date Comments Nurse Triage 02/14/2023 Encounter Details Date Type Department Care Team ([facility] st Contact Info) Description 02/14/2023 Telephone [facility] 230 [place], [place] [phone] Stacie Vincent MD 230 [place], [place] [phone] Nurse Triage Social History Tobacco Use Types [...] not completed blood work orders sent to [facility] lab. Pt advised to complete as provider [...] Description 11/14/2024 1:30 PM EDT Clinical Support [address] [address] 12/18/2024 2:00 PM EDT Medication Management [facility] [address] [place] [phone] Fredy Mobley, Yudy [address] [place] [address] documented as of this encounter Goals Goal [...] documented as of this encounter Care Teams Bookkeeping Service Sales Agent Relationship Specialty Start Date End Date Stacie Vincent MD [address] [place] [address] PCP - General Family Medicine 10/31/21 Fredy Mobley, Yudy [address] [place] [address] Pharmacist Internal Medicine 01/20/23 documented as of this encounter
--- OUTSIDE RECORDS SUMMARY | 2024-11-11 19:59 | XMS_ITS | Encounter Summary ---
Author Organization [employer] Address [address] [place] [address] [place] [address] Care Team Providers Care Electron Gun Assembler Name Role Phone Stacie Vincent MD Primary Care Provider [phone] Fredy Mobley PharmD Unavailable [phone] Reason for Visit * Reason Comments Med Refill Encounter Details Date Type Department Care Team (Late st Contact Info) Description 10/02/2023 Refill [facility] 230 [place], [place] [phone] Shira Oneil MD 230 [place], [place] [phone] Piriformis syndrome, unspecified laterality Social History Tobacco [...] Description 11/14/2024 1:30 PM EDT Clinical Support [facility] [address] [place] [address] 12/18/2024 2:00 PM EDT Medication Management [facility] [address] [place] [address] Fredy Mobley PharmD [address] [place] [address] documented as of this encounter Goals Goal [...] documented as of this encounter Care Teams Electron Gun Assembler Relationship Specialty Start Date End Date Stacie Vincent MD [address] [place] [address] PCP - General Family Medicine 10/31/21 Fredy Mobley, PharmD [address] [place] [address] Pharmacist Internal Medicine 01/20/23 documented as of this encounter
--- OUTSIDE RECORDS SUMMARY | 2024-11-11 19:59 | XMS_ITS | Encounter Summary ---
Author Organization [employer] Address [address] [place] [address] 7t [place] [address] Care Team Providers Care Life Agent Name Role Phone Stacie Vincent MD Primary Care Provider [phone] Fredy Mobley PharmD Unavailable [phone] Reason for Visit * Reason Comments Med Refill Encounter Details Date Type Department Care Team ([facility] st Contact Info) Description 08/29/2023 Refill [facility] 230 [place], [place] [phone] Stacie Vincent MD [address] [place], [place] [phone] Social History Tobacco Use Types Packs/Day Years [...] Description 11/14/2024 1:30 PM EDT Clinical Support [facility] [address] [place] [address] 12/18/2024 2:00 PM EDT Medication Management [facility] [address] [place] [address] Fredy Mobley PharmD [address] [place] [address] documented as of this encounter Goals Goal [...] documented as of this encounter Care Teams Life Agent Relationship Specialty Start Date End Date Stacie Vincent MD [address] [place] [address] PCP - General Family Medicine 10/31/21 Fredy Mobley, AmolD [address] [place] [address] Pharmacist Internal Medicine 01/20/23 documented as of this encounter
--- OUTSIDE RECORDS SUMMARY | 2024-11-11 19:59 | XMS_ITS | Encounter Summary ---
Author Organization [employer] Address 75 [facility] 7t [place] [address] Care Team Providers Care Chief Ultrasound Technologist Name Role Phone Stacie Vincent MD Primary Care Provider [phone] Fredy Mobley PharmD Unavailable [phone] Encounter Details Date Type Department Care Team [...] Description 11/14/2024 1:30 PM EDT Clinical Support [address] [address] 12/18/2024 2:00 PM EDT Medication Management [address] [address] Fredy Mobley PharmD [address] [place] [address] documented as of this encounter Goals Goal [...] documented as of this encounter Care Teams Chief Ultrasound Technologist Relationship Specialty Start Date End Date Stacie Vincent MD [address] [place] [address] PCP - General Family Medicine 10/31/21 Freyd Mobley PharmD [address] [place] [address] Pharmacist Internal Medicine 01/20/23 documented as of this encounter
--- OUTSIDE RECORDS SUMMARY | 2024-11-11 19:59 | XMS_ITS | Encounter Summary ---
Author Organization [employer] Address [address] [place] [address] 7t [place] [address] Care Team Providers Care Air Quality Consultant Name Role Phone Stacie Vincent MD Primary Care Provider [phone] Fredy Mobley PharmD Unavailable [phone] Reason for Visit * Reason Onset Date Comments triage 07/12/2022 Encounter Details Date Type Department Care Team (Late st Contact Info) Description 07/12/2022 Telephone [facility] MEDICINE [address] [place], [place] [phone] Stacie Vincent MD 230 [place], [place] [phone] triage Social History Tobacco Use Types Packs/Day [...] wrists and hands/palms. Pt was seen in [facility] 07/09 or 07/10 ( unclear) and [...] accepted this outcome Pt was seen on [facility] On 07/09. [employer] Dean advised pt also about W[facility]. PCP DR. Vincent documented in this encounter Plan of Treatment Upcoming Encounters Date Type Department Care Team (Late st Contact Info) Description 11/14/2024 1:30 PM EDT Clinical Support [address] [address] 12/18/2024 2:00 PM EDT Medication Management [address] [address] Fredy Mobley, PharmD [address] [place] [address] documented as of this encounter Visit Diagnoses Not on filedocumented in this encounter Additional Health Concerns Assessment Noted Time PHQ-9 Depression Total Score: 6 06/01/19 10:23 AM EDT documented as of this encounter Care Teams Air Quality Consultant Relationship Specialty Start Date End Date Stacie Vincent MD [address] [place] [address] PCP - General Family Medicine 10/31/21 Fredy Mobley, PharmD [address] [place] [address] Pharmacist Internal Medicine 01/20/23 documented as of this encounter
--- OUTSIDE RECORDS SUMMARY | 2024-11-11 19:59 | XMS_ITS | Encounter Summary ---
Author Organization [employer] Address [address] [facility] 7t [place] [address] Care Team Providers Care Front Office Representative Name Role Phone Stacie Vincent MD Primary Care Provider [phone] Fredy Mobley PharmD Unavailable Encounter Details Date Type Department Care Team (Latest Contact Info) Description 11/07/2024 Results Follow-Up [facility] MEDICINE 230 [place], [place] [phone] Stacie Vincent MD 230 [place], [place] [phone] Vitamin B12 (Cobalamin) and Folate Panel, Serum, Lipid Panel with Reflex to Direct LDL, Albumin, Random Urine W/Creatinine, Comprehensive Metabolic Panel Social History Tobacco Use Types Packs/Day Years [...] the past 12 months, has t he [email or web address], gas, oil or water company threatened to [...] Description 11/14/2024 1:30 PM EDT Clinical Support [address] [address] 12/18/2024 2:00 PM EDT Medication Management [address] [address] Fredy Mobley PharmD [address] [place] [address] documented as of this encounter Goals Goal [...] documented as of this encounter Care Teams Front Office Representative Relationship Specialty Start Date End Date Stacie Vincent MD 230 [place] [address] PCP - General Family Medicine 10/31/21 Fredy Mobley, AmolD 230 [place] [address] Pharmacist Internal Medicine 01/20/23 documented as of this encounter
--- OUTSIDE RECORDS SUMMARY | 2024-11-11 19:59 | XMS_ITS | Clinical Summary ---
Author Organization [facility] Address [address] [place] [address] Care Team Providers Care Aviation Project Manager Name Role Phone Jailyn Rodriguez RN Primary Care Provider [phone] Social History Tobacco Use Types Packs/Day Years [...] age to complete this topic Care Teams Aviation Project Manager Relationship Specialty Start Date End Date Jailyn Rodriguez RN [address] [place] [phone] PCP - General 11/19/21
--- OUTSIDE RECORDS SUMMARY | 2024-11-11 19:59 | XMS_ITS | Encounter Summary ---
Author Organization [employer] Address [address] [facility] 7t [place] [address] Care Team Providers Care Switch Technician Name Role Phone Stacie Vincent MD Primary Care Provider [phone] Fredy Mobley PharmD Unavailable [phone] Encounter Details Date Type Department Care Team (Late st Contact Info) Description 11/07/2024 Orders Only [facility] MEDICINE 230 [place], [place] [phone] Stacie Vincent MD 230 [place], [place] [phone] Social History Tobacco Use Types Packs/Day Years [...] Description 11/14/2024 1:30 PM EDT Clinical Support [facility] [address] [place] [address] 12/18/2024 2:00 PM EDT Medication Management [facility] [address] [place] [address] Fredy Mobley PharmD [address] [place] [address] documented as of this encounter Goals Goal [...] documented as of this encounter Care Teams Switch Technician Relationship Specialty Start Date End Date Stacie Vincent MD 230 [place] [address] PCP - General Family Medicine 10/31/21 Fredy Mobley, AmolD 230 [place] [address] Pharmacist Internal Medicine 01/20/23 documented as of this encounter
--- OUTSIDE RECORDS SUMMARY | 2024-11-11 19:59 | XMS_ITS | Encounter Summary ---
Author Organization [employer] Address 75 [facility] 7t [place] [address] Care Team Providers Care Customer Strategy Manager Name Role Phone Stacie Vincent MD Primary Care Provider [phone] Fredy Mobley PharmD Unavailable [phone] Reason for Visit * Reason Comments Med Refill Encounter Details Date Type Department Care Team ([facility] st Contact Info) Description 05/31/[address] [facility] CHC MED & PEDS [address] [place], [place] [phone] Stacie Vincent MD 230 [place] [address] Social History Tobacco Use Types Packs/Day Years [...] PM EDT Clinical Support [facility] MEDICINE [address] [place] [address] 12/18/2024 2:00 PM EDT Medication Management [facility] MEDICINE [address] [place] [address] Fredy Mobley PharmD [address] [place] [address] documented as of this encounter Goals Goal [...] documented as of this encounter Care Teams Customer Strategy Manager Relationship Specialty Start Date End Date Stacie Vinecnt MD 230 [place] [address] PCP - General Family Medicine 10/31/21 Fredy Mobley, Yudy 230 [place] [address] Pharmacist Internal Medicine 01/20/23 documented as of this encounter
--- OUTSIDE RECORDS SUMMARY | 2024-11-11 19:59 | XMS_ITS | Encounter Summary ---
Author Organization [employer] Address 75 [facility] 7t [place] [address] Care Team Providers Care Locks Inspector Name Role Phone Stacie Vincent MD Primary Care Provider [phone] Fredy Mobley PharmD Unavailable [phone] Reason for Visit * Reason Comments Med Refill Encounter Details Date Type Department Care Team ([facility] st Contact Info) Description 08/02/2023 Refill [facility] MEDICINE 230 [place], [place] [phone] Stacie Vincent MD 230 [place], [place] [phone] Social History Tobacco Use Types Packs/Day Years [...] Description 11/14/2024 1:30 PM EDT Clinical Support [address] [address] 12/18/2024 2:00 PM EDT Medication Management [address] [address] Fredy Mobley PharmD [address] [place] [address] documented as of this encounter Goals Goal [...] documented as of this encounter Care Teams Locks Inspector Relationship Specialty Start Date End Date Stacie Vincent MD [address] [place] [address] PCP - General Family Medicine 10/31/21 Fredy Mobley, PharmD 230 [place] [address] Pharmacist Internal Medicine 01/20/23 documented as of this encounter
--- OUTSIDE RECORDS SUMMARY | 2024-11-11 19:59 | XMS_ITS | Encounter Summary ---
Author Organization [employer] Address [address] [place] [address] 7t [place] [address] Care Team Providers Care X Ray Developer Name Role Phone Stacie Vincent MD Primary Care Provider [phone] Fredy Mobley PharmD Unavailable [phone] Reason for Visit * Reason Comments Med Refill Encounter Details Date Type Department Care Team (Late Contact Info) Description 06/22/2022 Refill [facility] MEDICINE 230 [place], [place] [phone] Sergio Mcneil MD 230 [place] [address] Chronic back pain, unspecified back location, unspecified [...] Description 11/14/2024 1:30 PM EDT Clinical Support [address] [address] 12/18/2024 2:00 PM EDT Medication Management [address] [address] Fredy Mobley, Yudy [address] [place] [address] documented as of this encounter Visit Diagnoses Diagnosis Chronic back pain, unspecified back location, unspecified back pain laterality documented in this encounter Additional Health Concerns Assessment Noted Time PHQ-9 Depression Total Score: 6 06/01/19 10:23 AM EDT documented as of this encounter Care Teams X Ray Developer Relationship Specialty Start Date End Date Stacie Vincent MD [address] [place] [address] PCP - General Family Medicine 10/31/21 Fredy Mobley, PharmD [address] [place] [address] Pharmacist Internal Medicine 01/20/23 documented as of this encounter
--- OUTSIDE RECORDS SUMMARY | 2024-11-11 19:59 | XMS_ITS | Encounter Summary ---
Author Organization [employer] Address [address] [facility] 7t [place] [address] Care Team Providers Care Instruction Librarian Name Role Phone Stacie Vincent MD Primary Care Provider [phone] Fredy Mobley PharmD Unavailable [phone] Reason for Visit * Reason Onset Date Comments Medication Question 09/25/2023 Encounter Details Date Type Department Care Team ([facility] st Contact Info) Description 09/25/2023 Telephone [facility] MEDICINE 230 [place], [place] [phone] Stacie Vincent MD 230 [place], [place] [phone] Medication Question Social History Tobacco Use Types [...] 09/25/2023 3:15 PM EDT Pt seen at [facility] ED 09/20/23. Dxd with piriformis syndrome of right side. 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 Pt picked up 5 day supply [...] any questions you can contact pt at [phone]. documented in this encounter Plan of Treatment Upcoming Encounters Date Type Department Care Team (Late st Contact Info) Description 11/14/2024 1:30 PM EDT Clinical Support [address] [address] 12/18/2024 2:00 PM EDT Medication Management [address] [address] Fredy Mobley PharmD [address] [place] [address] documented as of this encounter Goals Goal [...] documented as of this encounter Care Teams Instruction Librarian Relationship Specialty Start Date End Date Stacie Vincent MD [address] [place] [address] PCP - General Family Medicine 10/31/21 Fredy Mobley PharmD [address] [place] [address] Pharmacist Internal Medicine 01/20/23 documented as of this encounter
--- OUTSIDE RECORDS SUMMARY | 2024-11-11 19:59 | XMS_ITS | Encounter Summary ---
Author Organization [employer] Address 75 [facility] 7t [place] [address] Care Team Providers Care Community Health Nurse Name Role Phone Stacie Vincent MD Primary Care Provider [phone] Fredy Mobley PharmD Unavailable [phone] Reason for Visit * Reason Comments Med Refill Encounter Details Date Type Department Care Team ([facility] st Contact Info) Description 02/24/2023 Refill [facility] MEDICINE 230 [place], [place] [phone] Stacie Vincent MD 230 [place], [place] [phone] Social History Tobacco Use Types Packs/Day Years [...] Description 11/14/2024 1:30 PM EDT Clinical Support [address] [address] 12/18/2024 2:00 PM EDT Medication Management [address] [address] Fredy Mobley, PharmD [address] [place] [address] documented as of this encounter Goals Goal [...] documented as of this encounter Care Teams Community Health Nurse Relationship Specialty Start Date End Date Stacie Vincent MD [address] [place] [address] PCP - General Family Medicine 10/31/21 Fredy Mobley, PharmD [address] [place] [address] Pharmacist Internal Medicine 01/20/23 documented as of this encounter
--- OUTSIDE RECORDS SUMMARY | 2024-11-11 19:59 | XMS_ITS | Encounter Summary ---
Author Organization [employer] Address 75 [facility] 7t [place] [address] Care Team Providers Care Manager Internal Name Role Phone Stacie Vincent MD Primary Care Provider [phone] Fredy Mobley PharmD Unavailable [phone] Reason for Visit * Reason Comments Med Refill Encounter Details Date Type Department Care Team ([facility] st Contact Info) Description 03/07/2023 Refill [facility] CHC MED & PEDS [address] [place], [place] [phone] Stacie Vincent MD 230 [place] [address] Pain Social History Tobacco Use Types Packs/Day [...] Description 11/14/2024 1:30 PM EDT Clinical Support [address] [address] 12/18/2024 2:00 PM EDT Medication Management [address] [address] Fredy Mobley, PharmD [address] [place] [address] documented as of this encounter Goals Goal [...] documented as of this encounter Care Teams Manager Internal Relationship Specialty Start Date End Date Stacie Vincent MD [address] [place] [address] PCP - General Family Medicine 10/31/21 Fredy Mobley, PharmD [address] [place] [address] Pharmacist Internal Medicine 01/20/23 documented as of this encounter
--- OUTSIDE RECORDS SUMMARY | 2024-11-11 19:59 | XMS_ITS | Encounter Summary ---
Author Organization [employer] Address [address] [place] [address] [place] [address] Care Team Providers Care Computing Architect Name Role Phone Stacie Vincent MD Primary Care Provider [phone] Fredy Mobley PharmD Unavailable Reason for Visit * Reason Comments Med Refill Encounter Details Date Type Department Care Team (Late st Contact Info) Description 10/23/2024 Refill [facility] MEDICINE 230 [place], [place] [phone] Shira Oneil MD 230 [place], [place] [phone] Piriformis syndrome, unspecified laterality Social History Tobacco [...] 11/14/2024 1:30 PM EDT Clinical Support [address] [address] 12/18/2024 2:00 PM EDT Medication Management [address] [address] Fredy Mobley PharmD [address] [place] [address] documented as of this encounter Goals Goal [...] documented as of this encounter Care Teams Computing Architect Relationship Specialty Start Date End Date Stacie Vincent MD 230 [place], [place] [phone] PCP - General Family Medicine 10/31/21 Fredy Mobley, Yudy 230 [place] [address] Pharmacist Internal Medicine 01/20/23 documented as of this encounter
--- OUTSIDE RECORDS SUMMARY | 2024-11-11 19:59 | XMS_ITS | Encounter Summary ---
Author Organization [employer] Address [address] [place] [address] 7 [place] [address] Care Team Providers Care Cardiac Cath Rn Name Role Phone Stacie Vincent MD Primary Care Provider [phone] Fredy Mobley PharmD Unavailable [phone] Encounter Details Date Type Department Care Team (Late st Contact Info) Description 03/09/2022 [facility] [employer] [address] [place] [phone] Stacie Vincent MD 230 [place] [address] Social History Tobacco Use Types Packs/Day Years [...] Description 11/14/2024 1:30 PM EDT Clinical Support [facility] MEDICINE [address] [place] [address] [phone] 12/18/2024 2:00 PM EDT Medication Management [facility] MEDICINE [address] [place] [address] [phone] Fredy Mobley, PharmD [address] [place] [address] documented as of this encounter Visit Diagnoses Not on filedocumented in this encounter Care Teams Cardiac Cath Rn Relationship Specialty Start Date End Date Stacie Vincent MD 230 [place], [place] [phone] PCP - General Family Medicine 10/31/21 Fredy Mobley, AmolD 230 [place], [place] [phone] Pharmacist Internal Medicine 01/20/23 documented as of this encounter
--- OUTSIDE RECORDS SUMMARY | 2024-11-11 19:59 | XMS_ITS | Encounter Summary ---
Author Organization [email or web address] Address [address] [place] [address] 7t [place] [address] Care Team Providers Care Salt Grinder Name Role Phone Stacie Vincent MD Primary Care Provider [phone] Fredy Mobley PharmD Unavailable [phone] Encounter Details Date Type Department Care Team (Late st Contact Info) Description 04/01/2022 Orders Only [facility] CHC MED & PEDS 505 [place] [address] Gemini Miranda LPN Social History Tobacco Use [...] 11/14/2024 1:30 PM EDT Clinical Support [address] [address] 12/18/2024 2:00 PM EDT Medication Management [facility] MEDICINE [address] [place] [address] [phone] Fredy Mobley, PharmD 230 [place] [address] documented as of this encounter Procedures Procedure [...] PM EST) Influenza A PCR NEGATIVE Negative [facility] Influenza B PCR NEGATIVE Negative [facility] Resp Syncy Virus RNA Qual PCR NEGATIVE Negative [facility] SARS COV2 PCR NEGATIVE Negative [facility] Comment:All test results mus t be [...] use by authorized laboratories.Testing performed on the X[employer] GeneXpert utilizingreal-time RT-PCR.All SARS CoV2 and positive influenza A/B results arereported to [facility]. 02/04/2023 10:4 7 PM EST 02/04/2023 10:53 PM EST us Generic External Data Provider LAB MICROBIOLOGY - GENERAL ORDERABLES Final Result [facility] [address] [place] [address] [phone] * High Sensitivity Troponin I (02/04/2023 10:47 PM EST) TROPONIN I HIGH SENSITIVITY <2.7 <3.5 - 17.0 ng/L [facility] Comment:The Hammonds high sens itivity Troponin-I results should beused in conjunction with other diagnostic information suchas ECG, clinical observations and information, and patientsymptoms to aid in the diagnosis of GA. 02/04/2023 10:4 7 PM EST 02/04/2023 10:53 PM EST us Generic External Data Provider LAB BLOOD ORDERAB LES Final Result [facility] [address] [place] [address] [phone] * (ABNORMAL) Comprehensive Metabolic Panel (02/04/2023 10:47 PM EST) Sodium 140 135 - 145 mmol/L [facility] Potassium 4.3 3.3 - 5.1 mmol/L [facility] Chloride 106 96 - 108 mmol/L [facility] Carbon Dioxide 24 22 - 29 mmol/L [facility] Anion Gap 14 12 - 20 [facility] Urea Nitrogen (BUN) 17(H) 9 - 16 mg/dL [facility] Creatinine, Serum 1.23 0.5 - 1.4 mg/dL [facility] Creatinine Clr Calc Pharmacy 47.5 [facility] Comment:Provided height and weight: 162.56 cm,78.925 kg.eGFR (calculated from the MDRD study equation) and eCrCl(calculated from the Cockcroft-Gault equation) are based ondifferent parameters and may not yield comparable results.If eCrCl result is absurd, please check patient'sheight/weight. Estimated Glomerular Filt Rate 44 [facility] Comment:NOTE: For -Am erican individuals, multiply the result by 1.210.Chronic Kidney Disease: Estimated GFR < 60 mL/min/1.81k2Bwwgut Kidney Disease: Estimated GFR < 15 mL/min/1.73m2 Glucose 144(H) 60 - 115 mg/dL [facility] Calcium 9.6 8.4 - 10.2 mg/dL [facility] Bilirubin, Total 0.5 0.0 - 1.0 mg/dL [facility] Aspartate Amino Transferase 57(H) 5 - 31 U/L [facility] Alanine Aminotransferase 33(H) 0 - 31 U/L [facility] Total Protein 6.7 6.5 - 8.0 g/dL [facility] Albumin Level 4.0 3.5 - 5.0 g/dL [facility] Alkaline Phosphatase 63 39 - 117 U/L [facility] 02/04/2023 10:4 7 PM EST 02/04/2023 10:53 PM EST us Generic External Data Provider LAB BLOOD ORDERAB LES Final Result [facility] [address] [place] [phone] * (ABNORMAL) CBC auto differential (02/04/2023 10:47 PM EST) White Blood Count 11.9(H) 4.8 - 10.8 X10*3/uL [facility] Red Blood Count 4.26 4.20 - 5.50 X10*6/uL [facility] Hemoglobin 11.9(L) 12.0 - 16.0 g/dl [facility] Hematocrit 36.0(L) 37.0 - 47.0 % [facility] Mean Corpuscular Volume 84.5 80.0 - 98.0 fL [facility] Mean Corpuscular Hemoglobin 27.9 27.0 - 33.0 pg [facility] Mean Corpuscular HGB Conc 33.1 31.0 - 35.0 g/dl [facility] Red Cell Distribution Width 14.7 11.0 - 16.0 % [facility] Platelet Count 272 160 - 400 X10*3/uL [facility] Mean Platelet Volume 9.1(L) 9.4 - 12.3 fL [facility] Neutrophils Percent Auto 63.9 45 - 73 % [facility] Imm Gran Pct Auto 0.4 0.0 - 0.4 % [facility] Lymphocytes Percent Auto 25.8 20 - 40 % [facility] Monocytes Percent Auto 8.0 2 - 11 % [facility] Eosinophils Percent Auto 1.7 0 - 4 % [facility] Basophils Percent Auto 0.2 0 - 2 % [facility] NRBC Pct Auto 0.0 0.0 - 0.2 /100WBC [facility] Neutrophils Absolute Auto 7.6 2.0 - 8.3 x10*3/uL [facility] Imm Gran Abs Auto 0.05(H) 0.00 - 0.03 X10*3/uL [facility] Lymphocytes Absolute Auto 3.1 1.2 - 4.9 X10*3/uL [facility] Monocytes Absolute Auto 1.0 0.1 - 1.2 X10*3/uL [facility] Eosinophils Absolute Auto 0.2 0.0 - 0.4 X10*3/uL [facility] Basophils Absolute Auto 0.0 0.0 - 0.2 X10*3/uL [facility] NRBC Abs Auto 0.000 0.0 - 0.012 X10*3/uL [facility] 02/04/2023 10:4 7 PM EST 02/04/2023 10:53 PM EST us Generic External Data Provider LAB BLOOD ORDERAB LES Final Result Performing Organization Address City/State/[facility] Co de Phone Number [facility] [address] [place] [address] [phone] documented in this encounter Visit Diagnoses Not on filedocumented in this encounter Care Teams Salt Grinder Relationship Specialty Start Date End Date Stacie Vincent MD [address] [place] [address] PCP - General Family Medicine 10/31/21 Fredy Mobley, AmolD [address] [place] [address] Pharmacist Internal Medicine 01/20/23 documented as of this encounter
--- OUTSIDE RECORDS SUMMARY | 2024-11-11 19:59 | XMS_ITS | Encounter Summary ---
Author Organization [employer] Address [address] [facility] 7t [place] [address] Care Team Providers Care Accounts Payable Supervisor Name Role Phone Stacie Vincent MD Primary Care Provider [phone] Fredy Mobley PharmD Unavailable [phone] Encounter Details Date Type Department Care Team ([facility] st Contact Info) Description 02/15/2023 Orders Only [facility] MEDICINE 230 [place], [place] [phone] Stacie Vincent MD 230 [place], [place] [phone] Social History Tobacco Use Types Packs/Day Years [...] 11/14/2024 1:30 PM EDT Clinical Support [address] [address] 12/18/2024 2:00 PM EDT Medication Management [address] [address] Fredy Mobley PharmD [address] [place] [address] documented as of this encounter Goals Goal [...] documented as of this encounter Care Teams Accounts Payable Supervisor Relationship Specialty Start Date End Date Stacie Vincent MD [address] [place] [address] [phone] PCP - General Family Medicine 10/31/21 Fredy Mobley, PharmD [address] [place] [address] [phone] Pharmacist Internal Medicine 11/17/23 documented as of this encounter
== END 2024-11-11 19:49 | disposition home or self-care (01) ==
LOC: HO.MRI 19:48
PROVIDERS: PCP Family Medicine; Visit Provider Family Medicine
DX: R41.3 Other amnesia (principal)
CPT/HCPCS: 70551

== ENCOUNTER 2025-01-07 16:01 | Outpatient (AMB) | payer MEDICARE, SELFPAY ==
[2025-01-07 16:04] VITALS: BP 100/50; PULSE 78; TEMP 36.7; O2SAT 98; BMI 31.3
--- NOTE | 2025-01-07 16:04 | AM.OFFWIN_ITS ---
Intake Vital Signs 01/07/25 16:04 Height 5 ft 5 in Weight 188 lb BMI 31.3 BP 100/50 L Blood Pressure Location Rt brachial Position Sitting Pulse 78 Pulse Source Pulse Oximeter Temp 98.1 F Temp Source Oral Pulse Oximetry (%) 98 Oxygen Delivery Method Room Air Intake Visit Reasons: ep cut LT index finger while cutting food Intake Note: pt presents with LT index finger laceration while chopping chicken wings <1 hr ago Patient Tobacco Use Status: Current everyday Tobacco user Allergies cephalexin (Keflex) Allergy (Unknown, Verified 01/07/25 16:11) Anaphylaxis From Keflex Allergy (Severe, Uncoded 08/06/24 13:49) ANAPHYLAXIS- SWELLING;PCN/AMOX TOLERATED Do you need a note to return to daycare/school/sports/work: No HPI HPI Comments History of Present Illness Details History of Present Illness - The patient is a 64-year-old female pr esenting with a laceration on the right index finger. - The injury occurred while cutting chic sonya with a knife, resulting in a slice with a flap of skin. - The patient has a history of frequent minor cuts due to regular cooking activities. - The patient received a Tdap vaccinatio n on 06/08/23, ensuring tetanus prophylaxis is up to date. - She washed it with soap and water but is concerned as it won't stop bleeding. Review of Systems - Integumentary: Reports laceration on t he finger with bleeding. - Musculoskeletal: Denies any bone expos ure or deep tissue involvement. All systems reviewed and are unremarkable except as noted in HPI Physical Exam General: Cooperative, healthy appearing, comfortable, no acute distress and well developed Orientation: Patient oriented x3 Limitations: No limitations Head: Normal to inspection Ears: Hearing grossly normal bilaterally Nose: Normal External nose present Face and sinus: Normal facial exam Eyes: Appearance normal, both eyes and all related structures Neck: Normal visual inspection and Yes full ROM Respiratory: Normal respiratory effort and able to speak in complete sentences. Skin: No rashes or lesions noted, as below Neuro: Patient oriented x3 Extremities: Normal to inspection, right 2nd digit with superficial 1cm linear flap/lac across base of finger above joint, full ROM, NVI. [facility] Medical History (Updated 08/06/24 @ 14:18 by Ayleen Sheth PA-C) Colon cancer screening GERD (gastroesophageal reflux disease) Family history- stomach cancer Fibromyalgia (~2004) Insulin dependent type 2 diabetes mellitus (~2004) Hypertension Hyperlipemia Nicotine dependence, cigarettes, uncomplicated Fibroids Pancreatitis Epigastric pain Carpal tunnel syndrome Memory loss Fatty infiltration of liver Depression Wrist pain Surgical History History of colonoscopy History of laryngoscopy History of right breast biopsy History of hysterectomy Family History Mother Liver disease Father CAD (coronary artery disease) Brother Stomach cancer Social History Patient Tobacco Use Status: Current everyday Tobacco user Tobacco use type: Cigarette Cigarettes Per Day: 10 Years Smoked: Onset 12yo, 1/2ppd x 49yrs, 25pyh Current occupational status: disabled 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 Covered with non adhesive dressing and splinted to avoid tearing it back open, wrapped with gauze. Laceration repair performed by: Ayleen Sheth Explained risks and benefits to parent: Yes Informed consent given: No Consent signed: No Location: right 2nd digit Length: 1cm Sedation: No Preparation: other Wound exploration: none (no FB noted) Deep closure: No Skin closure: glue Technique: see above Topical treatment: dry Tetanus toxoid ordered: No (UTD last one was 06/08/23) Patient tolerated procedure: [place]: [place] [id number] Repair <2.5cm Procedure code (CPT) selection complete Assessment & Plan Assessment & Plan (1) Laceration of finger of left hand: Code(s): S61.219A - Laceration without foreign body of unspecified finger without damage to nail, initial encounter Qualifiers: Encounter type: initial encounter Finger: index finger Damage to nail status: without damage Foreign body presence: without foreign body Qualified Code(s): S61.211A - Laceration without foreign body of left index finger without damage to nail, initial encounter Plan: Patient was informed and verbally consented to the use of an ambient scribe for clinic note documentation during this visit. Laceration Of The Finger - Used Surgicel and pressure bandage to stop bleeding, then applied steri-strips and glue. Covered with non adhesive dressing and splinted to avoid tearing it back open, wrapped with gauze. - Apply a pressure bandage and consider using a splint to immobilize the finger for healing, leave splint on for 48 hours. - Tetanus prophylaxis confirmed as up to date with recent Tdap vaccination on 06/08/23. Coding Level of Care Code New Pt Level 3 (17514) Diagnoses Laceration of left index finger without foreign body without damage to nail, initial encounter S61.211A Encounter type: initial encounter Finger: index finger Damage to nail status: without damage Foreign body presence: without foreign body CPT Codes Office Procedure - Laceration Repair 1: [id number] Repair <2.5cm ([id number])
--- OUTSIDE RECORDS SUMMARY | 2025-01-07 18:23 | XMS_ITS | Encounter Summary ---
Author Organization [employer] Address [address] [facility] 7t [place] [address] Care Team Providers Care Clay Pigeon Loader Name Role Phone Stacie Vincent MD Primary Care Provider [phone] Fredy Mobley PharmD Unavailable [phone] Reason for Visit * Reason Comments Med Refill Encounter Details Date Type Department Care Team ([facility] st Contact Info) Description 01/28/2024 Refill [facility] 230 [place], [place] [phone] Judi Leon MD 230 [place], [place] [phone] Social History Tobacco Use Types Packs/Day Years Used Date Smoking Tobacco: Every Day Cigarettes 0.5 51.4 Started: 08/10/1973 Passive Smoke Exposure: Current Smokeless [...] as of this encounter Plan of Treatment Not on [...] as of this encounter Care Teams Clay Pigeon Loader Relationship Specialty Start Date End Date Stacie Vincent MD [address] [place] [address] PCP - General Family Medicine 10/31/21 Fredy Mobley PharmD [address] [place] [address] Pharmacist Internal Medicine 01/20/23 documented as of this encounter
--- OUTSIDE RECORDS SUMMARY | 2025-01-07 18:23 | XMS_ITS | Encounter Summary ---
Author Organization [employer] Address [address] [facility] 7t [place] [address] Care Team Providers Care Enrichment Teacher Name Role Phone Stacie Vincent MD Primary Care Provider Fredy Mobley PharmD Unavailable [phone] Reason for Visit * Reason Onset Date Comments callback requests 01/29/2024 Encounter Details Date Type Department Care Team ([facility] Contact Info) Description 01/29/2024 Telephone [facility] MEDICINE 230 [place], [place] [phone] Stacei Vincent MD 230 [place], [place] [phone] callback requests Social History Tobacco Use Types [...] discontinued in order to get Trulicity. Callback [phone] documented in this encounter Plan of Treatment [...] documented as of this encounter Care Teams Enrichment Teacher Relationship Specialty Start Date End Date Stacie Vincent MD 230 [place] [address] PCP - General Family Medicine 10/31/21 Fredy Mobley PharmD 230 [place] [address] Pharmacist Internal Medicine 01/20/23 documented as of this encounter
--- OUTSIDE RECORDS SUMMARY | 2025-01-07 18:23 | XMS_ITS | Encounter Summary ---
Author Organization [employer] Address [address] [facility] 7t [place] [address] Care Team Providers Care Plant Wire Chief Name Role Phone Stacie Vincent MD Primary Care Provider [phone] Fredy Mobley PharmD Unavailable Reason for Visit * Reason Onset Date Comments Med Refill 01/29/2024 Encounter Details Date Type Department Care Team ([facility] st Contact Info) Description 01/29/2024 Telephone [facility] MEDICINE 230 [place], [place] [phone] Stacie Vincent MD 230 [place], [place] [phone] Med Refill Social History Tobacco Use Types [...] 50 MG tablet To be sent to: [facility] documented in this encounter Plan of Treatment Not on file documented as of this encounter Goals Goal Patient Goal Type Associated Problems Recent Progress Patient-Stated? Author Blood Pressure < 140/90 Blood Pressure 138/68(2024 2:03 PM EDT) No Fredy Mobley, PharmD Hemoglobin A1c < 7 Result Component 7.4( 1:47 PM EDT) No Fredy Mobley PharmD documented as of this encounter Visit Diagnoses Not on filedocumented in this encounter Additional Health Concerns Assessment Noted Time PHQ-9 Depression Total Score: 7 06/08/19 24 9:37 AM EDT documented as of this encounter Care Teams Plant Wire Chief Relationship Specialty Start Date End Date Stacie Vincent MD [address] [place] [address] PCP - General Family Medicine 10/31/21 Fredy Mobley, AmolD [address] [place] [address] Pharmacist Internal Medicine 01/20/23 documented as of this encounter
--- OUTSIDE RECORDS SUMMARY | 2025-01-07 18:24 | XMS_ITS | Encounter Summary ---
Author Organization [employer] Address [address] [facility] 7t [place] [address] Care Team Providers Care Ton Cylinder Inspector Name Role Phone Stacie Vincent MD Primary Care Provider Fredy Mobley PharmD Unavailable [phone] Reason for Visit * Reason Onset Date Comments Nurse Triage 12/12/2023 Encounter Details Date Type Department Care Team ([facility] st Contact Info) Description 12/12/2023 Telephone [facility] MEDICINE 230 [place], [place] [phone] Stacie Vincent MD 230 [place], [place] [phone] Nurse Triage Social History Tobacco Use Types [...] back pain and discussed this yesterday with [facility] who told her he would request some [...] Result Component 7.4( 1:47 PM EDT) No Ferdy Mobley PharmD documented as of this encounter Visit Diagnoses Not on filedocumented in this encounter Additional Health Concerns Assessment Noted Time PHQ-9 Depression Total Score: 7 06/08/19 24 9:37 AM EDT documented as of this encounter Care Teams Ton Cylinder Inspector Relationship Specialty Start Date End Date Stacie Vincent MD 230 [place] [address] PCP - General Family Medicine 10/31/21 Fredy Mobley PharmD [address] [place] [address] Pharmacist Internal Medicine 01/20/23 documented as of this encounter
--- OUTSIDE RECORDS SUMMARY | 2025-01-07 18:24 | XMS_ITS | Encounter Summary ---
Author Organization [employer] Address [address] [place] [address] [place] [address] Care Team Providers Care Ticketing Clerk Name Role Phone Stacie Vincent MD Primary Care Provider Fredy Mobley PharmD Unavailable [phone] Reason for Visit * Reason Comments Med Refill Encounter Details Date Type Department Care Team (Late st Contact Info) Description 10/23/2024 Refill [facility] MEDICINE 230 [place], [place] [phone] Shira Oneil MD 230 [place], [place] [phone] Piriformis syndrome, unspecified laterality Social History Tobacco [...] documented as of this encounter Care Teams Ticketing Clerk Relationship Specialty Start Date End Date Stacie Vincent MD 230 [place] [address] PCP - General Family Medicine 10/31/21 Frdey Mobley PharmD 230 [place] [address] Pharmacist Internal Medicine 01/20/23 documented as of this encounter
--- OUTSIDE RECORDS SUMMARY | 2025-01-07 18:24 | XMS_ITS | Encounter Summary ---
Author Organization [employer] Address [address] [facility] 7t [place] [address] Care Team Providers Care Tunnel Man Name Role Phone Stacie Vincent MD Primary Care Provider [phone] Fredy Mobley PharmD Unavailable [phone] Reason for Visit * Reason Comments Med Refill Encounter Details Date Type Department Care Team ([facility] st Contact Info) Description 07/17/2023 Refill [facility] MEDICINE 230 [place], [place] [phone] Stacie Vincent MD 230 [place], [place] [phone] Social History Tobacco Use Types Packs/Day Years [...] Pressure 138/68( 025 2:03 PM EDT) No rFedy Mobley, AmolD documented as of this encounter Visit Diagnoses Not on filedocumented in this encounter Additional Health Concerns Assessment Noted Time PHQ-9 Depression Total Score: 7 06/08/19 24 9:37 AM EDT documented as of this encounter Care Teams Tunnel Man Relationship Specialty Start Date End Date Stacie Vincent MD 230 [place] [address] PCP - General Family Medicine 10/31/21 Fredy Mobley, PharmD 230 [place] [address] Pharmacist Internal Medicine 01/20/23 documented as of this encounter
--- OUTSIDE RECORDS SUMMARY | 2025-01-07 18:24 | XMS_ITS | Encounter Summary ---
Author Organization [employer] Address [address] [place] [address] 7t [place] [address] Care Team Providers Care Fraud Representative Name Role Phone Stacie Vincent MD Primary Care Provider Fredy Mobley PharmD Unavailable [phone] Reason for Visit * Reason Comments Med Refill Encounter Details Date Type Department Care Team ([facility] st Contact Info) Description 08/29/2023 Refill [facility] MEDICINE 230 [place], [place] [phone] Stacie Vincent MD 230 [place], [place] [phone] Social History Tobacco Use Types Packs/Day Years [...] documented as of this encounter Care Teams Fraud Representative Relationship Specialty Start Date End Date Stcaie Vincent MD [address] [place] [address] PCP - General Family Medicine 10/31/21 Fredy Mobley PharmD [address] [place] [address] Pharmacist Internal Medicine 01/20/23 documented as of this encounter
--- OUTSIDE RECORDS SUMMARY | 2025-01-07 18:24 | XMS_ITS | Encounter Summary ---
Author Organization [employer] Address [address] [facility] 7t [place] [address] Care Team Providers Care Search Planner Name Role Phone Stacie Vincent MD Primary Care Provider [phone] Fredy Mobley PharmD Unavailable [phone] Reason for Visit * Reason Comments Med Refill Encounter Details Date Type Department Care Team ([facility] st Contact Info) Description 02/24/2023 Refill [facility] MEDICINE 230 [place], [place] [phone] Stacie Vincent MD 230 [place], [place] [phone] Social History Tobacco Use Types Packs/Day Years [...] your housing situation today? I have gaviota rcuz 12/19/[address] you li [...] documented as of this encounter Care Teams Search Planner Relationship Specialty Start Date End Date Stacie Vincent MD 230 [place] [address] PCP - General Family Medicine 10/31/21 Fredy Mobley, AmolD 230 [place] [address] Pharmacist Internal Medicine 01/20/23 documented as of this encounter
--- OUTSIDE RECORDS SUMMARY | 2025-01-07 18:24 | XMS_ITS | Encounter Summary ---
Author Organization [employer] Address [address] [facility] 7t [place] [address] Care Team Providers Care Patient Portal Representative Name Role Phone Stacie Vincent MD Primary Care Provider [phone] Fredy Mobley PharmD Unavailable Reason for Visit * Reason Onset Date Comments Nurse Triage 02/14/2023 Encounter Details Date Type Department Care Team ([facility] st Contact Info) Description 02/14/2023 Telephone [facility] MEDICINE 230 [place], [place] [phone] Stacie Vincent MD 230 [place], [place] [phone] Nurse Triage Social History Tobacco Use Types [...] not completed blood work orders sent to [facility] lab. Pt advised to complete as provider [...] documented as of this encounter Care Teams Patient Portal Representative Relationship Specialty Start Date End Date Stacie Vincent MD 230 [place] [address] PCP - General Family Medicine 10/31/21 Fredy Mobley, Yudy 230 [place] [address] Pharmacist Internal Medicine 01/20/23 documented as of this encounter
--- OUTSIDE RECORDS SUMMARY | 2025-01-07 18:24 | XMS_ITS | Encounter Summary ---
Author Organization [employer] Address [address] [facility] 7t [place] [address] Care Team Providers Care Production Team Member Name Role Phone Stacie Vincent MD Primary Care Provider Fredy Mobley PharmD Unavailable [phone] Reason for Visit * Reason Onset Date Comments Medication Question 09/25/2023 Encounter Details Date Type Department Care Team ([facility] st Contact Info) Description 09/25/2023 Telephone [facility] MEDICINE 230 [place], [place] [phone] Stacie Vincent MD 230 [place], [place] [phone] Medication Question Social History Tobacco Use Types [...] 09/25/2023 3:15 PM EDT Pt seen at [facility] ED 09/20/23. Dxd with piriformis syndrome of right side. 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 Pt picked up 5 [...] any questions you can contact pt at [phone]. documented in this encounter Plan of Treatment [...] documented as of this encounter Care Teams Production Team Member Relationship Specialty Start Date End Date Stacie Vincent MD 230 [place] [address] PCP - General Family Medicine 10/31/21 Fredy Mobley PharmD [address] [place] [address] Pharmacist Internal Medicine 01/20/23 documented as of this encounter
--- OUTSIDE RECORDS SUMMARY | 2025-01-07 18:24 | XMS_ITS | Encounter Summary ---
Author Organization [employer] Address [address] [place] [address] 7 [place] [address] Care Team Providers Care Community Manager Name Role Phone Stacie Vincent MD Primary Care Provider [phone] Fredy Mobley PharmD Unavailable [phone] Encounter Details Date Type Department Care Team (Late st Contact Info) Description 03/09/2022 [employer] [employer] [facility] 230 [place], [place] [phone] Stacie Vincent MD 230 [place], [place] [phone] Social History Tobacco Use Types Packs/Day Years [...] on file documented as of this encounter Visit Diagnoses Not on filedocumented in this encounter Care Teams Community Manager Relationship Specialty Start Date End Date Stacie Vincent MD 230 [place], [place] [phone] PCP - General Family Medicine 10/31/21 Fredy Mobley, PharmD [address] [place] [address] [phone] Pharmacist Internal Medicine 01/20/23 documented as of this encounter
--- OUTSIDE RECORDS SUMMARY | 2025-01-07 18:24 | XMS_ITS | Encounter Summary ---
Author Organization [employer] Address [address] [place] [address] 7t [place] [address] Care Team Providers Care Cooperative Education Coordinator Name Role Phone Stacie Vincent MD Primary Care Provider [phone] Fredy Mobley PharmD Unavailable Reason for Visit * Reason Onset Date Comments triage 07/12/2022 Encounter Details Date Type Department Care Team (Late st Contact Info) Description 07/12/2022 Telephone [facility] MEDICINE 230 [place], [place] [phone] Stacie Vincent MD 230 [place], [place] [phone] triage Social History Tobacco Use Types Packs/Day [...] wrists and hands/palms. Pt was seen in [facility] ED 07/09 or 07/10 ( unclear) and [...] accepted this outcome Pt was seen on [facility] On 07/09. Executive Talent Acquisition Consultant advised pt also about WIC. PCP DR. Vincent documented in this encounter Plan of Treatment Not on file documented as of this encounter Visit Diagnoses Not on filedocumented in this encounter Additional Health Concerns Assessment Noted Time PHQ-9 Depression Total Score: 6 06/01/19 23 10:23 AM EDT documented as of this encounter Care Teams Cooperative Education Coordinator Relationship Specialty Start Date End Date Stacie Vincent MD 230 [place] [address] PCP - General Family Medicine 10/31/21 Fredy Mobley, Yudy [address] [place] [address] Pharmacist Internal Medicine 01/20/23 documented as of this encounter
--- OUTSIDE RECORDS SUMMARY | 2025-01-07 18:24 | XMS_ITS | Encounter Summary ---
Author Organization [employer] Address 75 [facility] 7t [place] [address] Care Team Providers Care Quality Technician Fiberglass Name Role Phone Stacie Vincent MD Primary Care Provider [phone] Fredy Mobley PharmD Unavailable [phone] Reason for Visit * Reason Comments Med Refill Encounter Details Date Type Department Care Team ([facility] st Contact Info) Description 08/02/2023 Refill [facility] MEDICINE 230 [place], [place] [phone] Stacie Vincent MD 230 [place], [place] [phone] Social History Tobacco Use Types Packs/Day Years [...] 025 2:03 PM EDT) No Fredy Mobley, AmolD documented as of this encounter Visit Diagnoses Not on filedocumented in this encounter Additional Health Concerns Assessment Noted Time PHQ-9 Depression Total Score: 7 06/08/19 24 9:37 AM EDT documented as of this encounter Care Teams Quality Technician Fiberglass Relationship Specialty Start Date End Date Stacie Vincent MD 230 [place] [address] PCP - General Family Medicine 10/31/21 Fredy Mobley, PharmD 230 [place] [address] Pharmacist Internal Medicine 01/20/23 documented as of this encounter
--- OUTSIDE RECORDS SUMMARY | 2025-01-07 18:24 | XMS_ITS | Encounter Summary ---
Author Organization [employer] Address [address] [place] [address] 7 [place] [address] Care Team Providers Care Safety Deposit Clerk Name Role Phone Stacie Vincent MD Primary Care Provider [phone] Fredy Mobley PharmD Unavailable [phone] Reason for Visit * Reason Comments Med Refill Encounter Details Date Type Department Care Team (Late st Contact Info) Description 05/16/2022 Refill [facility] MEDICINE [address] [place], [place] [phone] Sergio Mcneil MD [address] [place], [place] [phone] Social History Tobacco Use Types Packs/Day Years [...] on filedocumented in this encounter Care Teams Safety Deposit Clerk Relationship Specialty Start Date End Date Stacie Vincent MD [address] [place] [address] [phone] PCP - General Family Medicine 10/31/21 Fredy Mobley, PharmD [address] [place] [address] [phone] Pharmacist Internal Medicine 01/20/23 documented as of this encounter
--- OUTSIDE RECORDS SUMMARY | 2025-01-07 18:24 | XMS_ITS | Encounter Summary ---
Author Organization [employer] Address [address] [facility] 7t [place] [address] Care Team Providers Care Screwhead Polisher Name Role Phone Stacie Vincent MD Primary Care Provider [phone] Fredy Mobley PharmD Unavailable [phone] Reason for Visit * Reason Comments Med Refill Encounter Details Date Type Department Care Team ([facility] st Contact Info) Description 08/10/[address] [facility] MEDICINE [address] [place], [place] [phone] Stacie Vincent MD [address] [place], [place] [phone] Social History Tobacco Use Types Packs/Day Years [...] documented as of this encounter Care Teams Screwhead Polisher Relationship Specialty Start Date End Date Stacie Vincent MD [address] [place] [id number] PCP - General Family Medicine 10/31/21 Fredy Mobley PharmD [address] [place] [phone] Pharmacist Internal Medicine 01/20/23 documented as of this encounter
--- OUTSIDE RECORDS SUMMARY | 2025-01-07 18:24 | XMS_ITS | Clinical Summary ---
Author Organization [employer] [facility] it Address [address] [place] [address] Care Team Providers Care Housekeeping Staff Name Role Phone Jailyn Rodriguez RN Primary Care Provider [phone] Social History Tobacco Use Types Packs/Day Years [...] Last Done Comments Breast Cancer Screening 1959 Colorectal Cancer Screening: Colonoscopy 1959 DTaP,Tdap,and Td Vaccines (1 - Tdap) 12/23/1978 Cervical Cancer Screening: P ap Smear 12/23/1980 Pneumococcal Vaccine: 50+ Ye ars (1 of 1 - PCV) 12/23/2009 Zoster Vaccines (1 of 2) 12/23/2009 Hepatitis C Screening 02/06/2022 Osteoporosis Screening (Bone Density Screening) 02/06/2022 Social Influencers of Health Screening 02/06/2022 Depression Screening 03/06/2024 COVID-19 Vaccine (1 - 2023-2 5 season) 2024 Influenza Vaccine (#1) 2024 Falls Risk Assessment 12/23/2024 RSV Immunization Adult Patie nts (1 - [...] age to complete this topic Care Teams Housekeeping Staff Relationship Specialty Start Date End Date Jailyn Rodriguez RN [address] [place] [address] [place] [phone] PCP - General 11/19/21
--- OUTSIDE RECORDS SUMMARY | 2025-01-07 18:24 | XMS_ITS | Encounter Summary ---
Author Organization [employer] Address [address] [facility] 7t [place] [address] Care Team Providers Care Denial Resolution Specialist Name Role Phone Stacie Vincent MD Primary Care Provider [phone] Fredy Mobley PharmD Unavailable [phone] Reason for Visit * Reason Comments Med Refill Encounter Details Date Type Department Care Team ([facility] st Contact Info) Description 05/31/2024 Refill [facility]ED[facility] [address] [place], [place] [phone] Stacie Vincent MD [address] [place] [address] Social History Tobacco Use Types Packs/Day Years [...] documented as of this encounter Care Teams Denial Resolution Specialist Relationship Specialty Start Date End Date Stacie Vincent MD [address] [place] [phone] PCP - General Family Medicine 10/31/21 Fredy Mobley PharmD [address] [place] [phone] Pharmacist Internal Medicine 01/20/23 documented as of this encounter
--- OUTSIDE RECORDS SUMMARY | 2025-01-07 18:24 | XMS_ITS | Encounter Summary ---
Author Organization [employer] Address [address] [place] [address] [place] [address] Care Team Providers Care Senior J2Ee Developer Name Role Phone Stacie Vincent MD Primary Care Provider [phone] Fredy Mobley PharmD Unavailable [phone] Reason for Visit * Reason Comments Med Refill Encounter Details Date Type Department Care Team (Late st Contact Info) Description 12/05/2023 Refill [facility] MEDICINE [address] [place], [place] [phone] Shira Oneil MD [address] [place], [place] [phone] Piriformis syndrome, unspecified laterality Social History Tobacco [...] as of this encounter Care Teams Senior J2Ee Developer Relationship Specialty Start Date End Date Stacie Vincent MD [address] [place] [address] PCP - General Family Medicine 10/31/21 Fredy Mobley PharmD [address] [place] [address] Pharmacist Internal Medicine 01/20/23 documented as of this encounter
--- OUTSIDE RECORDS SUMMARY | 2025-01-07 18:24 | XMS_ITS | Encounter Summary ---
Author Organization [employer] Address [address] [facility] 7t [place] [address] Care Team Providers Care Operator Control Room Name Role Phone Stacie Vincent MD Primary Care Provider [phone] Fredy Mobley PharmD Unavailable [phone] Reason for Visit * Reason Comments Med Refill Encounter Details Date Type Department Care Team (Late st Contact Info) Description 12/11/2023 Refill [facility] [address] [place] [address] [phone] Stacie Vincent MD [address] [place], [place] [phone] Spondylosis of lumbar spine Social History Tobacco [...] documented as of this encounter Care Teams Operator Control Room Relationship Specialty Start Date End Date Stacie Vincent MD [address] [place] [id number] PCP - General Family Medicine 10/31/21 Fredy Mobley PharmD [address] [place] [phone] Pharmacist Internal Medicine 01/20/23 documented as of this encounter
--- OUTSIDE RECORDS SUMMARY | 2025-01-07 18:24 | XMS_ITS | Encounter Summary ---
Author Organization [employer] Address [address] [place] [address] 7t [place] [address] Care Team Providers Care Fingernail Sculpturer Name Role Phone Stacie Vincent MD Primary Care Provider [phone] Fredy Mobley PharmD Unavailable [phone] Reason for Visit * Reason Comments Med Refill Encounter Details Date Type Department Care Team ([facility] st Contact Info) Description 06/22/2022 Refill [facility] MEDICINE [address] [place], [place] [phone] Sergio Mcneil MD [address] [place], [place] [phone] Chronic back pain, unspecified back location, unspecified [...] documented as of this encounter Care Teams Fingernail Sculpturer Relationship Specialty Start Date End Date Stacie Vincent MD [address] [place] [address] PCP - General Family Medicine 10/31/21 Fredy Mobley PharmD [address] [place] [address] Pharmacist Internal Medicine 01/20/23 documented as of this encounter
--- OUTSIDE RECORDS SUMMARY | 2025-01-07 18:24 | XMS_ITS | Encounter Summary ---
Author Organization [employer] Address [address] [facility] 7t [place] [address] Care Team Providers Care Lamina Searcher Name Role Phone Stacie Vincent MD Primary Care Provider [phone] Fredy Mobley PharmD Unavailable [phone] Reason for Visit * Reason Comments Med Refill Encounter Details Date Type Department Care Team ([facility] st Contact Info) Description 03/07/2023 Refill [facility]S [address] [place], [place] [phone] Stacie Vincent MD 230 [place] [address] Pain Social History Tobacco Use Types Packs/Day [...] documented as of this encounter Care Teams Lamina Searcher Relationship Specialty Start Date End Date Stacie Vincent MD 230 [place] [address] PCP - General Family Medicine 10/31/21 Fredy Mobley, AmolD 230 [place] [address] Pharmacist Internal Medicine 01/20/23 documented as of this encounter
--- OUTSIDE RECORDS SUMMARY | 2025-01-07 18:24 | XMS_ITS | Clinical Summary ---
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 SPRAY 0.1mL IN ONE NOSTRIL. REPEAT IN ALTERNATE NOSTRIL 2-3 MINUTES IF NEEDED. SEEK MEDICAL ATTENTION IMMEDIATELY EVEN IF PATIENT RESPONDS. 2 each 1 07/07/19 23 Active Blood Pressure Monitor kit Check blood pressure once daily and as needed 1 kit 08/10/19 23 Active lidocaine (Lidoderm) 5 % patch Apply 2 patches topically if needed each day for mild pain. Remove & discard patch within 12 hours or as directed by . 60 patch 3 02/09/20 23 Active Diclofenac Sodium 1 % gel APPLY 2 GRAMS TOPICALLY 4 TIMES A DAY IN THE MORNING, AT NOON, IN THE EVENING, AND AT BEDTIME NEEDED FOR PAIN 100 g 5 09/27/19 24 Active Ventolin HFA 108 (90 Base) MCG/ACT inhaler INHALE 2 PUFFS BY MOUTH EVERY 4 TO 6 HOURS NEEDED FOR SHORTNESS OF BREATH 18 g 3 10/02/19 24 Active Alcohol Swabs (Alcohol Prep) 70 % pads USE DIRECTED THREE TIMES DAILY 100 each 11 01/09/20 24 Active B-D UF III MINI PEN NEEDLES 31G X 5 MM [facility] [place] to inject Lantus daily 100 each 05/09/19 25 Active metoprolol succinate XL (Toprol-XL) 50 MG 24 hr tabletIndicatio ns:Primary hypertension TAKE 1 TABLET BY MOUTH EVERY MORNING 90 tablet 3 05/31/19 25 Active TRUEplus Lancets 33G miscIndications :Type 2 diabetes mellitus with hyperglycemia, with long-term current use of insulin ([facility]) USE DIRECTED TO TEST BLOOD SUGAR THREE OR FOUR TIMES DAILY 100 each 08/15/19 25 Active diclofenac (Voltaren) 50 MG EC tablet Take 1 tablet by mouth 2 times daily. 08/07/19 25 Active hydrOXYzine pamoate (Vistaril) 25 MG capsule Take 1 capsule by mouth every 6 (six) hours during the day. 08/07/19 25 Active losartan (Cozaar) 100 MG tablet TAKE 1 TABLET BY MOUTH EVERY MORNING 90 tablet 1 08/27/19 25 Active senna (Senokot) 8.6 MG tabletIndicatio ns:Drug-induced constipation TAKE 2 TABLETS BY MOUTH EVERY DAY AT BEDTIME NEEDED FOR CONSTIPATION 180 tablet 1 08/27/19 25 Active rosuvastatin (Crestor) 20 MG tabletIndicatio ns:Drug-induced constipation TAKE 1 TABLET BY MOUTH EVERY EVENING 90 tablet 1 08/27/19 25 Active omeprazole (PriLOSEC) [address] capsule TAKE 1 CAPSULE BY MOUTH EVERY MORNING BEFORE BREAKFAST 90 capsule 3 09/25/19 25 Active glucose blood (FREESTYLE LITE) test stripIndication s:Type 2 diabetes mellitus with hyperglycemia, with long-term current use of insulin ([facility]) USE DIRECTED TO TEST BLOOD SUGAR THREE OR FOUR TIMES DAILY 100 strip 10/12/19 25 Active Aspirin Low Dose 81 MG EC tabletIndicatio ns:Primary hypertension TAKE 1 TABLET BY MOUTH EVERY EVENING 90 tablet 1 10/18/19 25 Active DULoxetine (Cymbalta) [address] capsuleIndicati ons:Depressive disorder TAKE 1 CAPSULE BY MOUTH EVERY MORNING 30 capsule 10/18/19 25 Active metFORMIN XR (Glucophage-XR) 500 MG 24 hr tabletIndicatio ns:Type 2 diabetes mellitus without complication, unspecified whether jail insulin use TAKE 2 TABLETS BY MOUTH TWICE DAILY IN THE MORNING AND EVENING 120 tablet 5 10/18/19 25 Active cyclobenzaprine (Flexeril) 10 MG tabletIndicatio ns:Chronic back pain, unspecified back location, unspecified back pain laterality Take 1 tablet (10 mg) by mouth if needed in the morning and at bedtime for muscle spasms. 30 tablet 3 10/29/19 25 Active mirtazapine (Remeron) 7.5 MG tablet Take 1 tablet (7.5 mg) by mouth at bedtime. 30 tablet 3 10/29/19 25 Active cyanocobalamin (Vitamin B-12) 500 MCG tablet Take 1 tablet (500 mcg) by mouth Once per day. 90 tablet 3 11/08/19 25 2025 Active buPROPion XL (Wellbutrin XL) 150 MG 24 hr tabletIndicatio ns:Depressive disorder TAKE 1 TABLET BY MOUTH EVERY MORNING 30 tablet 3 11/12/19 25 Active amLODIPine (Norvasc) 10 MG tabletIndicatio ns:Primary hypertension Take 1 tablet (10 mg) by mouth Once per day. 30 tablet 5 11/12/19 25 Active Tirzepatide (Mounjaro) 10 MG/0.5ML solution auto-injectorIn dications:Type 2 diabetes mellitus with hyperglycemia, with long-term current use of insulin ([facility]) Inject 10 mg under the skin 1 (one) time per week. 2 mL 3 11/12/19 25 Active insulin degludec (Tresiba FlexTouch) 200 UNIT/ML injectionIndica tions:Type 2 diabetes mellitus with hyperglycemia, with long-term current use of insulin ([facility]) Inject 32 units under the skin once daily 9 mL 5 11/12/19 25 Active Acetaminophen Extra Strength 500 MG tabletIndicatio ns:Chronic back pain, unspecified back location, unspecified back pain laterality TAKE 2 TABLETS BY MOUTH EVERY 8 HOURS NEEDED FOR MILD PAIN OR FOR MODERATE PAIN 120 tablet 1 12/06/19 25 Active fluticasone (Flonase) 50 MCG/ACT nasal spray INSTILL 2 SPRAYS IN EACH NOSTRIL ONCE DAILY 48 g 1 12/17/19 25 Active fluticasone (Flonase) 50 MCG/ACT nasal spray INSTILL 2 SPRAYS IN EACH NOSTRIL ONCE DAILY 48 g 1 06/27/19 25 2024 Discontinued Active Problems Problem Noted Date [...] Plan (07/26/2024 9:29 AM EDT): -seen by [facility] china painter -MRI in Oct 2021 --Central disc [...] relaxant, and topical medication -encouraged to contact china painter -discontinued gabapentin dose due to ?hallucination -agreed to resume oxycodone July 2024. Treatment Hx -previously on tramadol and opioid analgesics; Pt went to Detox in August 2021. Assessment & Plan (01/15/2024 8:50 AM EST): -seen by [facility] china painter -MRI in Oct 2021 --Central disc [...] relaxant, and topical medication -encouraged to contact china painter -discontinued gabapentin dose due to ?hallucination Treatment Hx -previously on tramadol and opioid analgesics; Pt went to Detox in August 2021. Assessment & Plan (06/04/2022 6:29 PM EDT): -seen by [facility] china painter -MRI in Oct 2021 --Central disc [...] ibuprofen, gabapentin, and baclofen -encouraged to contact china painter -decrease gabapentin dose due to ?hallucination [...] fundus compatible with adenomyomatosis. - Following with [facility] GI, last seen in July 2023 - [...] fundus compatible with adenomyomatosis. - Following with [facility], last seen in July 2023 - [...] fundus compatible with adenomyomatosis. - Following with [facility], last seen in July 2023 - [...] caution. 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 Assessment & Plan (01/15/2024 9:02 AM [...] -seen by lung cancer screening program in [facility] in Dec 2022; patient has not completed CT for the program -most recent chest CT in Feb 2024: Incidental note made of emphysema, hepatic steatosis, splenomegaly and benign left adrenal adenoma - will refer again. Next CT scan in Feb 2025. Assessment & Plan (06/11/2023 6:16 AM EDT): -continue working on smoking cessation -continue bupropion -seen by lung cancer screening program in [facility] in Dec 2022; patient has not had chest CT yet Assessment & Plan (06/04/2022 6:30 PM EDT): -continue working on smoking cessation -continue bupropion Fibromyalgia 04/13/2022 Assessment & Plan (07/16/2024 9:19 AM EDT): -tried physical therapy -tried Lyrica which was discontinued -tried gabapentin which was discontinued (drowsiness) -seen by china painter; pt has not had a follow up. Recommended to contact -continue duloxetine -continue lidocaine patch -Treatment Hx: discontinued amitriptyline in June 2022, tapered off gabapentin due to hallucination; discontinue baclofen and methocarbamol due to possible adverse reaction Assessment & Plan (01/15/2024 8:55 AM EST): -tried physical therapy -tried Lyrica which was discontinued -tried gabapentin which was discontinued (drowsiness) -seen by china painter; pt has not had a follow up. Recommended to contact -continue duloxetine -continue lidocaine patch -Treatment Hx: discontinued amitriptyline in June 2022, tapered off gabapentin due to hallucination; discontinue baclofen and methocarbamol due to possible adverse reaction Assessment & Plan (06/11/2023 6:10 AM EDT): -tried physical therapy -tried Lyrica which was discontinued -seen by china painter; pt has not had a follow up. Recommended to contact -continue duloxetine -discontinue baclofen -continue lidocaine patch -Treatment Hx: discontinued amitriptyline in June 2022, tapered off gabapentin due to hallucination; discontinue baclofen and methocarbamol due to possible adverse reaction Assessment & Plan (10/10/2022 6:10 AM EDT): -tried physical therapy -tried Lyrica which was discontinued -seen by china painter; pt has not had a follow up. Recommended to contact -continue duloxetine -continue baclofen -continue lidocaine patch -Treatment Hx: discontinued amitriptyline in June 2022, tapered off gabapentin due to hallucination Assessment & Plan (08/12/2022 6:23 AM EDT): -tried physical therapy -tried Lyrica which was discontinued -seen by china painter; pt has not had a follow up. Recommended to contact -decrease gabapentin dose to 300 mg tid due to hallucination in March 2022, further decrease and plan to taper off -continue duloxetine -continue baclofen -discontinue amitriptyline Assessment & Plan (06/04/2022 6:38 PM EDT): -tried physical therapy -tried Lyrica which was discontinued -seen by china painter; pt has not had a follow [...] (03/21/2023 5:09 AM EST): - seen by [facility] smoking cessation program in Dec 2022 Assessment [...] due to decrease in metformin -Followed by [facility] endocrinology -Continue dulaglutide (Trulicity) 4.5 mg [...] and now concerning for hypoglycemia. -Followed by [facility] endocrinology -Continue current medications as prescribed [...] and now concerning for hypoglycemia. -Followed by [facility] endocrinology -Continue current medications as prescribed [...] -HgbA1C 8.7% on 05/31/22, improving -Followed by [facility] endocrinology -Continue current medications as prescribed [...] -Continue losartan 100 mg daily -Continue metoprolol [id number] mg daily (will need to taper down) [...] -Continue losartan 100 mg daily -Continue metoprolol scdafotor11 mg daily (will need to taper down) [...] zolpidem use) in August 2021 -Detox at [facility] in August 2021 -Recently received oxycodone due to hand fracture July 2022 -Possible withdrawal currently -Pt seems to be in somewhat denial (precontemplation / contemplation stage) Assessment & Plan (06/04/2022 6:31 PM EDT): -Pt fell under the influence of substances: opioid and cocaine (Hx zolpidem use) in August 2021 -Detox at [facility] in August 2021 Polysubstance abuse 09/10/2021 10/11/19 23 Obesity 11/30/2017 10/10/2022 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 08/09/2022 Pain in wrist 05/17/2013 08/09/2022 Encounters Date Type Department Care Team Description 12/26/2024 Telephone [facility] [address] [place] [address] Stacie Vincent MD 12/15/2024 Refill [facility] [address] [place] [address] Stacie Vincent MD 12/04/2024 Refill [facility] [address] [place] [address] Stacie Vincent MD Chronic back pain, unspecified back location, unspecified back pain laterality 11/20/2024 Telephone [facility] [address] [facility] [address] Stacie Vincent MD january11/14/2024 1:30 PM EDT Clinical Support [facility] [address] [facility] [address] Kelsey Salmon RN Memory problem 11/14/2024 Travel 11/09/[address] [facility] [address] [facility] [address] Stacie Vincent MD Depressive disorder 11/07/2024 Orders Only [facility] [address] Stacie Vincent MD 11/07/2024 Results Follow-Up [facility] [address] [facility] [place] [address] Stacie Vincent MD Vitamin B12 (Cobalamin) and Folate Panel, Serum, Lipid Panel with Reflex to Direct LDL, Albumin, Random Urine W/Creatinine, Comprehensive Metabolic Panel 11/06/2024 Travel 10/28/2024 1:45 PM EDT Office Visit [facility] [address] Stacie Vincent MD Primary hypertension (Primary Dx); Type 2 diabetes mellitus with hyperglycemia, with long-term current use of insulin ([facility]/HCC); Memory loss; Chronic back pain, unspecified back location, unspecified back pain laterality; Dyslipidemia; Metabolic dysfunction-associate d steatotic liver disease (MASLD); Memory problem; Insomnia, unspecified type; Nicotine dependence, cigarettes, uncomplicated; Radicular syndrome of left lower extremity; Spondylosis of lumbar spine 10/28/2024 Refill [facility] [address] [facility] [address] Stacie Vincent MD 10/28/2024 Travel 10/25/[address] [facility] [address] [facility] [place] [address] Stacie Vincent MD CHART PREP 10/24/2024 Travel 10/24/2024 Telephone [facility] [address] [place] [address] Laura Casiano RN 10/23/2024 Refill [facility] [address] [place] [address] Shira Oneil MD Piriformis syndrome, unspecified laterality 10/22/2024 Refill [facility] [address] [place] [address] Stacie Vincent MD Chronic back pain, unspecified back location, unspecified back pain laterality 10/17/2024 Refill [facility] [address] [place] [address] Stacie Vincent MD Primary hypertension; Depressive disorder; Type 2 diabetes mellitus without complication, unspecified whether jail insulin use (CMS/HCC) 10/16/2024 Refill [facility] [address] [place] [address] Stacie Vincent MD Type 2 diabetes mellitus without complication, unspecified whether oysterman insulin use (CMS/HCC); Chronic back pain, unspecified back location, unspecified back pain laterality 10/11/2024 Refill [facility] [address] [place] [address] Stacie Vincent MD Type 2 diabetes mellitus with hyperglycemia, with long-term current use of insulin (CMS/HCC) 10/09/2024 Telephone [facility] [address] [place] [address] Stacie Vincent MD Prior Authorization 10/08/2024 Telephone [facility] [address] [place] [address] Stacie Vincent MD Paperwork/Forms from Last 3 Months Immunizations Immunization Administration [...] 10/28/2024 1:46 PM EDT Plan of Treatment Health Maintenance [...] Screening 07/16/2025 07/16/2024 SDOH Screening 07/16/2025 07/16/2024 Tobacco Screening 11/05/2025 11/05/2024 Diabetes: Urine Protein Screening 11/06/2025 11/06/2024, 09/20/2023 Lipid Panel 11/06/2025 11/06/2024, 09/20/2023 Mammogram 03/23/2026 03/23/2024 Eye Exam 05/02/2026 05/02/2024, 04/07, 05/02/2024, Additional history exists DTaP/Tdap/Td Vaccines (3 - Td or Tdap) 06/07/2033 06/08/2023, 10/24/2012, 10/14/2000 Hepatitis B Vaccines Completed 01/21/2021, 09/15/2016, 08/15/2016 Pneumococcal Vaccine: 50+ Years Completed 06/08/2023, 10/24/2012 Hepatitis C Screening Completed 07/12/2023 RSV Patients [...] Procedure Name Priority Date/Time Associated Diagnosis Comments MR BRAIN WO CONTRAST Routine 11/11/2024 8:00 PM EDT Memory loss Memory problem SYPHILIS SCREEN Routine 11/06/2024 1:33 PM EDT Memory loss TSH W/REFLEX TO FT4 Routine 11/06/2024 1 :33 PM EDT Memory loss COMPREHENSIVE METABOLIC PANEL Routine 11/06/2024 1:33 PM EDT Primary hypertension Type 2 diabetes mellitus with hyperglycemia, with long-term current use of insulin (CMS/HCC) Dyslipidemia ALBUMIN, RANDOM URINE W/CREATININE Routine 11/06/2024 1:33 PM EDT Primary hypertension Type 2 diabetes mellitus with hyperglycemia, with long-term current use of insulin (CMS/HCC) LIPID PANEL WITH REFLEX TO DIRECT LDL Routine 11/06/2024 1:33 PM EDT Dyslipidemia VITAMIN B12/FOLATE, SERUM PANEL Routine 11/06/2024 1:33 PM EDT Type 2 diabetes mellitus with hyperglycemia, with long-term current use of insulin (CMS/HCC) POCT GLYCOSYLATED HEMOGLOBIN (HGB A1C) Routine 10/28/2024 [...] PANEL, GENERAL Routine 07/12/2023 2:26 PM EDT COLONOSCOPY Routine 06/29/2012 from Last 3 Months or Most Recently Relevant to Health Maintenance Results * MR Brain w/o Contrast (11/11/2024 8:00 PM EDT) Anatomical Region Laterality Modality Brain Magnetic Resonan ce 11/11/2024 8:00 PM EDT Narrative 11/12/2024 7:29 AM EDT [place] [address] Magnetic Resonance Report Signed Patient: Nandini Edouard MR#: [id number] : 1960 Acct:[id number] Age/Sex: 63 / F ADM Date: 11/11/24 Loc: HO.MRI Attending Dr: Stacie Vincent MD Ordering Physician: Stacie Vincent MD Date of Service: 11/11/24 Procedure(s): MR head/brain wo con Accession Number(s): [id number] cc: Stacie Vincent MD Reason for Exam: memory loss. FAmily history of Alzheimer's. Falls. Hx head injury. EXAMINATION: MR BRAIN WITHOUT CONTRAST CLINICAL INFORMATION: Memory loss and family history of Alzheimer's disease. History of head injury. COMPARISON: Status post 2011. TECHNIQUE: MRI of the brain was obtained using routine sequences without contrast. FINDINGS: No restricted diffusion. No acute intracranial hemorrhage, mass effect, midline shift, hydrocephalus or herniation. Bilateral, multifocal punctate deep periventricular white matter hyperintense T2 FLAIR signal involving centrum semiovale and doherty radiata and to a lesser extent quadrigeminal plate/mid xavi. Sellar/suprasellar region demonstrated no signal abnormality or masses. Craniocervical junction demonstrates normal position of the cerebellar tonsils. Prominence of the extra-axial CSF spaces cerebral sulci and ventricles likely related to central volume loss. Prominent Virchow-Matthew spaces. Hyperintense T2 FLAIR signal in the mastoid air cells. No gross signal abnormality within the hippocampi. MR/MR head/brain wo con IMPRESSION: No acute brain abnormality. Global cerebral atrophy. Nonspecific white matter T2 FLAIR signal. Consider small vessel occlusive disease. Electronically signed by: David Summers MD 11/12/2024 07:26 AM EDT Dictated By: David Moraes MD Signed By: <Electronically signed by David White MD in [place]> 11/12/24725 DD/ 99 TD/TT: 11/11/242029 Special Events Assistant: Procedure Note Donotuseinterpreter, Image - 11/12/2024 [place] [address] Magnetic Resonance Report Signed Patient: Terri Edouard#: [id number] : 1960Acct:[id number] Age/Sex: 63 / FADM Date: 11/11/24 Loc: HO.MRI Attending Dr: Stacie Vincent MD Ordering Physician: Stacie Vincent MD Date of Service: 11/11/24 Procedure(s): MR head/brain wo con Accession Number(s): [id number] cc: Stacie Vincent MD Reason for Exam: memory loss. FAmily history of Alzheimer's. Falls. Hxhead injury. EXAMINATION: MR BRAIN WITHOUT CONTRAST CLINICAL INFORMATION: Memory loss and family history of Alzheimer's disease. History of head injury. COMPARISON: Status post 2011. TECHNIQUE: MRI of the brain was obtained using routine sequences without contrast. FINDINGS: No restricted diffusion. No acute intracranial hemorrhage, mass effect, midline shift, hydrocephalus or herniation. Bilateral, multifocal punctate deep periventricular white matter hyperintense T2 FLAIR signal involving centrum semiovale and doherty radiata and to a lesser extent quadrigeminal plate/mid xavi. Sellar/suprasellar region demonstrated no signal abnormality or masses. Craniocervical junction demonstrates normal position of the cerebellar tonsils. Prominence of the extra-axial CSF spaces cerebral sulci and ventricles likely related to central volume loss. Prominent Virchow-Matthew spaces. Hyperintense T2 FLAIR signal in the mastoid air cells. No gross signal abnormality within the hippocampi. MR/MR head/brain wo con IMPRESSION: No acute brain abnormality. Global cerebral atrophy. Nonspecific white matter T2 FLAIR signal. Consider small vessel occlusive disease. Electronically signed by: David Summers MD 11/12/2024 07:26 AM EDT RP Dictated By: David Moraes MD Signed By: <Electronically signed by David White MDin OV> 11/12/24725 DD/ 99 TD/TT: 11/11/242029 Special Events Assistant: Stacie Vincent MD IMG MRI PROCEDURES Edited Result - Final * Syphilis Screen (11/06/2024 1:33 PM EDT) Syphilis Screen Nonreactive Nonreactive [facility] Blood 11/06/2024 1:33 PM EDT 11/06/2024 4:17 PM EDT Stacie Vincent MD LAB BLOOD ORDERABLES Final Resul t [facility] [address] [place] [phone] * Vitamin B12 (Cobalamin) and Folate Panel, Serum (11/06/2024 1:33 PM EDT) Vitamin B12 227 200 - 900 pg/mL [facility] Comment:NORMAL 200-900 PG/ML INDETERMINATE 160-199 PG/ML DEFICIENT < 160 PG/ML Folate 5.3 > or = 4.0 ng/mL [facility] Comment:Reference Values:> o r = 4.0 ng/mL< 4.0 ng/mL suggests folate deficiency Methotrexate, aminopterin and folinic acid(leucovorin) are chemotherapeutic agents whose molecularstructures are similar to folate; therefore, the Architectfolate assay cannot be used for patients using these drugs. Blood 11/06/2024 1:33 PM EDT 11/06/2024 4:17 PM EDT Stacie Vincent MD LAB BLOOD ORDERABLES Final Resul t Performing Organization Address City/[facility]/ZIP Co de Phone Number [facility] [address] [place] [phone] * TSH with Reflex to Free T4 (11/06/2024 1:33 PM EDT) TSH reflex Free T4 2.47 0.32 - 4.0 uIU/mL [facility] Blood 11/06/2024 1:33 PM EDT 11/06/2024 4:17 PM EDT Stacie Vincent MD LAB BLOOD ORDERABLES Final Resul t Performing Organization Address [facility] Co de Phone Number [facility] [address] [place] [phone] * Lipid Panel with Reflex to Direct LDL (11/06/2024 1:33 PM EDT) Triglycerides 125 <150 mg/dL [facility] Comment:Desirable Triglyceri de: less than 150 mg/dLBorderline High Triglyceride 150-199 mg/dLHigh Triglyceride: 200-499 mg/dLVery High Triglyceride: greater than or equal to 5OO mg/dL Cholesterol 125 <200 mg/dL [facility] Comment:Desirable Cholestero l: less than 200 mg/dLBorderline High Cholesterol: 200-239 mg/dLHigh Cholesterol: greater than 239 mg/dL LDL Cholesterol Calculated 47 <100 mg/dL [facility] Comment:Desirable LDL: less than 100 mg/dLNear Optimal/Above Optimal LDL: 110- 129 mg/dLBorderline High LDL: 130-159 mg/dLHigh LDL: 160-189 mg/dLVery High LDL: greater than or equal to 190 mg/dL HDL Cholesterol 53 >40 mg/dL [facility] Comment:Desirable HDL: great er than 40 mg/dL Note: This HDL assay may give artificially low results in patients with liver disease. Blood 11/06/2024 1:33 PM EDT 11/06/2024 4:17 PM EDT Stacie Vincent MD LAB BLOOD ORDERABLES Final Resul t Performing Organization Address [facility] Co de Phone Number [facility] [address] [place] [phone] * Albumin, Random Urine W/Creatinine (11/06/2024 1:33 PM EDT) Creatinine, Urine 206.02 mg/dL [facility] Microalbumin Urine 13.0 mg/L [facility] Microalbum Creatinine Ratio Ur 6.3 <30 ug/mg cr [facility] [facility] Comment:Albumin/Creatinine R atio Reference Ranges: Normal: < 30 ug/mg creatinine Microalbuminuria: 30 - 300 ug/mg creatinineClinical Albuminuria: > 300 ug/mg creatinine Urine 11/06/2024 1:33 PM EDT 11/06/2024 4:15 PM EDT Stacie Vincent MD LAB URINE ORDERABLES Final Resul t Performing Organization Address [facility] Co de Phone Number [facility] [address] [place] [phone] * (ABNORMAL) Comprehensive Metabolic Panel (11/06/2024 1:33 PM EDT) Sodium 140 135 - 145 mmol/L [facility] Potassium 4.3 3.3 - 5.1 mmol/L [facility] Chloride 106 96 - 108 mmol/L [facility] Carbon Dioxide 26 22 - 29 mmol/L [facility] Anion Gap 12 12 - 20 [facility] Urea Nitrogen (BUN) 13 9 - 16 mg/dL [facility] Creatinine, Serum 0.99 0.5 - 1.4 mg/dL [facility] Estimated Glomerular Filt Rate 56 [facility] Comment:Chronic Kidney Disea se: Estimated GFR < 60 mL/min/1.49w5Kvxvtp Kidney Disease: Estimated GFR < 15 mL/min/1.73m2 Glucose 87 60 - 115 mg/dL [facility] Calcium 9.6 8.4 - 10.2 mg/dL [facility] Bilirubin, Total 0.4 0.0 - 1.0 mg/dL [facility] Aspartate Amino Transferase 37(H) 5 - 31 U/L [facility] Alanine Aminotransferase 22 0 - 31 U/L [facility] Total Protein 6.8 6.5 - 8.0 g/dL [facility] Albumin Level 4.2 3.5 - 5.0 g/dL [facility] Alkaline Phosphatase 72 39 - 117 U/L [facility] Blood Venous blood specimen / Unknown 11/06/2024 1:33 PM EDT 11/06/2024 4:17 PM EDT us Stacie Vincent MD LAB BLOOD ORDERABLES Final Resul t [facility] [address] [place] [phone] * (ABNORMAL) POCT glycosylated hemoglobin (Hgb A1c) (10/28/2024 1:47 PM EDT) Hemoglobin A1C 7.4(A) 4.0 - 5.7 % QC Media Lot # [id number] Lot# Expiration Date Blood Capillary blood specimen / Unknown 10/28/2024 1:47 PM EDT us Stacie Vincent MD POINT OF CARE TEST ENTER/EDIT OR DERABLES Final Result * POCT glucose manually resulted (10/28/2024 1:47 PM EDT) Glucose Blood, POC 133 60 - 200 mg/dL QC Media Lot # [id number] Lot# Expiration Date 229 Blood Capillary blood specimen / Unknown 10/28/2024 1:47 PM EDT us Stacie Vincent MD POINT OF CARE TEST ENTER/EDIT OR DERABLES Final Result * BI Mammogram Screening Tomosynthesis Bilateral (03/23/2024 10:00 AM EST) Anatomical Region Laterality Modality Breast Bilateral Mammography 03/23/2024 10:0 0 AM EST Narrative 04/01/2024 3:06 PM [facility] [address] [place], [place] [address] Mammography Report Signed Patient: Nandini Edouard MR#: [id number] : 1960 Acct:[id number] Age/Sex: 63 / F ADM Date: 03/23/24 Loc: HO.MAMMO Attending Dr: Stacie Vincent MD Ordering Physician: Stacie Vincent MD Results: 2Benign F indings Date of Service: 03/23/24 Follow Up: 1 Year From Orig ina Mammogram Procedure(s): MM tomosynthesis screening BI Accession Number(s): [id number] cc: Stacie Vincent MD EXAMINATION: MM SCREENING [...] Nakita Bourgeois DO 04/01/2024 03:03 PM EST Dictated By: Nakita Bourgeois DO Signed By: <Electronically signed by Nakita Bourgeois DO in OV> 04/01/24 1503 DD/ 1000 TD/TT: 03/23/24 1015 Special Events Assistant: Procedure Note Donotuseinterpreter, Image - 04/01/2024 [facility] [address] [place] [address] Mammography Report Signed Patient: Terri Edouard#: [id number] : 1960Acct:[id number] Age/Sex: 63 / FADM Date: 03/23/24 Loc: HO.MAMMO Attending Dr: Stacie Vincnet MD Ordering Physician: Stacie Vincent MDResults: 2Benign F indings Date of Service: 03/23/24Follow Up: 1 Year From Orig inal Mammogram Procedure(s): MM tomosynthesis screening BI Accession Number(s): [id number] cc: Stacie Vincent MD EXAMINATION: MM SCREENING [...] by: Nakita Bourgeois DO 04/01/2024 03:03 PM [facility] [place] Dictated By: Nakita Bourgeois DO Signed By: <Electronically signed by Nakita Bourgeois DO in OV> 04/01/24 1503 DD/ 1000 TD/TT: 03/23/24 1015 Special Events Assistant: Stacie Vincent MD IMG BI PROCEDURES Final Result * Hepatitis Panel, General (07/12/2023 2:26 PM EDT) Hepatitis A IgM Nonreactive Nonreactive [facility] Comment:IgM antibodies to RANGEL V not detected; does not exclude earlyacute or recovered HAV infection. ~Hepatitis B Surface Antibody NONREACTIVE Nonreactive [facility] Comment:Nonreactive: < 8.00 mIU/mL Hepatitis B Core Antibody Nonreactive Nonreactive [facility] Hepatitis C Antibody Nonreactive Nonreactive [facility] Comment:Antibodies to HCV no t detected; does not exclude early acuteHCV infection. Hepatitis B Surface Ag Negative Negative [facility] 07/12/2023 2:26 PM EDT 07/12/2023 2:26 PM EDT Generic External Data Provider LAB BLOOD ORDERAB LES Final Result [facility] [address] [place] [address] [phone] * Colonoscopy (06/29/2012) Colonoscopy Normal Normal Historical Provider HEALTH MAINTENANCE Final Result from Last 3 Months or Most Recently Relevant to Health Maintenance Insurance [facility] MEDICARE [facility] [place] [id number] [place] [id number] [place] [id number] Care Teams Drone Software Development Engineer Relationship Specialty Start Date End Date Stacie Vincent MD [address] [place] [address] PCP - General Family Medicine 10/31/21 Fredy Mobley, PharmD [address] [place] [address] Pharmacist Internal Medicine 01/20/23
--- OUTSIDE RECORDS SUMMARY | 2025-01-07 18:24 | XMS_ITS | Encounter Summary ---
Author Organization [employer] Address [address] [place] [address] 7 [place] [address] Care Team Providers Care Banjo Repair Person Name Role Phone Stacie Vincent MD Primary Care Provider [phone] Fredy Mobley PharmD Unavailable [phone] Reason for Visit * Reason Comments Med Refill Encounter Details Date Type Department Care Team ([facility] st Contact Info) Description 12/07/2023 Refill [facility] [address] [place], [place] [phone] Shira Oneil MD [address] [place], [place] [phone] Depressive disorder Social History Tobacco Use Types [...] documented as of this encounter Care Teams Banjo Repair Person Relationship Specialty Start Date End Date Stacie Vincent MD [address] [place] [phone] PCP - General Family Medicine 10/31/21 Fredy Mobley PharmD [address] [place] [phone] Pharmacist Internal Medicine 01/20/23 documented as of this encounter
--- OUTSIDE RECORDS SUMMARY | 2025-01-07 18:24 | XMS_ITS | Encounter Summary ---
Author Organization [employer] Address [address] [facility] 7t [place] [address] Care Team Providers Care Physical Sciences Professor Name Role Phone Stacie Vincent MD Primary Care Provider [phone] Fredy Mobley PharmD Unavailable Encounter Details Date Type Department Care Team ([facility] st Contact Info) Description 02/15/2023 Orders Only [facility] MEDICINE [address] [place], [place] [phone] Stacie Vincent MD [address] [place], [place] [phone] Social History Tobacco Use Types Packs/Day Years [...] documented as of this encounter Care Teams Physical Sciences Professor Relationship Specialty Start Date End Date Stacie Vincent MD [address] [place] [address] PCP - General Family Medicine 10/31/21 Fredy Mobley, AmolD [address] [place] [address] Pharmacist Internal Medicine 01/20/23 documented as of this encounter
--- OUTSIDE RECORDS SUMMARY | 2025-01-07 18:24 | XMS_ITS | Encounter Summary ---
Author Organization [employer] Address [address] [facility] 7t [place] [address] Care Team Providers Care Band Singer Name Role Phone Stacie Vincent MD Primary Care Provider [phone] Fredy Mobley PharmD Unavailable [phone] Encounter Details Date Type Department Care Team (Late st Contact Info) Description 04/01/2022 Orders Only [facility] [address] [place], [place] [phone] Gemini Miranda LPN Social History Tobacco Use [...] on file documented as of this encounter Procedures Procedure [...] PM EST) Influenza A PCR NEGATIVE Negative [facility] Influenza B PCR NEGATIVE Negative [facility] Resp Syncy Virus RNA Qual PCR NEGATIVE Negative [facility] SARS COV2 PCR NEGATIVE Negative [facility] Comment:All test results mus t [...] use by authorized laboratories.Testing performed on the [facility] GeneXpert utilizingreal-time RT-PCR.All SARS CoV2 and positive influenza A/B results arereported to [facility]. 02/04/2023 10:4 7 PM EST 02/04/2023 10:53 PM EST Generic External Data Provider LAB MICROBIOLOGY - GENERAL ORDERABLES Final Result Performing Organization Address [facility] de Phone Number [facility] [address] [place] [phone] * High Sensitivity Troponin I (02/04/2023 10:47 PM EST) Pathologist [facility] TROPONIN I HIGH SENSITIVITY <2.7 <3.5 - 17.0 ng/L [facility] Comment:The Hammonds high sens itivity Troponin-I results should beused in conjunction with other diagnostic information suchas ECG, clinical observations and information, and patientsymptoms to aid in the diagnosis of [place]. 02/04/2023 10:4 7 PM EST 02/04/2023 10:53 PM EST Generic External Data Provider LAB BLOOD ORDERAB LES Final Result Performing Organization Address [facility] Co de Phone Number [facility] [address] [place] [address], [place] [phone] * (ABNORMAL) Comprehensive Metabolic Panel (02/04/2023 10:47 PM EST) Sodium 140 135 - 145 mmol/L [facility] Potassium 4.3 3.3 - 5.1 mmol/L [facility] Chloride 106 96 - 108 mmol/L [facility] Carbon Dioxide 24 22 - 29 mmol/L [facility] Anion Gap 14 12 - 20 [facility] Urea Nitrogen (BUN) 17(H) 9 - 16 mg/dL [facility] Creatinine, Serum 1.23 0.5 - 1.4 mg/dL [facility] Creatinine Clr Calc Pharmacy 47.5 [facility] Comment:Provided height and weight: 162.56 cm,78.925 kg.eGFR (calculated from the MDRD study equation) and eCrCl(calculated from the Cockcroft-Gault equation) are based ondifferent parameters and may not yield comparable results.If eCrCl result is absurd, please check patient'sheight/weight. Estimated Glomerular Filt Rate 44 [facility] Comment:NOTE: For -Am erican individuals, multiply the result by 1.210.Chronic Kidney Disease: Estimated GFR < 60 mL/min/1.17d7Tnkart Kidney Disease: Estimated GFR < 15 mL/min/1.73m2 Glucose 144(H) 60 - 115 mg/dL [facility] Calcium 9.6 8.4 - 10.2 mg/dL [facility] Bilirubin, Total 0.5 0.0 - 1.0 mg/dL [facility] Aspartate Amino Transferase 57(H) 5 - 31 U/L [facility] Alanine Aminotransferase 33(H) 0 - 31 U/L [facility] Total Protein 6.7 6.5 - 8.0 g/dL [facility] Albumin Level 4.0 3.5 - 5.0 g/dL [facility] Alkaline Phosphatase 63 39 - 117 U/L [facility] 02/04/2023 10:4 7 PM EST 02/04/2023 10:53 PM EST us Generic External Data Provider LAB BLOOD ORDERAB LES Final Result [facility] [address] [place] [address] [phone] * (ABNORMAL) CBC auto differential (02/04/2023 10:47 PM EST) White Blood Count 11.9(H) 4.8 - 10.8 X10*3/uL [facility] Red Blood Count 4.26 4.20 - 5.50 X10*6/uL [facility] Hemoglobin 11.9(L) 12.0 - 16.0 g/dl [facility] Hematocrit 36.0(L) 37.0 - 47.0 % [facility] Mean Corpuscular Volume 84.5 80.0 - 98.0 fL [facility] Mean Corpuscular Hemoglobin 27.9 27.0 - 33.0 pg [facility] Mean Corpuscular HGB Conc 33.1 31.0 - 35.0 g/dl [facility] Red Cell Distribution Width 14.7 11.0 - 16.0 % [facility] Platelet Count 272 160 - 400 X10*3/uL [facility] Mean Platelet Volume 9.1(L) 9.4 - 12.3 fL [facility] Neutrophils Percent Auto 63.9 45 - 73 % [facility] Imm Gran Pct Auto 0.4 0.0 - 0.4 % [facility] Lymphocytes Percent Auto 25.8 20 - 40 % [facility] Monocytes Percent Auto 8.0 2 - 11 % [facility] Eosinophils Percent Auto 1.7 0 - 4 % [facility] Basophils Percent Auto 0.2 0 - 2 % [facility] NRBC Pct Auto 0.0 0.0 - 0.2 /100WBC [facility] Neutrophils Absolute Auto 7.6 2.0 - 8.3 x10*3/uL [facility] Imm Gran Abs Auto 0.05(H) 0.00 - 0.03 X10*3/uL [facility] Lymphocytes Absolute Auto 3.1 1.2 - 4.9 X10*3/uL [facility] Monocytes Absolute Auto 1.0 0.1 - 1.2 X10*3/uL [facility] Eosinophils Absolute Auto 0.2 0.0 - 0.4 X10*3/uL [facility] Basophils Absolute Auto 0.0 0.0 - 0.2 X10*3/uL [facility] NRBC Abs Auto 0.000 0.0 - 0.012 X10*3/uL [facility] 02/04/2023 10:4 7 PM EST 02/04/2023 10:53 PM EST us Generic External Data Provider LAB BLOOD ORDERAB LES Final Result Performing Organization Address City/State/[facility] de Phone Number [facility] [address] [place] [address] [phone] documented in this encounter Visit Diagnoses Not on filedocumented in this encounter Care Teams Band Singer Relationship Specialty Start Date End Date Stacie Vincent MD [address] [place] [address] PCP - General Family Medicine 10/31/21 Fredy Mobley PharmD [address] [place] [address] Pharmacist Internal Medicine 01/20/23 documented as of this encounter
--- OUTSIDE RECORDS SUMMARY | 2025-01-07 18:24 | XMS_ITS | Encounter Summary ---
Author Organization [employer] Address [address] [facility] 7t [place] [address] Care Team Providers Care Heat Treating Furnace Tender Name Role Phone Stacie Vincent MD Primary Care Provider [phone] Fredy Mobley PharmD Unavailable [phone] Encounter Details Date Type Department Care Team (Late st Contact Info) Description 08/07/2024 Orders Only [facility] MED[facility]INE [address] [place], [place] [phone] Stacie Vincent MD [address] [place], [place] [phone] Chronic back pain, unspecified back location, unspecified [...] documented as of this encounter Care Teams Heat Treating Furnace Tender Relationship Specialty Start Date End Date Stacie Vincent MD [address] [place] [address] PCP - General Family Medicine 10/31/21 Fredy Mobley PharmD [address] [place] [phone] Pharmacist Internal Medicine 01/20/23 documented as of this encounter
--- OUTSIDE RECORDS SUMMARY | 2025-01-07 18:24 | XMS_ITS | Encounter Summary ---
Author Organization [employer] Address [address] [place] [address] [place] [address] Care Team Providers Care Ice Skating Teacher Name Role Phone Stacie Vincent MD Primary Care Provider [phone] Fredy Mobley PharmD Unavailable Reason for Visit * Reason Comments Med Refill Encounter Details Date Type Department Care Team (Late st Contact Info) Description 10/02/2023 Refill [facility] [address] [place], [place] [phone] Shira Oneil MD [address] [place], [place] [phone] Piriformis syndrome, unspecified laterality Social History Tobacco [...] is your housing situation today? I have gaivota cruz 12/19/[address] you [...] Time PHQ-9 Depression Total Score: 7 06/08/19 9:37 AM EDT documented as of this encounter Care Teams Ice Skating Teacher Relationship Specialty Start Date End Date Stacie Vincent MD [address] [place] [phone] PCP - General Family Medicine 10/31/21 Fredy Mobley, AmolD [address] [place] [address] Pharmacist Internal Medicine 01/20/23 documented as of this encounter
--- OUTSIDE RECORDS SUMMARY | 2025-01-07 18:25 | XMS_ITS | Encounter Summary ---
Author Organization [employer] Address [address] [facility] 7t [place] [address] Care Team Providers Care Manager Wealth Management Name Role Phone Stacie Vincent MD Primary Care Provider [phone] Fredy Mobley PharmD Unavailable [phone] Encounter Details Date Type Department Care Team (Latest Contact Info) Description 11/07/2024 Results Follow-Up [facility] MED[facility]INE [address] [place], [place] [phone] Stacie Vincent MD [address] [place], [place] [phone] Vitamin B12 (Cobalamin) and Folate Panel, Serum, [...] the past 12 months, has t he [employer], gas, oil or water company threatened to [...] as of this encounter Care Teams Manager Wealth Management Relationship Specialty Start Date End Date Stacie Vincent MD [address] [place] [address] PCP - General Family Medicine 10/31/21 Fredy Mobley PharmD [address] [place] [address] Pharmacist Internal Medicine 01/20/23 documented as of this encounter
--- OUTSIDE RECORDS SUMMARY | 2025-01-07 18:25 | XMS_ITS | Encounter Summary ---
Author Organization [employer] Address [address] [place] [address] 7t [place] [address] Care Team Providers Care Slitter Scorer Name Role Phone Stacie Vincent MD Primary Care Provider [phone] Fredy Mobley PharmD Unavailable [phone] Reason for Referral * Consultation (Routine) - Pending Review Specialty Diagnoses / Procedures Referred By Contac t Referred To Contact Pharmacy Diagnoses Type 2 diabetes mellitus with hyperglycemia, with long-term current use of insulin ([facility]) Primary hypertension Stacie Vincent MD [address] [place] [address] Phone: tel: fax: Referral ID Status Reason Start Date Expiration Date Visits Requested Visits Authorized [id number] Pending Review Consult and Treat 09/12/2024 09/12/2025 6 6 Encounter Details Date Type Department Care Team (Late st Contact Info) Description 09/12/2024 Orders Only [facility] [address] [place], [place] [phone] Stacie Vincent MD [address] [place], [place] [phone] Type 2 diabetes mellitus with hyperglycemia, with long-term current use of insulin ([facility]/HCC) (Primary Dx); Primary hypertension; Moderate persistent asthma [...] as of this encounter Plan of Treatment Scheduled Referrals Name Type Priority Associated Diagnoses Orde r Schedule Referral to Pharmacy CDTM Outpatient Referral Routine Type 2 diabetes mellitus with hyperglycemia, with long-term current use of insulin ([facility]) Primary hypertension Ordered: 09/12/2024 documented as of [...] hyperglycemia, with long-term current use of insulin (HCC)- Primary Primary hypertension Unspecified essential hypertension Moderate persistent asthma without complication documented in this encounter Additional Health Concerns Assessment Noted Time PHQ-9 Depression Total Score: 7 06/08/19 24 9:37 AM EDT documented as of this encounter Care Teams Slitter Scorer Relationship Specialty Start Date End Date Stacie Vincent MD [address] [place] [address] PCP - General Family Medicine 10/31/21 Fredy Mobley PharmD [address] [place] [phone] Pharmacist Internal Medicine 01/20/23 documented as of this encounter
== END 2025-01-07 16:35 | disposition home or self-care (01) ==
PROVIDERS: PCP Family Medicine; Visit Provider Physician Assistant
DX: S61.211A Laceration without foreign body of left index finger without damage to nail, initial encounter (principal)

== ENCOUNTER → 2025-01-07 16:01 | Outpatient (BNVA) | payer MEDICARE, SELFPAY | PROVIDERS: PCP Family Medicine; Visit Provider Physician Assistant | DX: S61.211A Laceration without foreign body of left index finger without damage to nail, initial encounter (principal); W26.0XXA Contact with knife, initial encounter; Y93.G3 Activity, cooking and baking; Y92.9 Unspecified place or not applicable | CPT/HCPCS: 12001; 99212 ==

== ENCOUNTER 2025-01-19 22:20 | Emergency (ER) | payer MEDICARE, SELFPAY ==
--- NOTE | 2025-01-19 | ECG_ITS ---
Test Reason : chest pain Blood Pressure : */* mmHG Vent. Rate : 77 BPM Atrial Rate : 77 BPM P-R Int : 164 ms QRS Dur : 84 ms QT Int : 382 ms P-R-T Axes : 61 72 55 degrees QTcB Int : 432 ms Normal sinus rhythm Normal ECG When compared with ECG of 05-Feb-2024 19:02, No significant change was found Referred By: Generic ED Physician Electronically Signed By: HEDY OWENS
--- NOTE | ~2025-01-19 | CT_ITS ---
CLINICAL HISTORY: LUQ pain CT abdomen and pelvis without contrast Comparison: CT/SR - CT ABDOMEN PELVIS WITHOUT IV CONTRAST - 02/05/24 19:00 EST Findings: Small hiatal hernia. Liver is of low-attenuation, hepatic steatosis. Liver has a nodular contour. Gallbladder, pancreas and spleen are within normal limits. Small pancreatic head calcifications likely reflect prior pancreatitis. The adrenal glands are unremarkable. Kidneys are non hydronephrotic. No urolithiasis. No bowel obstruction, pneumoperitoneum, or pneumatosis. Pelvic contents unremarkable. Normal appendix. Bones are osteopenic. No acute fracture identified. Small focus of gas in the left ventral subcutaneous fat, likely injection site. IMPRESSION: Hepatic steatosis with nodular liver contour concerning for cirrhotic change. This document has been electronically signed by: Ariel Pizano MD, PHD on 01/20/2025 01:12:53
--- NOTE | ~2025-01-19 | XR_ITS ---
CLINICAL HISTORY: cp 2 view chest x-ray Comparison: CT/VT/SR - CT CHEST WITHOUT IV CONTRAST - 02/05/24 19:00 EST Findings: The lungs are clear. Normal size heart. No acute fracture. IMPRESSION: 1. No acute findings. This document has been electronically signed by: Ariel Pizano MD, PHD on 01/20/2025 01:11:04
[2025-01-19 22:31] VITALS: BP 105/52; PULSE 77; RESP 18; TEMP 36.4; O2SAT 98; BMI 33.6
[2025-01-19 22:51] LABS: MANUAL DIFF FLAG NO
[2025-01-19 22:52] LABS: Hematocrit 34.3 % (37.0-47.0); Hemoglobin 10.6 g/dl (12.0-16.0); Imm Gran Abs Auto 0.05 X10*3/uL (0.00-0.03); Imm Gran Pct Auto 0.4 % (0.0-0.4); Lymphocytes Absolute Auto 4.6 X10*3/uL (1.2-4.9); Mean Corpuscular HGB Conc 30.9 g/dl (31.0-35.0); Mean Corpuscular Hemoglobin 25.9 pg (27.0-33.0); Mean Corpuscular Volume 83.9 fL (80.0-98.0); NRBC Abs Auto 0.000 X10*3/uL (0.0-0.012); NRBC Pct Auto 0.0 /100WBC (0.0-0.2); Platelet Count 294 X10*3/uL (160-400); Red Blood Count 4.09 X10*6/uL (4.20-5.50); White Blood Count 11.9 X10*3/uL (4.8-10.8)
[2025-01-19 23:05] LABS: Alanine Aminotransferase 31 U/L (0-31); Albumin Level 4.3 g/dL (3.5-5.0); Alkaline Phosphatase 83 U/L (39-117); Anion Gap 16 (12-20); Aspartate Amino Transferase 49 U/L (5-31); Blood Urea Nitrogen 18 mg/dL (9-16); Calcium 9.1 mg/dL (8.4-10.2); Carbon Dioxide 21 mmol/L (22-29); Chloride 105 mmol/L (96-108); Creatinine Clr Calc Pharmacy 33.3; Estimated Glomerular Filt Rate 29; Magnesium 1.7 mg/dL (1.6-2.6); Potassium 4.9 mmol/L (3.3-5.1); Sodium 137 mmol/L (135-145); Total Protein 6.9 g/dL (6.5-8.0)
[2025-01-19 23:12] LABS: Troponin-I High Sensitivity 3.0 ng/L (<3.5-17.0)
--- NOTE | 2025-01-19 23:14 | ED.CHESTPAIN ---
HPI - Chest Pain General Chief Complaint: Chest Pain Stated Complaint: lt side chest pain Time Seen by Provider: 01/19/25 22:39 Source: patient Mode of arrival: ambulatory Limitations: no limitations History of Present Illness ED Provider: Dr. Bills HPI narrative: This is a 64-year-old female presented hospital today for left-sided chest pain. She stated this is located underneath her left breast. It is more painful when she moves around and with the movement. She is also complaining of symptoms of dysphasia. She is feels that her food is getting stuck in her throat. She is having trouble swallowing large solid food. She has been able to tolerate liquid. No history of endoscopy in the past. Denies any dysuria denies any flank pain. Patient stated that she does feel dry and dehydrated. Related Data Home Medications ?Medication ?Instructions ?Recorded ?Confirmed amitriptyline 10 mg tablet 10 mg PO BEDTIME 10/04/21 02/05/24 aspirin 81 mg tablet,delayed 81 mg PO DAILY 10/04/21 02/21/24 release baclofen 20 mg tablet 20 mg PO TID 10/04/21 02/05/24 bupropion HCl 150 mg 24 hr tablet, 150 mg PO DAILY PRN 10/04/21 02/05/24 extended release duloxetine 60 mg capsule,delayed 60 mg PO QAM 10/04/21 02/05/24 release losartan 100 mg tablet 100 mg PO DAILY 10/04/21 02/05/24 melatonin 5 mg tablet 5 mg PO BEDTIME 10/04/21 02/05/24 metformin 500 mg tablet,extended 1,000 mg PO BID 10/04/21 02/21/24 release 24 hr omeprazole 20 mg capsule,delayed 20 mg PO DAILY 10/04/21 02/05/24 release rosuvastatin 20 mg tablet 20 mg PO BEDTIME 10/04/21 02/05/24 sennosides 8.6 mg tablet (senna) 17.2 mg PO DAILY 10/04/21 02/05/24 fluticasone propionate 110 2 puff inhalation BID 12/07/21 02/05/24 mcg/actuation HFA aerosol inhaler (Flovent HFA) acetaminophen 650 mg mg PO 07/12/23 02/05/24 tablet,extended release amlodipine 10 mg tablet 5 mg PO DAILY 07/12/23 02/05/24 fluticasone propionate 50 spray intranasal 07/12/23 02/05/24 mcg/actuation nasal spray,suspension metoprolol succinate 100 mg 50 mg PO DAILY 07/12/23 02/05/24 tablet,extended release 24 hr insulin degludec 200 unit/mL (3 unit subcut 08/06/24 mL) subcutaneous pen (Tresiba FlexTouch U-200 insulin) tirzepatide 5 mg/0.5 mL mg subcut 08/06/24 subcutaneous pen injector (Franck) Previous Rx's ?Medication ?Instructions ?Recorded ondansetron 4 mg disintegrating 4 mg PO Q6-8H PRN nausea and 02/12/22 tablet vomiting #14 tabs diclofenac sodium 1 % topical gel 2 g topical QID #100 grams 02/23/23 (Voltaren Arthritis Pain) lidocaine 5 % topical patch 1 patch topical DAILY #15 ea 02/23/23 (Lidoderm) meclizine 50 mg tablet 50 mg PO BID DIZZINESS #30 tabs 05/04/23 cyclobenzaprine 10 mg tablet 10 mg PO Q8H #20 tabs 09/20/23 sodium,potassium,mag sulfates 17.5 See Rx Instructions PO .COMPLEX 02/05/24 gram-3.13 gram-1.6 gram oral soln #354 mL (Suprep Bowel Prep Kit) sodium,potassium,mag sulfates 17.5 See Rx Instructions PO .COMPLEX 02/23/24 gram-3.13 gram-1.6 gram oral soln #354 mL (Suprep Bowel Prep Kit) albuterol sulfate 90 mcg/actuation 2 puff inhalation Q6H PRN 08/06/24 aerosol inhaler shortness of breath or wheezing or cough #8.5 grams cyclobenzaprine 5 mg tablet 10 mg (2 x 5 mg) PO TID PRN muscle 01/20/25 spasm #20 tabs lidocaine 5 % topical patch 1 patch topical DAILY #15 ea 01/20/25 Allergies Allergy/AdvReac Type Severity Reaction Status Date / Time cephalexin (Keflex) Allergy Unknown Anaphylaxis Verified 01/19/25 22:36 From Keflex Allergy Severe ANAPHYLAXIS- Uncoded 01/19/25 22:36 SWELLING;PCN/AMOX TOLERATED Review of Systems Review of Systems: Review of system [facility] Past Medical History [facility] Narrative: diabetes, fibromyalgia, sciatica Medical History (Updated 01/20/25 @ 02:12 by Speedy Alarcon MD) Colon cancer screening GERD (gastroesophageal reflux disease) Family history- stomach cancer Fibromyalgia (~2004) Insulin dependent type 2 diabetes mellitus (~2004) Hypertension Hyperlipemia Nicotine dependence, cigarettes, uncomplicated Fibroids Pancreatitis Epigastric pain Carpal tunnel syndrome Memory loss Fatty infiltration of liver Depression Wrist pain Surgical History History of colonoscopy History of laryngoscopy History of right breast biopsy History of hysterectomy Family History Family History Mother Liver disease Father CAD (coronary artery disease) Brother Stomach cancer Social History Social History Patient Tobacco Use Status: Current everyday Tobacco user Tobacco use type: Cigarette Cigarettes Per Day: 10 Years Smoked: Onset 12yo, 1/2ppd x 49yrs, 25pyh Current occupational status: disabled 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 Physical Exam Exam: Exam: General: Pleasant, no distress, interacting appropriately Head: Normacephalic, atraumatic ENT: oral mucosa moist, neck supple, no tracheal deviation Cardiovascular: regular rate, regular rhythm, no murmurs, rubbing, gallops Respiratory: CTAB, no wheeze, rales, rhonchi Gastrointestinal: Soft, non distended, left upper quadrant tenderness on palpation, no CVA tenderness on percussion Extremities: No limb pain or swelling, no calf tenderness Neurological: Awake and alert, no facial droop noted Skin: Warm and dry Psychiatric: Appropriate mood and thoughts Vital Signs: Vital Signs: Last Vital Signs Temp 98.0 F 01/20/25 02:42 Pulse 83 01/20/25 02:42 Resp 20 01/20/25 02:42 BP 118/50 L 01/20/25 02:42 Pulse Ox 98 01/20/25 02:42 O2 Del Method Room Air 01/20/25 02:42 BMI result Body Mass Index 33.6 Course Reevaluation(s) Reevaluation #1: 2:11 AM 01/20/2025 (Dr. Speedy Alarcon): I assumed care of this patient at this time who is pending D-dimer to exclude thromboembolism. CT showed hepatic steatosis and cirrhosis the patient has been informed about this finding needs GI follow up for dysphagia regardless. Medications Administered Discontinued Medications Generic Name Dose Route Start Last Admin Trade Name Rylandq PRN Reason Stop Dose Admin Al Hydroxide/Mg Hydroxide 30 ml 01/19/25 23:25 01/20/25 00:35 Magnesium Hydrox/Alum Hydrox 30 Ml Oral.Susp PO 01/19/25 23:26 30 ml ONCE ONE Administration Cyclobenzaprine HCl 10 mg 01/20/25 01:46 01/20/25 01:58 Cyclobenzaprine Hcl 10 Mg Tablet PO 01/20/25 01:47 10 mg ONCE ONE Administration Famotidine 20 mg 01/19/25 23:25 01/20/25 00:36 Famotidine/Pf 20 Mg/2 Ml Vial IVPUSH 01/19/25 23:26 20 mg ONCE ONE Administration Lactated Ringer's 1,000 mls @ 999 mls/hr 01/19/25 23:30 01/20/25 02:08 Lr IV 01/20/25 00:30 Infused .Q1H1M TESSA Infusion Lidocaine HCl 15 ml 01/19/25 23:25 01/20/25 00:35 Lidocaine Hcl Viscous 2 % 15 Ml Solution MUCOUS MEM 01/19/25 23:26 15 ml ONCE ONE Administration Medical Decision Making Medical Decision Making MDM Narrative: 64-year-old female history of fibromyalgia, diabetes presented hospital today for left upper quadrant pain. Along with symptoms of dysphagia. Suspect patient likely has a esophageal strictures giving her trouble swallowing. She will likely need an outpatient endoscopy. She is able to tolerate liquid and protect her secretions at this time. However patient abdominal lab work was significant for a slight increase in creatinine of 1.7 likely secondary to dehydration. IV fluid be provided the patient at this time. We will also plan to obtain a CT abdomen and pelvis. She does have distention in her abdomen. Patient states she does have normal bowel movements . no concern of SBO. On exam patient does have distention in the abdomen as well. She does have tenderness in the left upper quadrant area. IV Pepcid, GI cocktail will be provided the patient. We will plan to reassess patient after medication. Pain still present. She complains of pleuritic aspect to this pain. Ddimer will be sent to screen for PE. Patient will be signed out to oncoming provider pending Ddimer results. Will likely need follow up with GI for evaluation of esophageal strictures. She is on omeprazole 20mg daily for GERD. Differential Diagnosis Differential Diagnoses: The differential diagnosis associated with the presentation includes Gastritis, constipation, nephrolithiasis, UTI Lab Data 01/19/25 22:45 01/19/25 22:45 Labs: Lab Results 01/19/25 01/20/25 01/20/25 Range/Units 22:45 01:22 02:02 WBC 11.9 H (4.8-10.8) X10*3/uL RBC 4.09 L (4.20-5.50) X10*6/uL Hgb 10.6 L (12.0-16.0) g/dl Hct 34.3 L (37.0-47.0) % MCV 83.9 (80.0-98.0) fL MCH 25.9 L (27.0-33.0) pg MCHC 30.9 L (31.0-35.0) g/dl RDW 16.6 H (11.0-16.0) % Plt Count 294 (160-400) X10*3/uL MPV 9.1 L (9.4-12.3) fL Immature Gran % (Auto) 0.4 (0.0-0.4) % Neut % (Auto) 51.6 (45-73) % Lymph % (Auto) 38.7 (20-40) % Addison % (Auto) 7.7 (2-11) % Eos % (Auto) 1.3 (0-4) % Baso % (Auto) 0.3 (0-2) % Lymph # (Auto) 4.6 (1.2-4.9) X10*3/uL Addison # (Auto) 0.9 (0.1-1.2) X10*3/uL Eos # (Auto) 0.2 (0.0-0.4) X10*3/uL Baso # (Auto) 0.0 (0.0-0.2) X10*3/uL Abs Immat Gran (auto) 0.05 H (0.00-0.03) X10*3/uL Absolute Neuts (auto) 6.1 (2.0-8.3) x10*3/uL Absolute Nucleated RBC 0.000 (0.0-0.012) X10*3/uL Nucleated RBC % (auto) 0.0 (0.0-0.2) /100WBC D-Dimer High Sensitivty < 150 NG/ML Sodium 137 (135-145) mmol/L Potassium 4.9 (3.3-5.1) mmol/L Chloride 105 (96-108) mmol/L Carbon Dioxide 21 L (22-29) mmol/L Anion Gap 16 (12-20) BUN 18 H (9-16) mg/dL Creatinine 1.75 H (0.5-1.4) mg/dL Estim Creat Clear Calc 33.3 Estimated GFR 29 Random Glucose 137 H (60-115) mg/dL Calcium 9.1 (8.4-10.2) mg/dL Magnesium 1.7 (1.6-2.6) mg/dL Total Bilirubin 0.4 (0.0-1.0) mg/dL AST 49 H (5-31) U/L ALT 31 (0-31) U/L Alkaline Phosphatase 83 (39-117) U/L Troponin I High Sens 3.0 3.3 (<3.5-17.0) ng/L Total Protein 6.9 (6.5-8.0) g/dL Albumin 4.3 (3.5-5.0) g/dL Urine Color Yellow Urine Appearance Clear Urine pH 5.5 (5.0-9.0) Ur Specific [place] 1.020 (1.005-1.025) Urine Protein 30 (1+) H (Neg-Trace) mg/dL Urine Glucose (UA) Negative (Negative) mg/dL Urine Ketones Trace (Negative) mg/dL Urine Blood Small (1+) H (Negative) Urine Nitrite Negative (Negative) Ur Leukocyte Esterase Trace H (Negative) Urine RBC 3-5 H (0-2) /HPF Urine WBC 11-20 H (0-5) /HPF Ur Squamous Epith Cells 11-20 (0-2) /HPF Urine Bacteria 2+ (None Seen) Hyaline Casts 6-10 (0-2) /LPF Urine Yeast Present Discharge Plan Discharge Clinical Impression: Chest wall pain, Cirrhosis Patient Disposition: Home, Self-Care Instructions: Chest Wall Pain (ED) Additional Instructions: Ct imaging shows signs of fatty liver with cirrhotic changes. Please follow up with your PCP. Your creatinine which measures kidney function is slightly elevated at 1.7. Make sure to follow up with primary care doctor for repeat labs within 3-5 days preferably. I have sent referral to your GI doctor to evaluate for signs of esophageal strictures. We sent a test called a D-dimer which test for evidence of blood clot in the body this was negative that is reassuring. Prescriptions: New lidocaine 5 % adhesive patch,medicated 1 patch topical DAILY Qty: 15 0RF Rx Instructions: leave on most painful area for up to 12 hrs cyclobenzaprine 5 mg tablet 10 mg PO TID PRN (Reason: muscle spasm) Qty: 20 0RF No Action sodium,potassium,mag sulfates [Suprep Bowel Prep Kit] 17.5-3.13-1.6 gram recon soln See Rx Instructions PO .COMPLEX Qty: 354 0RF Rx Instructions: DILUTE; drink full amount early evening before AND next morning at least 2 hr before procedure; follow w 960 mL water PO ondansetron 4 mg tablet,disintegrating 4 mg PO Q6-8H PRN (Reason: nausea and vomiting) Qty: 14 0RF diclofenac sodium [Voltaren Arthritis Pain] 1 % gel 2 g topical QID Qty: 100 0RF Rx Instructions: apply to single elbow, wrist or hand; for hand includes palm/fingers/back of hand lidocaine [Lidoderm] 5 % adhesive patch,medicated 1 patch topical DAILY Qty: 15 0RF Rx Instructions: leave on most painful area for up to 12 hrs cyclobenzaprine 10 mg tablet 10 mg PO Q8H Qty: 20 0RF meclizine 50 mg tablet 50 mg PO BID Qty: 30 0RF aspirin 81 mg tablet,delayed release (DR/EC) 81 mg PO DAILY bupropion HCl 150 mg tablet extended release 24 hr 150 mg PO DAILY PRN duloxetine 60 mg capsule,delayed release(DR/EC) 60 mg PO QAM losartan 100 mg tablet 100 mg PO DAILY metformin 500 mg tablet extended release 24 hr 1,000 mg PO BID omeprazole 20 mg capsule,delayed release(DR/EC) 20 mg PO DAILY rosuvastatin 20 mg tablet 20 mg PO BEDTIME sennosides [senna] 8.6 mg tablet 17.2 mg PO DAILY baclofen 20 mg tablet 20 mg PO TID amitriptyline 10 mg tablet 10 mg PO BEDTIME melatonin 5 mg tablet 5 mg PO BEDTIME amlodipine 10 mg tablet 5 mg PO DAILY metoprolol succinate 100 mg tablet extended release 24 hr 50 mg PO DAILY fluticasone propionate [Flovent HFA] 110 mcg/actuation HFA aerosol inhaler 2 puff inhalation BID fluticasone propionate 50 mcg/actuation spray,suspension intranasal acetaminophen 650 mg tablet extended release PO sodium,potassium,mag sulfates [Suprep Bowel Prep Kit] 17.5-3.13-1.6 gram recon soln See Rx Instructions PO .COMPLEX Qty: 354 0RF Rx Instructions: DILUTE; drink full amount early evening before AND next morning at least 2 hr before procedure; follow w 960 mL water PO Mounjaro 5 mg/0.5 mL pen injector subcut insulin degludec [Tresiba FlexTouch U-200] 200 unit/mL (3 mL) insulin pen subcut albuterol sulfate 90 mcg/actuation HFA aerosol inhaler 2 puff inhalation Q6H PRN (Reason: shortness of breath or wheezing or cough) Qty: 8.5 0RF Interventions: ED Discharge Assessment Last Done: 01/20/25 02:42 Discharge Date/Time: 01/20/25 02:43 Print Language: Argentine
--- OUTSIDE RECORDS SUMMARY | 2025-01-19 23:35 | XMS_ITS | Encounter Summary ---
Author Organization [employer] Address [address] [facility] [address] [place] [address] Care Team Providers Care Silo Man Name Role Phone Stacie Vincent MD Primary Care Provider [phone] Fredy Mobley PharmD Unavailable Reason for Visit * Reason Comments Med Refill Encounter Details Date Type Department Care Team ([facility] st Contact Info) Description 01/28/2024 Refill [facility] [address] [place], [place] [phone] Judi Leon MD [address] [place], [place] [phone] Social History Tobacco Use Types Packs/Day Years [...] Care Team (Late st Contact Info) Description 05/21/2025 2:00 PM EDT Office Visit [facility] [address] [place], [place] [phone] Eliazar, Lisa, OD [address] [place] [address] documented as of this encounter Goals Goal [...] documented as of this encounter Care Teams Silo Man Relationship Specialty Start Date End Date Stacie Vincent MD [address] [place] [address] PCP - General Family Medicine 10/31/21 Fredy Mobley, PharmD [address] [place] [address] Pharmacist Internal Medicine 01/20/23 documented as of this encounter
--- OUTSIDE RECORDS SUMMARY | 2025-01-19 23:35 | XMS_ITS | Encounter Summary ---
Author Organization [employer] Address [address] [facility] [address] [place] [address] Care Team Providers Care Brick Maker Name Role Phone Stacie Vincent MD Primary Care Provider [phone] Fredy Mobley PharmD Unavailable [phone] Reason for Visit * Reason Onset Date Comments callback requests 01/29/2024 Encounter Details Date Type Department Care Team ([facility] Contact Info) Description 01/29/2024 Telephone [facility] [address] [place], [place] [phone] Stacie Vincent MD [address] [place], [place] [phone] callback requests Social History Tobacco Use Types [...] discontinued in order to get Trulicity. Callback [phone] documented in this encounter Plan of Treatment Upcoming Encounters Date Type Department Care Team (Late st Contact Info) Description 05/21/2025 2:00 PM EDT Office Visit [facility] [address] [place], [place] [phone] Eliazar Lisa, OD [address] [place] [address] documented as of this encounter Goals Goal [...] documented as of this encounter Care Teams Brick Maker Relationship Specialty Start Date End Date Stacie Vincent MD [address] [place] [address] PCP - General Family Medicine 10/31/21 Fredy Mobley, AmolD [address] [place] [address] Pharmacist Internal Medicine 01/20/23 documented as of this encounter
--- OUTSIDE RECORDS SUMMARY | 2025-01-19 23:36 | XMS_ITS | Encounter Summary ---
Author Organization [employer] Address [address] [place] [address] [place] [address] Care Team Providers Care Filteration Operator Name Role Phone Stacie Vincent MD Primary Care Provider [phone] Fredy Mobley PharmD Unavailable [phone] Reason for Visit * Reason Comments Med Refill Encounter Details Date Type Department Care Team (Late st Contact Info) Description 10/02/2023 Refill [facility] [address] [place], [place] [phone] Shira Oneil MD [address] [place], [place] [phone] Piriformis syndrome, unspecified laterality Social History Tobacco [...] 2:00 PM EDT Office Visit [facility] [address] [place] [address] EliazarLisa toure, OD [address] [place] [address] documented as of this encounter Goals Goal [...] documented as of this encounter Care Teams Filteration Operator Relationship Specialty Start Date End Date Stacie iVncent MD [address] [place] [address] PCP - General Family Medicine 10/31/21 Fredy Mobley, Yudy [address] [place] [address] Pharmacist Internal Medicine 01/20/23 documented as of this encounter
--- OUTSIDE RECORDS SUMMARY | 2025-01-19 23:36 | XMS_ITS | Clinical Summary ---
Author Organization [employer] Address [address] [facility] [address] [place] [address] Care Team Providers Care It Director Name Role Phone Stacie Vincent MD Primary Care Provider [phone] Fredy Mobley PharmD Unavailable [phone] Allergies Active Allergy Reactions Criticality Noted Date Comments Cephalexin Anaphylaxis High Other reaction(s): unspecified Other reaction(s): rash, vomiting Gabapentin 10/10/2022 confusion Oxycodone 08/07/2024 Tizanidine Hallucinations 02/12/2024 Medications naloxone (Narcan) 4 mg/0.1 mL nasal spray FOR SUSPECTED OPIOID OVERDOSE. SPRAY 0.1mL IN ONE NOSTRIL. REPEAT IN ALTERNATE NOSTRIL 2-3 MINUTES IF NEEDED. SEEK MEDICAL ATTENTION IMMEDIATELY EVEN IF PATIENT RESPONDS. 2 each 1 3 Active Blood Pressure Monitor kit Check blood pressure once daily and as needed 1 kit 3 Active lidocaine (Lidoderm) 5 % patch Apply 2 patches topically if needed each day for mild pain. Remove & discard patch within 12 hours or as directed by . 60 patch 3 3 Active Diclofenac Sodium 1 % gel APPLY 2 GRAMS TOPICALLY 4 TIMES A DAY IN THE MORNING, AT NOON, IN THE EVENING, AND AT BEDTIME NEEDED FOR PAIN 100 g 5 4 Active Ventolin HFA 108 (90 Base) MCG/ACT inhaler INHALE 2 PUFFS BY MOUTH EVERY 4 TO 6 HOURS NEEDED FOR SHORTNESS OF BREATH 18 g 3 4 Active Alcohol Swabs (Alcohol Prep) 70 % pads USE DIRECTED THREE TIMES DAILY 100 each 11 4 Active B-D UF III MINI PEN NEEDLES 31G X 5 MM [facility] Use to inject Lantus daily 100 each 5 Active metoprolol succinate XL (Toprol-XL) 50 MG 24 hr tabletIndication s:Primary hypertension TAKE 1 TABLET BY MOUTH EVERY MORNING 90 tablet 3 5 Active TRUEplus Lancets 33G miscIndications: Type 2 diabetes mellitus with hyperglycemia, with long-term current use of insulin ([facility]) USE DIRECTED TO TEST BLOOD SUGAR THREE OR FOUR TIMES DAILY 100 each 5 Active diclofenac (Voltaren) 50 MG EC tablet Take 1 tablet by mouth 2 times daily. 5 Active hydrOXYzine pamoate (Vistaril) 25 MG capsule Take 1 capsule by mouth every 6 (six) hours during the day. 5 Active losartan (Cozaar) 100 MG tablet TAKE 1 TABLET BY MOUTH EVERY MORNING 90 tablet 1 5 Active senna (Senokot) 8.6 MG tabletIndication s:Drug-induced constipation TAKE 2 TABLETS BY MOUTH EVERY DAY AT BEDTIME NEEDED FOR CONSTIPATION 180 tablet 1 5 Active rosuvastatin (Crestor) 20 MG tabletIndication s:Drug-induced constipation TAKE 1 TABLET BY MOUTH EVERY EVENING 90 tablet 1 5 Active omeprazole (PriLOSEC) [address] capsule TAKE 1 CAPSULE BY MOUTH EVERY MORNING BEFORE BREAKFAST 90 capsule 3 5 Active glucose blood (FREESTYLE LITE) test stripIndications :Type 2 diabetes mellitus with hyperglycemia, with long-term current use of insulin ([facility]) USE DIRECTED TO TEST BLOOD SUGAR THREE OR FOUR TIMES DAILY 100 strip 5 Active Aspirin Low Dose 81 MG EC tabletIndication s:Primary hypertension TAKE 1 TABLET BY MOUTH EVERY EVENING 90 tablet 1 5 Active DULoxetine (Cymbalta) [address] capsuleIndicatio ns:Depressive disorder TAKE 1 CAPSULE BY MOUTH EVERY MORNING 30 capsule 5 Active metFORMIN XR (Glucophage-XR) 500 MG 24 hr tabletIndication s:Type 2 diabetes mellitus without complication, unspecified whether terminologist insulin use TAKE 2 TABLETS BY MOUTH TWICE DAILY IN THE MORNING AND EVENING 120 tablet 5 Active cyclobenzaprine (Flexeril) 10 MG tabletIndication s:Chronic back pain, unspecified back location, unspecified back pain laterality Take 1 tablet (10 mg) by mouth if needed in the morning and at bedtime for muscle spasms. 30 tablet 3 5 Active mirtazapine (Remeron) 7.5 MG tablet Take 1 tablet (7.5 mg) by mouth at bedtime. 30 tablet 3 5 Active cyanocobalamin (Vitamin B-12) 500 MCG tablet Take 1 tablet (500 mcg) by mouth Once per day. 90 tablet 3 5 026 Active buPROPion XL (Wellbutrin XL) 150 MG 24 hr tabletIndication s:Depressive disorder TAKE 1 TABLET BY MOUTH EVERY MORNING 30 tablet 3 5 Active amLODIPine (Norvasc) 10 MG tabletIndication s:Primary hypertension Take 1 tablet (10 mg) by mouth Once per day. 30 tablet 5 5 Active Tirzepatide (Mounjaro) 10 MG/0.5ML solution auto-injectorInd ications:Type 2 diabetes mellitus with hyperglycemia, with long-term current use of insulin ([facility]) Inject 10 mg under the skin 1 (one) time per week. 2 mL 3 5 Active insulin degludec (Tresiba FlexTouch) 200 UNIT/ML injectionIndicat ions:Type 2 diabetes mellitus with hyperglycemia, with long-term current use of insulin ([facility]) Inject 32 units under the skin once daily 9 mL 5 5 Active Acetaminophen Extra Strength 500 MG tabletIndication s:Chronic back pain, unspecified back location, unspecified back pain laterality TAKE 2 TABLETS BY MOUTH EVERY 8 HOURS NEEDED FOR MILD PAIN OR FOR MODERATE PAIN 120 tablet 1 5 Active fluticasone (Flonase) 50 MCG/ACT nasal spray INSTILL 2 SPRAYS IN EACH NOSTRIL ONCE DAILY 48 g 1 5 Active Active Problems Problem Noted Date Diagnosed Date [...] Plan (07/26/2024 9:29 AM EDT): -seen by [place] paint spraying machine operator helper -MRI in Oct 2021 --Central disc protrusion [...] and topical medication -encouraged to contact paint spraying machine operator helper -discontinued gabapentin dose due to ?hallucination -agreed to resume oxycodone July 2024. Treatment Hx -previously on tramadol and opioid analgesics; Pt went to Detox in August 2021. Assessment & Plan (01/15/2024 8:50 AM EST): -seen by [place] paint spraying machine operator helper -MRI in Oct 2021 --Central disc protrusion [...] and topical medication -encouraged to contact paint spraying machine operator helper -discontinued gabapentin dose due to ?hallucination Treatment Hx -previously on tramadol and opioid analgesics; Pt went to Detox in August 2021. Assessment & Plan (06/04/2022 6:29 PM EDT): -seen by [place] paint spraying machine operator helper -MRI in Oct 2021 --Central disc protrusion [...] gabapentin, and baclofen -encouraged to contact paint spraying machine operator helper -decrease gabapentin dose due to ?hallucination Treatment [...] fundus compatible with adenomyomatosis. - Following with [place] [facility], last seen in July 2023 - [...] fundus compatible with adenomyomatosis. - Following with [place] [facility], last seen in July 2023 - [...] fundus compatible with adenomyomatosis. - Following with [place] [facility], last seen in July 2023 - [...] caution. Discussed about the importance of following AUDOGRAPH OPERATOR agreement. Assessment & Plan (01/15/2024 9:02 AM [...] -seen by lung cancer screening program in [place] in Dec 2022; patient has not completed CT for the program -most recent chest CT in Feb 2024: Incidental note made of emphysema, hepatic steatosis, splenomegaly and benign left adrenal adenoma - will refer again. Next CT scan in Feb 2025. Assessment & Plan (06/11/2023 6:16 AM EDT): -continue working on smoking cessation -continue bupropion -seen by lung cancer screening program in [place] in Dec 2022; patient has not had chest CT yet Assessment & Plan (06/04/2022 6:30 PM EDT): -continue working on smoking cessation -continue bupropion Fibromyalgia 04/13/2022 Assessment & Plan (07/16/2024 9:19 AM EDT): -tried physical therapy -tried Lyrica which was discontinued -tried gabapentin which was discontinued (drowsiness) -seen by paint spraying machine operator helper; pt has not had a follow up. Recommended to contact -continue duloxetine -continue lidocaine patch -Treatment Hx: discontinued amitriptyline in June 2022, tapered off gabapentin due to hallucination; discontinue baclofen and methocarbamol due to possible adverse reaction Assessment & Plan (01/15/2024 8:55 AM EST): -tried physical therapy -tried Lyrica which was discontinued -tried gabapentin which was discontinued (drowsiness) -seen by paint spraying machine operator helper; pt has not had a follow up. Recommended to contact -continue duloxetine -continue lidocaine patch -Treatment Hx: discontinued amitriptyline in June 2022, tapered off gabapentin due to hallucination; discontinue baclofen and methocarbamol due to possible adverse reaction Assessment & Plan (06/11/2023 6:10 AM EDT): -tried physical therapy -tried Lyrica which was discontinued -seen by paint spraying machine operator helper; pt has not had a follow up. Recommended to contact -continue duloxetine -discontinue baclofen -continue lidocaine patch -Treatment Hx: discontinued amitriptyline in June 2022, tapered off gabapentin due to hallucination; discontinue baclofen and methocarbamol due to possible adverse reaction Assessment & Plan (10/10/2022 6:10 AM EDT): -tried physical therapy -tried Lyrica which was discontinued -seen by paint spraying machine operator helper; pt has not had a follow up. Recommended to contact -continue duloxetine -continue baclofen -continue lidocaine patch -Treatment Hx: discontinued amitriptyline in June 2022, tapered off gabapentin due to hallucination Assessment & Plan (08/12/2022 6:23 AM EDT): -tried physical therapy -tried Lyrica which was discontinued -seen by paint spraying machine operator helper; pt has not had a follow up. Recommended to contact -decrease gabapentin dose to 300 mg tid due to hallucination in March 2022, further decrease and plan to taper off -continue duloxetine -continue baclofen -discontinue amitriptyline Assessment & Plan (06/04/2022 6:38 PM EDT): -tried physical therapy -tried Lyrica which was discontinued -seen by paint spraying machine operator helper; pt has not had a follow up. [...] (03/21/2023 5:09 AM EST): - seen by [place] smoking cessation program in Dec 2022 Assessment [...] due to decrease in metformin -Followed by [facility] endocrinology -Continue dulaglutide (Trulicity) 4.5 mg weekly [...] and now concerning for hypoglycemia. -Followed by [facility] endocrinology -Continue current medications as prescribed (discrepancy [...] and now concerning for hypoglycemia. -Followed by [facility] endocrinology -Continue current medications as prescribed (discrepancy [...] -HgbA1C 8.7% on 05/31/22, improving -Followed by [facility] endocrinology -Continue current medications as prescribed (discrepancy [...] -Continue losartan 100 mg daily -Continue metoprolol [id number] mg daily (will need to taper down) [...] -Continue losartan 100 mg daily -Continue metoprolol [id number] mg daily (will need to taper down) [...] zolpidem use) in August 2021 -Detox at [facility] in August 2021 -Recently received oxycodone due to hand fracture July 2022 -Possible withdrawal currently -Pt seems to be in somewhat denial (precontemplation / contemplation stage) Assessment & Plan (06/04/2022 6:31 PM EDT): -Pt fell under the influence of substances: opioid and cocaine (Hx zolpidem use) in August 2021 -Detox at 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 08/09/2022 Pain in wrist 05/17/2013 08/09/2022 Encounters Date Type Department Care Team Description 01/19/2025 Orders Only GENERIC EXTERNAL DATA DEPARTMENT Provider, Generic External Data 01/19/2025 Refill [facility] [address] [place] [address] Stacie Vincent MD Chronic back pain, unspecified back location, unspecified back pain laterality 12/26/2024 Telephone [facility] [address] [place] [address] Stacie Vincent MD 12/15/2024 Refill [facility] [place] [address] Stacie Vincent MD 12/04/2024 Refill [facility] [address] [place] [address] Stacie Vincent MD Chronic back pain, unspecified back location, unspecified back pain laterality 11/20/2024 Telephone [facility] [place] [address] Stacie Vincent MD january11/14/2024 1:30 PM EDT Clinical Support [facility] [place] [address] Kelsey Salmon RN Memory problem 11/14/2024 Travel 11/09/2024 Refill [facility] [place] [address] Stacie Vincent MD Depressive disorder 11/07/2024 Orders Only [facility] [place] [address] Stacie Vincent MD 11/07/2024 Results Follow-Up [facility] [place] [address] Stacie Vincent MD Vitamin B12 (Cobalamin) and Folate Panel, Serum, Lipid Panel with Reflex to Direct LDL, Albumin, Random Urine W/Creatinine, Comprehensive Metabolic Panel 11/06/2024 Travel 10/28/2024 1:45 PM EDT Office Visit [facility] [place] [address] Stacie Vincent MD Primary hypertension (Primary Dx); Type 2 diabetes mellitus with hyperglycemia, with long-term current use of insulin ([facility]); Memory loss; Chronic back pain, unspecified back location, unspecified back pain laterality; Dyslipidemia; Metabolic dysfunction-associate d steatotic liver disease ([facility]); Memory problem; Insomnia, unspecified type; Nicotine dependence, cigarettes, uncomplicated; Radicular syndrome of left lower extremity; Spondylosis of lumbar spine 10/28/2024 Refill [facility] [address] [place] [address] Stacie Vincent MD 10/28/2024 Travel 10/25/2024 Telephone [facility] [address] [place] [address] Stacie Vincent MD CHART PREP 10/24/2024 Travel 10/24/2024 Telephone [facility] [address] [place] [address] Laura Casiano RN 10/23/2024 Refill [facility] [address] [place] [address] Shira Oneil MD Piriformis syndrome, unspecified laterality 10/22/2024 Refill [facility] [address] [place] [address] Stacie Vincent MD Chronic back pain, unspecified back location, unspecified back pain laterality from Last 3 Months Immunizations Immunization Administration [...] Description 05/21/2025 2:00 PM EDT Office Visit [facility] [address] [place] [address] Lisa Perea, OD [address] [place] [address] Health Maintenance Due Date Last Done Comments [...] Diagnosis Comments HIGH SENSITIVITY TROPONIN I Routine 01/19/2025 10:45 PM EST CBC WITH AUTO DIFFERENTIAL Routine 01/19/2025 10:45 PM EST MR BRAIN WO CONTRAST Routine 11/11/2024 8:00 [...] PANEL, GENERAL Routine 07/12/2023 2:26 PM EDT HM COLONOSCOPY Routine 06/29/2012 from Last 3 Months or Most Recently Relevant to Health Maintenance Results * High Sensitivity Troponin I (01/19/2025 10:45 PM EST) TROPONIN I HIGH SENSITIVITY 3.0 <3.5 - 17.0 ng/L [facility] Comment:The [facility] high sens itivity Troponin-I results should beused in conjunction with other diagnostic information suchas ECG, clinical observations and information, and patientsymptoms to aid in the diagnosis of [place]. 01/19/2025 10:4 5 PM EST 01/19/2025 10:50 PM EST us Generic External Data Provider LAB BLOOD ORDERAB LES Final Result [facility] [address] [place] [phone] * (ABNORMAL) CBC auto differential (01/19/2025 10:45 PM EST) White Blood Count 11.9(H) 4.8 - 10.8 X10*3/uL [facility] Red Blood Count 4.09(L) 4.20 - 5.50 X10*6/uL [facility] Hemoglobin 10.6(L) 12.0 - 16.0 g/dl [facility] Hematocrit 34.3(L) 37.0 - 47.0 % [facility] Mean Corpuscular Volume 83.9 80.0 - 98.0 fL [facility] Mean Corpuscular Hemoglobin 25.9(L) 27.0 - 33.0 pg [facility] Mean Corpuscular HGB Conc 30.9(L) 31.0 - 35.0 g/dl [facility] Red Cell Distribution Width 16.6(H) 11.0 - 16.0 % [facility] Platelet Count 294 160 - 400 X10*3/uL [facility] Mean Platelet Volume 9.1(L) 9.4 - 12.3 fL [facility] Neutrophils Percent Auto 51.6 45 - 73 % [facility] Imm Gran Pct Auto 0.4 0.0 - 0.4 % [facility] Lymphocytes Percent Auto 38.7 20 - 40 % [facility] Monocytes Percent Auto 7.7 2 - 11 % [facility] Eosinophils Percent Auto 1.3 0 - 4 % [facility] Basophils Percent Auto 0.3 0 - 2 % [facility] NRBC Pct Auto 0.0 0.0 - 0.2 /100WBC [facility] Neutrophils Absolute Auto 6.1 2.0 - 8.3 x10*3/uL [facility] Imm Gran Abs Auto 0.05(H) 0.00 - 0.03 X10*3/uL [facility] Lymphocytes Absolute Auto 4.6 1.2 - 4.9 X10*3/uL [facility] Monocytes Absolute Auto 0.9 0.1 - 1.2 X10*3/uL [facility] Eosinophils Absolute Auto 0.2 0.0 - 0.4 X10*3/uL [facility] Basophils Absolute Auto 0.0 0.0 - 0.2 X10*3/uL [facility] NRBC Abs Auto 0.000 0.0 - 0.012 X10*3/uL [facility] 01/19/2025 10:4 5 PM EST 01/19/2025 10:50 PM EST us Generic External Data Provider LAB BLOOD ORDERAB LES Final Result Performing Organization Address City/State/[facility] Co de Phone Number [facility] [address] [place] [phone] * MR Brain w/o Contrast (11/11/2024 8:00 PM EDT) Anatomical Region Laterality Modality Brain Magnetic Resonan ce 11/11/2024 8:00 PM EDT Narrative 11/12/2024 7:29 AM EDT [place] [address] Magnetic Resonance Report Signed Patient: Nandini Edouard MR#: [id number] : 1960 Acct:[id number] Age/Sex: 63 / F ADM Date: 11/11/24 Loc: HO.MRI Attending Dr: Stacie Vincent MD Ordering Physician: Stacie Vincent MD Date of Service: 11/11/24 Procedure(s): MR head/brain wo con Accession Number(s): [id number] cc: Stacie Vincent MD Reason for Exam: [...] signed by David White MD in OV> 11/12/24 07 DD/ 99 TD/TT: 11/11/242029 Marketing Database Consultant: Procedure Note Donotuseinterpreter, Image - 11/12/2024 [place] [address] Magnetic Resonance Report Signed Patient: Terri Edouard#: [id number] : 1960Acct:[id number] Age/Sex: 63 / FADM Date: 11/11/24 Loc: HO.MRI Attending Dr: Stacie Vincent MD Ordering Physician: Stacie Vincent MD Date of Service: 11/11/24 Procedure(s): MR head/brain wo con Accession Number(s): [id number] cc: Stacie Vincent MD Reason for Exam: [...] MDin OV> 11/12/24725 DD/ 99 TD/TT: 11/11/242029 Marketing Database Consultant: Stacie Vincent MD IMG MRI PROCEDURES Edited Result - Final * Syphilis Screen (11/06/2024 1:33 PM EDT) Syphilis Screen Nonreactive Nonreactive [facility] Blood 11/06/2024 1:33 PM EDT 11/06/2024 4:17 PM EDT Stacie Vincent MD LAB BLOOD ORDERABLES Final Resul t Performing Organization Address City/State/[facility] Co de Phone Number [facility] [address] [place] [phone] * Vitamin B12 (Cobalamin) and Folate Panel, Serum (11/06/2024 1:33 PM EDT) Vitamin B12 227 200 - 900 pg/mL [facility] Comment:NORMAL 200-900 PG/ML INDETERMINATE 160-199 PG/ML DEFICIENT < 160 PG/ML Folate 5.3 > or = 4.0 ng/mL [facility] Comment:Reference Values:> o r = 4.0 ng/mL< 4.0 ng/mL suggests folate deficiency Methotrexate, aminopterin and folinic acid(leucovorin) are chemotherapeutic agents whose molecularstructures are similar to folate; therefore, the Architectfolate assay cannot be used for patients using these drugs. Blood 11/06/2024 1:33 PM EDT 11/06/2024 4:17 PM EDT us Stacie Vincent MD LAB BLOOD ORDERABLES Final Resul t Performing Organization Address [facility] Co de Phone Number [facility] [address] [place] [phone] * TSH with Reflex to Free T4 (11/06/2024 1:33 PM EDT) TSH reflex Free T4 2.47 0.32 - 4.0 uIU/mL [facility] Blood 11/06/2024 1:33 PM EDT 11/06/2024 4:17 PM EDT us Stacie Vincent MD LAB BLOOD ORDERABLES Final Resul t Performing Organization Address [facility]/ZIP Co de Phone Number [facility] [address] [place] [phone] * Lipid Panel with Reflex to Direct LDL (11/06/2024 1:33 PM EDT) Triglycerides 125 <150 mg/dL [facility] Comment:Desirable Triglyceri de: less than 150 mg/dLBorderline High Triglyceride 150-199 mg/dLHigh Triglyceride: 200-499 mg/dLVery High Triglyceride: greater than or equal to 5OO mg/dL Cholesterol 125 <200 mg/dL [facility] Comment:Desirable Cholestero l: less than 200 mg/dLBorderline High Cholesterol: 200-239 mg/dLHigh Cholesterol: greater than 239 mg/dL LDL Cholesterol Calculated 47 <100 mg/dL [facility] Comment:Desirable LDL: less than 100 mg/dLNear Optimal/Above Optimal LDL: 110- 129 mg/dLBorderline High LDL: 130-159 mg/dLHigh LDL: 160-189 mg/dLVery High LDL: greater than or equal to 190 mg/dL HDL Cholesterol 53 >40 mg/dL [facility] Comment:Desirable HDL: great er than 40 mg/dL Note: This HDL assay may give artificially low results in patients with liver disease. Blood 11/06/2024 1:33 PM EDT 11/06/2024 4:17 PM EDT Stacie Vincent MD LAB BLOOD ORDERABLES Final Resul t [facility] [address] [place] [phone] * Albumin, Random Urine W/Creatinine (11/06/2024 1:33 PM EDT) Creatinine, Urine 206.02 mg/dL [facility] Microalbumin Urine 13.0 mg/L [facility] Microalbum Creatinine Ratio Ur 6.3 <30 ug/mg cr [facility] Comment:Albumin/Creatinine R atio Reference Ranges: Normal: < 30 ug/mg creatinine Microalbuminuria: 30 - 300 ug/mg creatinineClinical Albuminuria: > 300 ug/mg creatinine Urine 11/06/2024 1:33 PM EDT 11/06/2024 4:15 PM EDT us Stacie Vincent MD LAB URINE ORDERABLES Final Resul t Performing Organization Address [facility]/ZIP Co de Phone Number [facility] [address] [place] [phone] * (ABNORMAL) Comprehensive Metabolic Panel (11/06/2024 1:33 PM EDT) Sodium 140 135 - 145 mmol/L [facility] Potassium 4.3 3.3 - 5.1 mmol/L [facility] Chloride 106 96 - 108 mmol/L [facility] Carbon Dioxide 26 22 - 29 mmol/L [facility] Anion Gap 12 12 - 20 [facility] Urea Nitrogen (BUN) 13 9 - 16 mg/dL [facility] Creatinine, Serum 0.99 0.5 - 1.4 mg/dL [facility] Estimated Glomerular Filt Rate 56 [facility] Comment:Chronic Kidney Disea se: Estimated GFR < 60 mL/min/[id number] Kidney Disease: Estimated GFR < 15 mL/min/1.73m2 Glucose 87 60 - 115 mg/dL [facility] Calcium 9.6 8.4 - 10.2 mg/dL [facility] Bilirubin, Total 0.4 0.0 - 1.0 mg/dL [facility] Aspartate Amino Transferase 37(H) 5 - 31 U/L [facility] Alanine Aminotransferase 22 0 - 31 U/L [facility] Total Protein 6.8 6.5 - 8.0 g/dL [facility] Albumin Level 4.2 3.5 - 5.0 g/dL [facility] Alkaline Phosphatase 72 39 - 117 U/L [facility] Blood Venous blood specimen / Unknown 11/06/2024 1:33 PM EDT 11/06/2024 4:17 PM EDT us Stacie Vincent MD LAB BLOOD ORDERABLES Final Resul t Performing Organization Address [facility]/ZIP Co de Phone Number [facility] [address] [place] [phone] [phone] * (ABNORMAL) POCT glycosylated hemoglobin (Hgb A1c) (10/28/2024 1:47 PM EDT) Hemoglobin A1C 7.4(A) 4.0 - 5.7 % QC Media Lot # [id number] Lot# Expiration Date [id number] Blood Capillary blood specimen / Unknown 10/28/2024 1:47 PM EDT Stacie Vincent MD POINT OF CARE TEST ENTER/EDIT OR DERABLES Final Result * POCT glucose manually resulted (10/28/2024 1:47 PM EDT) Glucose Blood, POC 133 60 - 200 mg/dL [employer] Lot # [id number] Lot# Expiration Date [id number] Blood Capillary blood specimen / Unknown 10/28/2024 1:47 PM EDT Stacie Vincent MD POINT OF CARE TEST ENTER/EDIT OR DERABLES Final Result * BI Mammogram Screening Tomosynthesis Bilateral (03/23/2024 10:00 AM EST) Anatomical Region Laterality Modality Breast Bilateral Mammography 03/23/2024 10:0 0 AM EST Narrative 04/01/2024 3:06 PM EST [facility]'s [address] [place] [address] Mammography Report Signed Patient: Nandini Edouard MR#: [id number] : 1960 Acct:[id number] Age/Sex: 63 / F ADM Date: 03/23/24 Loc: HO.MAMMO Attending Dr: Stacie Vincent MD Ordering Physician: Stacie Vincent MD Results: 2Benign F indings Date of Service: 03/23/24 Follow Up: 1 Year From [facility] Mammogram Procedure(s): MM tomosynthesis screening BI Accession Number(s): [id number] cc: Stacie Vincent MD EXAMINATION: MM SCREENING [...] 04/01/24 1503 DD/ 1000 TD/TT: 03/23/24 1015 Marketing Database Consultant: Procedure Note Donotuseinterpreter, Image - 04/01/2024 [facility] [address] [place] [address] Mammography Report Signed Patient: Terri Edouard#: [id number] : 1960Acct:[id number] Age/Sex: 63 / FADM Date: 03/23/24 Loc: RAMNÓ Attending Dr: Stacie Vincent MD Ordering Physician: Stacie Vincent MDResults: 2Benign F indings Date of Service: 03/23/24Follow Up: 1 Year From Orig inal Mammogram Procedure(s): MM tomosynthesis screening BI Accession Number(s): [id number] cc: Stacie Vincent MD EXAMINATION: MM SCREENING [...] by: Nakita Bourgeois DO 04/01/2024 03:03 PM [facility] Dictated By: Nakita Bourgeois DO Signed By: <Electronically signed by Nakita Bourgeois DO in OV> 04/01/24 1503 DD/ 1000 TD/TT: 03/23/24 1015 Marketing Database Consultant: Stacie iVncent MD IMG BI PROCEDURES Final Result * Hepatitis Panel, General (07/12/2023 2:26 PM EDT) Hepatitis A IgM Nonreactive Nonreactive [facility] Comment:IgM antibodies to RANGEL V not detected; does not exclude earlyacute or recovered HAV infection. ~Hepatitis B Surface Antibody NONREACTIVE Nonreactive [facility] Comment:Nonreactive: < 8.00 mIU/mL Hepatitis B Core Antibody Nonreactive Nonreactive [facility] Hepatitis C Antibody Nonreactive Nonreactive [facility] Comment:Antibodies to HCV no t detected; does not exclude early acuteHCV infection. Hepatitis B Surface Ag Negative Negative [facility] 07/12/2023 2:26 PM EDT 07/12/2023 2:26 PM EDT us Generic External Data Provider LAB BLOOD ORDERAB LES Final Result [facility] [address] [place] [phone] * Hm Colonoscopy (06/29/2012) [facility] Colonoscopy Normal Normal us Historical Provider MD HEALTH MAINTENANCE Final Result from Last 3 Months or Most Recently Relevant to Health Maintenance Insurance [facility] MEDICARE ADVANTAGE [facility] STANDARD Care Teams It Director Relationship Specialty Start Date End Date Stacie Vincent MD [address] [place] [address] PCP - General Family Medicine 10/31/21 Fredy Mobley, PharmD [address] [place] [address] Pharmacist Internal Medicine 01/20/23
--- OUTSIDE RECORDS SUMMARY | 2025-01-19 23:36 | XMS_ITS | Encounter Summary ---
Author Organization [employer] Address 75 [facility] 7t [place] [address] Care Team Providers Care Debone Processing Supervisor Name Role Phone Stacie Vincent MD Primary Care Provider [phone] Fredy Mobley PharmD Unavailable [phone] Reason for Visit * Reason Onset Date Comments Medication Question 09/25/2023 Encounter Details Date Type Department Care Team ([facility] st Contact Info) Description 09/25/2023 Telephone [facility] MEDICINE [address] [place], [place] [phone] Stacie Vincent MD [address] [place], [place] [phone] Medication Question Social History Tobacco Use Types [...] 09/25/2023 3:15 PM EDT Pt seen at [facility] ED 09/20/23. Dxd with piriformis syndrome of right side. 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 Pt picked up 5 day supply [...] any questions you can contact pt at [phone]. documented in this encounter Plan of Treatment Upcoming Encounters Date Type Department Care Team (Late st Contact Info) Description 05/21/2025 2:00 PM EDT Office Visit [facility] OPTOMETRY [address] [place] [address] Lisa Perea, OD 230 [place] [address] documented as of this encounter Goals Goal Patient Goal Type Associated Problems Recent Progress Patient-Stated? Author Blood Pressure < 140/90 Blood Pressure 138/68(2024 2:03 PM EDT) No Fredy Mobley PharmD Hemoglobin A1c < 7 Result Component 7.4( 1:47 PM EDT) No Fredy Mobley, Yudy documented as of this encounter Visit Diagnoses Not on filedocumented in this encounter Additional Health Concerns Assessment Noted Time PHQ-9 Depression Total Score: 7 06/08/19 24 9:37 AM EDT documented as of this encounter Care Teams Debone Processing Supervisor Relationship Specialty Start Date End Date Stacie Vincent MD [address] [place] [address] PCP - General Family Medicine 10/31/21 Fredy Mobley, AmolD [address] [place] [address] Pharmacist Internal Medicine 01/20/23 documented as of this encounter
--- OUTSIDE RECORDS SUMMARY | 2025-01-19 23:36 | XMS_ITS | Encounter Summary ---
Author Organization [employer] Address 75 [facility] 7t [place] [address] Care Team Providers Care Associate Chemist Name Role Phone Stacie Vincent MD Primary Care Provider Fredy Mobley PharmD Unavailable [phone] Reason for Visit * Reason Comments Med Refill Encounter Details Date Type Department Care Team ([facility] st Contact Info) Description 07/17/2023 Refill [facility] MEDICINE 230 [place], [place] [phone] Stacie Vincent MD 230 [place], [place] [phone] Social History Tobacco Use Types Packs/Day Years [...] Description 05/21/2025 2:00 PM EDT Office Visit [facility] OPTOMETRY [address] [place] [address] Eliazar, Lisa, OD 230 [place] [address] documented as of this encounter Goals Goal [...] documented as of this encounter Care Teams Associate Chemist Relationship Specialty Start Date End Date Stacie Vincent MD [address] [place] [address] PCP - General Family Medicine 10/31/21 Fredy Mobley, AmolD [address] [place] [address] Pharmacist Internal Medicine 01/20/23 documented as of this encounter
--- OUTSIDE RECORDS SUMMARY | 2025-01-19 23:36 | XMS_ITS | Encounter Summary ---
Author Organization [employer] Address 75 [facility] 7t [place] [address] Care Team Providers Care Reinforcing Iron And Rebar Workers Name Role Phone Stacie Vincent MD Primary Care Provider [phone] Fredy Mobley PharmD Unavailable [phone] Reason for Visit * Reason Onset Date Comments Med Refill 01/29/2024 Encounter Details Date Type Department Care Team ([facility] st Contact Info) Description 01/29/2024 Telephone [facility] MEDICINE 230 [place], [place] [phone] Stacie Vincent MD [address] [place], [place] [phone] Med Refill Social History Tobacco Use Types [...] 50 MG tablet To be sent to: [facility] documented in this encounter Plan of Treatment Upcoming Encounters Date Type Department Care Team (Late st Contact Info) Description 05/21/2025 2:00 PM EDT Office Visit [facility] OPTOMETRY [address] [place] [address] Lisa Perea, OD [address] [place] [address] documented as of this encounter Goals Goal [...] documented as of this encounter Care Teams Reinforcing Iron And Rebar Workers Relationship Specialty Start Date End Date Stacie Vincent MD [address] [place] [address] PCP - General Family Medicine 10/31/21 Fredy Mobley, Yudy [address] [place] [address] Pharmacist Internal Medicine 01/20/23 documented as of this encounter
--- OUTSIDE RECORDS SUMMARY | 2025-01-19 23:36 | XMS_ITS | Encounter Summary ---
Author Organization [employer] Address [address] [place] [address] [place] [address] Care Team Providers Care Package Crimper Name Role Phone Stacie Vincent MD Primary Care Provider [phone] Fredy Mobley PharmD Unavailable [phone] Reason for Visit * Reason Comments Med Refill Encounter Details Date Type Department Care Team (Late st Contact Info) Description 12/05/2023 Refill [facility] MEDICINE [address] [place], [place] [phone] Shira Oneil MD [address] [place], [place] [phone] Piriformis syndrome, unspecified laterality Social History Tobacco [...] Description 05/21/2025 2:00 PM EDT Office Visit [facility] OPTOMETRY [address] [place] [address] Eliazar, Lisa, OD 230 [place] [address] documented as of this encounter Goals Goal [...] documented as of this encounter Care Teams Package Crimper Relationship Specialty Start Date End Date Stacie Vincent MD [address] [place] [address] PCP - General Family Medicine 10/31/21 Fredy Mobley, PharmD [address] [place] [address] Pharmacist Internal Medicine 01/20/23 documented as of this encounter
--- OUTSIDE RECORDS SUMMARY | 2025-01-19 23:36 | XMS_ITS | Encounter Summary ---
Author Organization [employer] Address [address] [place] [address] 7t [place] [address] Care Team Providers Care Drier Operator Helper Name Role Phone Stacie Vincent MD Primary Care Provider [phone] Fredy Mobley PharmD Unavailable [phone] Reason for Visit * Reason Comments Med Refill Encounter Details Date Type Department Care Team ([facility] st Contact Info) Description 08/29/2023 Refill [facility] MEDICINE 230 [place], [place] [phone] Stacie Vincent MD [address] [place], [place] [phone] Social History Tobacco Use Types Packs/Day Years [...] 05/21/2025 2:00 PM EDT Office Visit [facility] OPTOMETRY [address] [place], [place] [phone] Eliazar, Lisa, OD 230 [place] [address] documented as of this encounter Goals Goal [...] documented as of this encounter Care Teams Drier Operator Helper Relationship Specialty Start Date End Date Stacie Vincent MD 230 [place] [address] PCP - General Family Medicine 10/31/21 Fredy Mobley, PharmD [address] [place] [address] Pharmacist Internal Medicine 01/20/23 documented as of this encounter
--- OUTSIDE RECORDS SUMMARY | 2025-01-19 23:36 | XMS_ITS | Encounter Summary ---
Author Organization [employer] Address 75 [facility] 7t [place] [address] Care Team Providers Care Interactive Multimedia Designer Name Role Phone Stacie Vincent MD Primary Care Provider [phone] Fredy Mobley PharmD Unavailable [phone] Reason for Visit * Reason Comments Med Refill Encounter Details Date Type Department Care Team ([facility] st Contact Info) Description 03/07/2023 Refill [facility] MED & PEDS [address] [place], [place] [phone] Stacie Vincent MD [address] [place] [address] Pain Social History Tobacco Use Types Packs/Day [...] Description 05/21/2025 2:00 PM EDT Office Visit [facility] OPTOMETRY [address] [place], [place] [phone] Lisa Perea, OD 230 [place] [address] documented as of this encounter Goals Goal Patient Goal Type Associated Problems Recent Progress Patient-Stated? Author Blood Pressure < 140/90 Blood Pressure 138/68( 025 2:03 PM EDT) No Fredy Mobley PharmD documented as of this encounter Visit Diagnoses Diagnosis Pain Generalized pain documented in this encounter Additional Health Concerns Assessment Noted Time PHQ-9 Depression Total Score: 6 06/01/19 23 10:23 AM EDT documented as of this encounter Care Teams Interactive Multimedia Designer Relationship Specialty Start Date End Date Stacie Vincent MD [address] [place], [place] [phone] PCP - General Family Medicine 10/31/21 Fredy Mobley, Yudy [address] [place] [address] Pharmacist Internal Medicine 01/20/23 documented as of this encounter
--- OUTSIDE RECORDS SUMMARY | 2025-01-19 23:36 | XMS_ITS | Encounter Summary ---
Author Organization [employer] Address [address] [place] [address] 7 [place] [address] Care Team Providers Care Electrical Appliance Mechanic Name Role Phone Stacie Vincent MD Primary Care Provider [phone] Fredy Mobely PharmD Unavailable [phone] Reason for Visit * Reason Comments Med Refill Encounter Details Date Type Department Care Team (Late st Contact Info) Description 05/16/2022 Refill [facility] MEDICINE 230 [place] [address] Sergio Mcneil MD [address] [place] [address] Social History Tobacco Use Types Packs/Day Years [...] Description 05/21/2025 2:00 PM EDT Office Visit [facility] OPTOMETRY [address] [place] [address] Lisa Perea, OD 230 [place] [address] documented as of this encounter Visit Diagnoses Not on filedocumented in this encounter Care Teams Electrical Appliance Mechanic Relationship Specialty Start Date End Date Stacie Vincent MD 230 [place] [address] PCP - General Family Medicine 10/31/21 Fredy Mobley, AmolD [address] [place] [address] Pharmacist Internal Medicine 01/20/23 documented as of this encounter
--- OUTSIDE RECORDS SUMMARY | 2025-01-19 23:36 | XMS_ITS | Encounter Summary ---
Author Organization [employer] Address 75 [facility] 7t [place] [address] Care Team Providers Care Reduction Plant Supervisor Name Role Phone Stacie Vincent MD Primary Care Provider [phone] Fredy Mobley PharmD Unavailable [phone] Reason for Visit * Reason Comments Med Refill Encounter Details Date Type Department Care Team ([facility] st Contact Info) Description 08/02/2023 Refill [facility] MEDICINE 230 [place], [place] [phone] Stacie Vincent MD 230 [place], [place] [phone] Social History Tobacco Use Types Packs/Day Years [...] Description 05/21/2025 2:00 PM EDT Office Visit [facility] OPTOMETRY [address] [place] [address] Eliazar, Lisa, OD 230 [place] [address] documented as of this encounter Goals Goal [...] documented as of this encounter Care Teams Reduction Plant Supervisor Relationship Specialty Start Date End Date Stacie Vincent MD [address] [place] [address] PCP - General Family Medicine 10/31/21 Fredy Mobley, AmolD [address] [place] [address] Pharmacist Internal Medicine 01/20/23 documented as of this encounter
--- OUTSIDE RECORDS SUMMARY | 2025-01-19 23:36 | XMS_ITS | Encounter Summary ---
Author Organization [employer] Address 75 [facility] 7t [place] [address] Care Team Providers Care Bull Gang Worker Name Role Phone Stacie Vincent MD Primary Care Provider [phone] Fredy Mobley PharmD Unavailable [phone] Reason for Visit * Reason Onset Date Comments Nurse Triage 12/12/2023 Encounter Details Date Type Department Care Team ([facility] st Contact Info) Description 12/12/2023 Telephone [facility] MEDICINE 230 [place], [place] [phone] Stacie Vincent MD 230 [place], [place] [phone] Nurse Triage Social History Tobacco Use Types [...] pain and discussed this yesterday with [facility] who told her he would request [...] 2:00 PM EDT Office Visit [facility] OPTOMETRY [address] [place] [address] EliazarLisa toure, OD [address] [place] [address] documented as of this encounter Goals Goal [...] documented as of this encounter Care Teams Bull Gang Worker Relationship Specialty Start Date End Date Stacie Vincent MD 230 [place], [place] [phone] PCP - General Family Medicine 10/31/21 Fredy Mobley, AmolD [address] [place] [address] Pharmacist Internal Medicine 01/20/23 documented as of this encounter
--- OUTSIDE RECORDS SUMMARY | 2025-01-19 23:36 | XMS_ITS | Encounter Summary ---
Author Organization [employer] Address [address] [place] [address] 7 [place] [address] Care Team Providers Care Advanced Research Programs Director Name Role Phone Stacie Vincent MD Primary Care Provider [phone] Fredy Mobley PharmD Unavailable [phone] Reason for Visit * Reason Comments Med Refill Encounter Details Date Type Department Care Team ([facility] st Contact Info) Description 12/07/2023 Refill [facility] MEDICINE 230 [place], [place] [phone] Shira Oneil MD 230 [place], [place] [phone] Depressive disorder Social History Tobacco Use Types [...] Description 05/21/2025 2:00 PM EDT Office Visit [facility] OPTOMETRY [address] [place] [address] Eliazar, Lisa, OD 230 [place] [address] documented as of this encounter Goals Goal [...] documented as of this encounter Care Teams Advanced Research Programs Director Relationship Specialty Start Date End Date Stacie Vincent MD 230 [place] [address] PCP - General Family Medicine 10/31/21 Fredy Mobley, PharmD [address] [place] [address] Pharmacist Internal Medicine 01/20/23 documented as of this encounter
--- OUTSIDE RECORDS SUMMARY | 2025-01-19 23:36 | XMS_ITS | Encounter Summary ---
Author Organization [employer] Address 75 [facility] 7t [place] [address] Care Team Providers Care Lawnmower Repair Mechanic Name Role Phone Stacie Vincent MD Primary Care Provider [phone] Fredy Mobley PharmD Unavailable [phone] Reason for Visit * Reason Comments Med Refill Encounter Details Date Type Department Care Team ([facility] st Contact Info) Description 08/10/2023 Refill [facility] MEDICINE 230 [place], [place] [phone] Stacie Vincent MD [address] [place], [place] [phone] Social History Tobacco Use Types Packs/Day Years [...] 2:00 PM EDT Office Visit [facility] OPTOMETRY [address] [place], [place] [phone] Eliazar, Lisa, OD 230 [place] [address] documented as of this encounter Goals Goal [...] documented as of this encounter Care Teams Lawnmower Repair Mechanic Relationship Specialty Start Date End Date Stacie Vincent MD 230 [place], [place] [phone] PCP - General Family Medicine 10/31/21 Fredy Mobley PharmD [address] [place] [address] Pharmacist Internal Medicine 01/20/23 documented as of this encounter
--- OUTSIDE RECORDS SUMMARY | 2025-01-19 23:36 | XMS_ITS | Encounter Summary ---
Author Organization [employer] Address 75 [facility] 7t [place] [address] Care Team Providers Care Solutions Architect Name Role Phone Stacie Vincent MD Primary Care Provider [phone] Fredy Mobley PharmD Unavailable [phone] Reason for Visit * Reason Comments Med Refill Encounter Details Date Type Department Care Team (Late st Contact Info) Description 12/11/2023 Refill [facility] [address] [place] [address] [phone] Stacie Vincent MD 230 [place], [place] [phone] Spondylosis of lumbar spine Social History Tobacco [...] Office Visit [facility] OPTOMETRY [address] [place], [place] [phone] Eliazar, Lisa, OD 230 [place] [address] documented as of this encounter Goals Goal [...] documented as of this encounter Care Teams Solutions Architect Relationship Specialty Start Date End Date Stacie Vincent MD [address] [place] [address] PCP - General Family Medicine 8/28/22 Fredy Mobley, PharmD [address] [place] [address] Pharmacist Internal Medicine 01/20/23 documented as of this encounter
--- OUTSIDE RECORDS SUMMARY | 2025-01-19 23:37 | XMS_ITS | Clinical Summary ---
Author Organization [facility] Address [address] [place] [address] Care Team Providers Care Pattern Lease Inspector Name Role Phone Jailyn Rodriguez RN Primary Care Provider [phone] Social History Tobacco Use Types Packs/Day Years [...] 12/23/2009 Zoster Vaccines (1 of 2) 12/23/2009 Depression Screening 03/06/2024 COVID-19 Vaccine (1 - 2024-2 6 season) 2024 Influenza Vaccine (#1) 2024 RSV [...] age to complete this topic Care Teams Pattern Lease Inspector Relationship Specialty Start Date End Date Jailyn Rodriguez RN [address] [place] [phone] PCP - General 11/19/21
--- OUTSIDE RECORDS SUMMARY | 2025-01-19 23:37 | XMS_ITS | Encounter Summary ---
Author Organization [employer] Address 75 [facility] 7t [place] [address] Care Team Providers Care Sports Health Club Membership Advisors Name Role Phone Stacie Vincent MD Primary Care Provider [phone] Fredy Mobley PharmD Unavailable [phone] Reason for Visit * Reason Comments Med Refill Encounter Details Date Type Department Care Team ([facility] st Contact Info) Description 01/19/2025 Refill [facility] CHC MED & PEDS [address] [place], [place] [phone] Stacie Vincent MD 230 [place] [address] Chronic back pain, unspecified back location, unspecified [...] Description 05/21/2025 2:00 PM EDT Office Visit [facility] OPTOMETRY [address] [place] [address] Eliazar, Lisa, OD [address] [place] [address] documented as of this encounter Goals Goal [...] documented as of this encounter Care Teams Sports Health Club Membership Advisors Relationship Specialty Start Date End Date Stacie Vincent MD [address] [place] [address] PCP - General Family Medicine 10/31/21 Fredy Mobley, AmolD [address] [place] [address] Pharmacist Internal Medicine 01/20/23 documented as of this encounter
--- OUTSIDE RECORDS SUMMARY | 2025-01-19 23:37 | XMS_ITS | Encounter Summary ---
Author Organization [employer] Address 75 [facility] 7t [place] [address] Care Team Providers Care Director Of Strategic Sales Name Role Phone Stacie Vincent MD Primary Care Provider Fredy Mobley PharmD Unavailable [phone] Reason for Visit * Reason Comments Med Refill Encounter Details Date Type Department Care Team ([facility] st Contact Info) Description 02/24/2023 Refill [facility] MEDICINE 230 [place], [place] [phone] Stacie Vincent MD [address] [place], [place] [phone] Social History Tobacco Use Types Packs/Day Years [...] Description 05/21/2025 2:00 PM EDT Office Visit [facility] OPTOMETRY [address] [place], [place] [phone] Lisa Perea, OD 230 [place] [address] documented as of this encounter Goals Goal [...] as of this encounter Care Teams Director Of Strategic Sales Relationship Specialty Start Date End Date Stacie Vincent MD [address] [place], [place] [phone] PCP - General Family Medicine 10/31/21 Fredy Mobley PharmD [address] [place], [place] [phone] Pharmacist Internal Medicine 01/20/23 documented as of this encounter
--- OUTSIDE RECORDS SUMMARY | 2025-01-19 23:37 | XMS_ITS | Encounter Summary ---
Author Organization [employer] Address [address] [facility] 7t [place] [address] Care Team Providers Care Lathe Puller Name Role Phone Stacie Vincent MD Primary Care Provider [phone] Fredy Mobley PharmD Unavailable [phone] Reason for Visit * Reason Onset Date Comments Nurse Triage 02/14/2023 Encounter Details Date Type Department Care Team ([facility] st Contact Info) Description 02/14/2023 Telephone [facility] MEDICINE [address] [place], [place] [phone] Stacie Vincent MD [address] [place], [place] [phone] Nurse Triage Social History Tobacco Use Types [...] Miscellaneous Notes * Telephone Encounter - Stacie Vnicent MD - 02/15/2023 5:41 PM EST Discussed [...] not completed blood work orders [place] [facility] [place]. Pt advised to complete as provider [...] Description 05/21/2025 2:00 PM EDT Office Visit [facility] OPTOMETRY [address] [place] [address] Lisa Perea, OD [address] [place] [address] documented as of this encounter Goals Goal [...] documented as of this encounter Care Teams Lathe Puller Relationship Specialty Start Date End Date Stacie Vincent MD [address] [place] [address] PCP - General Family Medicine 10/31/21 Fredy Mobley, AmolD [address] [place] [address] Pharmacist Internal Medicine 01/20/23 documented as of this encounter
--- OUTSIDE RECORDS SUMMARY | 2025-01-19 23:37 | XMS_ITS | Encounter Summary ---
Author Organization [employer] Address [address] [facility] 7t [place] [address] Care Team Providers Care Water Control Supervisor Name Role Phone Stacie Vincent MD Primary Care Provider [phone] Fredy Mobley PharmD Unavailable [phone] Encounter Details Date Type Department Care Team (Late st Contact Info) Description 04/01/2022 Orders Only [facility] MED & PEDS [address] [place], [place] [phone] Gemini Miranda LPN Social History Tobacco Use [...] Description 05/21/2025 2:00 PM EDT Office Visit [facility] OPTOMETRY [address] [place] [address] Eliazar, Lisa, OD [address] [place] [address] documented as of this encounter Procedures Procedure [...] RNA, Ql NAAT (02/04/2023 10:47 PM EST) Pathologist [facility] Influenza A PCR NEGATIVE Negative [facility] Influenza B PCR NEGATIVE Negative [facility] Resp Syncy Virus RNA Qual PCR NEGATIVE Negative [facility] SARS COV2 PCR NEGATIVE Negative [facility] Comment:All test results mus t be [...] use by authorized laboratories.Testing performed on the [employer] GeneXpert utilizingreal-time RT-PCR.All SARS CoV2 and positive influenza A/B results arereported to [facility]. 02/04/2023 10:4 7 PM EST 02/04/2023 10:53 PM EST us Generic External Data Provider LAB MICROBIOLOGY - GENERAL ORDERABLES Final Result [facility] [address] [place] [address] [phone] * High Sensitivity Troponin I (02/04/2023 10:47 PM EST) [facility] TROPONIN I HIGH SENSITIVITY <2.7 <3.5 - 17.0 ng/L [facility] Comment:The Hammonds high sens itivity Troponin-I results should beused in conjunction with other diagnostic information suchas ECG, clinical observations and information, and patientsymptoms to aid in the diagnosis of [place]. 02/04/2023 10:4 7 PM EST 02/04/2023 10:53 PM EST us Generic External Data Provider LAB BLOOD ORDERAB LES Final Result [facility] [address] [place] [address] [phone] * (ABNORMAL) Comprehensive Metabolic Panel (02/04/2023 10:47 PM EST) Sodium 140 135 - 145 mmol/L [facility] Potassium 4.3 3.3 - 5.1 mmol/L [facility] Chloride 106 96 - 108 mmol/L [facility] Carbon Dioxide 24 22 - 29 mmol/L [facility] Anion Gap 14 12 - 20 [facility] Urea Nitrogen (BUN) 17(H) 9 - 16 mg/dL [facility] Creatinine, Serum 1.23 0.5 - 1.4 mg/dL [facility] Creatinine Clr Calc Pharmacy 47.5 [facility] Comment:Provided height and weight: 162.56 cm,78.925 kg.eGFR (calculated from the MDRD study equation) and eCrCl(calculated from the Cockcroft-Gault equation) are based ondifferent parameters and may not yield comparable results.If eCrCl result is absurd, please check patient'sheight/weight. Estimated Glomerular Filt Rate 44 [facility] Comment:NOTE: For -Am erican individuals, multiply the result by 1.210.Chronic Kidney Disease: Estimated GFR < 60 mL/min/1.80h4Datnnr Kidney Disease: Estimated GFR < 15 mL/min/1.73m2 Glucose 144(H) 60 - 115 mg/dL [facility] Calcium 9.6 8.4 - 10.2 mg/dL [facility] Bilirubin, Total 0.5 0.0 - 1.0 mg/dL [facility] Aspartate Amino Transferase 57(H) 5 - 31 U/L [facility] Alanine Aminotransferase 33(H) 0 - 31 U/L [facility] Total Protein 6.7 6.5 - 8.0 g/dL [facility] Albumin Level 4.0 3.5 - 5.0 g/dL [facility] Alkaline Phosphatase 63 39 - 117 U/L [facility] 02/04/2023 10:4 7 PM EST 02/04/2023 10:53 PM EST us Generic External Data Provider LAB BLOOD ORDERAB LES Final Result [facility] [address] [place] [address] [phone] * (ABNORMAL) CBC auto differential (02/04/2023 10:47 PM EST) White Blood Count 11.9(H) 4.8 - 10.8 X10*3/uL [facility] Red Blood Count 4.26 4.20 - 5.50 X10*6/uL [facility] Hemoglobin 11.9(L) 12.0 - 16.0 g/dl [facility] Hematocrit 36.0(L) 37.0 - 47.0 % [facility] Mean Corpuscular Volume 84.5 80.0 - 98.0 fL [facility] Mean Corpuscular Hemoglobin 27.9 27.0 - 33.0 pg [facility] Mean Corpuscular HGB Conc 33.1 31.0 - 35.0 g/dl [facility] Red Cell Distribution Width 14.7 11.0 - 16.0 % [facility] Platelet Count 272 160 - 400 X10*3/uL [facility] Mean Platelet Volume 9.1(L) 9.4 - 12.3 fL [facility] Neutrophils Percent Auto 63.9 45 - 73 % [facility] Imm Gran Pct Auto 0.4 0.0 - 0.4 % [facility] Lymphocytes Percent Auto 25.8 20 - 40 % [facility] Monocytes Percent Auto 8.0 2 - 11 % [facility] Eosinophils Percent Auto 1.7 0 - 4 % [facility] Basophils Percent Auto 0.2 0 - 2 % [facility] NRBC Pct Auto 0.0 0.0 - 0.2 /100WBC [facility] Neutrophils Absolute Auto 7.6 2.0 - 8.3 x10*3/uL [facility] Imm Gran Abs Auto 0.05(H) 0.00 - 0.03 X10*3/uL [facility] Lymphocytes Absolute Auto 3.1 1.2 - 4.9 X10*3/uL [facility] Monocytes Absolute Auto 1.0 0.1 - 1.2 X10*3/uL [facility] Eosinophils Absolute Auto 0.2 0.0 - 0.4 X10*3/uL [facility] Basophils Absolute Auto 0.0 0.0 - 0.2 X10*3/uL [facility] NRBC Abs Auto 0.000 0.0 - 0.012 X10*3/uL [facility] 02/04/2023 10:4 7 PM EST 02/04/2023 10:53 PM EST us Generic External Data Provider LAB BLOOD ORDERAB LES Final Result Performing Organization Address City/State/[facility] Co de Phone Number [facility] [address] [place] [phone] documented in this encounter Visit Diagnoses Not on filedocumented in this encounter Care Teams Water Control Supervisor Relationship Specialty Start Date End Date Stacie Vincent MD [address] [place] [address] PCP - General Family Medicine 10/31/21 Fredy Mobley, AmolD [address] [place] [address] Pharmacist Internal Medicine 01/20/23 documented as of this encounter
--- OUTSIDE RECORDS SUMMARY | 2025-01-19 23:37 | XMS_ITS | Encounter Summary ---
Author Organization [email or web address] Address [address] [place] [address] 7t [place] [address] Care Team Providers Care Medical Payment Poster Name Role Phone Stacie Vincent MD Primary Care Provider [phone] Fredy Mobley PharmD Unavailable [phone] Reason for Visit * Reason Onset Date Comments triage 07/12/2022 Encounter Details Date Type Department Care Team (Late st Contact Info) Description 07/12/2022 Telephone [facility] MEDICINE [address] [place], [place] [phone] Stacie Vincent MD [address] [place], [place] [phone] triage Social History Tobacco Use Types Packs/Day [...] wrists and hands/palms. Pt was [place] [facility] [place]09 or 07/10 ( unclear) and [...] accepted this outcome Pt was seen [place] [facility] [place]. Fisheries Technical Officer advised pt also about WIC. PCP DR. Vincent documented in this encounter Plan of Treatment Upcoming Encounters Date Type Department Care Team (Late st Contact Info) Description 05/21/2025 2:00 PM EDT Office Visit [facility] OPTOMETRY [address] [place], [place] [phone] Lisa Perea, OD [address] [place] [address] documented as of this encounter Visit Diagnoses Not on filedocumented in this encounter Additional Health Concerns Assessment Noted Time PHQ-9 Depression Total Score: 6 06/01/19 10:23 AM EDT documented as of this encounter Care Teams Medical Payment Poster Relationship Specialty Start Date End Date Stacie Vincent MD [address] [place], [place] [phone] PCP - General Family Medicine 10/31/21 Fredy Mobley, AmolD [address] [place], [place] [phone] Pharmacist Internal Medicine 01/20/23 documented as of this encounter
--- OUTSIDE RECORDS SUMMARY | 2025-01-19 23:37 | XMS_ITS | Encounter Summary ---
Author Organization [employer] Address [address] [facility] 7t [place] [address] Care Team Providers Care Skilled Nursing Case Manager Name Role Phone Stacie Vincent MD Primary Care Provider [phone] Fredy Mobley PharmD Unavailable [phone] Encounter Details Date Type Department Care Team ([facility] st Contact Info) Description 02/15/2023 Orders Only [facility] MEDICINE [address] [place], [place] [phone] Stacie Vincent MD 230 [place], [place] [phone] Social History Tobacco Use Types Packs/Day Years [...] Description 05/21/2025 2:00 PM EDT Office Visit [facility] OPTOMETRY [address] [place] [address] Lisa Perea, OD [address] [place] [address] documented as of this encounter Goals Goal [...] documented as of this encounter Care Teams Skilled Nursing Case Manager Relationship Specialty Start Date End Date Stacie Vincent MD [address] [place], [place] [phone] PCP - General Family Medicine 10/31/21 Fredy Mobley PharmD [address] [place] [phone] Pharmacist Internal Medicine 01/20/23 documented as of this encounter
--- OUTSIDE RECORDS SUMMARY | 2025-01-19 23:37 | XMS_ITS | Encounter Summary ---
Author Organization [employer] Address [address] [place] [address] 7t [place] [address] Care Team Providers Care Coal Hauler Operator Name Role Phone Stacie Vincent MD Primary Care Provider [phone] Fredy Mobley PharmD Unavailable [phone] Reason for Visit * Reason Comments Med Refill Encounter Details Date Type Department Care Team (Late Contact Info) Description 06/22/2022 Refill [facility] MEDICINE [address] [place], [place] [phone] Sergio Mcneil MD [address] [place] [address] Chronic back pain, unspecified back location, unspecified [...] Description 05/21/2025 2:00 PM EDT Office Visit [facility] OPTOMETRY [address] [place] [address] Lisa Perea, OD [address] [place] [address] documented as of this encounter Visit Diagnoses Diagnosis Chronic back pain, unspecified back location, unspecified back pain laterality documented in this encounter Additional Health Concerns Assessment Noted Time PHQ-9 Depression Total Score: 6 06/01/19 23 10:23 AM EDT documented as of this encounter Care Teams Coal Hauler Operator Relationship Specialty Start Date End Date Stacie Vincent MD [address] [place] [address] PCP - General Family Medicine 10/31/21 Fredy Mobley, Yudy [address] [place] [address] Pharmacist Internal Medicine 01/20/23 documented as of this encounter
--- OUTSIDE RECORDS SUMMARY | 2025-01-19 23:37 | XMS_ITS | Encounter Summary ---
Author Organization [employer] Address [address] [place] [address], [place] [address] Care Team Providers Care Turner Machine Name Role Phone Stacie Vincent MD Primary Care Provider [phone] Fredy Mobley PharmD Unavailable [phone] Encounter Details Date Type Department Care Team (Late Contact Info) Description 03/09/2022 [facility] [employer] [address] [place], [place] [phone] Stacie Vincent MD [address] [place] [address] Social History Tobacco Use Types Packs/Day Years [...] Description 05/21/2025 2:00 PM EDT Office Visit [facility] OPTOMETRY [address] [place], [place] [phone] Lisa Perea, OD [address] [place] [address] documented as of this encounter Visit Diagnoses Not on filedocumented in this encounter Care Teams Turner Machine Relationship Specialty Start Date End Date Stacie Vincent MD [address] [place] [address] PCP - General Family Medicine 10/31/21 Fredy Mobley, AmolD [address] [place] [address] Pharmacist Internal Medicine 01/20/23 documented as of this encounter
--- OUTSIDE RECORDS SUMMARY | 2025-01-19 23:38 | XMS_ITS | Encounter Summary ---
Author Organization [employer] Address [address] [place] [address] 7t [place] [address] Care Team Providers Care Educational Interpreter Name Role Phone Stacie Vincent MD Primary Care Provider [phone] Fredy Mobley PharmD Unavailable [phone] Reason for Referral * Consultation (Routine) - Pending Review Specialty Diagnoses / Procedures Referred By Contac t Referred To Contact Pharmacy Diagnoses Type 2 diabetes mellitus with hyperglycemia, with long-term current use of insulin ([facility]) Primary hypertension Stacie Vincent MD 230 [place] [address] Phone: tel: fax: Referral ID Status Reason Start Date Expiration Date Visits Requested Visits Authorized [id number] Pending Review Consult and Treat 09/12/2024 09/12/2025 6 6 Encounter Details Date Type Department Care Team (Late st Contact Info) Description 09/12/2024 Orders Only [facility] MEDICINE [address] [place], [place] [phone] Stacie Vincnet MD [address] [place], [place] [phone] Type 2 diabetes mellitus with hyperglycemia, with long-term current use of insulin ([facility]) (Primary Dx); Primary hypertension; Moderate persistent asthma [...] Description 05/21/2025 2:00 PM EDT Office Visit [facility] OPTOMETRY [address] [place] [address] Eliazar, Lisa, OD [address] [place] [address] Scheduled Referrals Name Type Priority Associated Diagnoses Orde r Schedule Referral to Pharmacy CDTM Outpatient Referral Routine Type 2 diabetes mellitus with hyperglycemia, with long-term current use of insulin ([facility]) Primary hypertension Ordered: 09/12/2024 documented [...] hyperglycemia, with long-term current use of insulin ([facility])- Primary Primary hypertension Unspecified essential hypertension Moderate persistent asthma without complication documented in this encounter Additional Health Concerns Assessment Noted Time PHQ-9 Depression Total Score: 7 06/08/19 24 9:37 AM EDT documented as of this encounter Care Teams Educational Interpreter Relationship Specialty Start Date End Date Stacie Vincent MD [address] [place] [address] PCP - General Family Medicine 10/31/21 Fredy Mobley PharmD [address] [place] [address] Pharmacist Internal Medicine 01/20/23 documented as of this encounter
--- OUTSIDE RECORDS SUMMARY | 2025-01-19 23:38 | XMS_ITS | Encounter Summary ---
Author Organization [employer] Address [address] [facility] 7t [place] [address] Care Team Providers Care Home Appliance Installer Name Role Phone Stacie Vincent MD Primary Care Provider [phone] Fredy Mobley PharmD Unavailable Encounter Details Date Type Department Care Team (Late st Contact Info) Description 01/19/2025 Orders Only [facility] DEPARTMENT Provider, Generic External Data Social History Tobacco Use Types Packs/Day Years [...] Description 05/21/2025 2:00 PM EDT Office Visit [facility] OPTOMETRY [address] [place] [address] Lisa Perea, OD [address] [place] [address] documented as of this encounter Goals Goal Patient Goal Type Associated Problems Recent Progress Patient-Stated? Author Blood Pressure < 140/90 Blood Pressure 138/68(2024 2:03 PM EDT) No Fredy Mobley, Yudy Hemoglobin A1c < 7 Result Component 7.4( 1:47 PM EDT) No Fredy Mobley PharmD documented as of this encounter Procedures Procedure Name Priority Date/Time Associated Diagnosis Comments HIGH SENSITIVITY TROPONIN I Routine 01/19/2025 10:45 PM EST CBC WITH AUTO DIFFERENTIAL Routine 01/19/2025 10:45 PM EST documented in this encounter Results * High Sensitivity Troponin I (01/19/2025 10:45 PM EST) TROPONIN I HIGH SENSITIVITY 3.0 <3.5 - 17.0 ng/L [facility] Comment:The Hammonds high sens itivity Troponin-I results should beused in conjunction with other diagnostic information suchas ECG, clinical observations and information, and patientsymptoms to aid in the diagnosis of [place]. 01/19/2025 10:4 5 PM EST 01/19/2025 10:50 PM EST us Generic External Data Provider LAB BLOOD ORDERAB LES Final Result [facility] [address] [place] [address] [phone] * (ABNORMAL) CBC auto differential (01/19/2025 10:45 PM EST) White Blood Count 11.9(H) 4.8 - 10.8 X10*3/uL [facility] Red Blood Count 4.09(L) 4.20 - 5.50 X10*6/uL [facility] Hemoglobin 10.6(L) 12.0 - 16.0 g/dl [facility] Hematocrit 34.3(L) 37.0 - 47.0 % [facility] Mean Corpuscular Volume 83.9 80.0 - 98.0 fL [facility] Mean Corpuscular Hemoglobin 25.9(L) 27.0 - 33.0 pg [facility] Mean Corpuscular HGB Conc 30.9(L) 31.0 - 35.0 g/dl [facility] Red Cell Distribution Width 16.6(H) 11.0 - 16.0 % [facility] Platelet Count 294 160 - 400 X10*3/uL [facility] Mean Platelet Volume 9.1(L) 9.4 - 12.3 fL [facility] Neutrophils Percent Auto 51.6 45 - 73 % [facility] Imm Gran Pct Auto 0.4 0.0 - 0.4 % [facility] Lymphocytes Percent Auto 38.7 20 - 40 % [facility] Monocytes Percent Auto 7.7 2 - 11 % [facility] Eosinophils Percent Auto 1.3 0 - 4 % [facility] Basophils Percent Auto 0.3 0 - 2 % [facility] NRBC Pct Auto 0.0 0.0 - 0.2 /100WBC [facility] Neutrophils Absolute Auto 6.1 2.0 - 8.3 x10*3/uL [facility] Imm Gran Abs Auto 0.05(H) 0.00 - 0.03 X10*3/uL [facility] Lymphocytes Absolute Auto 4.6 1.2 - 4.9 X10*3/uL [facility] Monocytes Absolute Auto 0.9 0.1 - 1.2 X10*3/uL [facility] Eosinophils Absolute Auto 0.2 0.0 - 0.4 X10*3/uL [facility] Basophils Absolute Auto 0.0 0.0 - 0.2 X10*3/uL [facility] NRBC Abs Auto 0.000 0.0 - 0.012 X10*3/uL [facility] 01/19/2025 10:4 5 PM EST 01/19/2025 10:50 PM EST us Generic External Data Provider LAB BLOOD ORDERAB LES Final Result Performing Organization Address City/State/[facility] Co de Phone Number [facility] [address] [place] [address] [phone] documented in this encounter Visit Diagnoses Not on filedocumented in this encounter Additional Health Concerns Assessment Noted Time PHQ-9 Depression Total Score: 24 025 1:46 PM EDT documented as of this encounter Care Teams Home Appliance Installer Relationship Specialty Start Date End Date Stacie Vincent MD [address] [place] [address] PCP - General Family Medicine 10/31/21 Fredy Mobley, AmolD [address] [place] [address] Pharmacist Internal Medicine 01/20/23 documented as of this encounter
--- OUTSIDE RECORDS SUMMARY | 2025-01-19 23:38 | XMS_ITS | Encounter Summary ---
Author Organization [employer] Address [address] [facility] 7t [place] [address] Care Team Providers Care Health Lead Name Role Phone Stacie Vincent MD Primary Care Provider [phone] Fredy Mobley PharmD Unavailable [phone] Encounter Details Date Type Department Care Team (Late st Contact Info) Description 08/07/2024 Orders Only [facility] MEDICINE [address] [place], [place] [phone] Stacie Vincent MD [address] [place], [place] [phone] Chronic back pain, unspecified back location, unspecified [...] Office Visit [facility] OPTOMETRY [address] [place] [address] Eliazar, Lisa, OD [address] [place] [address] documented as of this encounter Goals Goal [...] documented as of this encounter Care Teams Health Lead Relationship Specialty Start Date End Date Stacie Vincent MD [address] [place] [address] PCP - General Family Medicine 10/31/21 Fredy Mobley, PharmD [address] [place] [address] Pharmacist Internal Medicine 01/20/23 documented as of this encounter
--- OUTSIDE RECORDS SUMMARY | 2025-01-19 23:38 | XMS_ITS | Encounter Summary ---
Author Organization [employer] Address [address] [place] [address] [place] [address] Care Team Providers Care Motor Coach Supervisor Name Role Phone Stacie Vincent MD Primary Care Provider [phone] Fredy Mobley PharmD Unavailable [phone] Reason for Visit * Reason Comments Med Refill Encounter Details Date Type Department Care Team (Late st Contact Info) Description 10/23/2024 Refill [facility] MEDICINE [address] [place], [place] [phone] Shira Oneil MD [address] [place], [place] [phone] Piriformis syndrome, unspecified laterality Social History Tobacco [...] Description 05/21/2025 2:00 PM EDT Office Visit [facility] OPTOMETRY [address] [place] [address] Lisa Perea, OD [address] [place] [address] documented as of this encounter Goals Goal [...] documented as of this encounter Care Teams Motor Coach Supervisor Relationship Specialty Start Date End Date Stacie Vincent MD [address] [place] [address] PCP - General Family Medicine 10/31/21 Fredy Mobley, Yudy [address] [place] [address] Pharmacist Internal Medicine 01/20/23 documented as of this encounter
--- OUTSIDE RECORDS SUMMARY | 2025-01-19 23:38 | XMS_ITS | Encounter Summary ---
Author Organization [employer] Address [address] [facility] 7t [place] [address] Care Team Providers Care Pig Machine Supervisor Name Role Phone Stacie Vincent MD Primary Care Provider [phone] Fredy Mobley PharmD Unavailable [phone] Reason for Visit * Reason Comments Med Refill Encounter Details Date Type Department Care Team ([facility] st Contact Info) Description 05/31/2024 Refill [facility] MED & PEDS [address] [place], [place] [phone] Stacie Vincent MD [address] [place] [address] Social History Tobacco Use Types Packs/Day Years [...] Description 05/21/2025 2:00 PM EDT Office Visit [facility] OPTOMETRY [address] [place], [place] [phone] Eliazar, Lisa, OD [address] [place], [place] [phone] documented as of this encounter Goals Goal [...] documented as of this encounter Care Teams Pig Machine Supervisor Relationship Specialty Start Date End Date Stacie Vincent MD [address] [place], [place] [phone] PCP - General Family Medicine 10/31/21 Fredy Mobley, PharmD [address] [place] [address] Pharmacist Internal Medicine 01/20/23 documented as of this encounter
[2025-01-20] MEDS: Lidocaine HCl Viscous 2 % 15 ML SOLUTION MUCOUS MEM (00:35)
[2025-01-20] MEDS: Magnesium Hydrox/Alum Hydrox 30 ML ORAL.SUSP PO (00:35)
[2025-01-20] MEDS: Lactated Ringers 1,000 ML 999 ML IV (00:36)
[2025-01-20 00:47] VITALS: BP 126/31; PULSE 81; RESP 16; O2SAT 97
[2025-01-20 01:30] LABS: Appearance Urine Clear; Glucose Urine UA Negative (Negative); PH 5.5 (5.0-9.0); Specific Gravity - Urine 1.020 (1.005-1.025); UMIC TRIGGER UA YES
--- NOTE | 2025-01-20 02:05 | PC.NURSE ---
During lab draw pt reports feeling anxious, mild sob, and feeling uncomfortable. Upper abd pain still present, 10/10. O2 sat 99% RA. Lung sounds are clear in all lobes. NSR on the monitor. HR 80's. No apparent distress noted. Verbal reassurance provided. Monitoring is ongoing. Lab draw for D dimer and Trop completed and sent.
[2025-01-20 02:19] LABS: D Dimer High Sensitivity < 150 NG/ML
[2025-01-20 02:28] LABS: Troponin-I High Sensitivity 3.3 ng/L (<3.5-17.0)
[2025-01-20 02:35] VITALS: BP 118/50; PULSE 83; RESP 20; TEMP 36.7; O2SAT 98
[2025-01-20 02:42] VITALS: BP 118/50; PULSE 83; RESP 20; TEMP 36.7; O2SAT 98
== END 2025-01-20 02:43 | disposition home or self-care (01) ==
PROVIDERS: Student in an Organized Health Care Education/Training Program; Emergency Provider Emergency Medicine; PCP Family Medicine
DX: R07.89 Other chest pain (principal); R13.10 Dysphagia, unspecified; K74.60 Unspecified cirrhosis of liver; K76.0 Fatty (change of) liver, not elsewhere classified; K21.9 Gastro-esophageal reflux disease without esophagitis; I10 Essential (primary) hypertension; E11.9 Type 2 diabetes mellitus without complications; Z79.899 Other long term (current) drug therapy; Z88.1 Allergy status to other antibiotic agents
CPT/HCPCS: 36415; 71046; 74176; 80053; 81001; 83735; 84484; 85025; 85379; 93005; 96361; 96374; 99284; 99285; J1308; J7120

== ENCOUNTER → 2025-01-19 22:26 | Outpatient (BNV) | payer MEDICARE, SELFPAY | PROVIDERS: Emergency Provider Emergency Medicine; PCP Family Medicine; Visit Provider Internal Medicine | DX: R07.9 Chest pain, unspecified (principal) | CPT/HCPCS: 93010 ==

== ENCOUNTER → 2025-01-19 23:50 | Outpatient (BNV) | payer MEDICARE, SELFPAY | PROVIDERS: Emergency Provider Student in an Organized Health Care Education/Training Program; PCP Family Medicine; Visit Provider General Practice | DX: K76.0 Fatty (change of) liver, not elsewhere classified (principal); R07.9 Chest pain, unspecified | CPT/HCPCS: 71046; 74176 ==